=== PATIENT | male | born 1940 | race Caucasian/White ===

== ENCOUNTER → 2017-05-27 16:01 | Outpatient (CLI) | payer MEDICARE, SELFPAY | PROVIDERS: Visit Provider Otolaryngology | DX: J01.90 Acute sinusitis, unspecified (principal) | CPT/HCPCS: 87070; 87205 ==

== ENCOUNTER 2017-05-30 18:58 | Inpatient (IN) | payer MEDICARE, OTHER, SELFPAY ==
[2017-05-30] VITALS (7 sets, daily range): BP systolic 134–157; BP diastolic 68–83; PULSE 67–96; RESP 16–24; TEMP 36.7–36.8; O2SAT 95–100; BMI 22.7
--- NOTE | 2017-05-30 19:25 | EKG12_ITS ---
Test Reason : NEURO Blood Pressure : / mmHG Vent. Rate : 070 BPM Atrial Rate : 070 BPM P-R Int : 120 ms QRS Dur : 090 ms QT Int : 394 ms P-R-T Axes : 021 017 056 degrees QTc Int : 425 ms Normal sinus rhythm Normal ECG Confirmed by SHERICE ARCOS, JOSE JUAN ([id number]), non linear editor JAMSHID IQBAL ([id number]) on 06/01/2017 3:58:50 PM Referred By: Francisco Townsend Confirmed By:JOSE JUAN SMILEY MD
--- NOTE | 2017-05-30 19:25 | CT_ITS ---
STUDY: CT BRAIN WITHOUT CONTRAST REASON FOR EXAM: Male, 77 years old. Headache, numbness left hand RADIATION DOSAGE (If Supplied By Facility): CTDIvol = ( 44.99 ) mGy, DLP = ( 863.60 ) mGycm TECHNIQUE: Transaxial CT imaging of the brain was performed without administration of intravenous contrast material. Sagittal and coronal images reformatted. Individualized dose optimization techniques were used for this CT. COMPARISON: None. FINDINGS: Normal soft tissue structures. Normal calvarium. There is mild cerebral atrophy with widening of the extra-axial spaces and ventricular dilatation. There are areas of decreased attenuation within the white matter tracts of the supratentorial brain, consistent with microvascular disease changes. Normal basal ganglia and thalami. Normal brainstem. Normal cerebellum. There is no intracranial hemorrhage. There are no findings of an acute ischemic infarction. There is mucoperiosteal inflammatory disease of the paranasal sinuses consistent with mild chronic sinusitis. CT/Brain/Head without Contrast IMPRESSION: Chronic involutional changes of the brain. No acute intracranial process. Mild sinusitis. Electronically Signed: Lambert Franco DO at 20:22 EDT , Service support ,
--- NOTE | 2017-05-30 19:45 | RAD_ITS ---
STUDY: X-RAY CHEST REASON FOR EXAM: Male, 77 years old. Headache TECHNIQUE: Single AP portable view of the chest. COMPARISON: None. FINDINGS: The lungs are clear and hyper expanded. There is no demonstrated pleural abnormality. Normal size heart. Normal mediastinum and santos. Normal visualized pulmonary arteries. Normal visualized aortic arch and descending thoracic aorta. Normal visualized thoracic spine. Normal visualized ribs, clavicles, and shoulders. There is no demonstrated abnormality of the visualized soft tissue structures of the upper abdomen. RAD/Chest 1 View IMPRESSION: Hyperinflation. No infiltrate. Electronically Signed: Lambert Franco DO at 20:12 EDT , Service support ,
[2017-05-30 19:59] LABS: Absolute Lymphocyte Count 2.09 X10^3/ul (0.83-4.51); Absolute Neutrophil Count 4.6 X10^3/uL (2.0-7.7); Basophil# 0.02 X10^3/uL; Basophil% 0.3 % (0-1); Eosinophil# 0.43 X10^3/uL; Eosinophils% 5.7 % (0-5); Hematocrit 41.7 % (40-54); Hemoglobin 13.9 g/dl (13.0-16.5); Lymphocyte # 2.09 X10^3/ul (4.0); Lymphocyte % 27.7 % (19-41); Mean Corp Hgb Conc 33.3 g/gl (32-36); Mean Corpuscular Hgb 31.2 pg (27.0-32.0); Mean Corpuscular Volume 93.5 fL (80-94); Mean Platelet Vol. 10.8 fl (6.2-12.0); Monocyte# 0.38 X10^3/uL; Neutrophil # 4.62 X10^3/uL (2.7-7.7); Neutrophil % 61.3 % (47-70); Platelet Count 192 K/mm3 (150-450); RBC Distribution Width CV 12.5 % (11.6-14.6); RBC Distribution Width SD 42.4 fl (35.1-43.9); Red Blood Count 4.46 M/mm3 (4.6-6.2); White Blood Count 7.5 K/mm3 (4.4-11.0)
[2017-05-30 20:02] LABS: International Normalized Ratio 1.1; Prothrombin Time (Protime)PT. 13.7 SECONDS (11.7-14.9)
[2017-05-30 20:03] LABS: Partial Thromboplast Time 30.9 Seconds (24.1-36.2)
[2017-05-30 20:10] LABS: Anion Gap 8 (5-15); BUN 19 mg/dL (7-18); BUN/Creat Ratio 13.8 RATIO (10-20); Calcium,Total 9.3 mg/dL (8.5-10.1); Chloride 105 mmol/L (98-107); Creatinine, Serum 1.38 mg/dL (0.70-1.30); EST Glomerular Filtration Rate 53 mL/min (>60); Est Glom Filt Rate - Afr Amer 64 mL/min (>60); Estimated Creatinine Clearance 49.52 ml/min; Glucose 99 mg/dL (74-106); Potassium 4.1 mmol/L (3.5-5.1); Sodium Level 137 mmol/L (136-145)
[2017-05-30 20:20] LABS: POSITIVE COUNT NO; POSITIVE DIFFERENTIAL NO; POSITIVE MORPHOLOGY NO
--- NOTE | 2017-05-30 20:45 | ED.DCSUM_ITS ---
- ER Visit Summary Date of Service: 05/30/17 Chief Complaint: Headache History of Present Illness: The patient is a 77 M who presents with a headache. He does have a history of migraines. His headache began yesterday evening and gradually worsened over several hours. He can planes of right frontal and parietal aching pain similar to prior headaches. He complains of photophobia which she is also had with previous migraines. He reports visual disturbance with what he describes as scintillations which he is also had with previous migraines. However today he had some left hand numbness which lasted about 5 minutes. He has not usually had this with his migraines. He also notes that he has been having the visual disturbances without the presence of a headache which concerned him. Although many of his symptoms sound similar to previous migraines the notes that he also has a history of ischemic stroke and has had some similar symptoms with a prior stroke as well. Physical Examination: Afebrile vitals are stable Moist mucous membranes Heart regular rate and rhythm Lungs are clear Abdomen soft NIH stroke scale is 0 next line no focal or lateralizing neurological deficits Test Results: CT of head shows chronic changes. Chest x-ray shows no infiltrate. EKG shows sinus rhythm at a rate of 70. Laboratory studies notable for creatinine 1.38 otherwise normal. Emergency Department Course and Treatment: Workup is unremarkable. However the family and patient do reports prior similar symptoms with a stroke as well. Although my clinical suspicion is that this is related to complex migraine I did feel he should have stroke ruled out with an MRI. Toradol and Reglan have been ordered for his headache and he was discussed with the hospitalist will be admitted. Treatment Plan: [] Disposition: Admit Impression: Migraine Left hand paresthesias This note was generated with [employer] dictation software. It may contain incorrect words, spelling, and punctuation that were not noted in review of the chart prior to signing ED Disposition - Plan for ED Patient: Chief Complaint: Neuro S/Sx Referrals: Jeremi Monk MD [Primary Care Provider] -
[2017-05-30] MEDS: 0.9% Normal Saline 1,000 ML 999 ML IV (20:52)
[2017-05-30] MEDS: Ketorolac 30 MG/ML Syringe 15 MG IV (20:52)
--- NOTE | 2017-05-30 21:18 | PCM.HP.STD ---
Problem List (1) Migraine Status: Acute Qualifiers: Migraine type: unspecified Status migrainosus presence: with status migrainosus Intractability: intractable Qualified Code(s): G43.911 - Migraine, unspecified, intractable, with status migrainosus (2) History of stroke Status: Chronic History of Present Illness Date of Admission: 05/30/17 Chief Complaint: headache The patient is a 77 year old male patient with a significant past medical history of migraine disorder presents to the ER with the second day of an intractable headache. Since his migraine activity has increased significantly having 10-15 migraines per month. This one is worse and he had a loss of feeling in his left hand first three digits when he arrived that has subsequently subsided. CT head is normal. When the light was turned back on his aura returned and headache resumed after receiving Toradol and Phenergan in the ER. He will be admitted for further headache management and an MRI in the AM Past Medical History Past Medical History (Chronic Problems): Chronic Problems History of stroke (Chronic) Allergies No Known Allergies Allergy (Verified 05/30/17 19:01) Home Medications: Ambulatory Orders Medication Instructions Recorded Albuterol Aerosols [Ventolin 2.5 mg INHALATION Q2H PRN PRN 07/24/13 Aerosols] Clopidogrel Bisulfate [Plavix] 75 mg PO DAILY 07/24/13 Ergocalciferol [Vitamin D] 50,000 unit PO Q7D 07/24/13 Fluticasone 0.05% [Flonase Nasal 1 spray NASAL DAILY 07/24/13 [place]] Guar Gum [Benefiber] 1 each PO DAILY 07/24/13 Lansoprazole [Prevacid] 30 mg PO DAILY 07/24/13 Lisinopril [Zestril] 10 mg PO DAILY 07/24/13 Loratadine [Claritin] 10 mg PO DAILY 07/24/13 Simvastatin [Zocor] 20 mg PO QHS 07/24/13 Topiramate [Topamax] 25 mg PO BID 07/24/13 Smoking Status: Never smoker - *Family History Maternal History Items: No pertinent history Review of Systems Constitutional: Denies: Chills, Fever, Weight Change HEENT: Denies: Head Aches, Sinus Congestion, Sinus Drainage Cardiovascular: Denies: Chest Pain, Palpitations Respiratory: Denies: Cough, Shortness of breath at rest, Sputum production Gastrointestinal: Denies: Abdominal Pain, Nausea, Vomiting Genitourinary: Denies: Dysuria Musculoskeletal: Denies: Joint Pain, Joint Tenderness Skin: Denies: Rash, Wounds Neurological: Reports: Blurred vision, Headaches, Numbness, Tingling. Denies: Focal weakness Psychiatric: Denies: Anxiety, Depression, Homicidal Ideations, Suicidal Ideations Hematologic/ Lymphatic: Denies: Easy Bruising, Easy Bleeding VTE Information - Inpt Only VTE Present on Admission: No VTE Mechan Device Prophylaxis: None VTE Pharm Prophylaxis ordered?: Yes Patient Problems: Active and Suspected Problems Migraine (Acute) - Physical Exam General: Alert, Oriented x3, Cooperative HEENT: Atraumatic, PERRLA, EOMI, Normocephalic Neck: Supple Lungs: Clear to auscultation, Normal air movement Cardiovascular: Regular rate, No murmurs Abdomen: Bowel Sounds Present, Soft, Non Tender Extremities: No edema, Capillary Refill Less than 3 Seconds Skin: No rashes, No breakdown Musculoskeletal: No Tenderness to Palpation of Joints or Extremities, - - neg phalen and neg tinel on left upper extremity Neurological: Cranial nerves II-XII grossly intact Psych/Mental Status: Normal Affect, Appropriate Vital Signs Temp Pulse Resp BP Pulse Ox 98.2 F 68 24 H 149/78 H 96 05/30/17 18:59 05/30/17 20:53 05/30/17 20:53 05/30/17 20:53 05/30/17 20:53 Oxygen Delivery Method Room Air Weight: 172 lb 2.896 oz Body Mass Index (BMI) 22.7 Finger Stick Blood Glucose 104 Laboratory Tests Past 24 Hrs 05/30/17 05/30/17 05/30/17 19:10 19:10 19:10 WBC 7.5 RBC 4.46 L Hgb 13.9 Hct 41.7 MCV 93.5 MCH 31.2 MCHC 33.3 RDW 12.5 RDW Differential 42.4 Plt Count 192 MPV 10.8 Immature Gran % (Auto) 0.000 Neut % (Auto) 61.3 Lymph % (Auto) 27.7 Bertie % (Auto) 5.0 Eos % (Auto) 5.7 H Baso % (Auto) 0.3 Absolute Neuts (auto) 4.6 Absolute Lymphs (auto) 2.09 Total Counted Not Reportable PT 13.7 INR 1.1 APTT 30.9 Sodium 137 Potassium 4.1 Chloride 105 Carbon Dioxide 24.0 Anion Gap 8 BUN 19 H Creatinine 1.38 H Estim Creat Clear Calc 49.52 Est GFR (MDRD) Af Amer 64 Est GFR (MDRD) Non-Af 53 L BUN/Creatinine Ratio 13.8 Glucose 99 Calcium 9.3 Troponin I < 0.02 Assessment/Plan Active and Suspected Problems Migraine (Acute) Chronic condition - history of stroke - GERD - Hypertension - Hyperlipidemia Plan - admit to PCU for observation - neurochecks per routine - MRI in the am - torodol IV and phenergan prn - diet as tolerated - LMWH for DVT prophylaxis - if headache persists in am consider neurology consult Code Visit OBSV E&M: 55891 Initial observation care L2
--- NOTE | 2017-05-30 23:16 | NURSING ---
has discs from scans patient has had previously.
[2017-05-30] MEDS: Topiramate 25 MG Tablet PO (23:52)
[2017-05-30] MEDS: Ketorolac 30 MG/ML Syringe IV (23:52)
[2017-05-30] MEDS: Atorvastatin Calcium 10 MG Tablet PO (23:52)
[2017-05-30] MEDS: 0.9% NaCl Peripheral Flush Adult/Peds IV (23:56)
[2017-05-31] VITALS (13 sets, daily range): BP systolic 108–136; BP diastolic 48–61; PULSE 55–76; RESP 14–20; TEMP 36.1–37; O2SAT 95–99; BMI 22.7
--- NOTE | 2017-05-31 06:41 | MRI_ITS ---
STUDY: MRI BRAIN WITHOUT CONTRAST REASON FOR EXAM: Male, 77 years old. Headache, left hand numbness, visual disturbances, photophobia TECHNIQUE: Standardized multiplanar fat and water weighted pulse sequences were obtained. COMPARISON: MRI 07/24/2013, CT 05/30/2017 FINDINGS: Normal size of the ventricles and extra-axial spaces for the patient's age. A punctate 2 to 3 mm focus of restricted diffusion is suspected in the midportion of the right thalamus as seen on diffusion and ADC map images #18. This corresponds to a tiny focal area of T2 hyperintensity. This finding was not present on previous MRI. Overall, a small acute or subacute infarct is suggested. There has been interval progression of right occipital encephalomalacia when compared to prior MRI. Minimal microangiopathic white matter disease. Normal bilateral basal ganglia. There is There is no extra-axial fluid accumulation. Normal flow voids within the major intracranial circulation suggesting patency by spin echo criteria. Normal sella turcica, pituitary gland, infundibular stalk, optic chiasm and hypothalamus. Normal tectal plate and pineal gland. Normal midbrain, shala and medulla. Normal cerebellum. Normal basal cisterns. Normal bilateral temporal bones. Normal bilateral internal auditory canals. No demonstrated orbital abnormality, within the constraints of a routine brain study. Bilateral ethmoid and maxillary sinus disease. Normal calvarium and skull base. Normal visualized soft tissue structures. Normal visualized upper cervical spine. MRI/Brain without Contrast IMPRESSION: A small punctate acute or subacute infarct is suspected in the midportion of the right thalamus. Interval progression of right occipital encephalomalacia. Minimal white matter disease. Electronically Signed: Louie Morley MD at 8:34 EDT Tel , Service support ,
[2017-05-31 06:57] LABS: Anion Gap 7 (5-15); BUN 19 mg/dL (7-18); Calcium,Total 8.6 mg/dL (8.5-10.1); Chloride 107 mmol/L (98-107); Cholesterol 108 mg/dL (200); Creatinine, Serum 1.46 mg/dL (0.70-1.30); EST Glomerular Filtration Rate 50 mL/min (>60); Est Glom Filt Rate - Afr Amer 60 mL/min (>60); Estimated Creatinine Clearance 46.81 ml/min; Glucose 78 mg/dL (74-106); High Density Lipoprotein 43 mg/dL; Potassium 4.1 mmol/L (3.5-5.1); Sodium Level 138 mmol/L (136-145); Triglycerides 85 mg/dL; Very Low Density Lipoprotein 17 mg/dL (5-40)
[2017-05-31] MEDS: Pantoprazole Sodium 40 MG Tablet PO (08:26)
[2017-05-31] MEDS: Enoxaparin 40 MG/0.4 ML Syringe SC (10:18)
[2017-05-31] MEDS: Psyllium 1 PACKET PO (10:18)
[2017-05-31] MEDS: Clopidogrel Bisulfate 75 MG Tablet PO (10:18)
[2017-05-31] MEDS: Lisinopril 10 MG Tablet PO (10:19)
[2017-05-31] MEDS: Topiramate 25 MG Tablet PO ×2 (10:19→21:49)
[2017-05-31] MEDS: Fluticasone 0.05% 1 SPRAY NASAL.SRY NASAL (10:20)
[2017-05-31] MEDS: Ketorolac 30 MG/ML Syringe IV (12:33)
--- NOTE | 2017-05-31 16:01 | CON.PCM_ITS ---
Problem List (1) Stroke Status: Acute Qualifiers: Precerebral and cerebral artery: posterior cerebral artery Laterality of affected vessel: unspecified (2) Migraine Status: Acute Qualifiers: Migraine type: unspecified Status migrainosus presence: without status migrainosus Intractability: not intractable Qualified Code(s): G43.909 - Migraine, unspecified, not intractable, without status migrainosus Reason for Consult Date of Consultation: 05/31/17 Reason for Consultation: stroke History of Present Illness: The patient is a 77 year old CM with PMH Stroke and migraine was admitted with severe LAMB, found to have new small right thalamic stroke. Per patient he had migraine LAMB for which he was on Topamax in the past but did not have HAs for the past few years, was off of Topamax, but then in 2016 had about 3 migraine HAs, started on Topamax 25 mg PO BID on 2016, since then did not have major migraine HAs but had about 20 auras in form of visual floaters and bright light in front of eyes, but then on Tuesday05/29/17 had severe LAMB, frontal, right sided, with visual floaters, photophobia, phonophobia, and also had left hand numbness, per patient and his , he would not get any numbness with his LAMB, per patient the left hand numbness lasted only few minutes, then again when he came to ED had another episode of left hand numbness which lasted only 5 minutes. At present he denies any LAMB, visual disturbances, speech disturbances, focal motor weakness or sensory loss. He denies any vision loss, temporal tenderness or jaw claudication. [] Past Medical History Past Medical History (Chronic Problems): Chronic Problems History of stroke (Chronic) Allergies seasonal Allergy (Mild, Uncoded 05/30/17 22:56) Other Pt gets runny nose, sneezing, headache. Home Medications: Ambulatory Orders Medication Instructions Recorded Albuterol Aerosols [Ventolin 2.5 mg INHALATION Q2H PRN PRN 07/24/13 Aerosols] Clopidogrel Bisulfate [Plavix] 75 mg PO DAILY 07/24/13 Guar Gum [Benefiber] 1 each PO DAILY 07/24/13 Lansoprazole [Prevacid] 30 mg PO DAILY 07/24/13 Lisinopril [Zestril] 10 mg PO DAILY 07/24/13 Simvastatin [Zocor] 20 mg PO QHS 07/24/13 Topiramate [Topamax] 25 mg PO BID 07/24/13 Calcium Carbonate [Tums] 750 mg PO QHS 05/30/17 Cefdinir 300 mg PO BID 05/30/17 Cyanocobalamin (Vitamin B-12) 1,000 mcg PO DAILY 05/30/17 [Vitamin B-12] Ergocalciferol [Vitamin D] 2,000 unit PO DAILY 05/30/17 Mometasone Furoate [Nasonex] 2 spray NASAL DAILY 05/30/17 Lives: Spouse/ Significant Other Smoking Status: Never smoker Alcohol: None Drugs: None - *Family History Maternal History Items: No pertinent history Review of Systems Constitutional: Reports: - - complete ROS negative except as documented in HPI Patient Problems: Active and Suspected Problems Migraine (Acute) Stroke (Acute) - Physical Exam General: Alert, Oriented x3, Cooperative HEENT: Atraumatic, PERRLA, EOMI, Normocephalic Neck: Supple, No JVD, Negative Carotid Bruits Lungs: Clear to auscultation, Normal air movement Cardiovascular: Regular rate, No murmurs Abdomen: Bowel Sounds Present, Soft, Non Tender Extremities: No edema, Capillary Refill Less than 3 Seconds Skin: No rashes, No breakdown Musculoskeletal: No Tenderness to Palpation of Joints or Extremities Neurological: - - consious, alert, AoA x3, CN 2-12 grossly intact, power 5/5 all 4 extremities, no sensory loss, no cerebellar signs, Reflexes + B/L B/S/T/K/ A, gait deferred, NIHSS 0 at present. Psych/Mental Status: Normal Affect, Appropriate Vital Signs Temp Pulse Resp BP Pulse Ox 97.9 F 66 16 108/57 L 98 05/31/17 13:44 05/31/17 14:54 05/31/17 13:44 05/31/17 13:44 05/31/17 13:44 Assessment/Plan Active and Suspected Problems Migraine (Acute) Stroke (Acute) The patient is a 77 year old CM with PMH Stroke and migraine was admitted with severe LAMB, found to have new small right thalamic stroke. Per patient he had migraine LAMB for which he was on Topamax in the past but did not have HAs for the past few years, was off of Topamax, but then in 2017 had about 3 migraine HAs, started on Topamax 25 mg PO BID on 2016, since then did not have major migraine HAs but had about 20 auras in form of visual floaters and bright light in front of eyes, but then on Tuesday05/29/17 had severe LAMB, frontal, right sided, with visual floaters, photophobia, phonophobia, and also had left hand numbness, per patient and his , he would not get any numbness with his LAMB, per patient the left hand numbness lasted only few minutes, then again when he came to ED had another episode of left hand numbness which lasted only 5 minutes. At present he denies any LAMB, visual disturbances, speech disturbances, focal motor weakness or sensory loss. He denies any vision loss, temporal tenderness or jaw claudication. On Plavix at home. Impression Acute/subacute small right thalamic stroke Migraine with aura, not intractable, not in status Plan -Recommend starting ASA 81 mg PO once daily. ON Plavix 75 mg PO once daily. Recommend dual AP for 3 weeks, then switch to single AP. -Recommend Lipitor 40 mg PO q hs -MRI brain images reviewed -Recommend MRA head/neck -Recommend TTE/Hba1c -Recommend ESR -LDL-48 -PT/OT -GI/DVT prophylaxis -On Topamax 25 mg PO BID for migraine LAMB -Follow up with Neurology as outpatient in 2-3 weeks -Please call with questions if any -Thank you for allowing us to participate in patient's care and management I spent 60 minutes taking history, doing physical examination, reviewing medical records, coordinating care and counseling the patient. Code Visit Inpatient E&M: 35918 Init Hosp L3
--- NOTE | 2017-05-31 16:09 | ECHOD_ITS ---
Reason For Study: STROKE Procedure This was a 2D Doppler, Color Flow transthoracic echocardiogram. Technically difficult parasternal windows . Exam performed portable in patient room. Left Ventricle Normal size and thickness. The estimated ejection fraction is 60 %. Stage 1 diastolic dysfunction. No regional wall motion abnormalities noted. Right Ventricle Normal size and thickness. Normal systolic function. Atria Normal left atrium. Normal right atrium. Probable patent foramen ovale. Saline contrast study demonstrates trivial right to left interatrial shunt. Mitral Valve The mitral valve is structurally normal. No prolapse or stenosis seen. Tricuspid Valve Normal tricuspid valve. Trivial tricuspid valve insufficiency. Right ventricular systolic pressure estimated to be 23 mmHg. Aortic Valve Normal aortic valve. Trisinus/trileaflet aortic valve. Pulmonic Valve Normal pulmonic valve. Great Vessels Normal aortic root. Normal arch. Normal inferior vena cava. Inferior vena cava collapse with sniff. Medication Performed a rapid injection of agitated mix of 9 cc saline and 1cc air to assess for atrial septal defect. MMode/2D Measurements & Calculations LVIDd: 4.2 cm IVSd: 0.93 cm Ao root diam: 3.9 cm LVIDs: 2.9 cm LVPWd: 1.1 cm LA dimension: 3.8 cm RVDd: 3.4 cm FS: 31.1 % LAV(MOD-bp): 41.7 ml EDV(MOD-sp4): 103.6 ml EDV(MOD-sp2): 78.8 ml LAV(MOD-bp) Indexed: 20.6 ml/m2 ESV(MOD-sp4): 28.8 ml EF(MOD-sp2): 67.2 % LAV(MOD-sp2): 50.7 ml EF(MOD-sp4): 72.2 % LAV(MOD-sp4): 34.9 ml SV(MOD-sp4): 74.8 ml SV(MOD-sp2): 52.9 ml LA A4 area: 14.8 cm2 RA A4 area: 12.5 cm2 Doppler Measurements & Calculations MV E max cecilio: 83.2 cm/sec Ao V2 max: 123.4 cm/sec LV V1 max: 124.4 cm/sec MV A max cecilio: 100.0 cm/sec Ao max P.1 mmHg LV V1 max P.2 mmHg MV E/A: 0.83 PA V2 max: 101.9 cm/sec TR max cecilio: 212.6 cm/sec TR max P.1 mmHg Interpretation Summary The estimated ejection fraction is 60 %. Stage 1 diastolic dysfunction. Saline contrast study demonstrates trivial right to left interatrial shunt. Right ventricular systolic pressure estimated to be 23 mmHg. The study was technically difficult. There is no comparison study available. Ordering Physician: Gabriel Trimble Referring Physician: Francisco Townsend Performed By: Cynthia Newsome RDCS, RVT
--- NOTE | 2017-05-31 16:10 | MRI_ITS ---
STUDY: MRA OF THE HEAD WITHOUT CONTRAST REASON FOR EXAM: Male, 77 years old. Stroke, headache. TECHNIQUE: 3-D [id number] (TOF) imaging was performed with MIPs. The study was performed unenhanced. COMPARISON: None. FINDINGS: Normal bilateral petrous carotid arteries. Normal right cavernous carotid artery with a normal supraclinoid bifurcation. Normal left cavernous carotid artery with a normal supraclinoid bifurcation. Normal right A1 segments of the anterior cerebral artery. Normal left A1 segments of the anterior cerebral artery. Normal intact anterior communicating artery (ACOM). Normal bilateral A2 segments of the anterior cerebral arteries. Normal right M1 and M2 segments of the middle cerebral arteries, with a normal M1 bifurcation. Normal left M1 and M2 segments of the middle cerebral arteries, with a normal M1 bifurcation. Normal right posterior communicating artery (PCOM). Normal left posterior communicating artery (PCOM). Diminutive visualized left vertebral V4 segment is present. Normal basilar artery with a normal basilar bifurcation. The visualized bilateral superior cerebellar (SCA) arteries are normal. Normal bilateral P1, P2 and visualized P3 segments of the posterior cerebral arteries. There is no demonstrated aneurysm of the [place]. There is no major vessel occlusion or hemodynamically significant stenosis. There is no demonstrated abnormality of the visualized brain. MRI/MRA Head ONLY without Contrast IMPRESSION: 1. No evidence of significant steno-occlusive disease or aneurysm. 2. Diminutive left V4 vertebral artery segment. Electronically Signed: Matias Luevano DO at 22:44 EDT , Service support ,
--- NOTE | 2017-05-31 16:10 | MRI_ITS ---
STUDY: MRA NECK WITH AND WITHOUT CONTRAST REASON FOR EXAM: Male, 77 years old. Stroke. H/A, visual disturbances, Left hand numbness, photophobia. TECHNIQUE: 3-D [id number] (TOF) imaging was performed in an 1.5 T MRI scanner. 8 ml of Gadavist was administered for the contrast enhanced images. COMPARISON: None. FINDINGS: RIGHT CAROTID ARTERIES: Normal right common carotid artery (CCA). Normal right common carotid bulb. There is severe narrowing greater than 70% of the proximal to mid right ICA with noted reconstitution of flow distally. Normal visualized cervical portion of the right internal carotid artery. Normal origin of the right external carotid artery (ECA). LEFT CAROTID ARTERIES: Normal left common carotid artery (CCA). Normal left common carotid bulb. There is focal narrowing of the proximal left ICA with narrowed portion measuring 5 mm and more superior portion measuring 8 mm consistent with approximately 60-70% focal stenosis as seen on series 304 image 7. Normal visualized cervical portion of the left internal carotid artery. Normal origin of the left external carotid artery (ECA). VERTEBRAL ARTERIES: There is antegrade flow within the bilateral vertebral arteries with a small left vertebral artery, and a dominant right vertebral artery. MRI/MRA Neck WITH and W/O Contrast IMPRESSION: 1. Proximal right ICA severe greater than 70% stenosis with reconstitution of flow distally. Recommend further characterization with CTA and interventional consultation as warranted. 2. Focal stenosis of the left proximal ICA proximal 60-70%. Electronically Signed: Matias Luevano DO at 22:29 EDT , Service support ,
[2017-05-31 16:54] LABS: Erythrocyte Sedimentation Rate 7 mm/hr (0-20)
[2017-05-31 17:31] LABS: Hemoglobin A1c 5.6 % (4.2-6.3)
--- NOTE | 2017-05-31 21:15 | PN_ITS ---
Patient Problems: Active and Suspected Problems Migraine (Acute) Stroke (Acute) Subjective: Patient is a 77-year-old man with a history of ischemic CVA, migraines, allergic rhinitis, GERD, HTN and dyslipidemia who presented to the Ed at [facility] on 05/30/17 c/o severe LAMB and numbness in the left hand. CTB showed no acute findings. Remarkable lab included an elevated BUN at 19 with a creatinine of 1.38. Troponin was less than 0.02. He was admitted to a monitored bed on PCU neuro checks were ordered. An MRI was ordered for the a.m. and showed a small punctate acute or subacute infarct in the midportion of the right thalamus. There has been interval progression of the right occipital encephalomalacia from prior CVA. MRA of the head and neck has been done but there is no report yet. And has been seen in consultation by Dr. Trimble for migraines and possible acute/subacute ischemic CVA in the right thalamus. Dr. Trimble recommended starting aspirin 81 mg p.o. daily in addition to Plavix he already takes, Lipitor 40 mg Q HS, ESR, TTE. He also recommended continuing the Topamax 25 mg BID for now. He denies LAMB today and the numbness in the left hand has completely resolved. He has never had a seizure. He was recently started on Cefidinir by Dr. Townsend for a sinus infection. He has had migraines for many many years. The migraines are preceded by an aura. - Physical Exam General: Alert, Oriented x3, Cooperative, No apparent distress, Well developed, Well nourished HEENT: Atraumatic, PERRLA, EOMI, Normocephalic Oral: Dry Mucosa Neck: Supple, No JVD, Negative Carotid Bruits, No Nodes, No Nuchal Rigidity, Trachea Midline Lungs: Clear to auscultation, No rhonchi, No wheeze, No rales Cardiovascular: Regular rate, Regular Rhythm, Normal S1, Normal S2, No murmurs, No rub noted, No Gallop, - - heart sounds are somewhat distant Abdomen: Bowel Sounds Present, Soft, Non Tender, Non-Distended Extremities: No clubbing, No cyanosis, No edema Skin: No rashes, No breakdown Musculoskeletal: No Muscle Wasting, Arthritic Changes Neurological: Cranial nerves II-XII grossly intact, Neuro grossly intact, Motor Exam 5/5 strength throughout, - - negative Romberg, no sensory deficits at present. NIH is 0 Psych/Mental Status: Normal Affect, Appropriate Vital Signs Temp Pulse Resp BP Pulse Ox 98.6 F 76 16 119/57 L 99 05/31/17 17:43 05/31/17 18:49 05/31/17 17:43 05/31/17 17:43 05/31/17 17:43 Oxygen Delivery Method Room Air Weight: 172 lb 2.896 oz Body Mass Index (BMI) 22.7 Intake and Output for Last 24 Hours 05/29/17 05/30/17 05/31/17 23:59 23:59 23:59 Intake Total 75 / 75 710 / 710 Balance 75 / 75 710 / 710 Laboratory Tests Past 24 Hrs 05/31/17 05/31/17 05/31/17 05:55 05:55 05:55 ESR 7 Sodium 138 Potassium 4.1 Chloride 107 Carbon Dioxide 24.0 Anion Gap 7 BUN 19 H Creatinine 1.46 H Estim Creat Clear Calc 46.81 Est GFR (MDRD) Af Amer 60 Est GFR (MDRD) Non-Af 50 L BUN/Creatinine Ratio 13.0 Glucose 78 Hemoglobin A1c 5.6 Calcium 8.6 Triglycerides 85 Cholesterol 108 LDL Cholesterol 48 VLDL Cholesterol 17 HDL Cholesterol 43 Assessment/Plan Active and Suspected Problems Migraine (Acute) Stroke (Acute) Impressions 1. acute/subacute R thalamic CVA 2. 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 Migraine cephalgia 4. sinusitis being treated by Dr. Townsend with Cefdinir 5. GERD 6. Allergic rhinitis 7. Dyslipidemia 8. Hypertension 9. COPD? or asthma? he is on albuterol PRN Continue the Cefdinir Await the report of the MRA of the head and the Neck......no significant arterial stenosis on an MRA of the head and neck at [facility] in 2013 Dual antiplatelet therapy TTE Continue to monitor on telemetry Will follow up with Dr. Trimble after DC. If the ECHO shows any LAE may need a event monitor to exclude PAF as etiology of the CVA Code Visit Inpatient E&M: 66545 Subs Hosp L3
[2017-05-31] MEDS: Atorvastatin Calcium 40 MG Tablet PO (21:48)
[2017-05-31] MEDS: 0.9% NaCl Peripheral Flush Adult/Peds IV (21:56)
--- NOTE | 2017-05-31 23:20 | EKG12_ITS ---
Test Reason : RHYTHM CHANGE Blood Pressure : / mmHG Vent. Rate : 068 BPM Atrial Rate : 068 BPM P-R Int : 176 ms QRS Dur : 092 ms QT Int : 378 ms P-R-T Axes : 061 034 062 degrees QTc Int : 401 ms Normal sinus rhythm Low voltage QRS Borderline ECG When compared with ECG of 24-JUL-2013 13:04, No significant change was found Confirmed by SHERICE ARCOS, JOSE JUAN ([id number]), newspaper or periodical editor JAMSHID IQBAL ([id number]) on 06/03/2017 1:38:43 PM Referred By: Francisco Townsend Confirmed By:JOSE JUAN SMILEY MD
[2017-06-01] VITALS (38 sets, daily range): BP systolic 85–148; BP diastolic 44–74; PULSE 61–114; RESP 14–24; TEMP 36.3–37.1; O2SAT 95–100; BMI 22.7
[2017-06-01 01:13] LABS: Magnesium 2.1 mg/dL (1.6-2.6)
[2017-06-01] MEDS: 0.9% NaCl Peripheral Flush Adult/Peds IV ×2 (07:07→07:32)
[2017-06-01] MEDS: Metoclopramide 10 MG/2 ML Vial 5 MG IV (07:33)
--- NOTE | 2017-06-01 07:56 | NURSING ---
Pt's family very concerned, patient seeing flashing light from left eye, was having some dizziness after BM. At that time, NIH was still a 0; Dr. Akhtar called for orders concerning 10/28 headache/migraine. Dr. Akhtar felt he was having an aura and that this was the start of a migraine. Orders were placed, pain medication given per MAR. Patient and patient's family member were updated. Patient's then came to get primary nurse shortly after RN leaving room, concerned as pain was getting worse and she felt the patient's eyes were deviating to the left as they did when he first had his stroke. Primary RN went to room to see and talk with patient and . Dayshift RN came in, this primary RN explained everything that was going on, an NIH was completed together at that time. Changes noted, talked with nightshift and dayshift charge nurse to bring them up to speed. Patient was positive for a stroke this admission, explained to family and patient that we are monitoring him and that Dr. Akhtar and charge nurse are aware of what is going on. Education provided on waxing and waning with a stroke, and how we will continue care. Gave ordered medications per Dr. Akhtar, Dayshift RN to update Dr. Akhtar and family throughout day.
--- NOTE | 2017-06-01 09:23 | CASEMGMT ---
STACIA CM ASSESSMENT COMPLETE. LACE Strata 1. Adm Dx: Intractable Migraine vs Stroke Transition Planning/Care Coordination: Per EMR and interview with patient and patient's spouse, Fallon, patient has a history of migraines and stroke. Patient has followed with neurology and cardiovascular surgery at [facility] ([facility]). The patient has been seen by neurology here at [facility] during this hospitalization with recommendations to follow-up in 2-3 weeks, and for medication adjustments. MRA revealed >70% stenosis in the right ICA, with recommendation for further characterization with CTA and interventional consultation as warranted. The patient may need assistance with scheduling follow-up. The patient is normally independent, drives, and lives with spouse. Final transition and care coordination needs to be determined by hospital clinical course. RN CM will continue to follow for transition and care coordination needs. Disposition Plan: Home with support of spouse and with follow-up plans in place. ADINA Logan, RN-BC, CCM
[2017-06-01] MEDS: Aspirin 81 MG TAB.CHEW PO (09:33)
[2017-06-01] MEDS: Enoxaparin 40 MG/0.4 ML Syringe SC (09:37)
[2017-06-01] MEDS: Pantoprazole Sodium 40 MG Tablet PO (09:41)
[2017-06-01] MEDS: Clopidogrel Bisulfate 75 MG Tablet PO (09:41)
[2017-06-01] MEDS: Lisinopril 10 MG Tablet PO (09:41)
[2017-06-01] MEDS: Topiramate 25 MG Tablet PO ×2 (09:41→10:54)
[2017-06-01] MEDS: Cefdinir 300 MG Capsule PO (10:54)
--- NOTE | 2017-06-01 12:05 | EKG12_ITS ---
Test Reason : CP Blood Pressure : / mmHG Vent. Rate : 073 BPM Atrial Rate : 073 BPM P-R Int : 166 ms QRS Dur : 088 ms QT Int : 378 ms P-R-T Axes : 041 001 048 degrees QTc Int : 416 ms Normal sinus rhythm Normal ECG When compared with ECG of 31-MAY-2017 23:26, MANUAL COMPARISON REQUIRED, DATA IS UNCONFIRMED Confirmed by EFFIE YORK ([id number]), book editor JAMSHID IQBAL ([id number]) on 06/06/2017 2:44:26 PM Referred By: Francisco Townsend Confirmed By:EFFIE YORK
--- NOTE | 2017-06-01 12:17 | CT_ITS ---
STUDY: CT BRAIN WITHOUT CONTRAST REASON FOR EXAM: Male, 77 years old. Follow-up for right thalamic CVA. RADIATION DOSAGE (If Supplied By Facility): CTDIvol = ( 44.99 ) mGy, DLP = ( 846.73 ) mGycm TECHNIQUE: Transaxial CT imaging of the brain was performed without administration of intravenous contrast material. Individualized dose optimization techniques were used for this CT. COMPARISON: Comparison is made with prior study May 30, 2017. FINDINGS: Normal soft tissue structures. Normal calvarium. There is mild cerebral atrophy with widening of the extra-axial spaces and ventricular dilatation. There are areas of decreased attenuation within the white matter tracts of the supratentorial brain, consistent with microvascular disease changes. Stable focal area of encephalomalacia in the posterior medial aspect of the right occipital lobe. Normal basal ganglia and thalami. Normal brainstem. Normal cerebellum. There is no intracranial hemorrhage. There are no findings of an acute ischemic infarction. Atherosclerotic calcification of the vertebral arteries and the cavernous portions of the internal carotid arteries bilaterally. Partial opacification of the maxillary sinuses and the ethmoid sinuses as well as the right sphenoid sinus. CT/Brain/Head without Contrast IMPRESSION: Chronic involutional changes of the brain. Stable Ancef malacia in the posterior medial aspect of the right occipital lobe. Sinusitis. Electronically Signed: eKanu Mallory MD at 14:33 EDT Tel [phone], Service support ,
--- NOTE | 2017-06-01 12:20 | PCM.PROGNOTE ---
Patient Problems: Active and Suspected Problems Migraine (Acute) Stroke (Acute) Subjective: Patient had recurrence of right cephalgia this a.m. and was treated with Depakote, metoclopramide and Decadron. Topamax was increased to 50 mg twice daily by Dr. Trimble. He has now developed left arm and left with a weakness and uncontrollable shaking of his left arm and left leg. He has had no loss of consciousness. He does complain of photophobia. ESR ordered by Dr. Trimble was 7. Cardiac enzymes have been negative. He is afebrile and his vital signs are currently stable. He is 96% saturated on room air. MRA of the head showed no significant steno-occlusive disease or aneurysm. There is a diminutive left V4 vertebral artery segment. MRA of the neck showed severe narrowing, other than 70% stenosis, of the proximal to mid right internal carotid artery with noted reconstitution of flow distally. There was focal narrowing of the left carotid artery approximated at 60-70%. Echocardiogram showed a 60% left ventricular ejection fraction with stage I diastolic dysfunction. There was a trivial right to left interatrial shunt and no pulmonary hypertension. - Physical Exam General: Lethargic - slow to answer questions but when you ask him to speak up he was more alert and he was oriented X 3 and appropriate HEENT: Atraumatic, PERRLA, Normocephalic Oral: Dry Mucosa Neck: Supple, No JVD, No Nodes, No Nuchal Rigidity, Trachea Midline Lungs: Clear to auscultation, Diminished Cardiovascular: Regular rate, Regular Rhythm, Normal S1, Normal S2, No Gallop, - - Telemetry shows normal sinus rhythm with no ectopy since admission Abdomen: Bowel Sounds Present, Soft, Non Tender Extremities: No clubbing, No cyanosis, No edema Skin: No rashes Neurological: - - He has decreased strength in the LUE and the LLE and has rhythmic shaking of the LUE>LLE. He has Left eye drift to the left. He has left side neglect. He is alert and oriented X 3. No facial droop. Psych/Mental Status: Appropriate Vital Signs Temp Pulse Resp BP Pulse Ox 97.9 F 70 16 146/74 H 96 06/01/17 09:40 06/01/17 09:40 06/01/17 09:40 06/01/17 09:40 06/01/17 09:40 Oxygen Delivery Method Room Air Body Mass Index (BMI) 22.7 Intake and Output for Last 24 Hours 05/30/17 05/31/17 06/01/17 23:59 23:59 23:59 Intake Total 440 / 710 720 / 720 Output Total 200 / 200 Balance 440 / 710 520 / 520 Laboratory Tests Past 24 Hrs 06/01/17 06/01/17 06/01/17 00:35 04:08 08:20 Magnesium 2.1 Troponin I < 0.02 < 0.02 < 0.02 Assessment/Plan Active and Suspected Problems Migraine (Acute) Stroke (Acute) Impressions 1. acute/subacute R thalamic CVA 2. 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 Migraine cephalgia 4. sinusitis being treated by Dr. Townsend with Cefdinir 5. GERD 6. Allergic rhinitis 7. Dyslipidemia 8. Hypertension 9. COPD? or asthma? he is on albuterol PRN 10. new Left side weakness with partial seizures involving the LUE>LLE with left side neglect 11. BL ICA stenosis - the R reconstitutes with Collaterals and the Left is focal (5mm). 12. small interatrial shunt Discussed with Dr. Trimble who has examined the patient now Stat CTB Ativan 1 mg IV and 1,000 mg Keppra followed by 500 mg BID If the CT is negative will need to get another MRI EEG ordered Code Visit Inpatient E&M: 75530 Subs Hosp L3
--- NOTE | 2017-06-01 12:32 | VDLE_ITS ---
Reason For Study: CVA with PFO RIGHT LEFT GSV is normal. GSV is normal. CFV is compressible, spontaneous, phasic, CFV is compressible, spontaneous, phasic, competent and demonstrates normal competent, and demonstrates normal augmentation. augmentation. FV is compressible, spontaneous, phasic, FV is compressible, spontaneous, phasic, competent and demonstrates normal competent and demonstrates normal augmentation. augmentation. POP V is compressible, spontaneous, phasic, POP V is compressible, spontaneous, phasic, competent and demonstrates normal competent and demonstrates normal augmentation. augmentation. T/P Trunk is compressible. T/P Trunk is compressible. PTV is compressible. PTV is compressible. RT PerV is compressible. LT PerV is compressible. Rt SSV is partially compressible with bright Lt SSV and Lt GSV have thickened vein john. intraluminal echoes consistent with chronic SVT Rt GSV has thickened vein john. Procedure Exam performed portable in ICU/CCU. The study was technically difficult. A preliminary report was called and/or faxed to [facility]. Interpretation Summary Deep veins of the lower extremities are bilaterally patent and compressible segmentally. There is no evidence of deep vein thrombosis on either side. Valvular competence appears intact within the proximal deep venous systems bilaterally. The greater saphenous veins appear bilaterally patent and compressible segmentally. Chronic vein wall thickening is noted in the right greater saphenous vein, and the left greater saphenous vein and small saphenous vein. Chronic venous changes are noted in the right small saphenous vein as well. Ordering Physician: Sophie Akhtar Referring Physician: Jeremi Monk Performed By: Beba Mata, MAXIME, RVT
[2017-06-01] MEDS: LORazepam 2 MG/ML Syringe IV (12:45)
[2017-06-01] MEDS: 0.9% Normal Saline 1,000 ML 999 ML IV (12:51)
--- NOTE | 2017-06-01 13:00 | NURSING ---
PT ARRIVES FROM PCU. DR FITCH AT BEDSIDE. PREPARING FOR INTUBATION
[2017-06-01] MEDS: LORazepam 2 MG/ML Syringe 1 MG IV ×2 (13:05→13:11)
[2017-06-01] MEDS: Etomidate 20 MG/10 ML Vial IV (13:10)
[2017-06-01] MEDS: Etomidate 20 MG/10 ML Vial 10 MG IV ×2 (13:14→13:19)
--- NOTE | 2017-06-01 13:20 | NURSING ---
pt intubated per Dr. Hu. 7.5 ETT, 22cm at the lip.
--- NOTE | 2017-06-01 13:37 | PCM.CON.CC ---
Reason for Consult Date of Consultation: 06/01/17 Reason for Consultation: Acute Respiratory Failure History of Present Illness: The patient is a 77-year-old male, with a history as outlined below, who initially presented to the emergency department on May 30 with complaints of a headache in the setting of a history of migraines. The patient does have a history of a previous ischemic stroke. On presentation to the emergency department, the patient was noted to be afebrile, mildly hypertensive and maintaining appropriate oxygen saturations on room air. Laboratory evaluation revealed no evidence of a leukocytosis. INR was within normal limits. Chemistry profile was notable for an elevated creatinine to 1.38. Troponin was negative. Head CT revealed chronic involutional changes without an acute intracranial process. Plain film chest x-ray revealed no acute cardiopulmonary process. The patient was initially admitted to the PCU for ongoing medical management. MRI brain was completed on May 31 and revealed evidence of a small punctate acute infarction in the midportion of the right thalamus. There is also note of interval progression of the right occipital encephalomalacia. The patient was seen in consultation by neurology. Medical management was subsequently initiated. The patient's neurological status began to decline over the course of the day June 01. At some point he developed partial seizures which then became generalized tonic-clonic seizures. The patient was treated with Ativan and subsequently transferred to the medical intensive care unit. The patient was unresponsive upon arrival to the ICU. The patient was noted to have bit his tongue and there was a great deal of blood in the patient's posterior oropharynx. The patient was subsequently intubated by video laryngoscopy without complication. Neurology was notified and the patient was taken emergently for a repeat CT head. Past Medical History Past Medical History (Chronic Problems): Chronic Problems History of stroke (Chronic) Allergies seasonal Allergy (Mild, Uncoded 05/30/17 22:56) Other Pt gets runny nose, sneezing, headache. Home Medications: Ambulatory Orders Medication Instructions Recorded Albuterol Aerosols [Ventolin 2.5 mg INHALATION Q2H PRN PRN 07/24/13 Aerosols] Clopidogrel Bisulfate [Plavix] 75 mg PO DAILY 07/24/13 Guar Gum [Benefiber] 1 each PO DAILY 07/24/13 Lansoprazole [Prevacid] 30 mg PO DAILY 07/24/13 Lisinopril [Zestril] 10 mg PO DAILY 07/24/13 Simvastatin [Zocor] 20 mg PO QHS 07/24/13 Topiramate [Topamax] 25 mg PO BID 07/24/13 Calcium Carbonate [Tums] 750 mg PO QHS 05/30/17 Cefdinir 300 mg PO BID 05/30/17 Cyanocobalamin (Vitamin B-12) 1,000 mcg PO DAILY 05/30/17 [Vitamin B-12] Ergocalciferol [Vitamin D] 2,000 unit PO DAILY 05/30/17 Mometasone Furoate [Nasonex] 2 spray NASAL DAILY 05/30/17 Lives: Spouse/ Significant Other Smoking Status: Never smoker Alcohol: None Drugs: None - *Family History Maternal History Items: No pertinent history Review of Systems Unable to obtain accurate/complete ROS d/t: Due to current intubation and mechanical ventilation status. Patient Problems: Active and Suspected Problems Migraine (Acute) Stroke (Acute) Objective: The patient's most recent lab work, culture data and imaging studies have all been personally reviewed. - Physical Exam General: - - Currently intubated and mechanically ventilated. HEENT: Atraumatic, PERRLA, Normocephalic Oral: No Gingival or Mucosal Lesions/ Ulcerations, - - Endotracheal and OG tube in place Neck: Supple, No Nodes, Trachea Midline Lungs: No rhonchi, No wheeze, No rales, Diminished, - - Bloody posterior oropharynx Cardiovascular: Regular rate, Regular Rhythm, Normal S1, Normal S2, No murmurs, No rub noted, No Gallop Abdomen: Bowel Sounds Present, Soft, Non Tender Extremities: No clubbing, No cyanosis, No edema Skin: No rashes, No breakdown Musculoskeletal: No Muscle Wasting Neurological: - - Currently nonresponsive following sedative administration for intubation. Unable to perform full neurological evaluation Vital Signs Temp Pulse Resp BP Pulse Ox 97.9 F 70 16 146/74 H 96 06/01/17 09:40 06/01/17 11:19 06/01/17 09:40 06/01/17 09:40 06/01/17 09:40 Oxygen Delivery Method Room Air Body Mass Index (BMI) 22.7 Intake and Output for Last 24 Hours 05/30/17 05/31/17 06/01/17 23:59 23:59 23:59 Intake Total 440 / 710 720 / 720 Output Total 200 / 200 Balance 440 / 710 520 / 520 Laboratory Tests Past 24 Hrs 06/01/17 06/01/17 06/01/17 00:35 04:08 08:20 Magnesium 2.1 Troponin I < 0.02 < 0.02 < 0.02 Labs (Last 48 Hours) 05/30/17 05/30/17 05/30/17 19:10 19:10 19:10 WBC 7.5 RBC 4.46 L Hgb 13.9 Hct 41.7 MCV 93.5 MCH 31.2 MCHC 33.3 RDW 12.5 RDW Differential 42.4 Plt Count 192 MPV 10.8 Immature Gran % (Auto) 0.000 Neut % (Auto) 61.3 Lymph % (Auto) 27.7 Collin % (Auto) 5.0 Eos % (Auto) 5.7 H Baso % (Auto) 0.3 Absolute Neuts (auto) 4.6 Absolute Lymphs (auto) 2.09 Total Counted Not Reportable ESR PT 13.7 INR 1.1 APTT 30.9 Sodium 137 Potassium 4.1 Chloride 105 Carbon Dioxide 24.0 Anion Gap 8 BUN 19 H Creatinine 1.38 H Estim Creat Clear Calc 49.52 Est GFR (MDRD) Af Amer 64 Est GFR (MDRD) Non-Af 53 L BUN/Creatinine Ratio 13.8 Glucose 99 Hemoglobin A1c Calcium 9.3 Magnesium Troponin I < 0.02 Triglycerides Cholesterol LDL Cholesterol VLDL Cholesterol HDL Cholesterol 05/31/17 05/31/17 05/31/17 05:55 05:55 05:55 WBC RBC Hgb Hct MCV MCH MCHC RDW RDW Differential Plt Count MPV Immature Gran % (Auto) Neut % (Auto) Lymph % (Auto) Collin % (Auto) Eos % (Auto) Baso % (Auto) Absolute Neuts (auto) Absolute Lymphs (auto) Total Counted ESR 7 PT INR APTT Sodium 138 Potassium 4.1 Chloride 107 Carbon Dioxide 24.0 Anion Gap 7 BUN 19 H Creatinine 1.46 H Estim Creat Clear Calc 46.81 Est GFR (MDRD) Af Amer 60 Est GFR (MDRD) Non-Af 50 L BUN/Creatinine Ratio 13.0 Glucose 78 Hemoglobin A1c 5.6 Calcium 8.6 Magnesium Troponin I Triglycerides 85 Cholesterol 108 LDL Cholesterol 48 VLDL Cholesterol 17 HDL Cholesterol 43 06/01/17 06/01/17 06/01/17 00:35 04:08 08:20 WBC RBC Hgb Hct MCV MCH MCHC RDW RDW Differential Plt Count MPV Immature Gran % (Auto) Neut % (Auto) Lymph % (Auto) Collin % (Auto) Eos % (Auto) Baso % (Auto) Absolute Neuts (auto) Absolute Lymphs (auto) Total Counted ESR PT INR APTT Sodium Potassium Chloride Carbon Dioxide Anion Gap BUN Creatinine Estim Creat Clear Calc Est GFR (MDRD) Af Amer Est GFR (MDRD) Non-Af BUN/Creatinine Ratio Glucose Hemoglobin A1c Calcium Magnesium 2.1 Troponin I < 0.02 < 0.02 < 0.02 Triglycerides Cholesterol LDL Cholesterol VLDL Cholesterol HDL Cholesterol Clinical Impression(s) from Imaging Studies Brain CT 05/30/17 19:25 IMPRESSION: Chronic involutional changes of the brain. No acute intracranial process. Mild sinusitis. Electronically Signed: Lambert Franco DO at 20:22 EDT , Service support , Chest X-Ray 05/30/17 19:45 IMPRESSION: Hyperinflation. No infiltrate. Electronically Signed: Lambert Franco DO at 20:12 EDT , Service support , Brain MRI 05/31/17 06:41 IMPRESSION: A small punctate acute or subacute infarct is suspected in the midportion of the right thalamus. Interval progression of right occipital encephalomalacia. Minimal white matter disease. Electronically Signed: Louie Morley MD at 8:34 EDT Tel , Service support , Head MRA 05/31/17 16:10 IMPRESSION: 1. No evidence of significant steno-occlusive disease or aneurysm. 2. Diminutive left V4 vertebral artery segment. Electronically Signed: Matias Luevano DO at 22:44 EDT , Service support , Neck MRA 05/31/17 16:10 IMPRESSION: 1. Proximal right ICA severe greater than 70% stenosis with reconstitution of flow distally. Recommend further characterization with CTA and interventional consultation as warranted. 2. Focal stenosis of the left proximal ICA proximal 60-70%. Electronically Signed: Matias LuevanoDO at 22:29 EDT , Service support , Assessment/Plan Active and Suspected Problems Migraine (Acute) Stroke (Acute) RECOMMENDATIONS: 1. Repeat head imaging and EEG per neurology recommendations. 2. Continue Keppra and Topamax 3. Initiate propofol for sedation as tolerated by hemodynamics. 4. Continue seizure precautions 5. Obtain arterial blood gas in 1 hour 6. Plan for daily paired spontaneous awakening and breathing trials 7. Obtain repeat plain film chest x-ray 8. Maintain appropriate ICU prophylaxis IMPRESSIONS: 1. Acute respiratory failure secondary to #2 The patient was transferred emergently to the ICU after developing generalized tonic-clonic seizure activity and biting his tongue. The patient's airway became compromised and he was emergently intubated upon arrival to the ICU. Plan to obtain arterial blood gas in 1 hour, with additional vent changes based upon the results of the blood test. Will initiate propofol for sedation as tolerated by hemodynamics. Obtain repeat plain film chest x-ray to confirm endotracheal tube and OG tube placement. Plan for daily paired spontaneous awakening and breathing trials. 2. Encephalopathy Likely multifactorial in etiology with questionable CVA and/or sentinel seizure activity and subsequent postictal state contributing. Neurology is currently following. Additional head imaging will be obtained. The patient will also undergo an EEG to rule out status epilepticus. Continue Keppra and Topamax per neurology recommendations. 3. New onset seizures/thalamic CVA/migraine As above, continue current medical management per neurology recommendations. Plan for repeat MRI likely tomorrow. 4. Subacute sinusitis The patient was recently started on antibiotics by Dr. Townsend of ENT. These will be continued empirically. 5. Advanced age/GERD/allergic rhinitis/hypertension/hyperlipidemia Complicated care, management, recovery and prognosis. Okay to continue home medications as indicated. Nutrition consultation for tube feed recommendations. The patient will eventually require physical therapy evaluation, once medically stabilized. TIME: 40 minutes of critical care time, inclusive of procedures, was spent addressing the patient's acute respiratory failure, encephalopathy, new onset seizure activity, thalamic CVA, migraine with aura, subacute sinusitis, review of all data and collaboration with care team. ([phone]) Code Visit 9xxxx: [id number] Critical care first hour
--- NOTE | 2017-06-01 13:39 | CASEMGMT ---
Pt just came up from ICU, SW spoke w/ in the waiting room to offer support. explains that pt had a stroke in 2013 and fully recovered. She states pt has been here in the hospital for a couple of days, and this morning started having visual disturbances, then had a seizure. SW offered support to as she talked about everything that's happened. states she just does not know what to do, knows there is nothing she can do. SW offered to call family, she states her son is on his way from [facility], they have just one son, two granddaughters. tearful, states they just celebrated their [address] Akhtar then came and spoke w/, w/ADRIAN Robbins as well. She explained medically what is going on w/pt, and the tests he will have going forward. became tearful, support offered by Dr. Akhtar, Itzel, and AUREA. SW will continue to follow for emotional support to , she went back to room to see pt. NEVILLE Mcintyre, RO[employer]TER
--- NOTE | 2017-06-01 13:42 | PCM.PN.NEU ---
Patient Problems: Active and Suspected Problems Migraine (Acute) Stroke (Acute) Subjective: No issues overnight, but since this morning has been having LAMB, in the occipital region, had dizziness per , then later around noon started having left UE seizures, was awake but had left sided weakness with gaze preference to the left side, and left side neglect, then had GTCs with tongue bite, he was given Ativan and loaded with Keppra 1 g IV, was intubated and transferred to ICU. - Physical Exam General: - - intubated HEENT: PERRLA, Normocephalic Neck: Supple Lungs: Clear to auscultation Cardiovascular: Regular rate Abdomen: Bowel Sounds Present Extremities: No clubbing Skin: No rashes Neurological: - - limited Neurology examination, s/p intubation. pupils BERL, prior to intubation was oriented x3, had left sided weakness and left sided neglect with left sided partial seizures. NO facial droop noted prior to GTCs, sensory, cerebellar/gait could not be assessed. Vital Signs Temp Pulse Resp BP Pulse Ox 97.9 F 70 16 146/74 H 96 06/01/17 09:40 06/01/17 11:19 06/01/17 09:40 06/01/17 09:40 06/01/17 09:40 Oxygen Delivery Method Room Air Body Mass Index (BMI) 22.7 Intake and Output for Last 24 Hours 05/30/17 05/31/17 06/01/17 23:59 23:59 23:59 Intake Total 440 / 710 720 / 720 Output Total 200 / 200 Balance 440 / 710 520 / 520 Laboratory Tests Past 24 Hrs 06/01/17 06/01/17 06/01/17 00:35 04:08 08:20 Magnesium 2.1 Troponin I < 0.02 < 0.02 < 0.02 Assessment/Plan Active and Suspected Problems Migraine (Acute) Stroke (Acute) The patient is a 77 year old CM with PMH Stroke and migraine was admitted with severe LAMB, found to have new small right thalamic stroke. Had partial left sided seizures this morning with secondary generalization, patient was intubated following that. Ativan 1 mg was given and loaded with Keppra 1 g. Impression New onset seizure (partial seizure with secondary generalization) Acute/subacute small right thalamic stroke Migraine with aura, not intractable, not in status Plan -Recommend stat CT head and EEG -Recommend CTA head/neck to rule out basilar artery pathology -Recommend repeat CBC, CMP, UA. -Continue Keppra 500 mg IV BID -Prefer Propofol as sedating agent if okay with ICU and primary team but if becomes hypotensive can be changed accordingly. -On ASA 81 mg PO once daily and Plavix 75 mg PO once daily. Recommend dual AP for 3 weeks, then switch to single AP. -Lipitor 40 mg PO q hs -MRI brain done on admission reviewed -Recommend repeat MRI brain following new onset seizure. -MRA head/neck-Left ICA 60-70% stenosis, Right ICA > 70% stenosis -TTE-EF 60%, normal LA size, probable small PFO - LDL-48, Mvg0g-5.6% -ESR-7 -Avoid hypotension. -Seizure precautions -PT/OT -GI/DVT prophylaxis -Increased Topamax 50 mg PO BID for migraine LAMB -will continue to follow. -Please call with questions if any -Thank you for allowing us to participate in patient's care and management I spent 30 minutes of critical care time taking history, doing physical examination, reviewing medical records, coordinating care and counseling the patient.
[2017-06-01] MEDS: Propofol 10MG/Ml 1,000 MG/100 ML Bottle 2.343 MG CONT INF (14:00)
--- NOTE | 2017-06-01 14:00 | RAD_ITS ---
STUDY: X-RAY CHEST REASON FOR EXAM: Male, 77 years old. Endotracheal tube placement. TECHNIQUE: Single AP portable view of the chest. COMPARISON: Comparison is made with prior study dated May 30, 2017. FINDINGS: An endotracheal tube has been placed. The tip is at 4.8 sinus proximal to the lara. EKG electrodes are seen. The lungs are clear and expanded. There is no demonstrated pleural abnormality. Normal size heart. Normal mediastinum and santos. Normal visualized pulmonary arteries. There is atherosclerotic tortuosity of the aortic arch and descending thoracic aorta. There are degenerative changes of the visualized thoracic spine. Normal visualized ribs, clavicles, and shoulders. There is no demonstrated abnormality of the visualized soft tissue structures of the upper abdomen. RAD/Chest 1 View (Portable) IMPRESSION: The tip of the endotracheal tube is at 4.8 cm proximal to the lara. Electronically Signed: Keanu Mallory MD at 14:35 EDT Tel [phone], Service support ,
[2017-06-01] MEDS: 0.9% Normal Saline 1,000 ML 100 ML IV (15:10)
[2017-06-01 15:20] LABS: Base Excess -7 mmol/L (-2 to +2); Bicarbonate 18.5 mmol/L (22-26); Blood Gas Specimen Type ART; FI02 30; Mode A-C; O2 Delivery Device Vent; PEEP 5; PO2 79 mmHG (75-100); RR 14; SITE R Brachial; SO2 95 % (95-99); Time Given 1516; Total Carbon Dioxide 20 mmol/L; Vt 500; pCO2 34.9 mmHg (35-45); pH 7.33 (7.35-7.45)
--- NOTE | 2017-06-01 15:42 | EEG ---
- Electroencephalogram Date of Service: 06/01/17 History EEG is being done in this 77 yr M to rule out seizures EEG Description: This is an 18 channel EEG with 10-20 lead placement system. Bipolar montages, Referential and Circumferential montages were reviewed. Photic stimulation was performed but Hyperventilation was not performed. The posterior dominant background rhythm was not present. Photo stimulation did not elicit normal driving response or any abnormal photoparoxysmal response, Hyperventilation was not performed. Sleep was not identified. There is beta frequency waves noted in the background. T4 artefact noted during the entire record, EKG artefact also noted during the record. There was no epileptiform discharges or electrographic seizures noted during this recording. EEG Interpretation This is an abnormal EEG due to the presence of generalized increase in beta frequency waves. This can be seen in conjunction with benzodiazepine use. Clinical correlation is advised. There is no epileptiform discharges or electrographic seizures noted during the record.
[2017-06-01 16:06] LABS: CPK Total, Creatine Kinase 64 U/L (39-308)
[2017-06-01 16:11] LABS: M R Staph aureus DNA By PCR Negative (Negative)
[2017-06-01 16:12] LABS: Probe Check PASS; Specimen Processing Control PASS
[2017-06-01 16:13] LABS: Triglycerides 68 mg/dL
--- NOTE | 2017-06-01 16:20 | CT_ITS ---
STUDY: CTA OF THE BRAIN REASON FOR EXAM: Male, 77 years old. CVA RADIATION DOSAGE (If Supplied By Facility): CTDIvol = ( 21.76 ) mGy, DLP = ( 712.80 ) mGycm TECHNIQUE: CT angiography was performed with a multi-detector CT scanner. Data acquisition was obtained from the skull base through the vertex following intravenous administration of 100 ml of ISO 370. MIP images were reconstructed from the axial data set. Post-processing of the angiographic images was performed, with multiplanar reformation and 3D reconstruction. Individualized dose optimization techniques were used for this CT. COMPARISON: None. FINDINGS: Normal bilateral petrous carotid arteries. There is calcified plaque formation of the right cavernous carotid artery, without a cross-sectional luminal stenosis. There is calcified plaque formation of the left cavernous carotid artery, without a cross-sectional luminal stenosis. Normal right A1 segments of the anterior cerebral artery. Normal left A1 segments of the anterior cerebral artery. Normal intact anterior communicating artery (ACOM). Normal bilateral A2 segments of the anterior cerebral arteries. Normal right M1 and M2 segments of the middle cerebral arteries, with a normal M1 bifurcation. Normal left M1 and M2 segments of the middle cerebral arteries, with a normal M1 bifurcation. Normal right posterior communicating artery (PCOM). Normal left posterior communicating artery (PCOM). Normal bilateral vertebral arteries. Normal basilar artery with a normal basilar bifurcation. The visualized bilateral superior cerebellar (SCA) arteries are normal. Normal bilateral P1, P2 and visualized P3 segments of the posterior cerebral arteries. There is no demonstrated aneurysm of the [place]. There is no demonstrated abnormality of the visualized brain. IMPRESSION: There is calcified plaque formation of the right cavernous carotid artery, without a cross-sectional luminal stenosis. There is calcified plaque formation of the left cavernous carotid artery, without a cross-sectional luminal stenosis. Electronically Signed: Andres Quinones MD at 18:14 EDT , Service support , STUDY: CTA NECK WITH CONTRAST REASON FOR EXAM: Male, 77 years old. CVA RADIATION DOSAGE (If Supplied By Facility): CTDIvol = ( 21.76 ) mGy, DLP = ( 712.80 ) mGycm TECHNIQUE: CT angiography with multi-detector data acquisition was performed from the aortic arch to the skull base following intravenous administration of 100CC ml of Isovue 370 contrast. MIP images were reconstructed from the axial data set. Post-processing of the angiographic images was performed, with multiplanar reformation and 3D reconstruction. COMPARISON: None. FINDINGS: AORTIC ARCH: There is atherosclerotic calcific plaque formation of the aortic arch and great vessels arising from the aortic arch, without a hemodynamically significant stenosis. There is a normal origin of the brachiocephalic, left common carotid, and left subclavian arteries. Normal origins of the brachiocephalic, left common carotid, and left subclavian arteries. RIGHT CAROTID ARTERIES: Normal right common carotid artery (CCA). Normal right common carotid bulb. There is severe atherosclerotic plaque formation of the origin of the right internal carotid artery with an 80% occlusion. Normal visualized cervical portion of the right internal carotid artery. Normal origin of the right external carotid artery (ECA). LEFT CAROTID ARTERIES: Normal left common carotid artery (CCA). Normal left common carotid bulb. There is mild atherosclerotic plaque formation of the origin of the left internal carotid artery with less than 50% cross sectional diameter stenosis. Normal visualized cervical portion of the left internal carotid artery. Normal origin of the left external carotid artery (ECA). VERTEBRAL ARTERIES: Normal bilateral vertebral arteries. CT/CTA Neck W/WO Contrast IMPRESSION: There is severe atherosclerotic plaque formation of the origin of the right internal carotid artery with an 80% occlusion. There is mild atherosclerotic plaque formation of the origin of the left internal carotid artery with less than 50% cross sectional diameter stenosis. Electronically Signed: Andres Quinones MD at 18:15 EDT , Service support ,
--- NOTE | 2017-06-01 16:20 | CT_ITS ---
STUDY: CTA OF THE BRAIN REASON FOR EXAM: Male, 77 years old. CVA RADIATION DOSAGE (If Supplied By Facility): CTDIvol = ( 21.76 ) mGy, DLP = ( 712.80 ) mGycm TECHNIQUE: CT angiography was performed with a multi-detector CT scanner. Data acquisition was obtained from the skull base through the vertex following intravenous administration of 100 ml of ISO 370. MIP images were reconstructed from the axial data set. Post-processing of the angiographic images was performed, with multiplanar reformation and 3D reconstruction. Individualized dose optimization techniques were used for this CT. COMPARISON: None. FINDINGS: Normal bilateral petrous carotid arteries. There is calcified plaque formation of the right cavernous carotid artery, without a cross-sectional luminal stenosis. There is calcified plaque formation of the left cavernous carotid artery, without a cross-sectional luminal stenosis. Normal right A1 segments of the anterior cerebral artery. Normal left A1 segments of the anterior cerebral artery. Normal intact anterior communicating artery (ACOM). Normal bilateral A2 segments of the anterior cerebral arteries. Normal right M1 and M2 segments of the middle cerebral arteries, with a normal M1 bifurcation. Normal left M1 and M2 segments of the middle cerebral arteries, with a normal M1 bifurcation. Normal right posterior communicating artery (PCOM). Normal left posterior communicating artery (PCOM). Normal bilateral vertebral arteries. Normal basilar artery with a normal basilar bifurcation. The visualized bilateral superior cerebellar (SCA) arteries are normal. Normal bilateral P1, P2 and visualized P3 segments of the posterior cerebral arteries. There is no demonstrated aneurysm of the [place]. There is no demonstrated abnormality of the visualized brain. IMPRESSION: There is calcified plaque formation of the right cavernous carotid artery, without a cross-sectional luminal stenosis. There is calcified plaque formation of the left cavernous carotid artery, without a cross-sectional luminal stenosis. Electronically Signed: Andres Quinones MD at 18:14 EDT , Service support , STUDY: CTA NECK WITH CONTRAST REASON FOR EXAM: Male, 77 years old. CVA RADIATION DOSAGE (If Supplied By Facility): CTDIvol = ( 21.76 ) mGy, DLP = ( 712.80 ) mGycm TECHNIQUE: CT angiography with multi-detector data acquisition was performed from the aortic arch to the skull base following intravenous administration of 100CC ml of Isovue 370 contrast. MIP images were reconstructed from the axial data set. Post-processing of the angiographic images was performed, with multiplanar reformation and 3D reconstruction. COMPARISON: None. FINDINGS: AORTIC ARCH: There is atherosclerotic calcific plaque formation of the aortic arch and great vessels arising from the aortic arch, without a hemodynamically significant stenosis. There is a normal origin of the brachiocephalic, left common carotid, and left subclavian arteries. Normal origins of the brachiocephalic, left common carotid, and left subclavian arteries. RIGHT CAROTID ARTERIES: Normal right common carotid artery (CCA). Normal right common carotid bulb. There is severe atherosclerotic plaque formation of the origin of the right internal carotid artery with an 80% occlusion. Normal visualized cervical portion of the right internal carotid artery. Normal origin of the right external carotid artery (ECA). LEFT CAROTID ARTERIES: Normal left common carotid artery (CCA). Normal left common carotid bulb. There is mild atherosclerotic plaque formation of the origin of the left internal carotid artery with less than 50% cross sectional diameter stenosis. Normal visualized cervical portion of the left internal carotid artery. Normal origin of the left external carotid artery (ECA). VERTEBRAL ARTERIES: Normal bilateral vertebral arteries. CT/CTA Head W/WO Contrast IMPRESSION: There is severe atherosclerotic plaque formation of the origin of the right internal carotid artery with an 80% occlusion. There is mild atherosclerotic plaque formation of the origin of the left internal carotid artery with less than 50% cross sectional diameter stenosis. Electronically Signed: Andres Quinones MD at 18:15 EDT , Service support ,
--- NOTE | 2017-06-01 16:20 | MRI_ITS ---
STUDY: MRI BRAIN WITHOUT CONTRAST REASON FOR EXAM: Male, 77 years old. New onset seizures. TECHNIQUE: Standardized multiplanar fat and water weighted pulse sequences were obtained. COMPARISON: MRI of the brain dated May 31, 2017. FINDINGS: Normal size of the ventricles and extra-axial spaces for the patient's age. There are a limited number of small white matter hyperintensities, distributed throughout the deep white matter tracts of the cerebral hemispheres, consistent with mild chronic white matter ischemic changes. There is a tiny focus of restricted diffusion within the right insular cortex consistent with acute infarct. Normal T2* images of the brain without demonstrated susceptibility artifact. There is no demonstrated hemosiderin stain. There is abnormal signal within the posterior occipital lobe, similar to the previous MRI. This may be the result of previous infarct. Normal bilateral basal ganglia. Normal thalami. There is abnormal subarachnoid fluid within the right frontal lobe, parietal and temporal lobes. This is new since the previous study and suggests the possibility of meningitis. Normal flow voids within the major intracranial circulation suggesting patency by spin echo criteria. Normal sella turcica, pituitary gland, infundibular stalk, optic chiasm and hypothalamus. Normal tectal plate and pineal gland. Normal midbrain, shala and medulla. Normal cerebellum. Normal basal cisterns. Normal bilateral temporal bones. Normal bilateral internal auditory canals. No demonstrated orbital abnormality, within the constraints of a routine brain study. There appears to be right maxillary mucous retention cysts and/or polyps. There is mucoperiosteal thickening within the left maxillary sinus. There may be a mucous retention cyst in the right sphenoid sinus.. Normal calvarium and skull base. Normal visualized soft tissue structures. Normal visualized upper cervical spine. MRI/Brain without Contrast IMPRESSION: 1. Involutional changes of the brain, as described above. 2. 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 3. New right-sided leptomeningeal fluid surrounding the cerebral hemisphere suggesting sequela of meningitis. 4. 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 N.B. : The above information has been verbally conveyed by Carmen Worrell MD to Sophie Akhtar on 06/02/2017 10:09:06 (ET). Electronically Signed: Carmen Worrell MD at 10:12 EDT , Service support , N.B. : The above information has been verbally conveyed by Carmen Worrell MD to Sophie Akhtar on 06/02/2017 10:09:06 (ET).
--- NOTE | 2017-06-01 16:40 | RAD_ITS ---
STUDY: X-RAY - ABDOMEN/PELVIS REASON FOR EXAM: Male, 77 years old. Nasogastric tube placement TECHNIQUE: Single AP view of the abdomen / pelvis. COMPARISON: None. FINDINGS: A nasogastric tube is present with the tip overlying the epigastric region. The lung bases are not in the field of view of the study. There is an unremarkable bowel gas pattern. There is no demonstrated free abdominal air. There is opacification of the pelvic calyceal systems, ureters, and bladder with intravenous contrast. Normal soft tissue structures. There are degenerative changes of the visualized thoracolumbar spine. RAD/Abdomen Single View (Portable) IMPRESSION: Nasogastric tube present with tip overlying the epigastric region. Opacification of the pelvicalyceal systems, ureters, and bladder. Electronically Signed: Ambrocio Sánchez MD at 17:32 EDT , Service support ,
[2017-06-01] MEDS: Atorvastatin Calcium 40 MG Tablet NG (21:42)
[2017-06-01] MEDS: Chlorhexidine 15 ML PO (21:47)
[2017-06-01] MEDS: Famotidine 20 MG Tablet NG (21:56)
[2017-06-02] VITALS (45 sets, daily range): BP systolic 82–145; BP diastolic 37–72; PULSE 48–80; RESP 14–20; TEMP 36.8–37.6; O2SAT 95–100; BMI 22.7
[2017-06-02] MEDS: 0.9% Normal Saline 1,000 ML 100 ML IV (03:34)
[2017-06-02] MEDS: CHLORHEXIDINE GLUC 2% CLOTH 1 EACH TOWELETTE TOPICAL (03:35)
[2017-06-02] MEDS: 0.9% Normal Saline 1,000 ML 500 ML IV (03:55)
[2017-06-02 04:20] LABS: Absolute Lymphocyte Count 1.68 X10^3/ul (0.83-4.51); Absolute Neutrophil Count 5.2 X10^3/uL (2.0-7.7); Basophil# 0.01 X10^3/uL; Basophil% 0.1 % (0-1); Eosinophil# 0.01 X10^3/uL; Eosinophils% 0.1 % (0-5); Hematocrit 32.5 % (40-54); Hemoglobin 11.1 g/dl (13.0-16.5); Lymphocyte # 1.68 X10^3/ul (4.0); Lymphocyte % 22.1 % (19-41); Mean Corp Hgb Conc 34.2 g/gl (32-36); Mean Corpuscular Hgb 32.4 pg (27.0-32.0); Mean Corpuscular Volume 94.8 fL (80-94); Mean Platelet Vol. 10.6 fl (6.2-12.0); Monocyte# 0.75 X10^3/uL; Monocyte% 9.9 % (0-10); Neutrophil # 5.16 X10^3/uL (2.7-7.7); Neutrophil % 67.8 % (47-70); Platelet Count 149 K/mm3 (150-450); RBC Distribution Width CV 12.3 % (11.6-14.6); RBC Distribution Width SD 41.5 fl (35.1-43.9); Red Blood Count 3.43 M/mm3 (4.6-6.2); White Blood Count 7.6 K/mm3 (4.4-11.0)
[2017-06-02 04:21] LABS: POSITIVE COUNT NO; POSITIVE DIFFERENTIAL NO; POSITIVE MORPHOLOGY NO
[2017-06-02 04:51] LABS: ALB/GLOB Ratio 1.1 RATIO (0.9-2.4); AST(SGOT) 10 U/L (15-37); Alanine Aminotransfer ALT/SGPT 13 U/L (16-61); Albumin, Serum 2.8 g/dL (3.2-5.0); Alkaline Phosphatase 73 U/L (45-117); Anion Gap 8 (5-15); BUN 20 mg/dL (7-18); Calcium,Total 7.3 mg/dL (8.5-10.1); Chloride 109 mmol/L (98-107); Creatinine, Serum 1.05 mg/dL (0.70-1.30); EST Glomerular Filtration Rate 73 mL/min (>60); Est Glom Filt Rate - Afr Amer 88 mL/min (>60); Estimated Creatinine Clearance 66.58 ml/min; Globulin 2.6 g/dL (2.2-4.2); Glucose 89 mg/dL (74-106); Phosphorus 2.9 mg/dL (2.5-4.9); Potassium 3.7 mmol/L (3.5-5.1); Protein, Total 5.4 g/dL (6.4-8.2); Sodium Level 140 mmol/L (136-145)
--- NOTE | 2017-06-02 05:55 | RAD_ITS ---
STUDY: X-RAY CHEST REASON FOR EXAM: Male, 77 years old. Respiratory failure TECHNIQUE: A single frontal view of the chest was obtained. COMPARISON: June 01, 2017 FINDINGS: The endotracheal tube terminates about 5 cm above the lara. A gastric tube extends adequately into the upper abdomen. The lungs are adequately aerated. There are no focal airspace opacities. There is no demonstrated pleural abnormality. The cardiac silhouette is normal in size. The mediastinum and hilar regions are unremarkable. Normal visualized pulmonary arteries. Normal visualized aortic arch and descending thoracic aorta. There are diffuse degenerative changes of the visualized spine. There are degenerative changes in both shoulders. There is no demonstrated abnormality of the visualized upper abdomen. RAD/Chest 1 View (Portable) IMPRESSION: No acute cardiopulmonary abnormalities or changes. Electronically Signed: Lisa Massey MD at 7:37 EDT Tel Direct: [phone], Service support ,
--- NOTE | 2017-06-02 06:42 | PCM.PN.INT ---
Subjective: The patient was seen and examined at the bedside this morning. Events from the last 24 hours have been reviewed. The patient does have a low-grade fever to 99.5?F. Blood pressures have been rather labile. Ventilator requirements are minimal. EEG and CTA head/neck were completed last evening. Lower extremity Dopplers were negative for the presence of DVTs. No significant lab abnormalities were identified this morning. The patient is awaiting repeat MRI head. Objective: The patient's most recent lab work, culture data and imaging studies have all been personally reviewed. Initial MRI brain completed on May 31 revealed evidence of a small punctate acute or subacute infarction in the midportion of the right thalamus. Surface echocardiogram revealed evidence of stage I diastolic dysfunction with ejection fraction of 60%. The patient did have evidence of a probable patent foramen ovale with [id number] intra-atrial shunt. Right ventricular systolic pressures were estimated to be 23 mmHg. Head/neck MRA also completed on May 31 revealed no evidence of significant occlusive disease or aneurysm. The proximal right ICA did have severe stenosis with reconstitution of flow distally. There is also focal stenosis of the left proximal ICA. EEG was abnormal due to the presence of generalized increase in beta frequency waves, potentially medication related. Head/neck CTA on June 01 again demonstrated the aforementioned ICA stenosis. General: - - Remains intubated, sedated and mechanically ventilated. HEENT: Atraumatic, PERRLA, Normocephalic Oral: No Gingival or Mucosal Lesions/ Ulcerations, - - Endotracheal and OG tubes in place Neck: Supple, No Nodes, Trachea Midline Lungs: No rhonchi, No wheeze, No rales, Diminished Cardiovascular: Regular rate, Regular Rhythm, Normal S1, Normal S2, No murmurs, No rub noted, No Gallop Abdomen: Bowel Sounds Present, Soft, Non Tender, Non-Distended Extremities: No clubbing, No cyanosis, No edema Skin: No rashes, No breakdown Musculoskeletal: No Tenderness to Palpation of Joints or Extremities Lymphatic: No Cervical, Supraclavicular, or Inguinal Adenopathy Neurological: - - No focal neurological deficits. Moves all extremities spontaneously. Follows simple commands appropriately. Vital Signs Temp Pulse Resp BP Pulse Ox 99.5 F H 64 18 100/45 L 99 06/02/17 04:04 06/02/17 06:24 06/02/17 06:24 06/02/17 06:24 06/02/17 06:24 Oxygen Delivery Method Mechanical Ventilator Weight: 176 lb 14.4 oz Body Mass Index (BMI) 22.7 Intake and Output for Last 24 Hours 05/31/17 06/01/17 06/02/17 23:59 23:59 23:59 Intake Total 440 / 710 1170 / 1170 350 / 350 Output Total 650 / 650 1020 / 1020 Balance 440 / 710 520 / 520 -670 / -670 Labs (Last 48 Hours) 06/01/17 06/01/17 06/01/17 00:35 04:08 08:20 WBC Corrected WBC RBC Hgb Hct MCV MCH MCHC RDW RDW Differential Plt Count MPV Immature Gran % (Auto) Neut % (Auto) Lymph % (Auto) Greer % (Auto) Eos % (Auto) Baso % (Auto) Immature Gran # (Auto) Absolute Neuts (auto) Absolute Lymphs (auto) Absolute Monos (auto) Total Counted Neutrophils % (Manual) Band Neutrophils % Lymphocytes % (Manual) Monocytes % (Manual) Eosinophils % (Manual) Basophils % (Manual) Metamyelocytes % Myelocytes % Promyelocytes % Blast Cells % Plasma Cell % (Manual) Other Cells % Lymphocytes # Nucleated RBCs/100 WBC Differential Comment Diff Path Review Hypersegmented Neuts Atypical Lymphocytes Reactive Lymphocytes Smudge Cells Eosinophilia # Basophilia # Toxic Granulation Dohle Bodies Monisha Rods Platelet Estimate Plt Morphology Comment RBC Morphology Polychromasia Hypochromasia Poikilocytosis Basophilic Stippling Anisocytosis Microcytosis Macrocytosis Spherocytes Sickle Cells Target Cells Tear Drop Cells Ovalocytes Stomatocytes Gagnon-Carmichael Bodies Tamara Cells Bite Cells Acanthocytes (Spur) Rouleaux Schistocytes Specimen Type Sample Site pH Bicarbonate Actual POC Total CO2 Base Excess O2 Saturation O2 % ABG pCO2 ABG pO2 Respiration Rate O2 Delivery Device Minute Volume Vent Mode Tidal Volume POC PEEP Blood Gas Notified Whom Blood Gas Notified Time Sodium Potassium Chloride Carbon Dioxide Anion Gap BUN Creatinine Estim Creat Clear Calc Est GFR (MDRD) Af Amer Est GFR (MDRD) Non-Af BUN/Creatinine Ratio Glucose Calcium Phosphorus Magnesium 2.1 Total Bilirubin AST ALT Alkaline Phosphatase Total Creatine Kinase Troponin I < 0.02 < 0.02 < 0.02 Total Protein Albumin Globulin Albumin/Globulin Ratio Triglycerides MRSA (PCR) 06/01/17 06/01/17 06/01/17 13:30 15:18 15:30 WBC Corrected WBC RBC Hgb Hct MCV MCH MCHC RDW RDW Differential Plt Count MPV Immature Gran % (Auto) Neut % (Auto) Lymph % (Auto) Greer % (Auto) Eos % (Auto) Baso % (Auto) Immature Gran # (Auto) Absolute Neuts (auto) Absolute Lymphs (auto) Absolute Monos (auto) Total Counted Neutrophils % (Manual) Band Neutrophils % Lymphocytes % (Manual) Monocytes % (Manual) Eosinophils % (Manual) Basophils % (Manual) Metamyelocytes % Myelocytes % Promyelocytes % Blast Cells % Plasma Cell % (Manual) Other Cells % Lymphocytes # Nucleated RBCs/100 WBC Differential Comment Diff Path Review Hypersegmented Neuts Atypical Lymphocytes Reactive Lymphocytes Smudge Cells Eosinophilia # Basophilia # Toxic Granulation Dohle Bodies Monisha Rods Platelet Estimate Plt Morphology Comment RBC Morphology Polychromasia Hypochromasia Poikilocytosis Basophilic Stippling Anisocytosis Microcytosis Macrocytosis Spherocytes Sickle Cells Target Cells Tear Drop Cells Ovalocytes Stomatocytes Gagnon-Carmichael Bodies [place] Cells Bite Cells Acanthocytes (Spur) Rouleaux Schistocytes Specimen Type ART Sample Site R Brachial pH 7.33 L Bicarbonate Actual 18.5 L POC Total CO2 20 Base Excess -7 L O2 Saturation 95 O2 % 30 ABG pCO2 34.9 L ABG pO2 79 Respiration Rate 14 O2 Delivery Device Vent Minute Volume 10.00 Vent Mode A-C Tidal Volume 500 POC PEEP 5 Blood Gas Notified Whom ICU MD Blood Gas Notified Time 1516 Sodium Potassium Chloride Carbon Dioxide Anion Gap BUN Creatinine Estim Creat Clear Calc Est GFR (MDRD) Af Amer Est GFR (MDRD) Non-Af BUN/Creatinine Ratio Glucose Calcium Phosphorus Magnesium Total Bilirubin AST ALT Alkaline Phosphatase Total Creatine Kinase Troponin I < 0.02 Total Protein Albumin Globulin Albumin/Globulin Ratio Triglycerides 68 MRSA (PCR) Negative 06/01/17 06/02/17 06/02/17 15:30 03:30 03:30 WBC Cancelled Corrected WBC Cancelled RBC Cancelled Hgb Cancelled Hct Cancelled MCV Cancelled MCH Cancelled MCHC Cancelled RDW Cancelled RDW Differential Cancelled Plt Count Cancelled MPV Cancelled Immature Gran % (Auto) Cancelled Neut % (Auto) Cancelled Lymph % (Auto) Cancelled Greer % (Auto) Cancelled Eos % (Auto) Cancelled Baso % (Auto) Cancelled Immature Gran # (Auto) Cancelled Absolute Neuts (auto) Cancelled Absolute Lymphs (auto) Cancelled Absolute Monos (auto) Cancelled Total Counted Cancelled Neutrophils % (Manual) Cancelled Band Neutrophils % Cancelled Lymphocytes % (Manual) Cancelled Monocytes % (Manual) Cancelled Eosinophils % (Manual) Cancelled Basophils % (Manual) Cancelled Metamyelocytes % Cancelled Myelocytes % Cancelled Promyelocytes % Cancelled Blast Cells % Cancelled Plasma Cell % (Manual) Cancelled Other Cells % Cancelled Lymphocytes # Cancelled Nucleated RBCs/100 WBC Cancelled Differential Comment Cancelled Diff Path Review Cancelled Hypersegmented Neuts Cancelled Atypical Lymphocytes Cancelled Reactive Lymphocytes Cancelled Smudge Cells Cancelled Eosinophilia # Cancelled Basophilia # Cancelled Toxic Granulation Cancelled Dohle Bodies Cancelled Monisha Rods Cancelled Platelet Estimate Cancelled Plt Morphology Comment Cancelled RBC Morphology Cancelled Polychromasia Cancelled Hypochromasia Cancelled Poikilocytosis Cancelled Basophilic Stippling Cancelled Anisocytosis Cancelled Microcytosis Cancelled Macrocytosis Cancelled Spherocytes Cancelled Sickle Cells Cancelled Target Cells Cancelled Tear Drop Cells Cancelled Ovalocytes Cancelled Stomatocytes Cancelled Gagnon-Carmichael Bodies Cancelled Tamara Cells Cancelled Bite Cells Cancelled Acanthocytes (Spur) Cancelled Rouleaux Cancelled Schistocytes Cancelled Specimen Type Sample Site pH Bicarbonate Actual POC Total CO2 Base Excess O2 Saturation O2 % ABG pCO2 ABG pO2 Respiration Rate O2 Delivery Device Minute Volume Vent Mode Tidal Volume POC PEEP Blood Gas Notified Whom Blood Gas Notified Time Sodium Cancelled Potassium Cancelled Chloride Cancelled Carbon Dioxide Cancelled Anion Gap Cancelled BUN Cancelled Creatinine Cancelled Estim Creat Clear Calc Cancelled Est GFR (MDRD) Af Amer Cancelled Est GFR (MDRD) Non-Af Cancelled BUN/Creatinine Ratio Cancelled Glucose Cancelled Calcium Cancelled Phosphorus Cancelled Magnesium Cancelled Total Bilirubin Cancelled AST Cancelled ALT Cancelled Alkaline Phosphatase Cancelled Total Creatine Kinase 64 Troponin I Total Protein Cancelled Albumin Cancelled Globulin Cancelled Albumin/Globulin Ratio Cancelled Triglycerides MRSA (PCR) 06/02/17 06/02/17 03:45 03:45 WBC 7.6 Corrected WBC RBC 3.43 L Hgb 11.1 L Hct 32.5 L MCV 94.8 H MCH 32.4 H MCHC 34.2 RDW 12.3 RDW Differential 41.5 Plt Count 149 L MPV 10.6 Immature Gran % (Auto) 0.000 Neut % (Auto) 67.8 Lymph % (Auto) 22.1 Greer % (Auto) 9.9 Eos % (Auto) 0.1 Baso % (Auto) 0.1 Immature Gran # (Auto) Absolute Neuts (auto) 5.2 Absolute Lymphs (auto) 1.68 Absolute Monos (auto) Total Counted Not Reportable Neutrophils % (Manual) Band Neutrophils % Lymphocytes % (Manual) Monocytes % (Manual) Eosinophils % (Manual) Basophils % (Manual) Metamyelocytes % Myelocytes % Promyelocytes % Blast Cells % Plasma Cell % (Manual) Other Cells % Lymphocytes # Nucleated RBCs/100 WBC Differential Comment Diff Path Review Hypersegmented Neuts Atypical Lymphocytes Reactive Lymphocytes Smudge Cells Eosinophilia # Basophilia # Toxic Granulation Dohle Bodies Monisha Rods Platelet Estimate Plt Morphology Comment RBC Morphology Polychromasia Hypochromasia Poikilocytosis Basophilic Stippling Anisocytosis Microcytosis Macrocytosis Spherocytes Sickle Cells Target Cells Tear Drop Cells Ovalocytes Stomatocytes Gagnon-Carmichael Bodies [place] Cells Bite Cells Acanthocytes (Spur) Rouleaux Schistocytes Specimen Type Sample Site pH Bicarbonate Actual POC Total CO2 Base Excess O2 Saturation O2 % ABG pCO2 ABG pO2 Respiration Rate O2 Delivery Device Minute Volume Vent Mode Tidal Volume POC PEEP Blood Gas Notified Whom Blood Gas Notified Time Sodium 140 Potassium 3.7 Chloride 109 H Carbon Dioxide 23.0 Anion Gap 8 BUN 20 H Creatinine 1.05 Estim Creat Clear Calc 66.58 Est GFR (MDRD) Af Amer 88 Est GFR (MDRD) Non-Af 73 BUN/Creatinine Ratio 19.0 Glucose 89 Calcium 7.3 L Phosphorus 2.9 Magnesium 2.0 Total Bilirubin 0.50 AST 10 L ALT 13 L Alkaline Phosphatase 73 Total Creatine Kinase Troponin I Total Protein 5.4 L Albumin 2.8 L Globulin 2.6 Albumin/Globulin Ratio 1.1 Triglycerides MRSA (PCR) Clinical Impression(s) from Imaging Studies Brain CT 05/30/17 19:25 IMPRESSION: Chronic involutional changes of the brain. No acute intracranial process. Mild sinusitis. Electronically Signed: Lambert Franco DO at 20:22 EDT , Service support , Chest X-Ray 05/30/17 19:45 IMPRESSION: Hyperinflation. No infiltrate. Electronically Signed: Lambert Franco DO at 20:12 EDT , Service support , Brain MRI 05/31/17 06:41 IMPRESSION: A small punctate acute or subacute infarct is suspected in the midportion of the right thalamus. Interval progression of right occipital encephalomalacia. Minimal white matter disease. Electronically Signed: Louie Morley MD at 8:34 EDT Tel , Service support , Head MRA 05/31/17 16:10 IMPRESSION: 1. No evidence of significant steno-occlusive disease or aneurysm. 2. Diminutive left V4 vertebral artery segment. Electronically Signed: Matias Luevano DO at 22:44 EDT , Service support , Neck MRA 05/31/17 16:10 IMPRESSION: 1. Proximal right ICA severe greater than 70% stenosis with reconstitution of flow distally. Recommend further characterization with CTA and interventional consultation as warranted. 2. Focal stenosis of the left proximal ICA proximal 60-70%. Electronically Signed: Matias Luevano DO at 22:29 EDT , Service support , Brain CT 06/01/17 12:17 IMPRESSION: Chronic involutional changes of the brain. Stable Ancef malacia in the posterior medial aspect of the right occipital lobe. Sinusitis. Electronically Signed: Keanu Mallory MD at 14:33 EDT Tel [phone], Service support , Chest X-Ray 06/01/17 14:00 IMPRESSION: The tip of the endotracheal tube is at 4.8 cm proximal to the lara. Electronically Signed: Keanu Mallory MD at 14:35 EDT Tel [phone], Service support , Head CTA 06/01/17 16:20 IMPRESSION: There is severe atherosclerotic plaque formation of the origin of the right internal carotid artery with an 80% occlusion. There is mild atherosclerotic plaque formation of the origin of the left internal carotid artery with less than 50% cross sectional diameter stenosis. Electronically Signed: Andres Quinones MD at 18:15 EDT , Service support , Neck CTA 06/01/17 16:20 IMPRESSION: There is severe atherosclerotic plaque formation of the origin of the right internal carotid artery with an 80% occlusion. There is mild atherosclerotic plaque formation of the origin of the left internal carotid artery with less than 50% cross sectional diameter stenosis. Electronically Signed: Andres Quinones MD at 18:15 EDT , Service support , KUB X-Ray 06/01/17 16:40 IMPRESSION: Nasogastric tube present with tip overlying the epigastric region. Opacification of the pelvicalyceal systems, ureters, and bladder. Electronically Signed: Ambrocio Sánchez MD at 17:32 EDT , Service support , Assessment/Plan Active and Suspected Problems Migraine (Acute) Stroke (Acute) RECOMMENDATIONS: 1. Plans for MRI this morning. 2. Continue low-dose Precedex and fentanyl for sedation 3. If MRI is negative, may need to consider LP 4. Infectious workup is underway. 5. Continue Keppra and Topamax 6. Depending on the results of the patient's MRI this morning, he may be a candidate for extubation later today. IMPRESSIONS: 1. Acute respiratory failure secondary to #2 The patient was transferred emergently to the ICU after developing generalized tonic-clonic seizure activity and biting his tongue. The patient's airway became compromised and he was emergently intubated upon arrival to the ICU. The patient's ventilator requirements remain minimal. There are plans to proceed with repeat MRI head this morning. Depending on the results of the patient's head imaging, he may be a candidate for extubation later today. 2. Encephalopathy Likely multifactorial in etiology with questionable CVA and/or sentinel seizure activity and subsequent postictal state contributing. Neurology is currently following. Repeat MRI head is pending. EEG showed no evidence of seizure activity. Continue Keppra and Topamax per neurology recommendations. 3. New onset seizures/thalamic CVA/migraine As above, continue current medical management per neurology recommendations. 4. Subacute sinusitis The patient was recently started on antibiotics by Dr. Townsend of ENT. These will be continued empirically. 5. Advanced age/GERD/allergic rhinitis/hypertension/hyperlipidemia Complicated care, management, recovery and prognosis. Okay to continue home medications as indicated. Nutrition consultation for tube feed recommendations. The patient will eventually require physical therapy evaluation, once medically stabilized. TIME: 40 minutes of critical care time, inclusive of procedures, was spent addressing the patient's acute respiratory failure, encephalopathy, new onset seizure activity, thalamic CVA, migraine with aura, subacute sinusitis, review of all data and collaboration with care team. ([id number]) Code Visit [id number]: [id number] Critical care first hour
--- NOTE | 2017-06-02 06:49 | PN_ITS ---
Subjective: The patient was seen and examined at the bedside this morning. Events from the last 24 hours have been reviewed. The patient does have a low-grade fever to 99.5?F. Blood pressures have been rather labile. Ventilator requirements are minimal. EEG and CTA head/neck were completed last evening. Lower extremity Dopplers were negative for the presence of DVTs. No significant lab abnormalities were identified this morning. The patient is awaiting repeat MRI head. Objective: The patient's most recent lab work, culture data and imaging studies have all been personally reviewed. Initial MRI brain completed on May 31 revealed evidence of a small punctate acute or subacute infarction in the midportion of the right thalamus. Surface echocardiogram revealed evidence of stage I diastolic dysfunction with ejection fraction of 60%. The patient did have evidence of a probable patent foramen ovale with [id number] intra-atrial shunt. Right ventricular systolic pressures were estimated to be 23 mmHg. Head /neck MRA also completed on May 31 revealed no evidence of significant occlusive disease or aneurysm. The proximal right ICA did have severe stenosis with reconstitution of flow distally. There is also focal stenosis of the left proximal ICA. EEG was abnormal due to the presence of generalized increase in beta frequency waves, potentially medication related. Head/neck CTA on June 01 again demonstrated the aforementioned ICA stenosis. General: - - Remains intubated, sedated and mechanically ventilated. HEENT: Atraumatic, PERRLA, Normocephalic Oral: No Gingival or Mucosal Lesions/ Ulcerations, - - Endotracheal and OG tubes in place Neck: Supple, No Nodes, Trachea Midline Lungs: No rhonchi, No wheeze, No rales, Diminished Cardiovascular: Regular rate, Regular Rhythm, Normal S1, Normal S2, No murmurs, No rub noted, No Gallop Abdomen: Bowel Sounds Present, Soft, Non Tender, Non-Distended Extremities: No clubbing, No cyanosis, No edema Skin: No rashes, No breakdown Musculoskeletal: No Tenderness to Palpation of Joints or Extremities Lymphatic: No Cervical, Supraclavicular, or Inguinal Adenopathy Neurological: - - No focal neurological deficits. Moves all extremities spontaneously. Follows simple commands appropriately. Vital Signs Temp Pulse Resp BP Pulse Ox 99.5 F H 64 18 100/45 L 99 06/02/17 04:04 06/02/17 06:24 06/02/17 06:24 06/02/17 06:24 06/02/17 06:24 Oxygen Delivery Method Mechanical Ventilator Weight: 176 lb 14.4 oz Body Mass Index (BMI) 22.7 Intake and Output for Last 24 Hours 05/31/17 06/01/17 06/02/17 23:59 23:59 23:59 Intake Total 440 / 710 1170 / 1170 350 / 350 Output Total 650 / 650 1020 / 1020 Balance 440 / 710 520 / 520 -670 / -670 Labs (Last 48 Hours) 06/01/17 06/01/17 06/01/17 00:35 04:08 08:20 WBC Corrected WBC RBC Hgb Hct MCV MCH MCHC RDW RDW Differential Plt Count MPV Immature Gran % (Auto) Neut % (Auto) Lymph % (Auto) [place] % (Auto) Eos % (Auto) Baso % (Auto) Immature Gran # (Auto) Absolute Neuts (auto) Absolute Lymphs (auto) Absolute Monos (auto) Total Counted Neutrophils % (Manual) Band Neutrophils % Lymphocytes % (Manual) Monocytes % (Manual) Eosinophils % (Manual) Basophils % (Manual) Metamyelocytes % Myelocytes % Promyelocytes % Blast Cells % Plasma Cell % (Manual) Other Cells % Lymphocytes # Nucleated RBCs/100 WBC Differential Comment Diff Path Review Hypersegmented Neuts Atypical Lymphocytes Reactive Lymphocytes Smudge Cells Eosinophilia # Basophilia # Toxic Granulation Dohle Bodies Monisha Rods Platelet Estimate Plt Morphology Comment RBC Morphology Polychromasia Hypochromasia Poikilocytosis Basophilic Stippling Anisocytosis Microcytosis Macrocytosis Spherocytes Sickle Cells Target Cells Tear Drop Cells Ovalocytes Stomatocytes Gagnon-Velma Bodies [place] Cells Bite Cells Acanthocytes (Spur) Rouleaux Schistocytes Specimen Type Sample Site pH Bicarbonate Actual POC Total CO2 Base Excess O2 Saturation O2 % ABG pCO2 ABG pO2 Respiration Rate O2 Delivery Device Minute Volume Vent Mode Tidal Volume POC PEEP Blood Gas Notified Whom Blood Gas Notified Time Sodium Potassium Chloride Carbon Dioxide Anion Gap BUN Creatinine Estim Creat Clear Calc Est GFR (MDRD) Af Amer Est GFR (MDRD) Non-Af BUN/Creatinine Ratio Glucose Calcium Phosphorus Magnesium 2.1 Total Bilirubin AST ALT Alkaline Phosphatase Total Creatine Kinase Troponin I < 0.02 < 0.02 < 0.02 Total Protein Albumin Globulin Albumin/Globulin Ratio Triglycerides MRSA (PCR) 06/01/17 06/01/17 06/01/17 13:30 15:18 15:30 WBC Corrected WBC RBC Hgb Hct MCV MCH MCHC RDW RDW Differential Plt Count MPV Immature Gran % (Auto) Neut % (Auto) Lymph % (Auto) [place] % (Auto) Eos % (Auto) Baso % (Auto) Immature Gran # (Auto) Absolute Neuts (auto) Absolute Lymphs (auto) Absolute Monos (auto) Total Counted Neutrophils % (Manual) Band Neutrophils % Lymphocytes % (Manual) Monocytes % (Manual) Eosinophils % (Manual) Basophils % (Manual) Metamyelocytes % Myelocytes % Promyelocytes % Blast Cells % Plasma Cell % (Manual) Other Cells % Lymphocytes # Nucleated RBCs/100 WBC Differential Comment Diff Path Review Hypersegmented Neuts Atypical Lymphocytes Reactive Lymphocytes Smudge Cells Eosinophilia # Basophilia # Toxic Granulation Dohle Bodies Monisha Rods Platelet Estimate Plt Morphology Comment RBC Morphology Polychromasia Hypochromasia Poikilocytosis Basophilic Stippling Anisocytosis Microcytosis Macrocytosis Spherocytes Sickle Cells Target Cells Tear Drop Cells Ovalocytes Stomatocytes Gagnon-Velma Bodies [place] Cells Bite Cells Acanthocytes (Spur) Rouleaux Schistocytes Specimen Type ART Sample Site R Brachial pH 7.33 L Bicarbonate Actual 18.5 L POC Total CO2 20 Base Excess -7 L O2 Saturation 95 O2 % 30 ABG pCO2 34.9 L ABG pO2 79 Respiration Rate 14 O2 Delivery Device Vent Minute Volume 10.00 Vent Mode A-C Tidal Volume 500 POC PEEP 5 Blood Gas Notified Whom ICU MD Blood Gas Notified Time 1516 Sodium Potassium Chloride Carbon Dioxide Anion Gap BUN Creatinine Estim Creat Clear Calc Est GFR (MDRD) Af Amer Est GFR (MDRD) Non-Af BUN/Creatinine Ratio Glucose Calcium Phosphorus Magnesium Total Bilirubin AST ALT Alkaline Phosphatase Total Creatine Kinase Troponin I < 0.02 Total Protein Albumin Globulin Albumin/Globulin Ratio Triglycerides 68 MRSA (PCR) Negative 06/01/17 06/02/17 06/02/17 15:30 03:30 03:30 WBC Cancelled Corrected WBC Cancelled RBC Cancelled Hgb Cancelled Hct Cancelled MCV Cancelled MCH Cancelled MCHC Cancelled RDW Cancelled RDW Differential Cancelled Plt Count Cancelled MPV Cancelled Immature Gran % (Auto) Cancelled Neut % (Auto) Cancelled Lymph % (Auto) Cancelled [place] % (Auto) Cancelled Eos % (Auto) Cancelled Baso % (Auto) Cancelled Immature Gran # (Auto) Cancelled Absolute Neuts (auto) Cancelled Absolute Lymphs (auto) Cancelled Absolute Monos (auto) Cancelled Total Counted Cancelled Neutrophils % (Manual) Cancelled Band Neutrophils % Cancelled Lymphocytes % (Manual) Cancelled Monocytes % (Manual) Cancelled Eosinophils % (Manual) Cancelled Basophils % (Manual) Cancelled Metamyelocytes % Cancelled Myelocytes % Cancelled Promyelocytes % Cancelled Blast Cells % Cancelled Plasma Cell % (Manual) Cancelled Other Cells % Cancelled Lymphocytes # Cancelled Nucleated RBCs/100 WBC Cancelled Differential Comment Cancelled Diff Path Review Cancelled Hypersegmented Neuts Cancelled Atypical Lymphocytes Cancelled Reactive Lymphocytes Cancelled Smudge Cells Cancelled Eosinophilia # Cancelled Basophilia # Cancelled Toxic Granulation Cancelled Dohle Bodies Cancelled Monisha Rods Cancelled Platelet Estimate Cancelled Plt Morphology Comment Cancelled RBC Morphology Cancelled Polychromasia Cancelled Hypochromasia Cancelled Poikilocytosis Cancelled Basophilic Stippling Cancelled Anisocytosis Cancelled Microcytosis Cancelled Macrocytosis Cancelled Spherocytes Cancelled Sickle Cells Cancelled Target Cells Cancelled Tear Drop Cells Cancelled Ovalocytes Cancelled Stomatocytes Cancelled Gagnon-Velma Bodies Cancelled [place] Cells Cancelled Bite Cells Cancelled Acanthocytes (Spur) Cancelled Rouleaux Cancelled Schistocytes Cancelled Specimen Type Sample Site pH Bicarbonate Actual POC Total CO2 Base Excess O2 Saturation O2 % ABG pCO2 ABG pO2 Respiration Rate O2 Delivery Device Minute Volume Vent Mode Tidal Volume POC PEEP Blood Gas Notified Whom Blood Gas Notified Time Sodium Cancelled Potassium Cancelled Chloride Cancelled Carbon Dioxide Cancelled Anion Gap Cancelled BUN Cancelled Creatinine Cancelled Estim Creat Clear Calc Cancelled Est GFR (MDRD) Af Amer Cancelled Est GFR (MDRD) Non-Af Cancelled BUN/Creatinine Ratio Cancelled Glucose Cancelled Calcium Cancelled Phosphorus Cancelled Magnesium Cancelled Total Bilirubin Cancelled AST Cancelled ALT Cancelled Alkaline Phosphatase Cancelled Total Creatine Kinase 64 Troponin I Total Protein Cancelled Albumin Cancelled Globulin Cancelled Albumin/Globulin Ratio Cancelled Triglycerides MRSA (PCR) 06/02/17 06/02/17 03:45 03:45 WBC 7.6 Corrected WBC RBC 3.43 L Hgb 11.1 L Hct 32.5 L MCV 94.8 H MCH 32.4 H MCHC 34.2 RDW 12.3 RDW Differential 41.5 Plt Count 149 L MPV 10.6 Immature Gran % (Auto) 0.000 Neut % (Auto) 67.8 Lymph % (Auto) 22.1 [place] % (Auto) 9.9 Eos % (Auto) 0.1 Baso % (Auto) 0.1 Immature Gran # (Auto) Absolute Neuts (auto) 5.2 Absolute Lymphs (auto) 1.68 Absolute Monos (auto) Total Counted Not Reportable Neutrophils % (Manual) Band Neutrophils % Lymphocytes % (Manual) Monocytes % (Manual) Eosinophils % (Manual) Basophils % (Manual) Metamyelocytes % Myelocytes % Promyelocytes % Blast Cells % Plasma Cell % (Manual) Other Cells % Lymphocytes # Nucleated RBCs/100 WBC Differential Comment Diff Path Review Hypersegmented Neuts Atypical Lymphocytes Reactive Lymphocytes Smudge Cells Eosinophilia # Basophilia # Toxic Granulation Dohle Bodies Monisha Rods Platelet Estimate Plt Morphology Comment RBC Morphology Polychromasia Hypochromasia Poikilocytosis Basophilic Stippling Anisocytosis Microcytosis Macrocytosis Spherocytes Sickle Cells Target Cells Tear Drop Cells Ovalocytes Stomatocytes Gagnon-Velma Bodies [place] Cells Bite Cells Acanthocytes (Spur) Rouleaux Schistocytes Specimen Type Sample Site pH Bicarbonate Actual POC Total CO2 Base Excess O2 Saturation O2 % ABG pCO2 ABG pO2 Respiration Rate O2 Delivery Device Minute Volume Vent Mode Tidal Volume POC PEEP Blood Gas Notified Whom Blood Gas Notified Time Sodium 140 Potassium 3.7 Chloride 109 H Carbon Dioxide 23.0 Anion Gap 8 BUN 20 H Creatinine 1.05 Estim Creat Clear Calc 66.58 Est GFR (MDRD) Af Amer 88 Est GFR (MDRD) Non-Af 73 BUN/Creatinine Ratio 19.0 Glucose 89 Calcium 7.3 L Phosphorus 2.9 Magnesium 2.0 Total Bilirubin 0.50 AST 10 L ALT 13 L Alkaline Phosphatase 73 Total Creatine Kinase Troponin I Total Protein 5.4 L Albumin 2.8 L Globulin 2.6 Albumin/Globulin Ratio 1.1 Triglycerides MRSA (PCR) Clinical Impression(s) from Imaging Studies Brain CT 05/30/17 19:25 IMPRESSION: Chronic involutional changes of the brain. No acute intracranial process. Mild sinusitis. Electronically Signed: Lambert Franco DO at 20:22 EDT , Service support , Chest X-Ray 05/30/17 19:45 IMPRESSION: Hyperinflation. No infiltrate. Electronically Signed: Lambert Franco DO at 20:12 EDT , Service support , Brain MRI 05/31/17 06:41 IMPRESSION: A small punctate acute or subacute infarct is suspected in the midportion of the right thalamus. Interval progression of right occipital encephalomalacia. Minimal white matter disease. Electronically Signed: Louie Morley MD at 8:34 EDT Tel , Service support , Head MRA 05/31/17 16:10 IMPRESSION: 1. No evidence of significant steno-occlusive disease or aneurysm. 2. Diminutive left V4 vertebral artery segment. Electronically Signed: Matias Luevano DO at 22:44 EDT , Service support , Neck MRA 05/31/17 16:10 IMPRESSION: 1. Proximal right ICA severe greater than 70% stenosis with reconstitution of flow distally. Recommend further characterization with CTA and interventional consultation as warranted. 2. Focal stenosis of the left proximal ICA proximal 60-70%. Electronically Signed: Matias Luevano DO at 22:29 EDT , Service support , Brain CT 06/01/17 12:17 IMPRESSION: Chronic involutional changes of the brain. Stable Ancef malacia in the posterior medial aspect of the right occipital lobe. Sinusitis. Electronically Signed: Keanu Mallory MD at 14:33 EDT Tel [phone], Service support , Chest X-Ray 06/01/17 14:00 IMPRESSION: The tip of the endotracheal tube is at 4.8 cm proximal to the lara. Electronically Signed: Keanu Mallory MD at 14:35 EDT Tel [phone], Service support , Head CTA 06/01/17 16:20 IMPRESSION: There is severe atherosclerotic plaque formation of the origin of the right internal carotid artery with an 80% occlusion. There is mild atherosclerotic plaque formation of the origin of the left internal carotid artery with less than 50% cross sectional diameter stenosis. Electronically Signed: Andres Quinones MD at 18:15 EDT , Service support , Neck CTA 06/01/17 16:20 IMPRESSION: There is severe atherosclerotic plaque formation of the origin of the right internal carotid artery with an 80% occlusion. There is mild atherosclerotic plaque formation of the origin of the left internal carotid artery with less than 50% cross sectional diameter stenosis. Electronically Signed: Andres Quinones MD at 18:15 EDT , Service support , KUB X-Ray 06/01/17 16:40 IMPRESSION: Nasogastric tube present with tip overlying the epigastric region. Opacification of the pelvicalyceal systems, ureters, and bladder. Electronically Signed: Ambrocio Sánchez MD at 17:32 EDT , Service support , Assessment/Plan Active and Suspected Problems Migraine (Acute) Stroke (Acute) RECOMMENDATIONS: 1. Plans for MRI this morning. 2. Continue low-dose Precedex and fentanyl for sedation 3. If MRI is negative, may need to consider LP 4. Infectious workup is underway. 5. Continue Keppra and Topamax 6. Depending on the results of the patient's MRI this morning, he may be a candidate for extubation later today. IMPRESSIONS: 1. Acute respiratory failure secondary to #2 The patient was transferred emergently to the ICU after developing generalized tonic-clonic seizure activity and biting his tongue. The patient's airway became compromised and he was emergently intubated upon arrival to the ICU. The patient's ventilator requirements remain minimal. There are plans to proceed with repeat MRI head this morning. Depending on the results of the patient's head imaging, he may be a candidate for extubation later today. 2. Encephalopathy Likely multifactorial in etiology with questionable CVA and/or sentinel seizure activity and subsequent postictal state contributing. Neurology is currently following. Repeat MRI head is pending. EEG showed no evidence of seizure activity. Continue Keppra and Topamax per neurology recommendations. 3. New onset seizures/thalamic CVA/migraine As above, continue current medical management per neurology recommendations. 4. Subacute sinusitis The patient was recently started on antibiotics by Dr. Townsend of ENT. These will be continued empirically. 5. Advanced age/GERD/allergic rhinitis/hypertension/hyperlipidemia Complicated care, management, recovery and prognosis. Okay to continue home medications as indicated. Nutrition consultation for tube feed recommendations. The patient will eventually require physical therapy evaluation, once medically stabilized. TIME: 40 minutes of critical care time, inclusive of procedures, was spent addressing the patient's acute respiratory failure, encephalopathy, new onset seizure activity, thalamic CVA, migraine with aura, subacute sinusitis, review of all data and collaboration with care team. ([id number]) Code Visit [id number]: [id number] Critical care first hour
--- NOTE | 2017-06-02 06:55 | PN_ITS ---
Patient Problems: Active and Suspected Problems Migraine (Acute) Stroke (Acute) Subjective: Transferred to the intensive care unit on 06/01/2017 due to partial left side seizures that became generalized. Treated with 2 mg of Ativan and 1 g of Keppra. Never regained consciousness following the seizure. He was intubated and taken for stat CT brain which revealed no acute findings. 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 MRA showed collaterals on the right 1318. There was a 50% cross-sectional diameter stenosis of the left internal carotid artery. CTA of the head showed calcified plaque of the right cavernous carotid artery and left cavernous carotid artery without cross-sectional luminal stenosis. EEG showed no epileptiform activity. Bilateral lower extremity venous ultrasounds were done because of a trivial PFO and these were negative for DVT. MRI was ordered yesterday afternoon and not completed due to down time for the MRI machine. He was maintained on the vent overnight. BP dropped and he received a few fluid boluses with good response. MRI still not done at this time. Ventilator Day #2 TMAX: 99.5 core Vital signs: Blood pressure has ranged from 86/37 to 115/72. Current blood pressure is 100/45. Heart rate has been stable and within normal limits. He is 98-100% saturated on 30% FiO2 currently. Fluid balance: +635 since admission Urine output: Output on 06/01/2017 was +650 and overnight he has had +1020. Weight: 176 pounds and 14 ounces, up from 172 pounds and 3 ounces on 05/31/2017 All radiologic testing was reviewed: Chest x-ray today shows no infiltrates, pulmonary vascular congestion or pleural effusions. The ET tube is in good position. All labs were personally reviewed: White blood cell count today is 7.6 with an unremarkable differential. Hemoglobin is 11.1 after fluid boluses. Platelet count is 149,000. Electrolytes are within normal limits. Creatinine today is 1.05, down from 1.46 on 05/31/2017. Telemetry: Objective: he denies LAMB and also denies any pain today. He wants the ETT out. - Physical Exam General: Alert, - - able to follow commands and answer yes and no questions appropriately HEENT: Atraumatic, PERRLA, EOMI Neck: Supple Lungs: Clear to auscultation Cardiovascular: Regular rate, Regular Rhythm, Normal S1, Normal S2, No murmurs, No Gallop Abdomen: Bowel Sounds Present, Soft, Non Tender, Non-Distended Extremities: No clubbing, No cyanosis, No edema Skin: No rashes, No breakdown Lymphatic: No Cervical, Supraclavicular, or Inguinal Adenopathy Neurological: Cranial nerves II-XII grossly intact, Neuro grossly intact Psych/Mental Status: Agitated Vital Signs Temp Pulse Resp BP Pulse Ox 99.5 F H 64 18 100/45 L 99 06/02/17 04:04 06/02/17 06:24 06/02/17 06:24 06/02/17 06:24 06/02/17 06:24 Oxygen Delivery Method Mechanical Ventilator Weight: 176 lb 14.4 oz Body Mass Index (BMI) 22.7 Intake and Output for Last 24 Hours 05/31/17 06/01/17 06/02/17 23:59 23:59 23:59 Intake Total 440 / 710 1170 / 1170 350 / 350 Output Total 650 / 650 1020 / 1020 Balance 440 / 710 520 / 520 -670 / -670 Laboratory Tests Past 24 Hrs 06/01/17 06/01/17 06/01/17 08:20 13:30 15:18 WBC Corrected WBC RBC Hgb Hct MCV MCH MCHC RDW RDW Differential Plt Count MPV Immature Gran % (Auto) Neut % (Auto) Lymph % (Auto) Tyrrell % (Auto) Eos % (Auto) Baso % (Auto) Immature Gran # (Auto) Absolute Neuts (auto) Absolute Lymphs (auto) Absolute Monos (auto) Total Counted Neutrophils % (Manual) Band Neutrophils % Lymphocytes % (Manual) Monocytes % (Manual) Eosinophils % (Manual) Basophils % (Manual) Metamyelocytes % Myelocytes % Promyelocytes % Blast Cells % Plasma Cell % (Manual) Other Cells % Lymphocytes # Nucleated RBCs/100 WBC Differential Comment Diff Path Review Hypersegmented Neuts Atypical Lymphocytes Reactive Lymphocytes Smudge Cells Eosinophilia # Basophilia # Toxic Granulation Dohle Bodies Monisha Rods Platelet Estimate Plt Morphology Comment RBC Morphology Polychromasia Hypochromasia Poikilocytosis Basophilic Stippling Anisocytosis Microcytosis Macrocytosis Spherocytes Sickle Cells Target Cells Tear Drop Cells Ovalocytes Stomatocytes [place] Bodies Gila Cells Bite Cells Acanthocytes (Spur) Rouleaux Schistocytes Specimen Type ART Sample Site R Brachial pH 7.33 L Bicarbonate Actual 18.5 L POC Total CO2 20 Base Excess -7 L O2 Saturation 95 O2 % 30 ABG pCO2 34.9 L ABG pO2 79 Respiration Rate 14 O2 Delivery Device Vent Minute Volume 10.00 Vent Mode A-C Tidal Volume 500 POC PEEP 5 Blood Gas Notified Whom ICU Blood Gas Notified Time 1516 Sodium Potassium Chloride Carbon Dioxide Anion Gap BUN Creatinine Estim Creat Clear Calc Est GFR (MDRD) Af Amer Est GFR (MDRD) Non-Af BUN/Creatinine Ratio Glucose Calcium Phosphorus Magnesium Total Bilirubin AST ALT Alkaline Phosphatase Total Creatine Kinase Troponin I < 0.02 Total Protein Albumin Globulin Albumin/Globulin Ratio Triglycerides MRSA (PCR) Negative 06/01/17 06/01/17 06/02/17 15:30 15:30 03:30 WBC Cancelled Corrected WBC Cancelled RBC Cancelled Hgb Cancelled Hct Cancelled MCV Cancelled MCH Cancelled MCHC Cancelled RDW Cancelled RDW Differential Cancelled Plt Count Cancelled MPV Cancelled Immature Gran % (Auto) Cancelled Neut % (Auto) Cancelled Lymph % (Auto) Cancelled Tyrrell % (Auto) Cancelled Eos % (Auto) Cancelled Baso % (Auto) Cancelled Immature Gran # (Auto) Cancelled Absolute Neuts (auto) Cancelled Absolute Lymphs (auto) Cancelled Absolute Monos (auto) Cancelled Total Counted Cancelled Neutrophils % (Manual) Cancelled Band Neutrophils % Cancelled Lymphocytes % (Manual) Cancelled Monocytes % (Manual) Cancelled Eosinophils % (Manual) Cancelled Basophils % (Manual) Cancelled Metamyelocytes % Cancelled Myelocytes % Cancelled Promyelocytes % Cancelled Blast Cells % Cancelled Plasma Cell % (Manual) Cancelled Other Cells % Cancelled Lymphocytes # Cancelled Nucleated RBCs/100 WBC Cancelled Differential Comment Cancelled Diff Path Review Cancelled Hypersegmented Neuts Cancelled Atypical Lymphocytes Cancelled Reactive Lymphocytes Cancelled Smudge Cells Cancelled Eosinophilia # Cancelled Basophilia # Cancelled Toxic Granulation Cancelled Dohle Bodies Cancelled Monisha Rods Cancelled Platelet Estimate Cancelled Plt Morphology Comment Cancelled RBC Morphology Cancelled Polychromasia Cancelled Hypochromasia Cancelled Poikilocytosis Cancelled Basophilic Stippling Cancelled Anisocytosis Cancelled Microcytosis Cancelled Macrocytosis Cancelled Spherocytes Cancelled Sickle Cells Cancelled Target Cells Cancelled Tear Drop Cells Cancelled Ovalocytes Cancelled Stomatocytes Cancelled [place] Bodies Cancelled [place]ara Cells Cancelled Bite Cells Cancelled Acanthocytes (Spur) Cancelled Rouleaux Cancelled Schistocytes Cancelled Specimen Type Sample Site pH Bicarbonate Actual POC Total CO2 Base Excess O2 Saturation O2 % ABG pCO2 ABG pO2 Respiration Rate O2 Delivery Device Minute Volume Vent Mode Tidal Volume POC PEEP Blood Gas Notified Whom Blood Gas Notified Time Sodium Potassium Chloride Carbon Dioxide Anion Gap BUN Creatinine Estim Creat Clear Calc Est GFR (MDRD) Af Amer Est GFR (MDRD) Non-Af BUN/Creatinine Ratio Glucose Calcium Phosphorus Magnesium Total Bilirubin AST ALT Alkaline Phosphatase Total Creatine Kinase 64 Troponin I < 0.02 Total Protein Albumin Globulin Albumin/Globulin Ratio Triglycerides 68 MRSA (PCR) 06/02/17 06/02/17 06/02/17 03:30 03:45 03:45 WBC 7.6 Corrected WBC RBC 3.43 L Hgb 11.1 L Hct 32.5 L MCV 94.8 H MCH 32.4 H MCHC 34.2 RDW 12.3 RDW Differential 41.5 Plt Count 149 L MPV 10.6 Immature Gran % (Auto) 0.000 Neut % (Auto) 67.8 Lymph % (Auto) 22.1 Tyrrell % (Auto) 9.9 Eos % (Auto) 0.1 Baso % (Auto) 0.1 Immature Gran # (Auto) Absolute Neuts (auto) 5.2 Absolute Lymphs (auto) 1.68 Absolute Monos (auto) Total Counted Not Reportable Neutrophils % (Manual) Band Neutrophils % Lymphocytes % (Manual) Monocytes % (Manual) Eosinophils % (Manual) Basophils % (Manual) Metamyelocytes % Myelocytes % Promyelocytes % Blast Cells % Plasma Cell % (Manual) Other Cells % Lymphocytes # Nucleated RBCs/100 WBC Differential Comment Diff Path Review Hypersegmented Neuts Atypical Lymphocytes Reactive Lymphocytes Smudge Cells Eosinophilia # Basophilia # Toxic Granulation Dohle Bodies Monisha Rods Platelet Estimate Plt Morphology Comment RBC Morphology Polychromasia Hypochromasia Poikilocytosis Basophilic Stippling Anisocytosis Microcytosis Macrocytosis Spherocytes Sickle Cells Target Cells Tear Drop Cells Ovalocytes Stomatocytes [place] Bodies Gila Cells Bite Cells Acanthocytes (Spur) Rouleaux Schistocytes Specimen Type Sample Site pH Bicarbonate Actual POC Total CO2 Base Excess O2 Saturation O2 % ABG pCO2 ABG pO2 Respiration Rate O2 Delivery Device Minute Volume Vent Mode Tidal Volume POC PEEP Blood Gas Notified Whom Blood Gas Notified Time Sodium Cancelled 140 Potassium Cancelled 3.7 Chloride Cancelled 109 H Carbon Dioxide Cancelled 23.0 Anion Gap Cancelled 8 BUN Cancelled 20 H Creatinine Cancelled 1.05 Estim Creat Clear Calc Cancelled 66.58 Est GFR (MDRD) Af Amer Cancelled 88 Est GFR (MDRD) Non-Af Cancelled 73 BUN/Creatinine Ratio Cancelled 19.0 Glucose Cancelled 89 Calcium Cancelled 7.3 L Phosphorus Cancelled 2.9 Magnesium Cancelled 2.0 Total Bilirubin Cancelled 0.50 AST Cancelled 10 L ALT Cancelled 13 L Alkaline Phosphatase Cancelled 73 Total Creatine Kinase Troponin I Total Protein Cancelled 5.4 L Albumin Cancelled 2.8 L Globulin Cancelled 2.6 Albumin/Globulin Ratio Cancelled 1.1 Triglycerides MRSA (PCR) Assessment/Plan Active and Suspected Problems Migraine (Acute) Stroke (Acute) Impressions 1. acute/subacute R thalamic CVA 2. 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 Migraine cephalgia 4. sinusitis being treated by Dr. Townsend with Cefdinir 5. GERD 6. Allergic rhinitis 7. Dyslipidemia 8. Hypertension 9. COPD? or asthma? he is on albuterol PRN 10. new Left side weakness with partial seizures involving the LUE>LLE with left side neglect 11. BL ICA stenosis - the R reconstitutes with Collaterals and the Left is focal (5mm). 12. small interatrial shunt 13. partial motor seizures on the left 06/01 which became generalized. Etiology ? MRI this AM Met with family and discussed plan for the day. Will discuss with Dr. Trimble after the MRI is completed Will keep him sedated and intubated while having the MRI. discussed with Dr. Hu Blood and urine cultures sent today but, he has been afebrile since admission and with a Nl WBC - Diff is normal today stress and decadron yesterday Code Visit Inpatient E&M: 06120 Subs Hosp L3
--- NOTE | 2017-06-02 08:15 | NURSING ---
Pt taken to MRI w/this Robinson PALOMO, RN & SONYA ByersN. Pt on monitor, being bagged by PSN. IV meds continue.
[2017-06-02] MEDS: fentaNYL 100 MCG/2 ML Ampul IV (08:44)
--- NOTE | 2017-06-02 08:44 | NURSING ---
Fentanyl 100mcg IV given while in MRI for pt's severe agitation. Verified w/STACIA Bowers prior to administering.
--- NOTE | 2017-06-02 09:45 | NURSING ---
Pt returned from MRI w/this Eleazar PALOMO RN & Joya PSN. Complete bed bath & linen change provided.
[2017-06-02 11:26] LABS: CRP 6.06 mg/L (0.0-3.0)
[2017-06-02 11:48] LABS: Mucous, Urine 0 SEEN /hpf (<or=2+)
[2017-06-02 11:54] LABS: Color, Urine Yellow (Yellow); Glucose, Dipstick Normal (Normal); Ketone-Dipstick 15 mg/dl (Negative); Leukocyte Esterase-Dipstick 100 /ul (Negative); Nitrite-Dipstick Negative (Negative); Occult Blood-Urine 250 /ul (Negative); Protein-Dipstick 30 mg/dl (Negative); Urine Bilirubin Dipstick Negative (Negative); Urine Clarity Clear (Clear); Urine Urobilinogen Normal (Normal)
--- NOTE | 2017-06-02 11:54 | NURSING ---
Called pharmacy RE: Amber not on unit to give. Will send up a dose. Also asked for Topamax to be made GT instead of PO as it is being given down his OG tube.
[2017-06-02] MEDS: Famotidine 20 MG Tablet NG ×2 (11:56→21:50)
[2017-06-02] MEDS: Aspirin 81 MG TAB.CHEW NG (11:56)
[2017-06-02] MEDS: Enoxaparin 40 MG/0.4 ML Syringe SC (11:56)
[2017-06-02] MEDS: Clopidogrel Bisulfate 75 MG Tablet GT (11:56)
[2017-06-02 12:01] LABS: Bacteria RARE /hpf (None Seen); Red Blood Cells-Urine 0-5 SEEN /hpf (0-5); Squamous Epithelial Cells - UA 0-5 SEEN /hpf (0-5); White Blood Cells 5-10 SEEN /hpf (0-5)
[2017-06-02] MEDS: Chlorhexidine 15 ML PO ×2 (12:17→21:39)
[2017-06-02] MEDS: 0.9% NaCl Peripheral Flush Adult/Peds IV (12:20)
[2017-06-02] MEDS: 0.9% NaCl IVPB Med Flush (250 mL) 15 ML IV (12:22)
[2017-06-02] MEDS: Topiramate 50 MG Tablet GT ×2 (12:25→21:50)
--- NOTE | 2017-06-02 14:31 | PN.NEURO_ITS ---
Patient Problems: Active and Suspected Problems Migraine (Acute) Stroke (Acute) Subjective: No Issues overnight. No further seizures per nurse taking care of the patient. CTA head/neck shows 80% stenosis of the right ICA and <50% stenosis of the left ICA. Repeat MRI brain done on 06/01/[address] Carmen Worrell as showing right sided leptomeningeal fluid surrounding the cerebral hemisphere suggesting sequela of meningitis, and tiny acute infarct in the right insular cortex but on my review it more likely is suggestive of post ictal changes in the right cerebral hemisphere. But patient did not have any fever and WBC is 7.6, had no NR. But he had sinusitis for which has been on Cefdinir. Patient continues to be intubated. He is on Precedex for agitation. Per nurse taking care of the patient, he was following commands this morning but got very agitated during the MRI brain and hence was started on Precedex. Per ICU team plan is to try extubation today. - Physical Exam General: - - intubated HEENT: PERRLA, Normocephalic Neck: Supple Lungs: Clear to auscultation Cardiovascular: Regular rate Abdomen: Bowel Sounds Present Extremities: No clubbing Skin: No rashes Musculoskeletal: No Tenderness to Palpation of Joints or Extremities Neurological: - - limited Neurology examination, s/p intubation. pupils BERL, moves all 4 extremities to DPS, does not follow any VC, plantars B/L flexor, sensory, cerebellar, gait could not be assessed, Reflexes + B/L B/S/T/K/A Vital Signs Temp Pulse Resp BP Pulse Ox 99.5 F H 57 L 14 120/47 L 99 06/02/17 04:04 06/02/17 13:15 06/02/17 13:15 06/02/17 07:01 06/02/17 13:15 Oxygen Delivery Method Mechanical Ventilator Weight: 80.24 kg Body Mass Index (BMI) 22.7 Intake and Output for Last 24 Hours 05/31/17 06/01/17 06/02/17 23:59 23:59 23:59 Intake Total 440 / 710 1170 / 1170 193 / 193 Output Total 650 / 650 1345 / 1345 Balance 440 / 710 520 / 520 594 / 594 Laboratory Tests Past 24 Hrs 06/01/17 06/01/17 06/01/17 13:30 15:18 15:30 WBC Corrected WBC RBC Hgb Hct MCV MCH MCHC RDW RDW Differential Plt Count MPV Immature Gran % (Auto) Neut % (Auto) Lymph % (Auto) Divide % (Auto) Eos % (Auto) Baso % (Auto) Immature Gran # (Auto) Absolute Neuts (auto) Absolute Lymphs (auto) Absolute Monos (auto) Total Counted Neutrophils % (Manual) Band Neutrophils % Lymphocytes % (Manual) Monocytes % (Manual) Eosinophils % (Manual) Basophils % (Manual) Metamyelocytes % Myelocytes % Promyelocytes % Blast Cells % Plasma Cell % (Manual) Other Cells % Lymphocytes # Nucleated RBCs/100 WBC Differential Comment Diff Path Review Hypersegmented Neuts Atypical Lymphocytes Reactive Lymphocytes Smudge Cells Eosinophilia # Basophilia # Toxic Granulation Dohle Bodies Monisha Rods Platelet Estimate Plt Morphology Comment RBC Morphology Polychromasia Hypochromasia Poikilocytosis Basophilic Stippling Anisocytosis Microcytosis Macrocytosis Spherocytes Sickle Cells Target Cells Tear Drop Cells Ovalocytes Stomatocytes [place] Bodies Tamara Cells Bite Cells Acanthocytes (Spur) Rouleaux Schistocytes Specimen Type ART Sample Site R Brachial pH 7.33 L Bicarbonate Actual 18.5 L POC Total CO2 20 Base Excess -7 L O2 Saturation 95 O2 % 30 ABG pCO2 34.9 L ABG pO2 79 Respiration Rate 14 O2 Delivery Device Vent Minute Volume 10.00 Vent Mode A-C Tidal Volume 500 POC PEEP 5 Blood Gas Notified Whom ICU MD Blood Gas Notified Time 1516 Sodium Potassium Chloride Carbon Dioxide Anion Gap BUN Creatinine Estim Creat Clear Calc Est GFR (MDRD) Af Amer Est GFR (MDRD) Non-Af BUN/Creatinine Ratio Glucose Calcium Phosphorus Magnesium Total Bilirubin AST ALT Alkaline Phosphatase Total Creatine Kinase Troponin I < 0.02 C-React Prot Ext Range Total Protein Albumin Globulin Albumin/Globulin Ratio Triglycerides 68 Urine Color Urine Clarity Urine pH Ur Specific [place] Urine Protein Urine Glucose (UA) Urine Ketones Urine Occult Blood Urine Nitrite Urine Bilirubin Urine Urobilinogen Ur Leukocyte Esterase Urine RBC Urine WBC Ur Squamous Epith Cells Urine Bacteria Urine Mucus MRSA (PCR) Negative 06/01/17 06/02/17 06/02/17 15:30 03:30 03:30 WBC Cancelled Corrected WBC Cancelled RBC Cancelled Hgb Cancelled Hct Cancelled MCV Cancelled MCH Cancelled MCHC Cancelled RDW Cancelled RDW Differential Cancelled Plt Count Cancelled MPV Cancelled Immature Gran % (Auto) Cancelled Neut % (Auto) Cancelled Lymph % (Auto) Cancelled Divide % (Auto) Cancelled Eos % (Auto) Cancelled Baso % (Auto) Cancelled Immature Gran # (Auto) Cancelled Absolute Neuts (auto) Cancelled Absolute Lymphs (auto) Cancelled Absolute Monos (auto) Cancelled Total Counted Cancelled Neutrophils % (Manual) Cancelled Band Neutrophils % Cancelled Lymphocytes % (Manual) Cancelled Monocytes % (Manual) Cancelled Eosinophils % (Manual) Cancelled Basophils % (Manual) Cancelled Metamyelocytes % Cancelled Myelocytes % Cancelled Promyelocytes % Cancelled Blast Cells % Cancelled Plasma Cell % (Manual) Cancelled Other Cells % Cancelled Lymphocytes # Cancelled Nucleated RBCs/100 WBC Cancelled Differential Comment Cancelled Diff Path Review Cancelled Hypersegmented Neuts Cancelled Atypical Lymphocytes Cancelled Reactive Lymphocytes Cancelled Smudge Cells Cancelled Eosinophilia # Cancelled Basophilia # Cancelled Toxic Granulation Cancelled Dohle Bodies Cancelled Monisha Rods Cancelled Platelet Estimate Cancelled Plt Morphology Comment Cancelled RBC Morphology Cancelled Polychromasia Cancelled Hypochromasia Cancelled Poikilocytosis Cancelled Basophilic Stippling Cancelled Anisocytosis Cancelled Microcytosis Cancelled Macrocytosis Cancelled Spherocytes Cancelled Sickle Cells Cancelled Target Cells Cancelled Tear Drop Cells Cancelled Ovalocytes Cancelled Stomatocytes Cancelled [place] Bodies Cancelled [place] Cells Cancelled Bite Cells Cancelled Acanthocytes (Spur) Cancelled Rouleaux Cancelled Schistocytes Cancelled Specimen Type Sample Site pH Bicarbonate Actual POC Total CO2 Base Excess O2 Saturation O2 % ABG pCO2 ABG pO2 Respiration Rate O2 Delivery Device Minute Volume Vent Mode Tidal Volume POC PEEP Blood Gas Notified Whom Blood Gas Notified Time Sodium Cancelled Potassium Cancelled Chloride Cancelled Carbon Dioxide Cancelled Anion Gap Cancelled BUN Cancelled Creatinine Cancelled Estim Creat Clear Calc Cancelled Est GFR (MDRD) Af Amer Cancelled Est GFR (MDRD) Non-Af Cancelled BUN/Creatinine Ratio Cancelled Glucose Cancelled Calcium Cancelled Phosphorus Cancelled Magnesium Cancelled Total Bilirubin Cancelled AST Cancelled ALT Cancelled Alkaline Phosphatase Cancelled Total Creatine Kinase 64 Troponin I C-React Prot Ext Range Total Protein Cancelled Albumin Cancelled Globulin Cancelled Albumin/Globulin Ratio Cancelled Triglycerides Urine Color Urine Clarity Urine pH Ur Specific [place] Urine Protein Urine Glucose (UA) Urine Ketones Urine Occult Blood Urine Nitrite Urine Bilirubin Urine Urobilinogen Ur Leukocyte Esterase Urine RBC Urine WBC Ur Squamous Epith Cells Urine Bacteria Urine Mucus MRSA (PCR) 06/02/17 06/02/17 06/02/17 03:45 03:45 03:45 WBC 7.6 Corrected WBC RBC 3.43 L Hgb 11.1 L Hct 32.5 L MCV 94.8 H MCH 32.4 H MCHC 34.2 RDW 12.3 RDW Differential 41.5 Plt Count 149 L MPV 10.6 Immature Gran % (Auto) 0.000 Neut % (Auto) 67.8 Lymph % (Auto) 22.1 Divide % (Auto) 9.9 Eos % (Auto) 0.1 Baso % (Auto) 0.1 Immature Gran # (Auto) Absolute Neuts (auto) 5.2 Absolute Lymphs (auto) 1.68 Absolute Monos (auto) Total Counted Not Reportable Neutrophils % (Manual) Band Neutrophils % Lymphocytes % (Manual) Monocytes % (Manual) Eosinophils % (Manual) Basophils % (Manual) Metamyelocytes % Myelocytes % Promyelocytes % Blast Cells % Plasma Cell % (Manual) Other Cells % Lymphocytes # Nucleated RBCs/100 WBC Differential Comment Diff Path Review Hypersegmented Neuts Atypical Lymphocytes Reactive Lymphocytes Smudge Cells Eosinophilia # Basophilia # Toxic Granulation Dohle Bodies Monisha Rods Platelet Estimate Plt Morphology Comment RBC Morphology Polychromasia Hypochromasia Poikilocytosis Basophilic Stippling Anisocytosis Microcytosis Macrocytosis Spherocytes Sickle Cells Target Cells Tear Drop Cells Ovalocytes Stomatocytes [place] Bodies Tamara Cells Bite Cells Acanthocytes (Spur) Rouleaux Schistocytes Specimen Type Sample Site pH Bicarbonate Actual POC Total CO2 Base Excess O2 Saturation O2 % ABG pCO2 ABG pO2 Respiration Rate O2 Delivery Device Minute Volume Vent Mode Tidal Volume POC PEEP Blood Gas Notified Whom Blood Gas Notified Time Sodium 140 Potassium 3.7 Chloride 109 H Carbon Dioxide 23.0 Anion Gap 8 BUN 20 H Creatinine 1.05 Estim Creat Clear Calc 66.58 Est GFR (MDRD) Af Amer 88 Est GFR (MDRD) Non-Af 73 BUN/Creatinine Ratio 19.0 Glucose 89 Calcium 7.3 L Phosphorus 2.9 Magnesium 2.0 Total Bilirubin 0.50 AST 10 L ALT 13 L Alkaline Phosphatase 73 Total Creatine Kinase Troponin I C-React Prot Ext Range 6.06 H Total Protein 5.4 L Albumin 2.8 L Globulin 2.6 Albumin/Globulin Ratio 1.1 Triglycerides Urine Color Urine Clarity Urine pH Ur Specific [place] Urine Protein Urine Glucose (UA) Urine Ketones Urine Occult Blood Urine Nitrite Urine Bilirubin Urine Urobilinogen Ur Leukocyte Esterase Urine RBC Urine WBC Ur Squamous Epith Cells Urine Bacteria Urine Mucus MRSA (PCR) 06/02/17 07:10 WBC Corrected WBC RBC Hgb Hct MCV MCH MCHC RDW RDW Differential Plt Count MPV Immature Gran % (Auto) Neut % (Auto) Lymph % (Auto) Divide % (Auto) Eos % (Auto) Baso % (Auto) Immature Gran # (Auto) Absolute Neuts (auto) Absolute Lymphs (auto) Absolute Monos (auto) Total Counted Neutrophils % (Manual) Band Neutrophils % Lymphocytes % (Manual) Monocytes % (Manual) Eosinophils % (Manual) Basophils % (Manual) Metamyelocytes % Myelocytes % Promyelocytes % Blast Cells % Plasma Cell % (Manual) Other Cells % Lymphocytes # Nucleated RBCs/100 WBC Differential Comment Diff Path Review Hypersegmented Neuts Atypical Lymphocytes Reactive Lymphocytes Smudge Cells Eosinophilia # Basophilia # Toxic Granulation Dohle Bodies Monisha Rods Platelet Estimate Plt Morphology Comment RBC Morphology Polychromasia Hypochromasia Poikilocytosis Basophilic Stippling Anisocytosis Microcytosis Macrocytosis Spherocytes Sickle Cells Target Cells Tear Drop Cells Ovalocytes Stomatocytes [place] Bodies Tamara Cells Bite Cells Acanthocytes (Spur) Rouleaux Schistocytes Specimen Type Sample Site pH Bicarbonate Actual POC Total CO2 Base Excess O2 Saturation O2 % ABG pCO2 ABG pO2 Respiration Rate O2 Delivery Device Minute Volume Vent Mode Tidal Volume POC PEEP Blood Gas Notified Whom Blood Gas Notified Time Sodium Potassium Chloride Carbon Dioxide Anion Gap BUN Creatinine Estim Creat Clear Calc Est GFR (MDRD) Af Amer Est GFR (MDRD) Non-Af BUN/Creatinine Ratio Glucose Calcium Phosphorus Magnesium Total Bilirubin AST ALT Alkaline Phosphatase Total Creatine Kinase Troponin I C-React Prot Ext Range Total Protein Albumin Globulin Albumin/Globulin Ratio Triglycerides Urine Color Yellow Urine Clarity Clear Urine pH 5.0 Ur Specific [place] 1.020 Urine Protein 30 H Urine Glucose (UA) Normal Urine Ketones 15 H Urine Occult Blood 250 H Urine Nitrite Negative Urine Bilirubin Negative Urine Urobilinogen Normal Ur Leukocyte Esterase 100 H Urine RBC 0-5 SEEN Urine WBC 5-10 SEEN Ur Squamous Epith Cells 0-5 SEEN Urine Bacteria RARE Urine Mucus 0 SEEN MRSA (PCR) Assessment/Plan Active and Suspected Problems Migraine (Acute) Stroke (Acute) The patient is a 77 year old CM with PMH Stroke and migraine was admitted with severe LAMB, found to have new small right thalamic stroke. Had partial left sided seizures yesterday morning (06/01/17) with secondary generalization, patient was intubated following that. Ativan 1 mg was given and loaded with Keppra 1 g. Impression New onset seizure (partial seizure with secondary generalization) Acute/subacute small right thalamic stroke and new acute small right IC stroke on repeat MRI brain done on 06/01/17 Right ICA 80% severe stenosis Migraine with aura, not intractable, not in status Plan -Repeat MRI brain done on 06/01/[address] Carmen Worrell as showing right sided leptomeningeal fluid surrounding the cerebral hemisphere suggesting sequela of meningitis, and tiny acute infarct in the right insular cortex but on my review it more likely is suggestive of post ictal changes in the right cerebral hemisphere. -CTA head/neck- Right ICA 80% stenosis, and Left ICA < 50% stenosis. High stroke risk discussed in detail with the patient's and son due to presence of severe right ICA stenosis. He needs to be evaluated by vascular surgeon for Right CEA at the earliest. -Recommend Vascular surgery consult for CEA -Continue Keppra 500 mg IV BID -Topamax 50 mg PO BID for migraine LAMB -EEG did not show any epileptiform discharges or electrographic seizures -Recommend LP- CSF cell count, protein, glucose. -On ASA 81 mg PO once daily and Plavix 75 mg PO once daily. Recommend dual AP for 3 weeks, then switch to single AP. -Lipitor 40 mg PO q hs -MRI brain done on admission reviewed-reported as showing small acute right thalamus stroke -MRA head/neck-Left ICA 60-70% stenosis, Right ICA > 70% stenosis -TTE-EF 60%, normal LA size, probable small PFO - LDL-48, [id number]-3.6% -ESR-7 -Avoid Cefdinir -Avoid hypotension. -Seizure precautions -PT/OT -GI/DVT prophylaxis -will continue to follow. -Please call with questions if any -Thank you for allowing us to participate in patient's care and management I spent 45 minutes of critical care time taking history, doing physical examination, reviewing medical records, coordinating care and counseling the patient's family.
--- NOTE | 2017-06-02 15:28 | CASEMGMT ---
SW spoke w/pt's and son about plan from hospital. is concerned about taking pt home, she explains pt is to see Dr. Sauceda next week, and does not want pt to go home in between. She is concerned pt will have another seizure at home and pt will not get to the hospital in enough time. As per , pt did have two strokes. SW spoke w/pt's and son about both rehab and TCU, explained TCU may not have availability but rehab may. SW explained that pt can be assessed to see if he would be appropriate for rehab. agreeable to this, states pt was in inpt rehab in [place]. SW explained if pt is not appropriate for rehab, we can also look into a half-way in the community. states as per the neurologist, pt will not be ready for discharge until early next week. SW explained we will need to see how pt does with PT/OT once extubated, to see what is the most appropriate level of care. also asked about getting medical records for appt w/Dr. Sauceda. signed release, it was faxed to medical records and SW gave number to follow up. also given list of SNF's in the area. SW left message for [facility] w/referral for rehab vs. TCU, SW will continue to follow. NEVILLE Mcintyre, [employer]
[2017-06-02] MEDS: Atorvastatin Calcium 40 MG Tablet NG (21:50)
[2017-06-03] VITALS (31 sets, daily range): BP systolic 108–165; BP diastolic 41–88; PULSE 55–99; RESP 10–30; TEMP 36.9–37.6; O2SAT 95–100; BMI 22.7
[2017-06-03 05:18] LABS: Absolute Lymphocyte Count 1.69 X10^3/ul (0.83-4.51); Absolute Neutrophil Count 4.4 X10^3/uL (2.0-7.7); Basophil# 0.02 X10^3/uL; Basophil% 0.3 % (0-1); Eosinophil# 0.22 X10^3/uL; Eosinophils% 3.2 % (0-5); Hematocrit 34.1 % (40-54); Hemoglobin 11.3 g/dl (13.0-16.5); Lymphocyte # 1.69 X10^3/ul (4.0); Lymphocyte % 24.3 % (19-41); Mean Corp Hgb Conc 33.1 g/gl (32-36); Mean Corpuscular Hgb 31.6 pg (27.0-32.0); Mean Corpuscular Volume 95.3 fL (80-94); Mean Platelet Vol. 10.3 fl (6.2-12.0); Monocyte# 0.62 X10^3/uL; Monocyte% 8.9 % (0-10); Neutrophil % 63.2 % (47-70); Platelet Count 133 K/mm3 (150-450); RBC Distribution Width CV 12.3 % (11.6-14.6); RBC Distribution Width SD 41.7 fl (35.1-43.9); Red Blood Count 3.58 M/mm3 (4.6-6.2)
[2017-06-03 05:19] LABS: POSITIVE COUNT NO; POSITIVE DIFFERENTIAL NO; POSITIVE MORPHOLOGY NO
[2017-06-03 05:30] LABS: International Normalized Ratio 1.1; Prothrombin Time (Protime)PT. 14.4 SECONDS (11.7-14.9)
[2017-06-03 05:44] LABS: Anion Gap 9 (5-15); BUN 19 mg/dL (7-18); BUN/Creat Ratio 17.1 RATIO (10-20); Chloride 108 mmol/L (98-107); Creatinine, Serum 1.11 mg/dL (0.70-1.30); EST Glomerular Filtration Rate 68 mL/min (>60); Est Glom Filt Rate - Afr Amer 83 mL/min (>60); Estimated Creatinine Clearance 62.98 ml/min; Glucose 68 mg/dL (74-106); Potassium 3.8 mmol/L (3.5-5.1); Sodium Level 139 mmol/L (136-145)
--- NOTE | 2017-06-03 06:31 | PCM.PN.INT ---
Subjective: The patient was seen and examined at the bedside this morning. Events from the last 24 hours have been reviewed. The patient is currently afebrile, hemodynamically stable and maintaining appropriate oxygen saturations on a CPAP trial. The patient has had decreased urine output overnight. Remains on a low-dose of Precedex. The patient is currently doing well on his CPAP trial. No significant endotracheal tube secretions were noted by respiratory therapy. Tentative plans for LP yesterday were placed on hold, as the patient is currently receiving aspirin, Plavix and Lovenox. Objective: The patient's most recent lab work, culture data and imaging studies have all been personally reviewed. Initial MRI brain completed on May 31 revealed evidence of a small punctate acute or subacute infarction in the midportion of the right thalamus. Surface echocardiogram revealed evidence of stage I diastolic dysfunction with ejection fraction of 60%. The patient did have evidence of a probable patent foramen ovale with [id number] intra-atrial shunt. Right ventricular systolic pressures were estimated to be 23 mmHg. Head/neck MRA also completed on May 31 revealed no evidence of significant occlusive disease or aneurysm. The proximal right ICA did have severe stenosis with reconstitution of flow distally. There is also focal stenosis of the left proximal ICA. EEG was abnormal due to the presence of generalized increase in beta frequency waves, potentially medication related. Head/neck CTA on June 01 again demonstrated the aforementioned ICA stenosis. General: Alert, Cooperative, No apparent distress, - - Remains intubated and mechanically ventilated, on CPAP trial currently. HEENT: Atraumatic, PERRLA, Normocephalic Oral: No Gingival or Mucosal Lesions/ Ulcerations, - - Endotracheal and OG tubes remain in place Neck: Supple, No Nodes, Trachea Midline Lungs: - - Mechanical breath sounds. Grossly clear across anterior lung mariano without appreciable wheezes, rales or rhonchi. Cardiovascular: Regular rate, Regular Rhythm, Normal S1, Normal S2, No murmurs Abdomen: Bowel Sounds Present, Soft, Non Tender Extremities: No clubbing, No cyanosis, No edema Skin: No rashes, No breakdown Musculoskeletal: No Tenderness to Palpation of Joints or Extremities Lymphatic: No Cervical, Supraclavicular, or Inguinal Adenopathy Neurological: - - No focal neurological deficits. Moves all extremities spontaneously. Alert and following commands appropriately. Vital Signs Temp Pulse Resp BP Pulse Ox 99.0 F 66 20 H 126/55 H 96 03/16/18 06:06 06/03/17 06:06 06/03/17 06:06 06/03/17 06:06 06/03/17 06:06 Oxygen Delivery Method CPAP Weight: 177 lb 7.554 oz Body Mass Index (BMI) 22.7 Intake and Output for Last 24 Hours 06/01/17 06/02/17 06/03/17 23:59 23:59 23:59 Intake Total 1170 / 1170 1998 507 / 507 Output Total 650 / 650 2545 / 2545 475 / 475 Balance 520 / 520 -546 / -546 32 / 32 Labs (Last 48 Hours) 06/01/17 06/01/17 06/01/17 08:20 13:30 15:18 WBC Corrected WBC RBC Hgb Hct MCV MCH MCHC RDW RDW Differential Plt Count MPV Immature Gran % (Auto) Neut % (Auto) Lymph % (Auto) [place] % (Auto) Eos % (Auto) Baso % (Auto) Immature Gran # (Auto) Absolute Neuts (auto) Absolute Lymphs (auto) Absolute Monos (auto) Total Counted Neutrophils % (Manual) Band Neutrophils % Lymphocytes % (Manual) Monocytes % (Manual) Eosinophils % (Manual) Basophils % (Manual) Metamyelocytes % Myelocytes % Promyelocytes % Blast Cells % Plasma Cell % (Manual) Other Cells % Lymphocytes # Nucleated RBCs/100 WBC Differential Comment Diff Path Review Hypersegmented Neuts Atypical Lymphocytes Reactive Lymphocytes Smudge Cells Eosinophilia # Basophilia # Toxic Granulation Dohle Bodies Monisha Rods Platelet Estimate Plt Morphology Comment RBC Morphology Polychromasia Hypochromasia Poikilocytosis Basophilic Stippling Anisocytosis Microcytosis Macrocytosis Spherocytes Sickle Cells Target Cells Tear Drop Cells Ovalocytes Stomatocytes [place] Bodies [place] Cells Bite Cells Acanthocytes (Spur) Rouleaux Schistocytes PT INR Specimen Type ART Sample Site R Brachial pH 7.33 L Bicarbonate Actual 18.5 L POC Total CO2 20 Base Excess -7 L O2 Saturation 95 O2 % 30 ABG pCO2 34.9 L ABG pO2 79 Respiration Rate 14 O2 Delivery Device Vent Minute Volume 10.00 Vent Mode A-C Tidal Volume 500 POC PEEP 5 Blood Gas Notified Whom ICU Blood Gas Notified Time 1516 Sodium Potassium Chloride Carbon Dioxide Anion Gap BUN Creatinine Estim Creat Clear Calc Est GFR (MDRD) Af Amer Est GFR (MDRD) Non-Af BUN/Creatinine Ratio Glucose Calcium Phosphorus Magnesium Total Bilirubin AST ALT Alkaline Phosphatase Total Creatine Kinase Troponin I < 0.02 C-React Prot Ext Range Total Protein Albumin Globulin Albumin/Globulin Ratio Triglycerides Urine Color Urine Clarity Urine pH Ur Specific [place] Urine Protein Urine Glucose (UA) Urine Ketones Urine Occult Blood Urine Nitrite Urine Bilirubin Urine Urobilinogen Ur Leukocyte Esterase Urine RBC Urine WBC Ur Squamous Epith Cells Urine Bacteria Urine Mucus MRSA (PCR) Negative 06/01/17 06/01/17 06/02/17 15:30 15:30 03:30 WBC Cancelled Corrected WBC Cancelled RBC Cancelled Hgb Cancelled Hct Cancelled MCV Cancelled MCH Cancelled MCHC Cancelled RDW Cancelled RDW Differential Cancelled Plt Count Cancelled MPV Cancelled Immature Gran % (Auto) Cancelled Neut % (Auto) Cancelled Lymph % (Auto) Cancelled [place] % (Auto) Cancelled Eos % (Auto) Cancelled Baso % (Auto) Cancelled Immature Gran # (Auto) Cancelled Absolute Neuts (auto) Cancelled Absolute Lymphs (auto) Cancelled Absolute Monos (auto) Cancelled Total Counted Cancelled Neutrophils % (Manual) Cancelled Band Neutrophils % Cancelled Lymphocytes % (Manual) Cancelled Monocytes % (Manual) Cancelled Eosinophils % (Manual) Cancelled Basophils % (Manual) Cancelled Metamyelocytes % Cancelled Myelocytes % Cancelled Promyelocytes % Cancelled Blast Cells % Cancelled Plasma Cell % (Manual) Cancelled Other Cells % Cancelled Lymphocytes # Cancelled Nucleated RBCs/100 WBC Cancelled Differential Comment Cancelled Diff Path Review Cancelled Hypersegmented Neuts Cancelled Atypical Lymphocytes Cancelled Reactive Lymphocytes Cancelled Smudge Cells Cancelled Eosinophilia # Cancelled Basophilia # Cancelled Toxic Granulation Cancelled Dohle Bodies Cancelled Monisha Rods Cancelled Platelet Estimate Cancelled Plt Morphology Comment Cancelled RBC Morphology Cancelled Polychromasia Cancelled Hypochromasia Cancelled Poikilocytosis Cancelled Basophilic Stippling Cancelled Anisocytosis Cancelled Microcytosis Cancelled Macrocytosis Cancelled Spherocytes Cancelled Sickle Cells Cancelled Target Cells Cancelled Tear Drop Cells Cancelled Ovalocytes Cancelled Stomatocytes Cancelled [place] Bodies Cancelled [place] Cells Cancelled Bite Cells Cancelled Acanthocytes (Spur) Cancelled Rouleaux Cancelled Schistocytes Cancelled PT INR Specimen Type Sample Site pH Bicarbonate Actual POC Total CO2 Base Excess O2 Saturation O2 % ABG pCO2 ABG pO2 Respiration Rate O2 Delivery Device Minute Volume Vent Mode Tidal Volume POC PEEP Blood Gas Notified Whom Blood Gas Notified Time Sodium Potassium Chloride Carbon Dioxide Anion Gap BUN Creatinine Estim Creat Clear Calc Est GFR (MDRD) Af Amer Est GFR (MDRD) Non-Af BUN/Creatinine Ratio Glucose Calcium Phosphorus Magnesium Total Bilirubin AST ALT Alkaline Phosphatase Total Creatine Kinase 64 Troponin I < 0.02 C-React Prot Ext Range Total Protein Albumin Globulin Albumin/Globulin Ratio Triglycerides 68 Urine Color Urine Clarity Urine pH Ur Specific [place] Urine Protein Urine Glucose (UA) Urine Ketones Urine Occult Blood Urine Nitrite Urine Bilirubin Urine Urobilinogen Ur Leukocyte Esterase Urine RBC Urine WBC Ur Squamous Epith Cells Urine Bacteria Urine Mucus MRSA (PCR) 06/02/17 06/02/17 06/02/17 03:30 03:45 03:45 WBC 7.6 Corrected WBC RBC 3.43 L Hgb 11.1 L Hct 32.5 L MCV 94.8 H MCH 32.4 H MCHC 34.2 RDW 12.3 RDW Differential 41.5 Plt Count 149 L MPV 10.6 Immature Gran % (Auto) 0.000 Neut % (Auto) 67.8 Lymph % (Auto) 22.1 [place] % (Auto) 9.9 Eos % (Auto) 0.1 Baso % (Auto) 0.1 Immature Gran # (Auto) Absolute Neuts (auto) 5.2 Absolute Lymphs (auto) 1.68 Absolute Monos (auto) Total Counted Not Reportable Neutrophils % (Manual) Band Neutrophils % Lymphocytes % (Manual) Monocytes % (Manual) Eosinophils % (Manual) Basophils % (Manual) Metamyelocytes % Myelocytes % Promyelocytes % Blast Cells % Plasma Cell % (Manual) Other Cells % Lymphocytes # Nucleated RBCs/100 WBC Differential Comment Diff Path Review Hypersegmented Neuts Atypical Lymphocytes Reactive Lymphocytes Smudge Cells Eosinophilia # Basophilia # Toxic Granulation Dohle Bodies Monisha Rods Platelet Estimate Plt Morphology Comment RBC Morphology Polychromasia Hypochromasia Poikilocytosis Basophilic Stippling Anisocytosis Microcytosis Macrocytosis Spherocytes Sickle Cells Target Cells Tear Drop Cells Ovalocytes Stomatocytes [place] Bodies [place] Cells Bite Cells Acanthocytes (Spur) Rouleaux Schistocytes PT INR Specimen Type Sample Site pH Bicarbonate Actual POC Total CO2 Base Excess O2 Saturation O2 % ABG pCO2 ABG pO2 Respiration Rate O2 Delivery Device Minute Volume Vent Mode Tidal Volume POC PEEP Blood Gas Notified Whom Blood Gas Notified Time Sodium Cancelled 140 Potassium Cancelled 3.7 Chloride Cancelled 109 H Carbon Dioxide Cancelled 23.0 Anion Gap Cancelled 8 BUN Cancelled 20 H Creatinine Cancelled 1.05 Estim Creat Clear Calc Cancelled 66.58 Est GFR (MDRD) Af Amer Cancelled 88 Est GFR (MDRD) Non-Af Cancelled 73 BUN/Creatinine Ratio Cancelled 19.0 Glucose Cancelled 89 Calcium Cancelled 7.3 L Phosphorus Cancelled 2.9 Magnesium Cancelled 2.0 Total Bilirubin Cancelled 0.50 AST Cancelled 10 L ALT Cancelled 13 L Alkaline Phosphatase Cancelled 73 Total Creatine Kinase Troponin I C-React Prot Ext Range Total Protein Cancelled 5.4 L Albumin Cancelled 2.8 L Globulin Cancelled 2.6 Albumin/Globulin Ratio Cancelled 1.1 Triglycerides Urine Color Urine Clarity Urine pH Ur Specific [place] Urine Protein Urine Glucose (UA) Urine Ketones Urine Occult Blood Urine Nitrite Urine Bilirubin Urine Urobilinogen Ur Leukocyte Esterase Urine RBC Urine WBC Ur Squamous Epith Cells Urine Bacteria Urine Mucus MRSA (PCR) 06/02/17 06/02/17 06/03/17 03:45 07:10 05:00 WBC Corrected WBC RBC Hgb Hct MCV MCH MCHC RDW RDW Differential Plt Count MPV Immature Gran % (Auto) Neut % (Auto) Lymph % (Auto) [place] % (Auto) Eos % (Auto) Baso % (Auto) Immature Gran # (Auto) Absolute Neuts (auto) Absolute Lymphs (auto) Absolute Monos (auto) Total Counted Neutrophils % (Manual) Band Neutrophils % Lymphocytes % (Manual) Monocytes % (Manual) Eosinophils % (Manual) Basophils % (Manual) Metamyelocytes % Myelocytes % Promyelocytes % Blast Cells % Plasma Cell % (Manual) Other Cells % Lymphocytes # Nucleated RBCs/100 WBC Differential Comment Diff Path Review Hypersegmented Neuts Atypical Lymphocytes Reactive Lymphocytes Smudge Cells Eosinophilia # Basophilia # Toxic Granulation Dohle Bodies Monisha Rods Platelet Estimate Plt Morphology Comment RBC Morphology Polychromasia Hypochromasia Poikilocytosis Basophilic Stippling Anisocytosis Microcytosis Macrocytosis Spherocytes Sickle Cells Target Cells Tear Drop Cells Ovalocytes Stomatocytes [place] Bodies [place] Cells Bite Cells Acanthocytes (Spur) Rouleaux Schistocytes PT INR Specimen Type Sample Site pH Bicarbonate Actual POC Total CO2 Base Excess O2 Saturation O2 % ABG pCO2 ABG pO2 Respiration Rate O2 Delivery Device Minute Volume Vent Mode Tidal Volume POC PEEP Blood Gas Notified Whom Blood Gas Notified Time Sodium 139 Potassium 3.8 Chloride 108 H Carbon Dioxide 22.0 Anion Gap 9 BUN 19 H Creatinine 1.11 Estim Creat Clear Calc 62.98 Est GFR (MDRD) Af Amer 83 Est GFR (MDRD) Non-Af 68 BUN/Creatinine Ratio 17.1 Glucose 68 L Calcium 8.0 L Phosphorus Magnesium Total Bilirubin AST ALT Alkaline Phosphatase Total Creatine Kinase Troponin I C-React Prot Ext Range 6.06 H Total Protein Albumin Globulin Albumin/Globulin Ratio Triglycerides Urine Color Yellow Urine Clarity Clear Urine pH 5.0 Ur Specific [place] 1.020 Urine Protein 30 H Urine Glucose (UA) Normal Urine Ketones 15 H Urine Occult Blood 250 H Urine Nitrite Negative Urine Bilirubin Negative Urine Urobilinogen Normal Ur Leukocyte Esterase 100 H Urine RBC 0-5 SEEN Urine WBC 5-10 SEEN Ur Squamous Epith Cells 0-5 SEEN Urine Bacteria RARE Urine Mucus 0 SEEN MRSA (PCR) 06/03/17 06/03/17 05:00 05:00 WBC 7.0 Corrected WBC RBC 3.58 L Hgb 11.3 L Hct 34.1 L MCV 95.3 H MCH 31.6 MCHC 33.1 RDW 12.3 RDW Differential 41.7 Plt Count 133 L MPV 10.3 Immature Gran % (Auto) 0.100 Neut % (Auto) 63.2 Lymph % (Auto) 24.3 [place] % (Auto) 8.9 Eos % (Auto) 3.2 Baso % (Auto) 0.3 Immature Gran # (Auto) Absolute Neuts (auto) 4.4 Absolute Lymphs (auto) 1.69 Absolute Monos (auto) Total Counted Not Reportable Neutrophils % (Manual) Band Neutrophils % Lymphocytes % (Manual) Monocytes % (Manual) Eosinophils % (Manual) Basophils % (Manual) Metamyelocytes % Myelocytes % Promyelocytes % Blast Cells % Plasma Cell % (Manual) Other Cells % Lymphocytes # Nucleated RBCs/100 WBC Differential Comment Diff Path Review Hypersegmented Neuts Atypical Lymphocytes Reactive Lymphocytes Smudge Cells Eosinophilia # Basophilia # Toxic Granulation Dohle Bodies Monisha Rods Platelet Estimate Plt Morphology Comment RBC Morphology Polychromasia Hypochromasia Poikilocytosis Basophilic Stippling Anisocytosis Microcytosis Macrocytosis Spherocytes Sickle Cells Target Cells Tear Drop Cells Ovalocytes Stomatocytes [place] Bodies [place] Cells Bite Cells Acanthocytes (Spur) Rouleaux Schistocytes PT 14.4 INR 1.1 Specimen Type Sample Site pH Bicarbonate Actual POC Total CO2 Base Excess O2 Saturation O2 % ABG pCO2 ABG pO2 Respiration Rate O2 Delivery Device Minute Volume Vent Mode Tidal Volume POC PEEP Blood Gas Notified Whom Blood Gas Notified Time Sodium Potassium Chloride Carbon Dioxide Anion Gap BUN Creatinine Estim Creat Clear Calc Est GFR (MDRD) Af Amer Est GFR (MDRD) Non-Af BUN/Creatinine Ratio Glucose Calcium Phosphorus Magnesium Total Bilirubin AST ALT Alkaline Phosphatase Total Creatine Kinase Troponin I C-React Prot Ext Range Total Protein Albumin Globulin Albumin/Globulin Ratio Triglycerides Urine Color Urine Clarity Urine pH Ur Specific [place] Urine Protein Urine Glucose (UA) Urine Ketones Urine Occult Blood Urine Nitrite Urine Bilirubin Urine Urobilinogen Ur Leukocyte Esterase Urine RBC Urine WBC Ur Squamous Epith Cells Urine Bacteria Urine Mucus MRSA (PCR) Clinical Impression(s) from Imaging Studies Brain CT 05/30/17 19:25 IMPRESSION: Chronic involutional changes of the brain. No acute intracranial process. Mild sinusitis. Electronically Signed: Lambert Franco DO at 20:22 EDT , Service support , Chest X-Ray 05/30/17 19:45 IMPRESSION: Hyperinflation. No infiltrate. Electronically Signed: Lambert Franco DO at 20:12 EDT , Service support , Brain MRI 05/31/17 06:41 IMPRESSION: A small punctate acute or subacute infarct is suspected in the midportion of the right thalamus. Interval progression of right occipital encephalomalacia. Minimal white matter disease. Electronically Signed: Louie Morley MD at 8:34 EDT Tel , Service support , Head MRA 05/31/17 16:10 IMPRESSION: 1. No evidence of significant steno-occlusive disease or aneurysm. 2. Diminutive left V4 vertebral artery segment. Electronically Signed: Matias Luevano at 22:44 EDT , Service support , Neck MRA 05/31/17 16:10 IMPRESSION: 1. Proximal right ICA severe greater than 70% stenosis with reconstitution of flow distally. Recommend further characterization with CTA and interventional consultation as warranted. 2. Focal stenosis of the left proximal ICA proximal 60-70%. Electronically Signed: Matias LuevanoDO at 22:29 EDT , Service support , Brain CT 06/01/17 12:17 IMPRESSION: Chronic involutional changes of the brain. Stable Ancef malacia in the posterior medial aspect of the right occipital lobe. Sinusitis. Electronically Signed: Keanu Mallory MD at 14:33 EDT Tel [phone], Service support , Chest X-Ray 06/01/17 14:00 IMPRESSION: The tip of the endotracheal tube is at 4.8 cm proximal to the lara. Electronically Signed: Keanu Mallory MD at 14:35 EDT Tel [phone], Service support , Brain MRI 06/01/17 16:20 IMPRESSION: 1. Involutional changes of the brain, as described above. 2. 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 3. New right-sided leptomeningeal fluid surrounding the cerebral hemisphere suggesting sequela of meningitis. 4. 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 N.B. : The above information has been verbally conveyed by Carmen Worrell MD to Sophie Akhtar on 06/02/2017 10:09:06 (ET). Electronically Signed: Carmen Worrell MD at 10:12 EDT , Service support , N.B. : The above information has been verbally conveyed by Carmen Worrell MD to Sophie Akhtar on 06/02/2017 10:09:06 (ET). Head CTA 06/01/17 16:20 IMPRESSION: There is severe atherosclerotic plaque formation of the origin of the right internal carotid artery with an 80% occlusion. There is mild atherosclerotic plaque formation of the origin of the left internal carotid artery with less than 50% cross sectional diameter stenosis. Electronically Signed: Andres Quinones MD at 18:15 EDT , Service support , Neck CTA 06/01/17 16:20 IMPRESSION: There is severe atherosclerotic plaque formation of the origin of the right internal carotid artery with an 80% occlusion. There is mild atherosclerotic plaque formation of the origin of the left internal carotid artery with less than 50% cross sectional diameter stenosis. Electronically Signed: Andres Quinones MD at 18:15 EDT , Service support , KUB X-Ray 06/01/17 16:40 IMPRESSION: Nasogastric tube present with tip overlying the epigastric region. Opacification of the pelvicalyceal systems, ureters, and bladder. Electronically Signed: Ambrocio Sánchez MD at 17:32 EDT , Service support , Chest X-Ray 06/02/17 05:55 IMPRESSION: No acute cardiopulmonary abnormalities or changes. Electronically Signed: Lisa Massey MD at 7:37 EDT Tel Direct: [phone], Service support , Assessment/Plan Active and Suspected Problems Migraine (Acute) Stroke (Acute) RECOMMENDATIONS: 1. Plan to proceed with a trial of extubation this morning. Discontinue Precedex at this time. 2. Given the patient's low urine output, will start on maintenance IV fluids until p.o. intake increases. 3. Continue Keppra and Topamax 4. Continue Plavix, aspirin and Lovenox, unless neurology plans to attempt LP in the near future 5. Perform bedside swallow evaluation once extubated 6. Wean supplemental oxygen to maintain saturations at or above 90% 7. Encourage incentive spirometer use and mobilize patient as tolerated. Recommend physical therapy evaluation today. 8. Remove Mccoy catheter IMPRESSIONS: 1. Acute respiratory failure secondary to #2 The patient was transferred emergently to the ICU after developing generalized tonic-clonic seizure activity and biting his tongue. The patient's airway became compromised and he was emergently intubated upon arrival to the ICU. The patient responded well to invasive mechanical ventilation and was able to be liberated from the vent this morning. Once extubated, bedside swallow evaluation can be completed. Wean supplemental oxygen to maintain saturations at or above 90%. Encourage incentive spirometer use and mobilize patient as tolerated. 2. Encephalopathy Improved. Likely multifactorial in etiology with questionable CVA and/or sentinel seizure activity and subsequent postictal state contributing. Neurology is currently following. Extensive neurological workup has been completed to date. Continue Keppra and Topamax per neurology recommendations. We will plan to continue the patient's aspirin, Plavix and Lovenox, unless neurology is planning to perform an LP in the near future. 3. New onset seizures/thalamic CVA/migraine/critical carotid stenosis As above, continue current medical management per neurology recommendations. Continue seizure precautions. Plan for outpatient follow-up with vascular surgery for definitive surgical intervention of the patient's carotid stenosis. 4. Subacute sinusitis The patient was recently started on antibiotics by Dr. Townsend of ENT. These will be continued empirically. 5. Advanced age/GERD/allergic rhinitis/hypertension/hyperlipidemia Complicated care, management, recovery and prognosis. Okay to continue home medications as indicated. Perform bedside swallow evaluation and advance diet accordingly. Physical therapy to get patient up and out of bed today. TIME: 38 minutes of critical care time, inclusive of procedures, was spent addressing the patient's acute respiratory failure, encephalopathy, new onset seizure activity, thalamic CVA, migraine with aura, subacute sinusitis, review of all data and collaboration with care team. ([id number]) Code Visit [id number]: [id number] Critical care first hour
--- NOTE | 2017-06-03 06:34 | PN_ITS ---
Subjective: The patient was seen and examined at the bedside this morning. Events from the last 24 hours have been reviewed. The patient is currently afebrile, hemodynamically stable and maintaining appropriate oxygen saturations on a CPAP trial. The patient has had decreased urine output overnight. Remains on a low- dose of Precedex. The patient is currently doing well on his CPAP trial. No significant endotracheal tube secretions were noted by respiratory therapy. Tentative plans for LP yesterday were placed on hold, as the patient is currently receiving aspirin, Plavix and Lovenox. Objective: The patient's most recent lab work, culture data and imaging studies have all been personally reviewed. Initial MRI brain completed on May 31 revealed evidence of a small punctate acute or subacute infarction in the midportion of the right thalamus. Surface echocardiogram revealed evidence of stage I diastolic dysfunction with ejection fraction of 60%. The patient did have evidence of a probable patent foramen ovale with [id number] intra-atrial shunt. Right ventricular systolic pressures were estimated to be 23 mmHg. Head /neck MRA also completed on May 31 revealed no evidence of significant occlusive disease or aneurysm. The proximal right ICA did have severe stenosis with reconstitution of flow distally. There is also focal stenosis of the left proximal ICA. EEG was abnormal due to the presence of generalized increase in beta frequency waves, potentially medication related. Head/neck CTA on June 01 again demonstrated the aforementioned ICA stenosis. General: Alert, Cooperative, No apparent distress, - - Remains intubated and mechanically ventilated, on CPAP trial currently. HEENT: Atraumatic, PERRLA, Normocephalic Oral: No Gingival or Mucosal Lesions/ Ulcerations, - - Endotracheal and OG tubes remain in place Neck: Supple, No Nodes, Trachea Midline Lungs: - - Mechanical breath sounds. Grossly clear across anterior lung mariano without appreciable wheezes, rales or rhonchi. Cardiovascular: Regular rate, Regular Rhythm, Normal S1, Normal S2, No murmurs Abdomen: Bowel Sounds Present, Soft, Non Tender Extremities: No clubbing, No cyanosis, No edema Skin: No rashes, No breakdown Musculoskeletal: No Tenderness to Palpation of Joints or Extremities Lymphatic: No Cervical, Supraclavicular, or Inguinal Adenopathy Neurological: - - No focal neurological deficits. Moves all extremities spontaneously. Alert and following commands appropriately. Vital Signs Temp Pulse Resp BP Pulse Ox 99.0 F 66 20 H 126/55 H 96 03/16/18 06:06 06/03/17 06:06 06/03/17 06:06 06/03/17 06:06 06/03/17 06:06 Oxygen Delivery Method CPAP Weight: 177 lb 7.554 oz Body Mass Index (BMI) 22.7 Intake and Output for Last 24 Hours 06/01/17 06/02/17 06/03/17 23:59 23:59 23:59 Intake Total 1170 / 1170 1998 507 / 507 Output Total 650 / 650 2545 / 2545 475 / 475 Balance 520 / 520 -546 / -546 32 / 32 Labs (Last 48 Hours) 06/01/17 06/01/17 06/01/17 08:20 13:30 15:18 WBC Corrected WBC RBC Hgb Hct MCV MCH MCHC RDW RDW Differential Plt Count MPV Immature Gran % (Auto) Neut % (Auto) Lymph % (Auto) [place] % (Auto) Eos % (Auto) Baso % (Auto) Immature Gran # (Auto) Absolute Neuts (auto) Absolute Lymphs (auto) Absolute Monos (auto) Total Counted Neutrophils % (Manual) Band Neutrophils % Lymphocytes % (Manual) Monocytes % (Manual) Eosinophils % (Manual) Basophils % (Manual) Metamyelocytes % Myelocytes % Promyelocytes % Blast Cells % Plasma Cell % (Manual) Other Cells % Lymphocytes # Nucleated RBCs/100 WBC Differential Comment Diff Path Review Hypersegmented Neuts Atypical Lymphocytes Reactive Lymphocytes Smudge Cells Eosinophilia # Basophilia # Toxic Granulation Dohle Bodies Monisha Rods Platelet Estimate Plt Morphology Comment RBC Morphology Polychromasia Hypochromasia Poikilocytosis Basophilic Stippling Anisocytosis Microcytosis Macrocytosis Spherocytes Sickle Cells Target Cells Tear Drop Cells Ovalocytes Stomatocytes [place] Bodies Tamara Cells Bite Cells Acanthocytes (Spur) Rouleaux Schistocytes PT INR Specimen Type ART Sample Site R Brachial pH 7.33 L Bicarbonate Actual 18.5 L POC Total CO2 20 Base Excess -7 L O2 Saturation 95 O2 % 30 ABG pCO2 34.9 L ABG pO2 79 Respiration Rate 14 O2 Delivery Device Vent Minute Volume 10.00 Vent Mode A-C Tidal Volume 500 POC PEEP 5 Blood Gas Notified Whom ICU Blood Gas Notified Time 1516 Sodium Potassium Chloride Carbon Dioxide Anion Gap BUN Creatinine Estim Creat Clear Calc Est GFR (MDRD) Af Amer Est GFR (MDRD) Non-Af BUN/Creatinine Ratio Glucose Calcium Phosphorus Magnesium Total Bilirubin AST ALT Alkaline Phosphatase Total Creatine Kinase Troponin I < 0.02 C-React Prot Ext Range Total Protein Albumin Globulin Albumin/Globulin Ratio Triglycerides Urine Color Urine Clarity Urine pH Ur Specific [place] Urine Protein Urine Glucose (UA) Urine Ketones Urine Occult Blood Urine Nitrite Urine Bilirubin Urine Urobilinogen Ur Leukocyte Esterase Urine RBC Urine WBC Ur Squamous Epith Cells Urine Bacteria Urine Mucus MRSA (PCR) Negative 06/01/17 06/01/17 06/02/17 15:30 15:30 03:30 WBC Cancelled Corrected WBC Cancelled RBC Cancelled Hgb Cancelled Hct Cancelled MCV Cancelled MCH Cancelled MCHC Cancelled RDW Cancelled RDW Differential Cancelled Plt Count Cancelled MPV Cancelled Immature Gran % (Auto) Cancelled Neut % (Auto) Cancelled Lymph % (Auto) Cancelled [place] % (Auto) Cancelled Eos % (Auto) Cancelled Baso % (Auto) Cancelled Immature Gran # (Auto) Cancelled Absolute Neuts (auto) Cancelled Absolute Lymphs (auto) Cancelled Absolute Monos (auto) Cancelled Total Counted Cancelled Neutrophils % (Manual) Cancelled Band Neutrophils % Cancelled Lymphocytes % (Manual) Cancelled Monocytes % (Manual) Cancelled Eosinophils % (Manual) Cancelled Basophils % (Manual) Cancelled Metamyelocytes % Cancelled Myelocytes % Cancelled Promyelocytes % Cancelled Blast Cells % Cancelled Plasma Cell % (Manual) Cancelled Other Cells % Cancelled Lymphocytes # Cancelled Nucleated RBCs/100 WBC Cancelled Differential Comment Cancelled Diff Path Review Cancelled Hypersegmented Neuts Cancelled Atypical Lymphocytes Cancelled Reactive Lymphocytes Cancelled Smudge Cells Cancelled Eosinophilia # Cancelled Basophilia # Cancelled Toxic Granulation Cancelled Dohle Bodies Cancelled Monisha Rods Cancelled Platelet Estimate Cancelled Plt Morphology Comment Cancelled RBC Morphology Cancelled Polychromasia Cancelled Hypochromasia Cancelled Poikilocytosis Cancelled Basophilic Stippling Cancelled Anisocytosis Cancelled Microcytosis Cancelled Macrocytosis Cancelled Spherocytes Cancelled Sickle Cells Cancelled Target Cells Cancelled Tear Drop Cells Cancelled Ovalocytes Cancelled Stomatocytes Cancelled [place] Bodies Cancelled [place] Cells Cancelled Bite Cells Cancelled Acanthocytes (Spur) Cancelled Rouleaux Cancelled Schistocytes Cancelled PT INR Specimen Type Sample Site pH Bicarbonate Actual POC Total CO2 Base Excess O2 Saturation O2 % ABG pCO2 ABG pO2 Respiration Rate O2 Delivery Device Minute Volume Vent Mode Tidal Volume POC PEEP Blood Gas Notified Whom Blood Gas Notified Time Sodium Potassium Chloride Carbon Dioxide Anion Gap BUN Creatinine Estim Creat Clear Calc Est GFR (MDRD) Af Amer Est GFR (MDRD) Non-Af BUN/Creatinine Ratio Glucose Calcium Phosphorus Magnesium Total Bilirubin AST ALT Alkaline Phosphatase Total Creatine Kinase 64 Troponin I < 0.02 C-React Prot Ext Range Total Protein Albumin Globulin Albumin/Globulin Ratio Triglycerides 68 Urine Color Urine Clarity Urine pH Ur Specific [place] Urine Protein Urine Glucose (UA) Urine Ketones Urine Occult Blood Urine Nitrite Urine Bilirubin Urine Urobilinogen Ur Leukocyte Esterase Urine RBC Urine WBC Ur Squamous Epith Cells Urine Bacteria Urine Mucus MRSA (PCR) 06/02/17 06/02/17 06/02/17 03:30 03:45 03:45 WBC 7.6 Corrected WBC RBC 3.43 L Hgb 11.1 L Hct 32.5 L MCV 94.8 H MCH 32.4 H MCHC 34.2 RDW 12.3 RDW Differential 41.5 Plt Count 149 L MPV 10.6 Immature Gran % (Auto) 0.000 Neut % (Auto) 67.8 Lymph % (Auto) 22.1 [place] % (Auto) 9.9 Eos % (Auto) 0.1 Baso % (Auto) 0.1 Immature Gran # (Auto) Absolute Neuts (auto) 5.2 Absolute Lymphs (auto) 1.68 Absolute Monos (auto) Total Counted Not Reportable Neutrophils % (Manual) Band Neutrophils % Lymphocytes % (Manual) Monocytes % (Manual) Eosinophils % (Manual) Basophils % (Manual) Metamyelocytes % Myelocytes % Promyelocytes % Blast Cells % Plasma Cell % (Manual) Other Cells % Lymphocytes # Nucleated RBCs/100 WBC Differential Comment Diff Path Review Hypersegmented Neuts Atypical Lymphocytes Reactive Lymphocytes Smudge Cells Eosinophilia # Basophilia # Toxic Granulation Dohle Bodies Monisha Rods Platelet Estimate Plt Morphology Comment RBC Morphology Polychromasia Hypochromasia Poikilocytosis Basophilic Stippling Anisocytosis Microcytosis Macrocytosis Spherocytes Sickle Cells Target Cells Tear Drop Cells Ovalocytes Stomatocytes [place] Bodies [place] Cells Bite Cells Acanthocytes (Spur) Rouleaux Schistocytes PT INR Specimen Type Sample Site pH Bicarbonate Actual POC Total CO2 Base Excess O2 Saturation O2 % ABG pCO2 ABG pO2 Respiration Rate O2 Delivery Device Minute Volume Vent Mode Tidal Volume POC PEEP Blood Gas Notified Whom Blood Gas Notified Time Sodium Cancelled 140 Potassium Cancelled 3.7 Chloride Cancelled 109 H Carbon Dioxide Cancelled 23.0 Anion Gap Cancelled 8 BUN Cancelled 20 H Creatinine Cancelled 1.05 Estim Creat Clear Calc Cancelled 66.58 Est GFR (MDRD) Af Amer Cancelled 88 Est GFR (MDRD) Non-Af Cancelled 73 BUN/Creatinine Ratio Cancelled 19.0 Glucose Cancelled 89 Calcium Cancelled 7.3 L Phosphorus Cancelled 2.9 Magnesium Cancelled 2.0 Total Bilirubin Cancelled 0.50 AST Cancelled 10 L ALT Cancelled 13 L Alkaline Phosphatase Cancelled 73 Total Creatine Kinase Troponin I C-React Prot Ext Range Total Protein Cancelled 5.4 L Albumin Cancelled 2.8 L Globulin Cancelled 2.6 Albumin/Globulin Ratio Cancelled 1.1 Triglycerides Urine Color Urine Clarity Urine pH Ur Specific [place] Urine Protein Urine Glucose (UA) Urine Ketones Urine Occult Blood Urine Nitrite Urine Bilirubin Urine Urobilinogen Ur Leukocyte Esterase Urine RBC Urine WBC Ur Squamous Epith Cells Urine Bacteria Urine Mucus MRSA (PCR) 06/02/17 06/02/17 06/03/17 03:45 07:10 05:00 WBC Corrected WBC RBC Hgb Hct MCV MCH MCHC RDW RDW Differential Plt Count MPV Immature Gran % (Auto) Neut % (Auto) Lymph % (Auto) [place] % (Auto) Eos % (Auto) Baso % (Auto) Immature Gran # (Auto) Absolute Neuts (auto) Absolute Lymphs (auto) Absolute Monos (auto) Total Counted Neutrophils % (Manual) Band Neutrophils % Lymphocytes % (Manual) Monocytes % (Manual) Eosinophils % (Manual) Basophils % (Manual) Metamyelocytes % Myelocytes % Promyelocytes % Blast Cells % Plasma Cell % (Manual) Other Cells % Lymphocytes # Nucleated RBCs/100 WBC Differential Comment Diff Path Review Hypersegmented Neuts Atypical Lymphocytes Reactive Lymphocytes Smudge Cells Eosinophilia # Basophilia # Toxic Granulation Dohle Bodies Monisha Rods Platelet Estimate Plt Morphology Comment RBC Morphology Polychromasia Hypochromasia Poikilocytosis Basophilic Stippling Anisocytosis Microcytosis Macrocytosis Spherocytes Sickle Cells Target Cells Tear Drop Cells Ovalocytes Stomatocytes [place] Bodies [place] Cells Bite Cells Acanthocytes (Spur) Rouleaux Schistocytes PT INR Specimen Type Sample Site pH Bicarbonate Actual POC Total CO2 Base Excess O2 Saturation O2 % ABG pCO2 ABG pO2 Respiration Rate O2 Delivery Device Minute Volume Vent Mode Tidal Volume POC PEEP Blood Gas Notified Whom Blood Gas Notified Time Sodium 139 Potassium 3.8 Chloride 108 H Carbon Dioxide 22.0 Anion Gap 9 BUN 19 H Creatinine 1.11 Estim Creat Clear Calc 62.98 Est GFR (MDRD) Af Amer 83 Est GFR (MDRD) Non-Af 68 BUN/Creatinine Ratio 17.1 Glucose 68 L Calcium 8.0 L Phosphorus Magnesium Total Bilirubin AST ALT Alkaline Phosphatase Total Creatine Kinase Troponin I C-React Prot Ext Range 6.06 H Total Protein Albumin Globulin Albumin/Globulin Ratio Triglycerides Urine Color Yellow Urine Clarity Clear Urine pH 5.0 Ur Specific [place] 1.020 Urine Protein 30 H Urine Glucose (UA) Normal Urine Ketones 15 H Urine Occult Blood 250 H Urine Nitrite Negative Urine Bilirubin Negative Urine Urobilinogen Normal Ur Leukocyte Esterase 100 H Urine RBC 0-5 SEEN Urine WBC 5-10 SEEN Ur Squamous Epith Cells 0-5 SEEN Urine Bacteria RARE Urine Mucus 0 SEEN MRSA (PCR) 06/03/17 06/03/17 05:00 05:00 WBC 7.0 Corrected WBC RBC 3.58 L Hgb 11.3 L Hct 34.1 L MCV 95.3 H MCH 31.6 MCHC 33.1 RDW 12.3 RDW Differential 41.7 Plt Count 133 L MPV 10.3 Immature Gran % (Auto) 0.100 Neut % (Auto) 63.2 Lymph % (Auto) 24.3 [place] % (Auto) 8.9 Eos % (Auto) 3.2 Baso % (Auto) 0.3 Immature Gran # (Auto) Absolute Neuts (auto) 4.4 Absolute Lymphs (auto) 1.69 Absolute Monos (auto) Total Counted Not Reportable Neutrophils % (Manual) Band Neutrophils % Lymphocytes % (Manual) Monocytes % (Manual) Eosinophils % (Manual) Basophils % (Manual) Metamyelocytes % Myelocytes % Promyelocytes % Blast Cells % Plasma Cell % (Manual) Other Cells % Lymphocytes # Nucleated RBCs/100 WBC Differential Comment Diff Path Review Hypersegmented Neuts Atypical Lymphocytes Reactive Lymphocytes Smudge Cells Eosinophilia # Basophilia # Toxic Granulation Dohle Bodies Monisha Rods Platelet Estimate Plt Morphology Comment RBC Morphology Polychromasia Hypochromasia Poikilocytosis Basophilic Stippling Anisocytosis Microcytosis Macrocytosis Spherocytes Sickle Cells Target Cells Tear Drop Cells Ovalocytes Stomatocytes [place] Bodies [place] Cells Bite Cells Acanthocytes (Spur) Rouleaux Schistocytes PT 14.4 INR 1.1 Specimen Type Sample Site pH Bicarbonate Actual POC Total CO2 Base Excess O2 Saturation O2 % ABG pCO2 ABG pO2 Respiration Rate O2 Delivery Device Minute Volume Vent Mode Tidal Volume POC PEEP Blood Gas Notified Whom Blood Gas Notified Time Sodium Potassium Chloride Carbon Dioxide Anion Gap BUN Creatinine Estim Creat Clear Calc Est GFR (MDRD) Af Amer Est GFR (MDRD) Non-Af BUN/Creatinine Ratio Glucose Calcium Phosphorus Magnesium Total Bilirubin AST ALT Alkaline Phosphatase Total Creatine Kinase Troponin I C-React Prot Ext Range Total Protein Albumin Globulin Albumin/Globulin Ratio Triglycerides Urine Color Urine Clarity Urine pH Ur Specific [place] Urine Protein Urine Glucose (UA) Urine Ketones Urine Occult Blood Urine Nitrite Urine Bilirubin Urine Urobilinogen Ur Leukocyte Esterase Urine RBC Urine WBC Ur Squamous Epith Cells Urine Bacteria Urine Mucus MRSA (PCR) Clinical Impression(s) from Imaging Studies Brain CT 05/30/17 19:25 IMPRESSION: Chronic involutional changes of the brain. No acute intracranial process. Mild sinusitis. Electronically Signed: Lambert Franco DO at 20:22 EDT , Service support , Chest X-Ray 05/30/17 19:45 IMPRESSION: Hyperinflation. No infiltrate. Electronically Signed: Lambert Franco DO at 20:12 EDT , Service support , Brain MRI 05/31/17 06:41 IMPRESSION: A small punctate acute or subacute infarct is suspected in the midportion of the right thalamus. Interval progression of right occipital encephalomalacia. Minimal white matter disease. Electronically Signed: Louie Morley MD at 8:34 EDT Tel , Service support , Head MRA 05/31/17 16:10 IMPRESSION: 1. No evidence of significant steno-occlusive disease or aneurysm. 2. Diminutive left V4 vertebral artery segment. Electronically Signed: Matias Luevano at 22:44 EDT , Service support , Neck MRA 05/31/17 16:10 IMPRESSION: 1. Proximal right ICA severe greater than 70% stenosis with reconstitution of flow distally. Recommend further characterization with CTA and interventional consultation as warranted. 2. Focal stenosis of the left proximal ICA proximal 60-70%. Electronically Signed: Matias LuevanoDO at 22:29 EDT , Service support , Brain CT 06/01/17 12:17 IMPRESSION: Chronic involutional changes of the brain. Stable Ancef malacia in the posterior medial aspect of the right occipital lobe. Sinusitis. Electronically Signed: Keanu Mallory MD at 14:33 EDT Tel [phone], Service support , Chest X-Ray 06/01/17 14:00 IMPRESSION: The tip of the endotracheal tube is at 4.8 cm proximal to the lara. Electronically Signed: Keanu Mallory MD at 14:35 EDT Tel [phone], Service support , Brain MRI 06/01/17 16:20 IMPRESSION: 1. Involutional changes of the brain, as described above. 2. 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 3. New right-sided leptomeningeal fluid surrounding the cerebral hemisphere suggesting sequela of meningitis. 4. 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 N.B. : The above information has been verbally conveyed by Carmen Worrell MD to Sophie Akhtar on 06/02/2017 10:09:06 (ET). Electronically Signed: Carmen Worrell MD at 10:12 EDT , Service support , N.B. : The above information has been verbally conveyed by Carmen Worrell MD to Sophie Akhtar on 06/02/2017 10:09:06 (ET). Head CTA 06/01/17 16:20 IMPRESSION: There is severe atherosclerotic plaque formation of the origin of the right internal carotid artery with an 80% occlusion. There is mild atherosclerotic plaque formation of the origin of the left internal carotid artery with less than 50% cross sectional diameter stenosis. Electronically Signed: Andres Quinones MD at 18:15 EDT , Service support , Neck CTA 06/01/17 16:20 IMPRESSION: There is severe atherosclerotic plaque formation of the origin of the right internal carotid artery with an 80% occlusion. There is mild atherosclerotic plaque formation of the origin of the left internal carotid artery with less than 50% cross sectional diameter stenosis. Electronically Signed: Andres Quinones MD at 18:15 EDT , Service support , KUB X-Ray 06/01/17 16:40 IMPRESSION: Nasogastric tube present with tip overlying the epigastric region. Opacification of the pelvicalyceal systems, ureters, and bladder. Electronically Signed: Ambrocio Sánchez MD at 17:32 EDT , Service support , Chest X-Ray 06/02/17 05:55 IMPRESSION: No acute cardiopulmonary abnormalities or changes. Electronically Signed: Lisa Massey MD at 7:37 EDT Tel Direct: [phone], Service support , Assessment/Plan Active and Suspected Problems Migraine (Acute) Stroke (Acute) RECOMMENDATIONS: 1. Plan to proceed with a trial of extubation this morning. Discontinue Precedex at this time. 2. Given the patient's low urine output, will start on maintenance IV fluids until p.o. intake increases. 3. Continue Keppra and Topamax 4. Continue Plavix, aspirin and Lovenox, unless neurology plans to attempt LP in the near future 5. Perform bedside swallow evaluation once extubated 6. Wean supplemental oxygen to maintain saturations at or above 90% 7. Encourage incentive spirometer use and mobilize patient as tolerated. Recommend physical therapy evaluation today. 8. Remove Mccoy catheter IMPRESSIONS: 1. Acute respiratory failure secondary to #2 The patient was transferred emergently to the ICU after developing generalized tonic-clonic seizure activity and biting his tongue. The patient's airway became compromised and he was emergently intubated upon arrival to the ICU. The patient responded well to invasive mechanical ventilation and was able to be liberated from the vent this morning. Once extubated, bedside swallow evaluation can be completed. Wean supplemental oxygen to maintain saturations at or above 90%. Encourage incentive spirometer use and mobilize patient as tolerated. 2. Encephalopathy Improved. Likely multifactorial in etiology with questionable CVA and/or sentinel seizure activity and subsequent postictal state contributing. Neurology is currently following. Extensive neurological workup has been completed to date. Continue Keppra and Topamax per neurology recommendations. We will plan to continue the patient's aspirin, Plavix and Lovenox, unless neurology is planning to perform an LP in the near future. 3. New onset seizures/thalamic CVA/migraine/critical carotid stenosis As above, continue current medical management per neurology recommendations. Continue seizure precautions. Plan for outpatient follow-up with vascular surgery for definitive surgical intervention of the patient's carotid stenosis. 4. Subacute sinusitis The patient was recently started on antibiotics by Dr. Townsend of ENT. These will be continued empirically. 5. Advanced age/GERD/allergic rhinitis/hypertension/hyperlipidemia Complicated care, management, recovery and prognosis. Okay to continue home medications as indicated. Perform bedside swallow evaluation and advance diet accordingly. Physical therapy to get patient up and out of bed today. TIME: 38 minutes of critical care time, inclusive of procedures, was spent addressing the patient's acute respiratory failure, encephalopathy, new onset seizure activity, thalamic CVA, migraine with aura, subacute sinusitis, review of all data and collaboration with care team. ([id number]) Code Visit [id number]: [id number] Critical care first hour
--- NOTE | 2017-06-03 06:36 | NURSING ---
pt successfully extubated at 0630 to room air; able to speak and cough
--- NOTE | 2017-06-03 06:53 | PCM.PROGNOTE ---
Patient Problems: Active and Suspected Problems Migraine (Acute) Stroke (Acute) Subjective: Ventilator Day #3.... Extubated this a.m. TMAX: 99.6 core Vital signs: Vital signs are stable and he is 96-99% saturated on CPAP Fluid balance: Fluid balance is +791 since admission. Urine output: 2545 on 06/02/2017....he had only 175 cc last night Weight: Weight is up approximately 5 pounds since admission. All radiologic testing was reviewed: MRI of the brain on 06/02/2017 showed involutional changes, tiny acute infarct in the right insular cortex and new leptomeningeal fluid surrounding the right cerebral hemisphere which per Dr. Trimble is secondary to seizure. All labs were personally reviewed: White blood cell count and differential remained normal. Hemoglobin is stable at 11.3 and the platelets are 133,000. BUN is 19 with a creatinine of 1.11 today. Blood sugar is mildly decreased at 68. C-reactive protein was 6 and his ESR was 7. Argues against infection. UA had 5-10 WBCs per high-power field with rare bacteria. There were urine ketones present. Microbiology: Blood and urine cultures are pending. Telemetry: NSR/SB with rare PVC Objective: He has a sore throat. He denies LAMB and has no unilateral weakness or numbness. No CP, COB, palpitations Discussed the CTA neck findings with Dr. Sauceda. Mr. Fox has seen him in the past for carotid Artery stenosis. He will see him in the office in the next 1-2 weeks and get him scheduled for a R carotid endarterectomy. - Physical Exam General: Alert, Cooperative, No apparent distress, - - Still a little sleepy HEENT: Atraumatic, PERRLA, EOMI Oral: No Gingival or Mucosal Lesions/ Ulcerations, Dry Mucosa Neck: Supple, No JVD, No Nodes, Trachea Midline Lungs: Clear to auscultation, No rhonchi, No wheeze, No rales Cardiovascular: Regular rate, Regular Rhythm, Normal S1, Normal S2, No rub noted, No Gallop Abdomen: Bowel Sounds Present, Soft, Non Tender, Non-Distended Extremities: No clubbing, No cyanosis, No edema, No Calf Tenderness Skin: No rashes Neurological: Cranial nerves II-XII grossly intact, Neuro grossly intact Psych/Mental Status: Appropriate Vital Signs Temp Pulse Resp BP Pulse Ox 99.0 F 66 20 H 126/55 H 96 06/03/17 06:06 06/03/17 06:06 06/03/17 06:06 06/03/17 06:06 06/03/17 06:06 Oxygen Delivery Method CPAP Weight: 177 lb 7.554 oz Body Mass Index (BMI) 22.7 Intake and Output for Last 24 Hours 06/01/17 06/02/17 06/03/17 23:59 23:59 23:59 Intake Total 1170 / 1170 1998 507 / 507 Output Total 650 / 650 2545 / 2545 475 / 475 Balance 520 / 520 -546 / -546 Laboratory Tests Past 24 Hrs 06/02/17 06/02/17 06/03/17 03:45 07:10 05:00 WBC RBC Hgb Hct MCV MCH MCHC RDW RDW Differential Plt Count MPV Immature Gran % (Auto) Neut % (Auto) Lymph % (Auto) [place] % (Auto) Eos % (Auto) Baso % (Auto) Absolute Neuts (auto) Absolute Lymphs (auto) Total Counted PT INR Sodium 139 Potassium 3.8 Chloride 108 H Carbon Dioxide 22.0 Anion Gap 9 BUN 19 H Creatinine 1.11 Estim Creat Clear Calc 62.98 Est GFR (MDRD) Af Amer 83 Est GFR (MDRD) Non-Af 68 BUN/Creatinine Ratio 17.1 Glucose 68 L Calcium 8.0 L C-React Prot Ext Range 6.06 H Urine Color Yellow Urine Clarity Clear Urine pH 5.0 Ur Specific [place] 1.020 Urine Protein 30 H Urine Glucose (UA) Normal Urine Ketones 15 H Urine Occult Blood 250 H Urine Nitrite Negative Urine Bilirubin Negative Urine Urobilinogen Normal Ur Leukocyte Esterase 100 H Urine RBC 0-5 SEEN Urine WBC 5-10 SEEN Ur Squamous Epith Cells 0-5 SEEN Urine Bacteria RARE Urine Mucus 0 SEEN 06/03/17 06/03/17 05:00 05:00 WBC 7.0 RBC 3.58 L Hgb 11.3 L Hct 34.1 L MCV 95.3 H MCH 31.6 MCHC 33.1 RDW 12.3 RDW Differential 41.7 Plt Count 133 L MPV 10.3 Immature Gran % (Auto) 0.100 Neut % (Auto) 63.2 Lymph % (Auto) 24.3 Scott % (Auto) 8.9 Eos % (Auto) 3.2 Baso % (Auto) 0.3 Absolute Neuts (auto) 4.4 Absolute Lymphs (auto) 1.69 Total Counted Not Reportable PT 14.4 INR 1.1 Sodium Potassium Chloride Carbon Dioxide Anion Gap BUN Creatinine Estim Creat Clear Calc Est GFR (MDRD) Af Amer Est GFR (MDRD) Non-Af BUN/Creatinine Ratio Glucose Calcium C-React Prot Ext Range Urine Color Urine Clarity Urine pH Ur Specific [place] Urine Protein Urine Glucose (UA) Urine Ketones Urine Occult Blood Urine Nitrite Urine Bilirubin Urine Urobilinogen Ur Leukocyte Esterase Urine RBC Urine WBC Ur Squamous Epith Cells Urine Bacteria Urine Mucus Assessment/Plan Active and Suspected Problems Migraine (Acute) Stroke (Acute) Impressions 1. acute/subacute R thalamic CVA and small R insular cortex ischemic CVA 2. 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 Migraine cephalgia 4. sinusitis being treated by Dr. Townsend with Cefdinir - no findings of acute sinusitis on the brain images and he is AF with a normal WBC and diff and a normal esr and crp, 5. GERD 6. Allergic rhinitis 7. Dyslipidemia 8. Hypertension 9. COPD? or asthma? he is on albuterol PRN 10. new Left side weakness with partial seizures involving the LUE>LLE with left side neglect 11. BL ICA stenosis - the R reconstitutes with Collaterals but has > 80% stenosis on the CTA of the neck and 50% on the left 12. small interatrial shunt 13. partial motor seizures on the left 06/01 which became generalized. Etiology? Restart PO medications....including Topamax start on a diet if he passes his Bedside swallow Continue the ASA and the Plavix. I do not feel these medications should be stopped for an LP since he is afebrile with a normal white blood cell count, normal differential, normal ESR and unremarkable CRP. If he should develop a fever this may change. Continue Keppra PT/OT Activity as tolerated Continue Lovenox for DVT prophylaxis Hydrate....he seems to put out as much as we are putting in. The urine is very pale today......not what I would suspect with dehydration but he is able to concentrate the urine....SP GR is 1.02 today Code Visit Inpatient E&M: 59109 Subs Hosp L3
[2017-06-03] MEDS: 0.9% Normal Saline 1,000 ML 999 ML IV (08:12)
[2017-06-03] MEDS: 0.45% Normal Saline 1,000 ML 125 ML IV ×2 (09:27→17:48)
--- NOTE | 2017-06-03 13:41 | PN.NEURO_ITS ---
Patient Problems: Active and Suspected Problems Migraine (Acute) Stroke (Acute) Subjective: No issues overnight, extubated this morning, no further seizures documented. discussed with patient's nurse - Physical Exam General: Alert HEENT: Normocephalic Neck: Supple Lungs: Clear to auscultation Cardiovascular: Regular rate Abdomen: Bowel Sounds Present Extremities: No clubbing Skin: No rashes Musculoskeletal: No Tenderness to Palpation of Joints or Extremities Neurological: - - consious, alert, CN 2-12 grossly intact, power 5/5 all 4 extremities, no sensory loss, no cerebellar signs, no dysarthria, Reflexes + B/ L B/S/T/K/A, gait deferred, NIHSS 0 at present. Vital Signs Temp Pulse Resp BP Pulse Ox 99.1 F 75 25 H 121/54 H 97 06/03/17 08:00 06/03/17 09:00 06/03/17 09:00 06/03/17 09:00 06/03/17 09:00 Oxygen Delivery Method Room Air Weight: 80.5 kg Body Mass Index (BMI) 22.7 Intake and Output for Last 24 Hours 06/01/17 06/02/17 06/03/17 23:59 23:59 23:59 Intake Total 1170 / 1170 1998 / 1998 2005 / 2005 Output Total 650 / 650 2545 / 2545 775 / 775 Balance 520 / 520 -546 / -546 1231 / 1231 Laboratory Tests Past 24 Hrs 06/03/17 06/03/17 06/03/17 05:00 05:00 05:00 WBC 7.0 RBC 3.58 L Hgb 11.3 L Hct 34.1 L MCV 95.3 H MCH 31.6 MCHC 33.1 RDW 12.3 RDW Differential 41.7 Plt Count 133 L MPV 10.3 Immature Gran % (Auto) 0.100 Neut % (Auto) 63.2 Lymph % (Auto) 24.3 [place] % (Auto) 8.9 Eos % (Auto) 3.2 Baso % (Auto) 0.3 Absolute Neuts (auto) 4.4 Absolute Lymphs (auto) 1.69 Total Counted Not Reportable PT 14.4 INR 1.1 Sodium 139 Potassium 3.8 Chloride 108 H Carbon Dioxide 22.0 Anion Gap 9 BUN 19 H Creatinine 1.11 Estim Creat Clear Calc 62.98 Est GFR (MDRD) Af Amer 83 Est GFR (MDRD) Non-Af 68 BUN/Creatinine Ratio 17.1 Glucose 68 L Calcium 8.0 L Assessment/Plan Active and Suspected Problems Migraine (Acute) Stroke (Acute) The patient is a 77 year old CM with PMH Stroke and migraine was admitted with severe LAMB, found to have new small right thalamic stroke. Had partial left sided seizures yesterday morning (06/01/17) with secondary generalization, patient was intubated following that. Ativan 1 mg was given and loaded with Keppra 1 g. Extubated this morning (06/03/17), no further documented seizures. denies any LAMB at present. Impression New onset seizure (partial seizure with secondary generalization) Acute/subacute small right thalamic stroke and new acute small right IC stroke on repeat MRI brain done on 06/01/17 Right ICA 80% severe stenosis Migraine with aura, not intractable, not in status Plan -Repeat MRI brain done on 06/01/[address] Carmen Worrell as showing right sided leptomeningeal fluid surrounding the cerebral hemisphere suggesting sequela of meningitis, and tiny acute infarct in the right insular cortex but on my review it more likely is suggestive of post ictal changes in the right cerebral hemisphere. -CTA head/neck- Right ICA 80% stenosis, and Left ICA < 50% stenosis. High stroke risk discussed in detail with the patient's and son due to presence of severe right ICA stenosis. He needs to be evaluated by vascular surgeon for Right CEA at the earliest. -Recommend repeat MRI brain FLAIR sequence to see if the post ictal changes noted in the right cerebral region has resolved -Recommend Vascular surgery consult for CEA -Continue Keppra 500 mg IV BID -Topamax 50 mg PO BID for migraine LAMB -EEG did not show any epileptiform discharges or electrographic seizures -LP- canceled by ICU team, since patient is afebrile, does not have any signs of meningitis, has no NR/Kernick's or Brudzincki's sign or focal neurological signs, has normal WBCs, is on dual AP and Lovenox for DVT prophylaxis. Denies any LAMB at present. -On ASA 81 mg PO once daily and Plavix 75 mg PO once daily. Recommend dual AP for 3 weeks, then switch to single AP. -Lipitor 40 mg PO q hs -MRI brain done on admission reviewed-reported as showing small acute right thalamus stroke -MRA head/neck-Left ICA 60-70% stenosis, Right ICA > 70% stenosis -TTE-EF 60%, normal LA size, probable small PFO - LDL-48, Wjv5i-5.6% -ESR-7 -Avoid Cefdinir -Avoid hypotension. -Seizure precautions -PT/OT -GI/DVT prophylaxis -will continue to follow. -Please call with questions if any -Thank you for allowing us to participate in patient's care and management I spent 35 minutes of critical care time taking history, doing physical examination, reviewing medical records, coordinating care and counseling the patient's family.
--- NOTE | 2017-06-03 13:50 | CASEMGMT ---
Addendum entered by Marnie Andre 06/03/17 14:25: SW spoke w/Dr. Akhtar, pt will be here through the . SW let Katie in rehab know, SW will follow up w/rehab on Tuesday. SW spoke w/pt, and son in room. SW let them know the referral was made to inpt rehab, and SW will follow up Tuesday to see if they can take him. states understanding. SW will continue to follow for discharge plan, will follow up on Tuesday. NEVILLE Mcintyre, AVELINA Original Note: SW participated in ICU rounds this morning, and referral has been made to inpt rehab. Katie is to let this SW know if they can take pt. SW will continue to follow. NEVILLE Mcintyre, PLANT OPERATOR CONTROL ROOM OPERATOR
[2017-06-03] MEDS: Topiramate 50 MG Tablet PO ×2 (15:28→21:44)
[2017-06-03] MEDS: Famotidine 20 MG Tablet PO ×2 (15:29→21:44)
[2017-06-03] MEDS: Aspirin 81 MG TAB.CHEW NG (15:30)
[2017-06-03] MEDS: Clopidogrel Bisulfate 75 MG Tablet PO (15:30)
[2017-06-03] MEDS: CHLORHEXIDINE GLUC 2% CLOTH 1 EACH TOWELETTE TOPICAL (16:47)
[2017-06-03] MEDS: Atorvastatin Calcium 40 MG Tablet NG (21:44)
[2017-06-04] VITALS (21 sets, daily range): BP systolic 111–155; BP diastolic 56–94; PULSE 71–99; RESP 14–23; TEMP 36.7–37.4; O2SAT 94–96; BMI 22.7
[2017-06-04] MEDS: 0.45% Normal Saline 1,000 ML 125 ML IV (02:04)
[2017-06-04 05:24] LABS: Anion Gap 8 (5-15); BUN 15 mg/dL (7-18); BUN/Creat Ratio 14.2 RATIO (10-20); Calcium,Total 7.9 mg/dL (8.5-10.1); Chloride 109 mmol/L (98-107); Creatinine, Serum 1.06 mg/dL (0.70-1.30); EST Glomerular Filtration Rate 72 mL/min (>60); Est Glom Filt Rate - Afr Amer 87 mL/min (>60); Estimated Creatinine Clearance 65.96 ml/min; Glucose 88 mg/dL (74-106); Magnesium 1.9 mg/dL (1.6-2.6); Phosphorus 1.8 mg/dL (2.5-4.9); Potassium 3.4 mmol/L (3.5-5.1); Sodium Level 140 mmol/L (136-145)
--- NOTE | 2017-06-04 06:35 | PN_ITS ---
Subjective: The patient was seen and examined at the bedside this morning. Events from the last 24 hours have been reviewed. The patient is currently afebrile, hemodynamically stable and maintaining appropriate oxygen saturations on room air. No overnight events were noted by the nursing staff. The patient is resting comfortably in bed and denies shortness of breath, chest pain or cough. Objective: The patient's most recent lab work, culture data and imaging studies have all been personally reviewed. Initial MRI brain completed on May 31 revealed evidence of a small punctate acute or subacute infarction in the midportion of the right thalamus. Surface echocardiogram revealed evidence of stage I diastolic dysfunction with ejection fraction of 60%. The patient did have evidence of a probable patent foramen ovale with [id number] intra-atrial shunt. Right ventricular systolic pressures were estimated to be 23 mmHg. Head /neck MRA also completed on May 31 revealed no evidence of significant occlusive disease or aneurysm. The proximal right ICA did have severe stenosis with reconstitution of flow distally. There is also focal stenosis of the left proximal ICA. EEG was abnormal due to the presence of generalized increase in beta frequency waves, potentially medication related. Head/neck CTA on June 01 again demonstrated the aforementioned ICA stenosis. General: Alert, Cooperative, No apparent distress HEENT: Atraumatic, Normocephalic Oral: Moist Mucosa Neck: Supple, No Nodes, Trachea Midline Lungs: No rhonchi, No wheeze, No rales, Diminished Cardiovascular: Regular rate, Regular Rhythm, Normal S1, Normal S2, No murmurs Abdomen: Bowel Sounds Present, Soft, Non Tender Extremities: No clubbing, No cyanosis, No edema Skin: No rashes, No breakdown Musculoskeletal: No Tenderness to Palpation of Joints or Extremities Lymphatic: No Cervical, Supraclavicular, or Inguinal Adenopathy Neurological: Neuro grossly intact Psych/Mental Status: Normal Affect, Appropriate Vital Signs Temp Pulse Resp BP Pulse Ox 98.8 F 77 23 H 138/94 H 94 06/04/17 06:00 06/04/17 06:00 06/04/17 06:00 06/04/17 06:06/04/17 06:00 Oxygen Delivery Method Room Air Weight: 177 lb 4.026 oz Body Mass Index (BMI) 22.7 Intake and Output for Last 24 Hours 06/02/17 06/03/17 06/04/17 23:59 23:59 23:59 Intake Total 1998 3414 / 3414 1246 / 1246 Output Total 2545 / 2545 2475 / 2475 800 / 800 Balance -546 / -546 939 / 939 446 / 446 Labs (Last 48 Hours) 06/02/17 06/02/17 06/03/17 03:45 07:10 05:00 WBC RBC Hgb Hct MCV MCH MCHC RDW RDW Differential Plt Count MPV Immature Gran % (Auto) Neut % (Auto) Lymph % (Auto) [place] % (Auto) Eos % (Auto) Baso % (Auto) Absolute Neuts (auto) Absolute Lymphs (auto) Total Counted PT INR Sodium 139 Potassium 3.8 Chloride 108 H Carbon Dioxide 22.0 Anion Gap 9 BUN 19 H Creatinine 1.11 Estim Creat Clear Calc 62.98 Est GFR (MDRD) Af Amer 83 Est GFR (MDRD) Non-Af 68 BUN/Creatinine Ratio 17.1 Glucose 68 L Calcium 8.0 L Phosphorus Magnesium C-React Prot Ext Range 6.06 H Urine Color Yellow Urine Clarity Clear Urine pH 5.0 Ur Specific [place] 1.020 Urine Protein 30 H Urine Glucose (UA) Normal Urine Ketones 15 H Urine Occult Blood 250 H Urine Nitrite Negative Urine Bilirubin Negative Urine Urobilinogen Normal Ur Leukocyte Esterase 100 H Urine RBC 0-5 SEEN Urine WBC 5-10 SEEN Ur Squamous Epith Cells 0-5 SEEN Urine Bacteria RARE Urine Mucus 0 SEEN 06/03/17 06/03/17 06/04/17 05:00 05:00 05:00 WBC 7.0 RBC 3.58 L Hgb 11.3 L Hct 34.1 L MCV 95.3 H MCH 31.6 MCHC 33.1 RDW 12.3 RDW Differential 41.7 Plt Count 133 L MPV 10.3 Immature Gran % (Auto) 0.100 Neut % (Auto) 63.2 Lymph % (Auto) 24.3 [place] % (Auto) 8.9 Eos % (Auto) 3.2 Baso % (Auto) 0.3 Absolute Neuts (auto) 4.4 Absolute Lymphs (auto) 1.69 Total Counted Not Reportable PT 14.4 INR 1.1 Sodium 140 Potassium 3.4 L Chloride 109 H Carbon Dioxide 23.0 Anion Gap 8 BUN 15 Creatinine 1.06 Estim Creat Clear Calc 65.96 Est GFR (MDRD) Af Amer 87 Est GFR (MDRD) Non-Af 72 BUN/Creatinine Ratio 14.2 Glucose 88 Calcium 7.9 L Phosphorus 1.8 L Magnesium 1.9 C-React Prot Ext Range Urine Color Urine Clarity Urine pH Ur Specific [place] Urine Protein Urine Glucose (UA) Urine Ketones Urine Occult Blood Urine Nitrite Urine Bilirubin Urine Urobilinogen Ur Leukocyte Esterase Urine RBC Urine WBC Ur Squamous Epith Cells Urine Bacteria Urine Mucus Microbiology 06/03/17 09:35 Sputum, Expectorated/Coughed Gram Stain - Final Clinical Impression(s) from Imaging Studies Brain CT 05/30/17 19:25 IMPRESSION: Chronic involutional changes of the brain. No acute intracranial process. Mild sinusitis. Electronically Signed: Lambert Franco DO at 20:22 EDT , Service support , Chest X-Ray 05/30/17 19:45 IMPRESSION: Hyperinflation. No infiltrate. Electronically Signed: Lambert Franco DO at 20:12 EDT , Service support , Brain MRI 05/31/17 06:41 IMPRESSION: A small punctate acute or subacute infarct is suspected in the midportion of the right thalamus. Interval progression of right occipital encephalomalacia. Minimal white matter disease. Electronically Signed: Louie Morley MD at 8:34 EDT Tel , Service support , Head MRA 05/31/17 16:10 IMPRESSION: 1. No evidence of significant steno-occlusive disease or aneurysm. 2. Diminutive left V4 vertebral artery segment. Electronically Signed: Matias Luevano DO at 22:44 EDT , Service support , Neck MRA 05/31/17 16:10 IMPRESSION: 1. Proximal right ICA severe greater than 70% stenosis with reconstitution of flow distally. Recommend further characterization with CTA and interventional consultation as warranted. 2. Focal stenosis of the left proximal ICA proximal 60-70%. Electronically Signed: Matias Luevano at 22:29 EDT , Service support , Brain CT 06/01/17 12:17 IMPRESSION: Chronic involutional changes of the brain. Stable Ancef malacia in the posterior medial aspect of the right occipital lobe. Sinusitis. Electronically Signed: Keanu Mallory MD at 14:33 EDT Tel [phone], Service support , Chest X-Ray 06/01/17 14:00 IMPRESSION: The tip of the endotracheal tube is at 4.8 cm proximal to the lara. Electronically Signed: Keanu Mallory MD at 14:35 EDT Tel [phone], Service support , Brain MRI 06/01/17 16:20 IMPRESSION: 1. Involutional changes of the brain, as described above. 2. 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 3. New right-sided leptomeningeal fluid surrounding the cerebral hemisphere suggesting sequela of meningitis. 4. 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 N.B. : The above information has been verbally conveyed by Carmen Worrell MD to Sophie Akhtar on 06/02/2017 10:09:06 (ET). Electronically Signed: Carmen Worrell MD at 10:12 EDT , Service support , N.B. : The above information has been verbally conveyed by Carmen Worrell MD to Sophie Akhtar on 06/02/2017 10:09:06 (ET). Head CTA 06/01/17 16:20 IMPRESSION: There is severe atherosclerotic plaque formation of the origin of the right internal carotid artery with an 80% occlusion. There is mild atherosclerotic plaque formation of the origin of the left internal carotid artery with less than 50% cross sectional diameter stenosis. Electronically Signed: Andres Quinones MD at 18:15 EDT , Service support , Neck CTA 06/01/17 16:20 IMPRESSION: There is severe atherosclerotic plaque formation of the origin of the right internal carotid artery with an 80% occlusion. There is mild atherosclerotic plaque formation of the origin of the left internal carotid artery with less than 50% cross sectional diameter stenosis. Electronically Signed: Andres Quinones MD at 18:15 EDT , Service support , KUB X-Ray 06/01/17 16:40 IMPRESSION: Nasogastric tube present with tip overlying the epigastric region. Opacification of the pelvicalyceal systems, ureters, and bladder. Electronically Signed: Ambrocio Sánchez MD at 17:32 EDT , Service support , Chest X-Ray 06/02/17 05:55 IMPRESSION: No acute cardiopulmonary abnormalities or changes. Electronically Signed: Lisa Massey MD at 7:37 EDT Tel Direct: [phone], Service support , Medical Necessity - Tobacco Use Smoking Status: Never smoker Assessment/Plan Active and Suspected Problems Migraine (Acute) Stroke (Acute) RECOMMENDATIONS: 1. Stop supplemental IV fluids and encourage p.o. intake 2. Remove Mccoy catheter 3. Continue Keppra and Topamax 4. Continue Plavix, aspirin and Lovenox 5. Encourage incentive spirometer use and mobilize patient as tolerated. 6. Outpatient follow-up with vascular surgery IMPRESSIONS: 1. Acute respiratory failure secondary to #2 The patient was transferred emergently to the ICU after developing generalized tonic-clonic seizure activity and biting his tongue. The patient's airway became compromised and he was emergently intubated upon arrival to the ICU. The patient responded well to invasive mechanical ventilation and was able to be liberated from the vent without issue. He is currently maintaining appropriate oxygen saturations on room air. Encourage incentive spirometer use and mobilize patient as tolerated. 2. Encephalopathy Improved. Likely multifactorial in etiology with questionable CVA and/or sentinel seizure activity and subsequent postictal state contributing. Neurology is currently following. Extensive neurological workup has been completed to date. Continue Keppra and Topamax per neurology recommendations. We will plan to continue the patient's aspirin, Plavix and Lovenox. Outpatient follow-up with vascular surgery is planned for severe carotid stenosis. 3. New onset seizures/thalamic CVA/migraine/critical carotid stenosis As above, continue current medical management per neurology recommendations. Continue seizure precautions. Plan for outpatient follow-up with vascular surgery for definitive surgical intervention of the patient's carotid stenosis. 4. Subacute sinusitis The patient was recently started on antibiotics by Dr. Townsend of ENT. These will be continued empirically. 5. Advanced age/GERD/allergic rhinitis/hypertension/hyperlipidemia Complicated care, management, recovery and prognosis. Okay to continue home medications as indicated. This note was generated with [employer] dictation software. It may contain incorrect words, spelling, and punctuation that were not noted in checking the note before signing. DISPOSITION: Patient is medically stable for transfer out of the intensive care unit. Given the lack of ongoing ICU needs, will sign off. Please call with any additional questions. Code Visit Inpatient E&M: [id number] [facility] Hosp L3
[2017-06-04] MEDS: Aspirin 81 MG TAB.CHEW NG (08:33)
[2017-06-04] MEDS: Famotidine 20 MG Tablet PO ×2 (08:35→21:08)
--- NOTE | 2017-06-04 09:04 | NURSING ---
report called to andria in pcu
[2017-06-04] MEDS: Topiramate 50 MG Tablet PO ×2 (11:18→21:08)
[2017-06-04] MEDS: Clopidogrel Bisulfate 75 MG Tablet PO (11:18)
[2017-06-04] MEDS: 0.9% NaCl Peripheral Flush Adult/Peds IV (21:07)
[2017-06-04] MEDS: Atorvastatin Calcium 40 MG Tablet NG (21:08)
[2017-06-05] VITALS (11 sets, daily range): BP systolic 116–146; BP diastolic 52–64; PULSE 64–85; RESP 16–18; TEMP 36.4–36.9; O2SAT 94–99; BMI 22.7
[2017-06-05 08:26] LABS: Absolute Lymphocyte Count 1.81 X10^3/ul (0.83-4.51); Absolute Neutrophil Count 3.2 X10^3/uL (2.0-7.7); Basophil# 0.01 X10^3/uL; Basophil% 0.2 % (0-1); Eosinophil# 0.95 X10^3/uL; Eosinophils% 14.8 % (0-5); Hematocrit 35.1 % (40-54); Hemoglobin 11.7 g/dl (13.0-16.5); Lymphocyte # 1.81 X10^3/ul (4.0); Lymphocyte % 28.1 % (19-41); Mean Corp Hgb Conc 33.3 g/gl (32-36); Mean Corpuscular Volume 92.9 fL (80-94); Mean Platelet Vol. 10.3 fl (6.2-12.0); Monocyte# 0.43 X10^3/uL; Monocyte% 6.7 % (0-10); Neutrophil # 3.22 X10^3/uL (2.7-7.7); Platelet Count 157 K/mm3 (150-450); RBC Distribution Width CV 12.4 % (11.6-14.6); RBC Distribution Width SD 42.2 fl (35.1-43.9); Red Blood Count 3.78 M/mm3 (4.6-6.2); White Blood Count 6.4 K/mm3 (4.4-11.0)
[2017-06-05 08:27] LABS: POSITIVE COUNT NO; POSITIVE DIFFERENTIAL NO; POSITIVE MORPHOLOGY NO
[2017-06-05] MEDS: Aspirin 81 MG TAB.CHEW NG (08:52)
[2017-06-05] MEDS: Clopidogrel Bisulfate 75 MG Tablet PO (08:53)
[2017-06-05] MEDS: Topiramate 50 MG Tablet PO ×2 (08:53→21:46)
[2017-06-05] MEDS: Famotidine 20 MG Tablet PO ×2 (08:53→21:46)
[2017-06-05] MEDS: 0.9% NaCl Peripheral Flush Adult/Peds IV ×2 (09:02→21:45)
--- NOTE | 2017-06-05 20:59 | PN_ITS ---
Patient Problems: Active and Suspected Problems Migraine (Acute) Stroke (Acute) Subjective: Patient is a 77-year-old man with a history of ischemic CVA, migraines, allergic rhinitis, GERD, HTN and dyslipidemia who presented to the Ed at [facility] on 05/30/17 c/o severe LAMB and numbness in the left hand. CTB showed no acute findings. The sx resolved and the next AM he had no cephalgia and no neurologic deficits. He was seen by dr. Trimble and the MRI of the brain showed a very small ischemic infarct in the R thalamus. The following day the LAMB recurred and he developed partial seizures in the LUE and the LLE and this became generalized. He was given Ativan and transferred to the ICU. He was intubated when he did not regain consciousness after the seizure. He was taken to CT scan and once again there were not acute changes. He was started on Keppra and an EEG was obtained. The EEG showed no epileptiform activity. MRI of the brain was repeated and had a small ischemic infarct in the right insular cortex. There was leptomeningeal fluid around the right brain and Dr. Trimble said this is normal post-ictal finding. CTA of the neck showed a >80 % stenosis of the R ICA and a < 50% stenosis of the left ICA. He was exubated and kept on Keppra and an increased dose of Topamax for tx of migraines which he has had most of his life. The sputum obtained when intubated has grown pseudomonas aeruginosa. He was started on Zosyn on 06/05. He is somewhat weak form the events since admission and may need to go to rehab prior to DC home. I spoke to and the patient has an appt for this coming Tuesday to be seen in the office and get scheduled for R CEA. Remains afebrile. Vital signs are stable. He is 96% saturated on room air. He denies any CP, cephalgia, N/V, SOB, cough. He states he feels well and is ready to go home. He declined PT twice on 06/05. I explained to him why this is necessary. His family thinks he is at baseline but, he still seems somewhat confused and inappropriate to me. - Physical Exam General: Alert, Cooperative - sometimes, No apparent distress, Confused HEENT: Atraumatic, PERRLA Oral: Moist Mucosa, - - The tongue s bruised fromwhere he bit it during the generalized tonic clonic seizure Neck: Supple, No JVD, Trachea Midline Lungs: Clear to auscultation, Normal air movement Cardiovascular: Regular rate, Regular Rhythm, Normal S1, Normal S2, No Gallop Abdomen: Bowel Sounds Present, Soft, Non Tender, Non-Distended Extremities: No clubbing, No cyanosis, No edema, No Calf Tenderness Skin: No rashes, No breakdown Neurological: Cranial nerves II-XII grossly intact Psych/Mental Status: Appropriate Vital Signs Temp Pulse Resp BP Pulse Ox 97.5 F L 78 16 146/64 H 99 06/05/17 14:55 06/05/17 18:59 06/05/17 14:55 06/05/17 14:55 06/05/17 14:55 Oxygen Delivery Method Room Air Weight: 176 lb 9.444 oz Body Mass Index (BMI) 22.7 Intake and Output for Last 24 Hours 06/03/17 06/04/17 06/05/17 23:59 23:59 23:59 Intake Total 3414 / 3414 2476 / 2476 1350 / 1350 Output Total 2475 / 2475 1800 / 1800 Balance 939 / 939 676 / 676 1350 / 1350 Microbiology Past 72 Hours 06/03/17 09:35 Gram Stain - Final Sputum, Expectorated/Coughed Respiratory Culture - Final Pseudomonas aeroginosa 06/02/17 06:45 Blood Culture - Preliminary Blood Culture (Wb) - Right Forearm No growth in 48 hours. 06/02/17 06:45 Blood Culture - Preliminary Blood Culture (Wb) - Anticubital Left No growth in 48 hours. 06/02/17 07:10 Urine Culture - Final Urine Catheter - Mccoy Culture exhibits no growth. Laboratory Tests Past 24 Hrs 06/05/17 08:15 WBC 6.4 RBC 3.78 L Hgb 11.7 L Hct 35.1 L MCV 92.9 MCH 31.0 MCHC 33.3 RDW 12.4 RDW Differential 42.2 Plt Count 157 MPV 10.3 Immature Gran % (Auto) 0.200 Neut % (Auto) 50.0 Lymph % (Auto) 28.1 Granite % (Auto) 6.7 Eos % (Auto) 14.8 H Baso % (Auto) 0.2 Absolute Neuts (auto) 3.2 Absolute Lymphs (auto) 1.81 Total Counted Not Reportable Medical Necessity - Tobacco Use Smoking Status: Never smoker Assessment/Plan Active and Suspected Problems Migraine (Acute) Stroke (Acute) Impressions 1. acute/subacute R thalamic CVA and small R insular cortex ischemic CVA 2. 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 Migraine cephalgia - lifelong 4. sinusitis being treated by Dr. Townsend with Cefdinir - no findings of acute sinusitis on the brain images and he is AF with a normal WBC and diff and a normal esr and crp, but, he is growing Pseudomonas in the sputum obtained from the ETT 5. GERD 6. Allergic rhinitis 7. Dyslipidemia 8. Hypertension 9. COPD? or asthma? he is on albuterol PRN 10. new Left side weakness with partial seizures involving the LUE>LLE with left side neglect ....mostly resolved. Not cooperating with PT 11. BL ICA stenosis - the R has > 80% stenosis on the CTA of the neck and there is <50% on the left. he has an appt with dr. Sauceda on this coming and will be schedule for a R CEA 12. small interatrial shunt - US's of the legs were negative 13. partial motor seizures on the left 06/01 which became generalized. Etiology ? Started on Zosyn - but, no fever and normal WBC and diff......this did however grow from the ETT specimen and he has been diagnosed by dr. Townsend with sinusitis. avoid Cefdinir since it is known to be associated with seizures and also avoid FQ's for the same reason. I encouraged him to cooperate with PT. I also told him that he may need to go to rehab or SNF to receive antibiotics and he is not happy with this. Code Visit Inpatient E&M: 36357 Subs Hosp L2
[2017-06-05] MEDS: Atorvastatin Calcium 40 MG Tablet NG (21:46)
[2017-06-06] VITALS (7 sets, daily range): BP systolic 113–118; BP diastolic 49–63; PULSE 61–95; RESP 16; TEMP 36.5–37.2; O2SAT 93–98; BMI 22.7
[2017-06-06] MEDS: Piperacil/Tazobactam 3.375 GM/50 ML ML IV ×2 (00:02→06:08)
[2017-06-06] MEDS: Albuterol 2.5 MG/3 ML VIAL.NEB. INHALATION (00:35)
[2017-06-06] MEDS: 0.9% NaCl Peripheral Flush Adult/Peds IV (06:08)
--- NOTE | 2017-06-06 08:00 | MRI_ITS ---
STUDY: MRI BRAIN WITHOUT CONTRAST-LIMITED EXAMINATION REASON FOR EXAM: Male, 77 years old. Follow-up to prior MRI examination of June 02, 2017, which demonstrated abnormal signal on the FLAIR pulse sequence within the cortical fissures of the right cerebral hemisphere suggesting a sequela of meningitis. TECHNIQUE: As per the request of the referring physician, a limited examination was performed which included sagittal T1, axial T2 FLAIR and axial diffusion weighted images. COMPARISON: MRI BRAIN-June 02, 2017; CT BRAIN-June 01, 2017 FINDINGS: There is been complete resolution of the previously demonstrated increased signal within the sulci of the right frontal, parietal, temporal and occipital lobes on the FLAIR pulse sequence performed on June 02, 2017. There is re-demonstration of encephalomalacia of the right occipital lobe with surrounding white matter gliosis from a remote infarction. There remains an area of punctate hyperintense signal within the posterior putamen of the right basal nuclei (axial DWI series 5, image 17), reported on the prior examination as within the insular cortex. On the ADC map this punctate area of hyperintense signal is also hyperintense on the ADC map and also tibia identified on the axial FLAIR suggesting shine through rather than acute infarction. MRI/Brain without Contrast IMPRESSION: 1. Limited examination, as detailed above, demonstrating resolution of the previously demonstrated increased signal within the sulci of the right cerebral hemisphere on the FLAIR pulse sequence of June 02, 2017. 2. Redemonstration of encephalomalacia and surrounding white matter gliosis of the right occipital lobe. 3. Punctate area of hyperintense signal on the DWI series within the posterior aspect of the putamen of the right basal nuclei most likely represents shine through rather than acute infarction. Electronically Signed: Jovani Nunez DO at 14:49 EDT Tel , Service support ,
--- NOTE | 2017-06-06 10:08 | CASEMGMT ---
Addendum entered by Mary Barroso 06/06/17 12:25: SW spoke with patient's and let her know patient can go to the rehab unit at [facility]. AUREA told her the physician was thinking he may send him today. She thanked AUREA for the information. Plan: [facility] 4th floor rehab unit. Mary QUAN Original Note: AUREA spoke with Katie in the rehab unit and they can take patient today. AUREA spoke with patient and he was in agreement with the 4th floor rehab unit. AUREA will also check with patient's . Plan: [facility] 4th floor rehab unit Mary QUAN
[2017-06-06] MEDS: Clopidogrel Bisulfate 75 MG Tablet PO (10:13)
[2017-06-06] MEDS: Topiramate 50 MG Tablet PO (10:13)
[2017-06-06] MEDS: Famotidine 20 MG Tablet PO (10:13)
[2017-06-06] MEDS: Aspirin 81 MG TAB.CHEW NG (10:15)
--- NOTE | 2017-06-06 12:33 | PCM.DC ---
- Discharge Diagnoses Current Active Problems: Current Active and Chronic Problems Migraine (Acute) History of stroke (Chronic) Stroke (Acute) You will use the following diet at home:: Cardiac Your food should be the consistency of: Regular Discharge Activity: Return to Normal Activity Weight Bearing Status: Weight bearing as tolerated Call your doctor if you observe: Fever of 101 or Higher, Shortness of breath, Dizziness, Fainting spells, Chest pain, Increased palpitations (irregular heartbeat), Uncontrolled pain Allergies/Adverse Reactions: Allergies seasonal Allergy (Mild, Uncoded 05/30/17 22:56) Other Pt gets runny nose, sneezing, headache. Medications to take at Discharge Albuterol Aerosols [Ventolin Aerosols] 2.5 mg INHALATION Q2H PRN PRN 07/24/13 Clopidogrel Bisulfate [Plavix] 75 mg PO DAILY 07/24/13 Guar Gum [Benefiber] 1 each PO DAILY 07/24/13 Lansoprazole [Prevacid] 30 mg PO DAILY 07/24/13 Lisinopril [Zestril] 10 mg PO DAILY 07/24/13 Calcium Carbonate [Tums] 750 mg PO QHS 05/30/17 Cefdinir 300 mg PO BID 05/30/17 Cyanocobalamin (Vitamin B-12) [Vitamin B-12] 1,000 mcg PO DAILY 05/30/17 Ergocalciferol [Vitamin D] 2,000 unit PO DAILY 05/30/17 Mometasone Furoate [Nasonex] 2 spray NASAL DAILY 05/30/17 Aspirin [Aspirin, Baby] 81 mg NG DAILY@0800 #90 tab.chew 06/06/17 Atorvastatin Calcium [Lipitor] 40 mg NG QHS #90 tab 06/06/17 Ciprofloxacin [Cipro] 500 mg PO BID #14 tab 06/06/17 Levetiracetam [Keppra] 500 mg PO BID #30 tab 06/06/17 Topiramate [Topamax] 50 mg PO BID #30 tab 06/06/17 The following prescriptions were given: Aspirin [Aspirin, Baby] 81 mg NG DAILY@0800 #90 tab.chew Atorvastatin Calcium [Lipitor] 40 mg NG QHS #90 tab Ciprofloxacin [Cipro] 500 mg PO BID #14 tab Levetiracetam [Keppra] 500 mg PO BID #30 tab Topiramate [Topamax] 50 mg PO BID #30 tab Primary Care Physician: Jeremi Monk MD [Primary Care Provider] - Please follow up with your Primary Care Physician in: 2 weeks. Please Follow Up With: Maribeth Trimble MD
--- NOTE | 2017-06-06 13:37 | NURSING ---
Report called to Isa in rehab.
--- NOTE | 2017-06-06 14:33 | PCM.DC.SUM ---
Discharge Date and Diagnosis - Problem List Patient Problems: Active and Suspected Problems Migraine (Acute) Stroke (Acute) Date of Admission: 05/30/17 Date of Discharge: 06/06/17 - Primary Discharge Diagnosis Active and Suspected Problems #1 acute/subacute small right thalamic stroke. #2 migraine with aura. #3 new onset partial seizure. #4 bilateral internal carotid artery stenosis, severe on the right side with 80% occlusion and 50% occlusion on the left side. #5 acute respiratory failure secondary to seizure and encephalopathy. - Secondary Discharge Diagnosis Chronic Problems History of stroke (Chronic) Hospital Course and Treatment Imaging Results: 06/06/17 08:00 Brain without Contrast [MRI] Routine Clinical Impression(s) from Imaging Studies Brain CT 05/30/17 19:25 IMPRESSION: Chronic involutional changes of the brain. No acute intracranial process. Mild sinusitis. Electronically Signed: Lambert Franco DO at 20:22 EDT , Service support , Chest X-Ray 05/30/17 19:45 IMPRESSION: Hyperinflation. No infiltrate. Electronically Signed: Lambert Franco DO at 20:12 EDT , Service support , Brain MRI 05/31/17 06:41 IMPRESSION: A small punctate acute or subacute infarct is suspected in the midportion of the right thalamus. Interval progression of right occipital encephalomalacia. Minimal white matter disease. Electronically Signed: Louie Morley MD at 8:34 EDT Tel , Service support , Head MRA 05/31/17 16:10 IMPRESSION: 1. No evidence of significant steno-occlusive disease or aneurysm. 2. Diminutive left V4 vertebral artery segment. Electronically Signed: Matias Luevano DO at 22:44 EDT , Service support , Neck MRA 05/31/17 16:10 IMPRESSION: 1. Proximal right ICA severe greater than 70% stenosis with reconstitution of flow distally. Recommend further characterization with CTA and interventional consultation as warranted. 2. Focal stenosis of the left proximal ICA proximal 60-70%. Electronically Signed: Matias Luevano DO at 22:29 EDT , Service support , Brain CT 06/01/17 12:17 IMPRESSION: Chronic involutional changes of the brain. Stable Ancef malacia in the posterior medial aspect of the right occipital lobe. Sinusitis. Electronically Signed: Keanu Mallory MD at 14:33 EDT Tel [phone], Service support , Chest X-Ray 06/01/17 14:00 IMPRESSION: The tip of the endotracheal tube is at 4.8 cm proximal to the lara. Electronically Signed: Keanu Mallory MD at 14:35 EDT Tel [phone], Service support , Brain MRI 06/01/17 16:20 IMPRESSION: 1. Involutional changes of the brain, as described above. 2. 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 3. New right-sided leptomeningeal fluid surrounding the cerebral hemisphere suggesting sequela of meningitis. 4. 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 N.B. : The above information has been verbally conveyed by Carmen Worrell MD to Sophie Akhtar on 06/02/2017 10:09:06 (ET). Electronically Signed: Carmen Worrell MD at 10:12 EDT , Service support , N.B. : The above information has been verbally conveyed by Carmen Worrell MD to Sophie Akhtar on 06/02/2017 10:09:06 (ET). Head CTA 06/01/17 16:20 IMPRESSION: There is severe atherosclerotic plaque formation of the origin of the right internal carotid artery with an 80% occlusion. There is mild atherosclerotic plaque formation of the origin of the left internal carotid artery with less than 50% cross sectional diameter stenosis. Electronically Signed: Andres Quinones MD at 18:15 EDT , Service support , Neck CTA 06/01/17 16:20 IMPRESSION: There is severe atherosclerotic plaque formation of the origin of the right internal carotid artery with an 80% occlusion. There is mild atherosclerotic plaque formation of the origin of the left internal carotid artery with less than 50% cross sectional diameter stenosis. Electronically Signed: Andres Quinones MD at 18:15 EDT , Service support , KUB X-Ray 06/01/17 16:40 IMPRESSION: Nasogastric tube present with tip overlying the epigastric region. Opacification of the pelvicalyceal systems, ureters, and bladder. Electronically Signed: Ambrocio Sánchez MD at 17:32 EDT , Service support , Chest X-Ray 06/02/17 05:55 IMPRESSION: No acute cardiopulmonary abnormalities or changes. Electronically Signed: Lisa Massey MD at 7:37 EDT Tel Direct: [phone], Service support , Dr. Trimble, neurology. Dr. Hu, critical care. Operations: None Procedures: 2-D Echocardiogram, Electroencephalogram, EKG Summary of Care Provided: Patient seen and examined on the day of discharge and appeared to be stable to be discharged to rehabilitation unit. He has no significant complaints. He has no more headache. Denies focal arm or leg weakness. He has no more seizures. Vital signs are stable. - Physical Exam General: Alert, Oriented x3, Cooperative, No apparent distress. HEENT: Atraumatic, PERRLA, EOMI. Neck: Supple, No JVD, Negative Carotid Bruits, Trachea Midline, Thyroid Normal. Lungs: Clear to auscultation, Normal air movement, No rhonchi, No wheeze, No rales. Cardiovascular: Regular rate, Regular Rhythm, Normal S1, Normal S2, PMI Normal. Abdomen: Bowel Sounds Present, Soft, Non Tender, Non-Distended, No Hepato-splenomegaly. Extremities: No clubbing, No cyanosis, No edema Skin: No rashes, No breakdown Neurological: Cranial nerves are intact, no focal deficits, neuro grossly intact Vital Signs are stable. Hospital course: The patient is a 77 year old M presented to the emergency room because of severe headache and numbness in the left hand. CT scan brain without contrast done on admission revealed no evidence of acute infarction or hemorrhage. MRI brain done and revealed small acute/subacute infarct in the right thalamus and patient remained without significant focal deficit. Second day post admission, patient again developed severe headache and he had partial seizure in the left upper and lower extremities that became generalized and he was given Ativan at that time and was transferred to the intensive care unit, was intubated and started on mechanical ventilation. He was started on Keppra infusion twice daily. EEG performed that was abnormal due to presence of generalized increase in beta frequency waves but there was no evidence of epileptiform discharge. CTA of the neck revealed severe stenosis of the right internal carotid artery with 80% occlusion and also revealed less than 50% occlusion of the left internal carotid artery. CTA of the head revealed calcified plaques in the right cavernous carotid artery without significant luminal stenosis. His EKG revealed normal sinus rhythm without evidence of cardiac arrhythmias. 2D echocardiogram showed ejection fraction of 60% and revealed [id number] intra-atrial shunt. Patient was treated with aspirin, statins and Plavix for the acute small stroke. He was continued on Keppra twice daily as well as Topamax that he has been on for migraine. He was treated with IV Zosyn empirically for sputum culture that was positive for pseudomonas aeruginosa. Chest x-ray showed no acute infiltrate. His blood and urine culture were negative. MRI brain without contrast FLAIR sequence only done on the day of discharge according to neurology recommendation and result is pending at this time. Patient symptoms improved, has no more headache and no more seizure. His vital signs remained stable. Patient discharged to inpatient rehabilitation unit in a stable medical condition, discharged on aspirin, Plavix and statins for small acute stroke, discharged on ciprofloxacin for sputum that was positive for pseudomonas aeruginosa without evidence of pneumonia, discharged on Keppra 500 mg p.o. twice daily for possible seizure and continued on Topamax for migraine, plan for vascular surgery follow-up as outpatient for severe right internal carotid stenosis, follow-up with PCP in 2 weeks and follow-up with neurology according to Dr. Trimble recommendation. Discharge Activity: Return to Normal Activity Weight Bearing Status: Weight bearing as tolerated Call your doctor if you observe: Fever of 101 or Higher, Shortness of breath, Dizziness, Fainting spells, Chest pain, Increased palpitations (irregular heartbeat), Uncontrolled pain Home Medications: Medications to take at Discharge Albuterol Aerosols [Ventolin Aerosols] 2.5 mg INHALATION Q2H PRN PRN 07/24/13 Clopidogrel Bisulfate [Plavix] 75 mg PO DAILY 07/24/13 Guar Gum [Benefiber] 1 each PO DAILY 07/24/13 Lansoprazole [Prevacid] 30 mg PO DAILY 07/24/13 Lisinopril [Zestril] 10 mg PO DAILY 07/24/13 Calcium Carbonate [Tums] 750 mg PO QHS 05/30/17 Cefdinir 300 mg PO BID 05/30/17 Cyanocobalamin (Vitamin B-12) [Vitamin B-12] 1,000 mcg PO DAILY 05/30/17 Ergocalciferol [Vitamin D] 2,000 unit PO DAILY 05/30/17 Mometasone Furoate [Nasonex] 2 spray NASAL DAILY 05/30/17 Aspirin [Aspirin, Baby] 81 mg NG DAILY@0800 #90 tab.chew 06/06/17 Atorvastatin Calcium [Lipitor] 40 mg NG QHS #90 tab 06/06/17 Ciprofloxacin [Cipro] 500 mg PO BID #14 tab 06/06/17 Levetiracetam [Keppra] 500 mg PO BID #30 tab 06/06/17 Topiramate [Topamax] 50 mg PO BID #30 tab 06/06/17 Following Prescrptions Were Given to Patient: Aspirin [Aspirin, Baby] 81 mg NG DAILY@0800 #90 tab.chew Atorvastatin Calcium [Lipitor] 40 mg NG QHS #90 tab Ciprofloxacin [Cipro] 500 mg PO BID #14 tab Levetiracetam [Keppra] 500 mg PO BID #30 tab Topiramate [Topamax] 50 mg PO BID #30 tab Primary Care Physician: Jeremi Monk MD [Primary Care Provider] - Please follow up with your Primary Care Physician in: 2 weeks. Please Follow Up With: Maribeth Trimble MD Disposition: Inpt Rehab Unit/Facility Minutes spent on discharge:: 38 Patient Condition:: Stable Medical Necessity - Tobacco Use Smoking Status: Never smoker Meaningful Use Info Meaningful Use Diagnoses (Choose all that apply): Ischemic CVA - CVA Therapy Assessed for PT,OT and/or ST?: Yes - Ischemic Stroke Antithrombotic order at d/c?: Yes Dx of Atrial fib/flutter?: No Anticoagulant at discharge?: No Reason anticoagulant not ordered: Treatment not Indicated Statins at discharge?: Yes Primary Dx Acute Ischemic CVA?: Yes IV tPA ordered during stay?: No Reason IV t-PA not ordered: Treatment not Indicated Code Visit Inpatient E&M: 08330 Disch Hosp
--- NOTE | 2017-06-06 14:40 | DS.PCM_ITS ---
Discharge Date and Diagnosis - Problem List Patient Problems: Active and Suspected Problems Migraine (Acute) Stroke (Acute) Date of Admission: 05/30/17 Date of Discharge: 06/06/17 - Primary Discharge Diagnosis Active and Suspected Problems #1 acute/subacute small right thalamic stroke. #2 migraine with aura. #3 new onset partial seizure. #4 bilateral internal carotid artery stenosis, severe on the right side with 80 % occlusion and 50% occlusion on the left side. #5 acute respiratory failure secondary to seizure and encephalopathy. - Secondary Discharge Diagnosis Chronic Problems History of stroke (Chronic) Hospital Course and Treatment Imaging Results: 06/06/17 08:00 Brain without Contrast [MRI] Routine Clinical Impression(s) from Imaging Studies Brain CT 05/30/17 19:25 IMPRESSION: Chronic involutional changes of the brain. No acute intracranial process. Mild sinusitis. Electronically Signed: Lambert Franco DO at 20:22 EDT , Service support , Chest X-Ray 05/30/17 19:45 IMPRESSION: Hyperinflation. No infiltrate. Electronically Signed: Lambert Franco DO at 20:12 EDT , Service support , Brain MRI 05/31/17 06:41 IMPRESSION: A small punctate acute or subacute infarct is suspected in the midportion of the right thalamus. Interval progression of right occipital encephalomalacia. Minimal white matter disease. Electronically Signed: Louie Morley MD at 8:34 EDT Tel , Service support , Head MRA 05/31/17 16:10 IMPRESSION: 1. No evidence of significant steno-occlusive disease or aneurysm. 2. Diminutive left V4 vertebral artery segment. Electronically Signed: Matias Luevano DO at 22:44 EDT , Service support , Neck MRA 05/31/17 16:10 IMPRESSION: 1. Proximal right ICA severe greater than 70% stenosis with reconstitution of flow distally. Recommend further characterization with CTA and interventional consultation as warranted. 2. Focal stenosis of the left proximal ICA proximal 60-70%. Electronically Signed: Matias Luevano DO at 22:29 EDT , Service support , Brain CT 06/01/17 12:17 IMPRESSION: Chronic involutional changes of the brain. Stable Ancef malacia in the posterior medial aspect of the right occipital lobe. Sinusitis. Electronically Signed: Keanu Mallory MD at 14:33 EDT Tel [phone], Service support , Chest X-Ray 06/01/17 14:00 IMPRESSION: The tip of the endotracheal tube is at 4.8 cm proximal to the lara. Electronically Signed: Keanu Mallory MD at 14:35 EDT Tel [phone], Service support , Brain MRI 06/01/17 16:20 IMPRESSION: 1. Involutional changes of the brain, as described above. 2. 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 3. New right-sided leptomeningeal fluid surrounding the cerebral hemisphere suggesting sequela of meningitis. 4. 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 N.B. : The above information has been verbally conveyed by Carmen Worrell MD to Sophie Akhtar on 06/02/2017 10:09:06 (ET). Electronically Signed: Carmen Worrell MD at 10:12 EDT , Service support , N.B. : The above information has been verbally conveyed by Carmen Worrell MD to Sophie Akhtar on 06/02/2017 10:09:06 (ET). Head CTA 06/01/17 16:20 IMPRESSION: There is severe atherosclerotic plaque formation of the origin of the right internal carotid artery with an 80% occlusion. There is mild atherosclerotic plaque formation of the origin of the left internal carotid artery with less than 50% cross sectional diameter stenosis. Electronically Signed: Andres Quinones MD at 18:15 EDT , Service support , Neck CTA 06/01/17 16:20 IMPRESSION: There is severe atherosclerotic plaque formation of the origin of the right internal carotid artery with an 80% occlusion. There is mild atherosclerotic plaque formation of the origin of the left internal carotid artery with less than 50% cross sectional diameter stenosis. Electronically Signed: Andres Quinones MD at 18:15 EDT , Service support , KUB X-Ray 06/01/17 16:40 IMPRESSION: Nasogastric tube present with tip overlying the epigastric region. Opacification of the pelvicalyceal systems, ureters, and bladder. Electronically Signed: Ambrocio Sánchez MD at 17:32 EDT , Service support , Chest X-Ray 06/02/17 05:55 IMPRESSION: No acute cardiopulmonary abnormalities or changes. Electronically Signed: Lisa Massey MD at 7:37 EDT Tel Direct: [phone], Service support , Dr. Trimble, neurology. Dr. Hu, critical care. Operations: None Procedures: 2-D Echocardiogram, Electroencephalogram, EKG Summary of Care Provided: Patient seen and examined on the day of discharge and appeared to be stable to be discharged to rehabilitation unit. He has no significant complaints. He has no more headache. Denies focal arm or leg weakness. He has no more seizures. Vital signs are stable. - Physical Exam General: Alert, Oriented x3, Cooperative, No apparent distress. HEENT: Atraumatic, PERRLA, EOMI. Neck: Supple, No JVD, Negative Carotid Bruits, Trachea Midline, Thyroid Normal. Lungs: Clear to auscultation, Normal air movement, No rhonchi, No wheeze, No rales. Cardiovascular: Regular rate, Regular Rhythm, Normal S1, Normal S2, PMI Normal. Abdomen: Bowel Sounds Present, Soft, Non Tender, Non-Distended, No Hepato- splenomegaly. Extremities: No clubbing, No cyanosis, No edema Skin: No rashes, No breakdown Neurological: Cranial nerves are intact, no focal deficits, neuro grossly intact Vital Signs are stable. Hospital course: The patient is a 77 year old M presented to the emergency room because of severe headache and numbness in the left hand. CT scan brain without contrast done on admission revealed no evidence of acute infarction or hemorrhage. MRI brain done and revealed small acute/subacute infarct in the right thalamus and patient remained without significant focal deficit. Second day post admission, patient again developed severe headache and he had partial seizure in the left upper and lower extremities that became generalized and he was given Ativan at that time and was transferred to the intensive care unit, was intubated and started on mechanical ventilation. He was started on Keppra infusion twice daily. EEG performed that was abnormal due to presence of generalized increase in beta frequency waves but there was no evidence of epileptiform discharge. CTA of the neck revealed severe stenosis of the right internal carotid artery with 80% occlusion and also revealed less than 50% occlusion of the left internal carotid artery. CTA of the head revealed calcified plaques in the right cavernous carotid artery without significant luminal stenosis. His EKG revealed normal sinus rhythm without evidence of cardiac arrhythmias. 2D echocardiogram showed ejection fraction of 60% and revealed [id number] intra- atrial shunt. Patient was treated with aspirin, statins and Plavix for the acute small stroke. He was continued on Keppra twice daily as well as Topamax that he has been on for migraine. He was treated with IV Zosyn empirically for sputum culture that was positive for pseudomonas aeruginosa. Chest x-ray showed no acute infiltrate. His blood and urine culture were negative. MRI brain without contrast FLAIR sequence only done on the day of discharge according to neurology recommendation and result is pending at this time. Patient symptoms improved, has no more headache and no more seizure. His vital signs remained stable. Patient discharged to inpatient rehabilitation unit in a stable medical condition, discharged on aspirin, Plavix and statins for small acute stroke, discharged on ciprofloxacin for sputum that was positive for pseudomonas aeruginosa without evidence of pneumonia, discharged on Keppra 500 mg p.o. twice daily for possible seizure and continued on Topamax for migraine, plan for vascular surgery follow-up as outpatient for severe right internal carotid stenosis, follow-up with PCP in 2 weeks and follow-up with neurology according to Dr. Trimble recommendation. Discharge Activity: Return to Normal Activity Weight Bearing Status: Weight bearing as tolerated Call your doctor if you observe: Fever of 101 or Higher, Shortness of breath, Dizziness, Fainting spells, Chest pain, Increased palpitations (irregular heartbeat), Uncontrolled pain Home Medications: Medications to take at Discharge Albuterol Aerosols [Ventolin Aerosols] 2.5 mg INHALATION Q2H PRN PRN 07/24/13 Clopidogrel Bisulfate [Plavix] 75 mg PO DAILY 07/24/13 Guar Gum [Benefiber] 1 each PO DAILY 07/24/13 Lansoprazole [Prevacid] 30 mg PO DAILY 07/24/13 Lisinopril [Zestril] 10 mg PO DAILY 07/24/13 Calcium Carbonate [Tums] 750 mg PO QHS 05/30/17 Cefdinir 300 mg PO BID 05/30/17 Cyanocobalamin (Vitamin B-12) [Vitamin B-12] 1,000 mcg PO DAILY 05/30/17 Ergocalciferol [Vitamin D] 2,000 unit PO DAILY 05/30/17 Mometasone Furoate [Nasonex] 2 spray NASAL DAILY 05/30/17 Aspirin [Aspirin, Baby] 81 mg NG DAILY@0800 #90 tab.chew 06/06/17 Atorvastatin Calcium [Lipitor] 40 mg NG QHS #90 tab 06/06/17 Ciprofloxacin [Cipro] 500 mg PO BID #14 tab 06/06/17 Levetiracetam [Keppra] 500 mg PO BID #30 tab 06/06/17 Topiramate [Topamax] 50 mg PO BID #30 tab 06/06/17 Following Prescrptions Were Given to Patient: Aspirin [Aspirin, Baby] 81 mg NG DAILY@0800 #90 tab.chew Atorvastatin Calcium [Lipitor] 40 mg NG QHS #90 tab Ciprofloxacin [Cipro] 500 mg PO BID #14 tab Levetiracetam [Keppra] 500 mg PO BID #30 tab Topiramate [Topamax] 50 mg PO BID #30 tab Primary Care Physician: Jeremi Monk MD [Primary Care Provider] - Please follow up with your Primary Care Physician in: 2 weeks. Please Follow Up With: Maribeth Trimble MD Disposition: Inpt Rehab Unit/Facility Minutes spent on discharge:: 38 Patient Condition:: Stable Medical Necessity - Tobacco Use Smoking Status: Never smoker Meaningful Use Info Meaningful Use Diagnoses (Choose all that apply): Ischemic CVA - CVA Therapy Assessed for PT,OT and/or ST?: Yes - Ischemic Stroke Antithrombotic order at d/c?: Yes Dx of Atrial fib/flutter?: No Anticoagulant at discharge?: No Reason anticoagulant not ordered: Treatment not Indicated Statins at discharge?: Yes Primary Dx Acute Ischemic CVA?: Yes IV tPA ordered during stay?: No Reason IV t-PA not ordered: Treatment not Indicated Code Visit Inpatient E&M: 42270 Disch Hosp
== END 2017-06-06 14:51 | DRG 64 ==
LOC: ED 20:48 → PCU 21:44 → ICU 06-01 14:12 → PCU 06-02 07:16 → ICU 06-04 08:10 → PCU 06-04 09:10
PROVIDERS: Family Medicine; Internal Medicine; Internal Medicine Critical Care Medicine; Psychiatry & Neurology Neurology; Admitting Provider Family Medicine; Emergency Provider Emergency Medicine; Family Provider Family Medicine; PCP Family Medicine; Visit Provider Hospitalist
DX: I63.9 Cerebral infarction, unspecified (principal); J96.00 Acute respiratory failure, unspecified whether with hypoxia or hypercapnia; G93.40 Encephalopathy, unspecified; G40.89 Other seizures; Z86.73 Personal history of transient ischemic attack (TIA), and cerebral infarction without residual deficits; E78.5 Hyperlipidemia, unspecified; I10 Essential (primary) hypertension; K21.9 Gastro-esophageal reflux disease without esophagitis; G43.109 Migraine with aura, not intractable, without status migrainosus; I65.23 Occlusion and stenosis of bilateral carotid arteries
CPT/HCPCS: 31500; 31720; 36415; 36600; 70450; 70496; 70498; 70544; 70549; 70551; 71045; 74018; 80048; 80053; 80061; 81001; 82550; 82803; 83036; 83735; 84100; 84478; 84484; 85025; 85610; 85652; 85730; 86140; 87040; 87070; 87077; 87086; 87186; 87205; 87641; 92507; 92526; 93005; 93306; 93970; 94002; 94003; 94660; 95819; 95831; 97110; 97116; 97161; 97162; 97166; 97530; 97802; 99251; 99283; A9585; J7030; J7040; J7050; Q9967; A4216; G0463

== ENCOUNTER 2017-06-06 15:00 | Inpatient (IN) | payer MEDICARE, OTHER, SELFPAY ==
[2017-06-06 15:08] VITALS: BP 137/65; PULSE 77; RESP 18; TEMP 36.6; O2SAT 98; BMI 22.4; BMI 22.5
--- NOTE | 2017-06-06 16:44 | PCM.HP.COS ---
<Lilia Bueno - Last Filed: 06/07/17 08:50> History of Present Illness Date of Admission: 06/06/17 Chief Complaint: CVA The patient is a 77 year old right handed male who was admitted to the rehab unit for rehabilitation after suffering a small right thalamic stroke, he has a PMH of a Stroke in 2007, and 2013, HTN, HPL, and migraines. He was admitted to the hospital with severe LAMB, and found to have new small right thalamic stroke on MRI. On day two of this admission he had partial seizure in the left upper and lower extremities that became generalized and he was given Ativan at that time and was transferred to the intensive care unit, where he was intubated and started on mechanical ventilation. He was started on Keppra infusion twice daily. An EEG was performed that was abnormal due to presence of generalized increase in beta frequency waves but there was no evidence of epileptiform discharge. A CTA of the neck revealed severe stenosis of the right internal carotid artery with 80% occlusion and also revealed less than 50% occlusion of the left internal carotid artery. CTA of the head revealed calcified plaques in the right cavernous carotid artery without significant luminal stenosis. His EKG revealed normal sinus rhythm without evidence of cardiac arrhythmias. A 2D echocardiogram showed an ejection fraction of 60% and revealed [id number] intra-atrial shunt. The Patient was started on aspirin, Plavix and statins for the small acute stroke, and ciprofloxacin for sputum that was positive for pseudomonas aeruginosa without evidence of pneumonia, he was also started on Keppra 500 mg p.o. twice daily for possible seizure and continued on Topamax for migraines. He lives with his in a mobile home with three steps to get into the home, he was previously completely functionally independent and is admitted to the rehab unit in order to restore his previous level of functional independence. Past Medical History Past Medical History (Chronic Problems): Chronic Problems History of stroke (Chronic) Allergies cefdinir Adverse Reaction (Verified 06/06/17 15:19) Other lowers seizure threshold seasonal Allergy (Mild, Uncoded 05/30/17 22:56) Other Pt gets runny nose, sneezing, headache. Home Medications: Ambulatory Orders Medication Instructions Recorded Albuterol Aerosols [Ventolin 2.5 mg INHALATION Q2H PRN PRN 07/24/13 Aerosols] Clopidogrel Bisulfate [Plavix] 75 mg PO DAILY 07/24/13 Guar Gum [Benefiber] 1 each PO DAILY 07/24/13 Lansoprazole [Prevacid] 30 mg PO DAILY@0600 07/24/13 Lisinopril [Zestril] 10 mg PO DAILY 07/24/13 Calcium Carbonate [Tums] 750 mg PO QHS 05/30/17 Cyanocobalamin (Vitamin B-12) 1,000 mcg PO DAILY 05/30/17 [Vitamin B-12] Ergocalciferol [Vitamin D] 2,000 unit PO DAILY 05/30/17 Mometasone Furoate [Nasonex] 2 spray NASAL DAILY 05/30/17 Aspirin [Aspirin, Baby] 81 mg NG DAILY@0800 06/06/17 Atorvastatin Calcium [Lipitor] 40 mg NG QHS 06/06/17 Ciprofloxacin [Cipro] 500 mg PO BID 06/06/17 Levetiracetam [Keppra] 500 mg PO BID 06/06/17 Topiramate [Topamax] 50 mg PO BID 06/06/17 Lives: Spouse/ Significant Other Smoking Status: Never smoker Alcohol: Occasional Drugs: None - *Family History Maternal History Items: No pertinent history Review of Systems Constitutional: Denies: Chills, Fever, Weight Change HEENT: Denies: Head Aches, Sinus Congestion, Sinus Drainage Cardiovascular: Denies: Chest Pain, Palpitations Respiratory: Denies: Cough, Shortness of breath at rest, Sputum production Gastrointestinal: Denies: Abdominal Pain, Nausea, Vomiting Genitourinary: Denies: Dysuria Musculoskeletal: Denies: Joint Pain, Joint Tenderness Skin: Denies: Rash, Wounds Neurological: Denies: Numbness, Tingling, Focal weakness Psychiatric: Denies: Anxiety, Depression, Homicidal Ideations, Suicidal Ideations Hematologic/ Lymphatic: Denies: Easy Bruising, Easy Bleeding VTE Information - Inpt Only VTE Present on Admission: No VTE Mechan Device Prophylaxis: SCD's, Knee High MASOOD Hose VTE Pharm Prophylaxis ordered?: Yes - Physical Exam General: Alert, Oriented x3, Cooperative HEENT: Atraumatic, PERRLA, EOMI, Normocephalic Neck: Supple, No JVD, Negative Carotid Bruits Lungs: Clear to auscultation, Normal air movement Cardiovascular: Regular rate, No murmurs Abdomen: Bowel Sounds Present, Soft, Non Tender Extremities: No edema, Capillary Refill Less than 3 Seconds Skin: No rashes, No breakdown Musculoskeletal: No Tenderness to Palpation of Joints or Extremities Neurological: Cranial nerves II-XII grossly intact Psych/Mental Status: Normal Affect, Appropriate Vital Signs Temp Pulse Resp BP Pulse Ox 97.8 F 77 18 137/65 H 98 06/06/17 15:08 06/06/17 15:08 06/06/17 15:08 06/06/17 15:08 06/06/17 15:08 Oxygen Delivery Method Room Air Weight: 77.3 kg Body Mass Index (BMI) 22.4 Finger Stick Blood Glucose 104 Active Medications Acetaminophen (Tylenol) 650 mg PO Q6H PRN PRN PRN Reason: Mild Pain (0-3/10)/Headache Albuterol Sulfate (Ventolin Aerosols) 2.5 mg INHALATION Q2H PRN PRN PRN Reason: WHEEZING Aspirin (Aspirin, Baby) 81 mg NG DAILY@0800 [facility] Atorvastatin Calcium (Lipitor) 40 mg NG QHS [facility] Bisacodyl (Dulcolax) 10 mg RECTAL .PRN X 1 PRN PRN Reason: Constipation Calcium Carbonate (Os-Jarod 500) 500 mg PO QHS [facility] Calcium Polycarbophil (Fibercon) 625 mg PO DAILY [facility] Cholecalciferol (Vitamin D) 2,000 unit PO DAILY [facility] Ciprofloxacin HCl (Cipro) 500 mg PO BID [facility] Stop: 06/13/17 10:01 Clopidogrel Bisulfate (Plavix) 75 mg PO DAILY [facility] Cyanocobalamin (Vitamin B12) 1,000 mcg PO DAILY [facility] Fluticasone Propionate (Flonase Nasal Tamiment) 0 spray NASAL DAILY [facility] Lansoprazole (Prevacid) 30 mg PO DAILY [facility] Levetiracetam (Keppra) 500 mg PO BID [facility] Lisinopril (Zestril) 10 mg PO DAILY [facility] Magnesium Hydroxide (Milk Of Magnesia) 30 ml PO .PRN X 1 PRN PRN Reason: Constipation Topiramate (Topamax) 50 mg PO BID [facility] Assessment/Plan Debility s/p small right thalamic stroke, Complicated by 2 prior strokes, a seizure, Carotid stenosis > 80% on of the right internal carotid artery, and a [id number] intra-atrial shunt. . Goal of rehab is religious of functional independence. Plan: - Physical therapy for gait and balance - Occupational Therapy for ADLs - Speech therapy - As needed analgesics - Bowel protocol - Stroke prevention on ASA, Statin and Plavix - DVT prophylaxis: SCDs, ASA, Lovenox - Hypertension: Stable with good control, continue home dose of medications, Keep BP < 130/80 mmHg - Echo cardiogram => showed an ejection fraction of 60% and revealed [id number] intra-atrial shunt. - Goal Hba1c <7% - GERD => continue home dose of Prevacid - Hyperlipidemia => continue home dose of statin - Seizures => EEG showed abnormal presence of generalized increase in beta frequency waves but there was no evidence of epileptiform discharge. Started on Keppra 500mg BID - Carotid Stenosis => CTA of the neck revealed severe stenosis of the right internal carotid artery with 80% occlusion and also revealed less than 50% occlusion of the left internal carotid artery. - Sputum culture positive for Pseudomonas aeruginosa => started on ciprofloxacin 500 mg BID - Hx of Migraines => started on Topamax 50 mg BID <Bebeto Yarbrough - Last Filed: 06/07/17 13:00> History of Present Illness The patient is a 77 year old M [] Past Medical History Allergies cefdinir Adverse Reaction (Verified 06/06/17 15:19) Other lowers seizure threshold seasonal Allergy (Mild, Uncoded 05/30/17 22:56) Other Pt gets runny nose, sneezing, headache. - Physical Exam Vital Signs Temp Pulse Resp BP Pulse Ox 36.3 C L 84 17 107/65 98 06/07/17 09:47 06/07/17 09:47 06/07/17 09:47 06/07/17 09:47 06/07/17 09:47 Oxygen Delivery Method Room Air Weight: 77.3 kg Body Mass Index (BMI) 22.4 Finger Stick Blood Glucose 104 Intake and Output for Last 24 Hours 06/05/17 06/06/17 06/07/17 23:59 23:59 23:59 Intake Total 120 / 120 Output Total 300 / 300 Balance -180 / -180 Laboratory Tests Past 24 Hrs 06/07/17 06/07/17 06/07/17 05:20 05:20 05:20 WBC 8.6 RBC 4.15 L Hgb 12.9 L Hct 39.3 L MCV 94.7 H MCH 31.1 MCHC 32.8 RDW 12.7 RDW Differential 43.4 Plt Count 222 MPV 10.6 Sodium 140 Potassium 4.3 Chloride 107 Carbon Dioxide 25.0 Anion Gap 8 BUN 11 Creatinine 1.20 Estim Creat Clear Calc 56.36 Est GFR (MDRD) Af Amer 76 Est GFR (MDRD) Non-Af 62 BUN/Creatinine Ratio 9.2 L Glucose 86 Calcium 9.3 Phosphorus 2.9 Magnesium 2.2
--- NOTE | 2017-06-06 16:47 | HP.PCM.COS_ITS ---
<Lilia Bueno - Last Filed: 06/07/17 08:50> History of Present Illness Date of Admission: 06/06/17 Chief Complaint: CVA The patient is a 77 year old right handed male who was admitted to the rehab unit for rehabilitation after suffering a small right thalamic stroke, he has a PMH of a Stroke in 2007, and 2013, HTN, HPL, and migraines. He was admitted to the hospital with severe LAMB, and found to have new small right thalamic stroke on MRI. On day two of this admission he had partial seizure in the left upper and lower extremities that became generalized and he was given Ativan at that time and was transferred to the intensive care unit, where he was intubated and started on mechanical ventilation. He was started on Keppra infusion twice daily. An EEG was performed that was abnormal due to presence of generalized increase in beta frequency waves but there was no evidence of epileptiform discharge. A CTA of the neck revealed severe stenosis of the right internal carotid artery with 80% occlusion and also revealed less than 50% occlusion of the left internal carotid artery. CTA of the head revealed calcified plaques in the right cavernous carotid artery without significant luminal stenosis. His EKG revealed normal sinus rhythm without evidence of cardiac arrhythmias. A 2D echocardiogram showed an ejection fraction of 60% and revealed right-to- left intra-atrial shunt. The Patient was started on aspirin, Plavix and statins for the small acute stroke, and ciprofloxacin for sputum that was positive for pseudomonas aeruginosa without evidence of pneumonia, he was also started on Keppra 500 mg p.o. twice daily for possible seizure and continued on Topamax for migraines. He lives with his in a mobile home with three steps to get into the home, he was previously completely functionally independent and is admitted to the rehab unit in order to restore his previous level of functional independence. Past Medical History Past Medical History (Chronic Problems): Chronic Problems History of stroke (Chronic) Allergies cefdinir Adverse Reaction (Verified 06/06/17 15:19) Other lowers seizure threshold seasonal Allergy (Mild, Uncoded 05/30/17 22:56) Other Pt gets runny nose, sneezing, headache. Home Medications: Ambulatory Orders Medication Instructions Recorded Albuterol Aerosols [Ventolin 2.5 mg INHALATION Q2H PRN PRN 07/24/13 Aerosols] Clopidogrel Bisulfate [Plavix] 75 mg PO DAILY 07/24/13 Guar Gum [Benefiber] 1 each PO DAILY 07/24/13 Lansoprazole [Prevacid] 30 mg PO DAILY@0600 07/24/13 Lisinopril [Zestril] 10 mg PO DAILY 07/24/13 Calcium Carbonate [Tums] 750 mg PO QHS 05/30/17 Cyanocobalamin (Vitamin B-12) 1,000 mcg PO DAILY 05/30/17 [Vitamin B-12] Ergocalciferol [Vitamin D] 2,000 unit PO DAILY 05/30/17 Mometasone Furoate [Nasonex] 2 spray NASAL DAILY 05/30/17 Aspirin [Aspirin, Baby] 81 mg NG DAILY@0800 06/06/17 Atorvastatin Calcium [Lipitor] 40 mg NG QHS 06/06/17 Ciprofloxacin [Cipro] 500 mg PO BID 06/06/17 Levetiracetam [Keppra] 500 mg PO BID 06/06/17 Topiramate [Topamax] 50 mg PO BID 06/06/17 Lives: Spouse/ Significant Other Smoking Status: Never smoker Alcohol: Occasional Drugs: None - *Family History Maternal History Items: No pertinent history Review of Systems Constitutional: Denies: Chills, Fever, Weight Change HEENT: Denies: Head Aches, Sinus Congestion, Sinus Drainage Cardiovascular: Denies: Chest Pain, Palpitations Respiratory: Denies: Cough, Shortness of breath at rest, Sputum production Gastrointestinal: Denies: Abdominal Pain, Nausea, Vomiting Genitourinary: Denies: Dysuria Musculoskeletal: Denies: Joint Pain, Joint Tenderness Skin: Denies: Rash, Wounds Neurological: Denies: Numbness, Tingling, Focal weakness Psychiatric: Denies: Anxiety, Depression, Homicidal Ideations, Suicidal Ideations Hematologic/ Lymphatic: Denies: Easy Bruising, Easy Bleeding VTE Information - Inpt Only VTE Present on Admission: No VTE Mechan Device Prophylaxis: SCD's, Knee High MASOOD Hose VTE Pharm Prophylaxis ordered?: Yes - Physical Exam General: Alert, Oriented x3, Cooperative HEENT: Atraumatic, PERRLA, EOMI, Normocephalic Neck: Supple, No JVD, Negative Carotid Bruits Lungs: Clear to auscultation, Normal air movement Cardiovascular: Regular rate, No murmurs Abdomen: Bowel Sounds Present, Soft, Non Tender Extremities: No edema, Capillary Refill Less than 3 Seconds Skin: No rashes, No breakdown Musculoskeletal: No Tenderness to Palpation of Joints or Extremities Neurological: Cranial nerves II-XII grossly intact Psych/Mental Status: Normal Affect, Appropriate Vital Signs Temp Pulse Resp BP Pulse Ox 97.8 F 77 18 137/65 H 98 06/06/17 15:08 06/06/17 15:08 06/06/17 15:08 06/06/17 15:08 06/06/17 15:08 Oxygen Delivery Method Room Air Weight: 77.3 kg Body Mass Index (BMI) 22.4 Finger Stick Blood Glucose 104 Active Medications Acetaminophen (Tylenol) 650 mg PO Q6H PRN PRN PRN Reason: Mild Pain (0-3/10)/Headache Albuterol Sulfate (Ventolin Aerosols) 2.5 mg INHALATION Q2H PRN PRN PRN Reason: WHEEZING Aspirin (Aspirin, Baby) 81 mg NG DAILY@0800 COUNT INCLUDES THE [facility] Atorvastatin Calcium (Lipitor) 40 mg NG QHS COUNT INCLUDES THE [facility] Bisacodyl (Dulcolax) 10 mg RECTAL .PRN X 1 PRN PRN Reason: Constipation Calcium Carbonate (Os-Jarod 500) 500 mg PO QHS COUNT INCLUDES THE [facility] Calcium Polycarbophil (Fibercon) 625 mg PO DAILY COUNT INCLUDES THE [facility] Cholecalciferol (Vitamin D) 2,000 unit PO DAILY COUNT INCLUDES THE [facility] Ciprofloxacin HCl (Cipro) 500 mg PO BID COUNT INCLUDES THE [facility] Stop: 06/13/17 10:01 Clopidogrel Bisulfate (Plavix) 75 mg PO DAILY COUNT INCLUDES THE [facility] Cyanocobalamin (Vitamin B12) 1,000 mcg PO DAILY COUNT INCLUDES THE [facility] Fluticasone Propionate (Flonase Nasal Rhodes) 0 spray NASAL DAILY COUNT INCLUDES THE [facility] Lansoprazole (Prevacid) 30 mg PO DAILY COUNT INCLUDES THE [facility] Levetiracetam (Keppra) 500 mg PO BID COUNT INCLUDES THE [facility] Lisinopril (Zestril) 10 mg PO DAILY COUNT INCLUDES THE [facility] Magnesium Hydroxide (Milk Of Magnesia) 30 ml PO .PRN X 1 PRN PRN Reason: Constipation Topiramate (Topamax) 50 mg PO BID COUNT INCLUDES THE [facility] Assessment/Plan Debility s/p small right thalamic stroke, Complicated by 2 prior strokes, a seizure, Carotid stenosis > 80% on of the right internal carotid artery, and a [id number] intra-atrial shunt. . Goal of rehab is jehovah's witness of functional independence. Plan: - Physical therapy for gait and balance - Occupational Therapy for ADLs - Speech therapy - As needed analgesics - Bowel protocol - Stroke prevention on ASA, Statin and Plavix - DVT prophylaxis: SCDs, ASA, Lovenox - Hypertension: Stable with good control, continue home dose of medications, Keep BP < 130/80 mmHg - Echo cardiogram => showed an ejection fraction of 60% and revealed right-to- left intra-atrial shunt. - Goal Hba1c <7% - GERD => continue home dose of Prevacid - Hyperlipidemia => continue home dose of statin - Seizures => EEG showed abnormal presence of generalized increase in beta frequency waves but there was no evidence of epileptiform discharge. Started on Keppra 500mg BID - Carotid Stenosis => CTA of the neck revealed severe stenosis of the right internal carotid artery with 80% occlusion and also revealed less than 50% occlusion of the left internal carotid artery. - Sputum culture positive for Pseudomonas aeruginosa => started on ciprofloxacin 500 mg BID - Hx of Migraines => started on Topamax 50 mg BID <Bebeto Yarbrough - Last Filed: 06/07/17 13:00> History of Present Illness The patient is a 77 year old M [] Past Medical History Allergies cefdinir Adverse Reaction (Verified 06/06/17 15:19) Other lowers seizure threshold seasonal Allergy (Mild, Uncoded 05/30/17 22:56) Other Pt gets runny nose, sneezing, headache. - Physical Exam Vital Signs Temp Pulse Resp BP Pulse Ox 36.3 C L 84 17 107/65 98 06/07/17 09:47 06/07/17 09:47 06/07/17 09:47 06/07/17 09:47 06/07/17 09:47 Oxygen Delivery Method Room Air Weight: 77.3 kg Body Mass Index (BMI) 22.4 Finger Stick Blood Glucose 104 Intake and Output for Last 24 Hours 06/05/17 06/06/17 06/07/17 23:59 23:59 23:59 Intake Total 120 / 120 Output Total 300 / 300 Balance -180 / -180 Laboratory Tests Past 24 Hrs 06/07/17 06/07/17 06/07/17 05:20 05:20 05:20 WBC 8.6 RBC 4.15 L Hgb 12.9 L Hct 39.3 L MCV 94.7 H MCH 31.1 MCHC 32.8 RDW 12.7 RDW Differential 43.4 Plt Count 222 MPV 10.6 Sodium 140 Potassium 4.3 Chloride 107 Carbon Dioxide 25.0 Anion Gap 8 BUN 11 Creatinine 1.20 Estim Creat Clear Calc 56.36 Est GFR (MDRD) Af Amer 76 Est GFR (MDRD) Non-Af 62 BUN/Creatinine Ratio 9.2 L Glucose 86 Calcium 9.3 Phosphorus 2.9 Magnesium 2.2
--- NOTE | 2017-06-06 20:02 | NURSING ---
spouse concerned about cipro possible chance of causing seizure. cipro dose held for tonight, will discuss with doctor in am.
[2017-06-06 21:04] VITALS: BP 155/78; PULSE 82; RESP 12; TEMP 36.4; O2SAT 95
[2017-06-06 21:12] VITALS: BP 145/79; PULSE 74
[2017-06-06] MEDS: Topiramate 50 MG Tablet PO (21:19)
[2017-06-06] MEDS: MELATONIN 3 MG TABLET PO (21:20)
[2017-06-06] MEDS: levETIRAcetam 500 MG Tablet PO (21:20)
[2017-06-06] MEDS: Calcium (Elemental) 500 MG Tablet PO (21:20)
[2017-06-06] MEDS: Atorvastatin Calcium 40 MG Tablet NG (21:20)
--- NOTE | 2017-06-07 01:33 | NURSING ---
PT INCONTINENT FOR LG AMT URINE. ATTENDS CHANGED AND PT TURNED ONTO L SIDE. PT SLEEPING AND RESP ARE EVEN AND EASY AND SKIN IS PINK, WARM AND DRY.
[2017-06-07 05:00] VITALS: BMI 22.4
[2017-06-07] MEDS: Enoxaparin 30 MG/0.3 ML Syringe SC (05:24)
[2017-06-07 06:01] LABS: Hematocrit 39.3 % (40-54); Hemoglobin 12.9 g/dl (13.0-16.5); Mean Corp Hgb Conc 32.8 g/gl (32-36); Mean Corpuscular Hgb 31.1 pg (27.0-32.0); Mean Corpuscular Volume 94.7 fL (80-94); Mean Platelet Vol. 10.6 fl (6.2-12.0); Platelet Count 222 K/mm3 (150-450); RBC Distribution Width CV 12.7 % (11.6-14.6); RBC Distribution Width SD 43.4 fl (35.1-43.9); Red Blood Count 4.15 M/mm3 (4.6-6.2); White Blood Count 8.6 K/mm3 (4.4-11.0)
[2017-06-07 06:06] LABS: Scan Indicated on CBC? Y/N NO
[2017-06-07 06:12] LABS: Anion Gap 8 (5-15); BUN 11 mg/dL (7-18); BUN/Creat Ratio 9.2 RATIO (10-20); Calcium,Total 9.3 mg/dL (8.5-10.1); Chloride 107 mmol/L (98-107); EST Glomerular Filtration Rate 62 mL/min (>60); Est Glom Filt Rate - Afr Amer 76 mL/min (>60); Estimated Creatinine Clearance 56.36 ml/min; Glucose 86 mg/dL (74-106); Magnesium 2.2 mg/dL (1.6-2.6); Potassium 4.3 mmol/L (3.5-5.1); Sodium Level 140 mmol/L (136-145)
[2017-06-07 07:59] LABS: Phosphorus 2.9 mg/dL (2.5-4.9)
[2017-06-07 09:47] VITALS: BP 107/65; PULSE 84; RESP 17; TEMP 36.3; O2SAT 98
[2017-06-07] MEDS: Lisinopril 10 MG Tablet PO (10:13)
[2017-06-07] MEDS: Aspirin 81 MG TAB.CHEW NG (10:13)
[2017-06-07] MEDS: levETIRAcetam 500 MG Tablet PO ×2 (10:14→21:28)
[2017-06-07] MEDS: Cyanocobalamin 500 MCG Tablet 1000 MCG PO (10:14)
[2017-06-07] MEDS: Clopidogrel Bisulfate 75 MG Tablet PO (10:14)
[2017-06-07] MEDS: Fluticasone 0.05% 1 SPRAY NASAL.SRY NASAL (10:15)
[2017-06-07] MEDS: Topiramate 50 MG Tablet PO ×2 (10:15→21:28)
--- NOTE | 2017-06-07 11:52 | CASEMGMT ---
Social Work Spoke with patient in room. Introduced self as well as social work role. Patient requesting for discharge date to be set for 06/08/17. Spoke with staff/therapy, 06/08/17 is an agreeable date at this time. Patient plans to discharge home with spouse, no further therapy recommendations at this time. Patient using no durable medical equipment. Patient spouse to provide transportation home for patient at time of discharge. Patient agreeable to this healthcare social worker contacting patient spouse, Fallon. Telephone call to Fallon. Fallon agreeable to discharge and discharge plan. Support given. Proposed discharge date: 06/08/17 PLAN: Discharge home with spouse. Melany GREENWOOD, TENTER FRAME OPERATOR
--- NOTE | 2017-06-07 11:59 | REHABEVAL_ITS ---
Admission Information Status Changes from Prescreening?: No changes Identified Actual Problem List:: Mobility Impaired, Self Care Deficit, Diabetes, Hyperglycemia, BP, Hypertension, Ineffect.D/C Plan r/t Psy Potential Problem List:: DVT, Bleeding, Infection, UTI, Aspiration, Falls, Skin Integrity, Depression Risk of Complications DVT: LMWH, MASOOD Hose, Sequential Compression Device Bleeding: Monitor Lab Values, Nursing to Teach Precautions for anti-coagulation therapy., Wound, if applicable, to be assessed every shift., Stroke patients assessed for lethargy or change in status. Infection: Clinical Staff to Monitor for S/S of infection:, S/S of infection include fever, redness, warmth, etc. Urinary Tract Infection: Monitor for frequency, burning, discomfort, or incontinence., Nursing will obtain urine sample for urinalysis and C&S when ordered. Aspiration: Clinical staff will monitor for coughing, drooling, congestion., Speech will evaluate swallowing and dsyphasia., Nursing will monitor patient swallowing during meals. Falls: Patient will be evaluated for Fall Precautions, Patient will be placed on Fall Precautions as indicated per protocol. Skin Breakdown: Nursing will assess skin daily using assessment tool., Nursing will place on Skin Breakdown Precautions as indicated. Pain: Clinical staff will assess patient's pain level per protocol., Medications will be given, if needed, and the pain level reassessed., Other methods: Massage, distraction, decrease stimulus, etc. used PRN. Plan of Care Patient requires physician specializing in physical medicine and rehab oversight to provide close medical supervision of rehab issues including: Pain Management, Sleep Problems, Bowel and Bladder, Medical and co-morbidity Management, DVT prophylaxis, Rehabilitation Leadership, Coordination of treatment team Patient needs Physical Therapy: For a minimum of 1 hour, At least 5 out of 7 days Patient needs Physical Therapy to improve:: Mobility, Mobility, Mobility, Strengthening, Transfers, Stretching, ROM, Endurance, Stairs, Gait, Balance Patient needs Occupational Therapy: For a minimum of 1 hour, At least 5 out of 7 days Patient needs Occupational Therapy to improve ADL's incl.: Eating, Grooming, Bathing, Dressing, Toileting, Toilet transfers, Community Reintegration, Higher functioning activities, Household tasks, Adaptive Equipment, Splinting, Other activities as determined Patient requires speech therapy: For a minimum of 1 hour, At least 5 out of 7 days Patient requires speech therapy for: Swallowing, Cognition, Language Skills, Compensatory Strategies Patient requires 24/ Rehabilitation Nursing for: Pain Issues, Identifying and preventing risk factors, Monitoring and reporting current medical conditions, Assisting with ambulation, transfer, and all ADL's, Teaching patients about disease process and medications, Family teaching, Providing safe environment, Bowel and Bladder Issues, Skin integrity, Medication Management Patient needs Mercerizing Range Feeder/ Case Management for: Discharge Planning, Arranging Home Equipment or Services, Family Interventions Patient needs Dietary and Nutrition Services for: Adequate Nutrition, Nutritional Supplements, Nutritional Education Goals Patient will remain: free from falls, or injury at time of discharge. Patient will perform bed mobility at: MOD I level of assist. Patient will complete transfers from bed to chair at: MOD I level of assist. Patient will ambulate: 100 feet, with MOD I assist, with LRD Patient will complete upper body dressing at: MOD I level of assist. Patient will complete lower body dressing at: MOD I level of assist. Patient will complete toileting at: MOD I level of assist. Patient will perform bathing at: MOD I level of assist. Patient will complete grooming at: MOD I level of assist. Patient will complete home management skills at: MOD I level of assist. Patient will achieve: 12 stairs, at MOD I assist Patient will have pain level of: of 3 or less Patient's skin will: remain intact, free from infection. Patient will receive: adequate nutrition. Discharge Planning Pt Prognosis for Sig. Practical Improv. w/in Reasonable Time: Good Anticipated D/C Destination: Home with Outpt Therapy Was Preadmission Assessment Accurate?: Yes
[2017-06-07 15:17] VITALS: BMI 22.4
--- NOTE | 2017-06-07 16:12 | PN_ITS ---
Subjective: Chief complaint: Follow-up after consultation after admission to rehabilitation unit for acute/subacute small right thalamic infarct, migraine and new onset seizure. Patient seen and examined. No acute events overnight. He denies any significant complaints. According to nursing staff, he did very well and he is being discharged home tomorrow. His vital signs are stable. - Physical Exam General: Alert, Oriented x3, Cooperative, No apparent distress HEENT: Atraumatic, PERRLA, EOMI Oral: Moist Mucosa, No Gingival or Mucosal Lesions/ Ulcerations Neck: Supple, No JVD, Negative Carotid Bruits, Trachea Midline, Thyroid Normal Size and Texture Lungs: Clear to auscultation, Normal air movement, No rhonchi, No wheeze, No rales Cardiovascular: Regular rate, Regular Rhythm, Normal S1, Normal S2, No murmurs Abdomen: Bowel Sounds Present, Soft, Non Tender, Non-Distended, No Hepato- splenomegaly Extremities: No clubbing, No cyanosis, No edema Skin: No rashes, No breakdown Lymphatic: No Cervical, Supraclavicular, or Inguinal Adenopathy Neurological: Cranial nerves II-XII grossly intact, Motor Exam 5/5 strength throughout Psych/Mental Status: Normal Affect, Appropriate, Alert and oriented to time, place, person, mood and affect Vital Signs Temp Pulse Resp BP Pulse Ox 97.4 F L 84 17 107/65 98 06/07/17 09:47 06/07/17 09:47 06/07/17 09:47 06/07/17 09:47 06/07/17 09:47 Oxygen Delivery Method Room Air Weight: 170 lb 6.677 oz Body Mass Index (BMI) 22.4 Finger Stick Blood Glucose 104 Intake and Output for Last 24 Hours 06/05/17 06/06/17 06/07/17 23:59 23:59 23:59 Intake Total 360 / 360 Output Total 450 / 450 Balance -90 / -90 Laboratory Tests Past 24 Hrs 06/07/17 06/07/17 06/07/17 05:20 05:20 05:20 WBC 8.6 RBC 4.15 L Hgb 12.9 L Hct 39.3 L MCV 94.7 H MCH 31.1 MCHC 32.8 RDW 12.7 RDW Differential 43.4 Plt Count 222 MPV 10.6 Sodium 140 Potassium 4.3 Chloride 107 Carbon Dioxide 25.0 Anion Gap 8 BUN 11 Creatinine 1.20 Estim Creat Clear Calc 56.36 Est GFR (MDRD) Af Amer 76 Est GFR (MDRD) Non-Af 62 BUN/Creatinine Ratio 9.2 L Glucose 86 Calcium 9.3 Phosphorus 2.9 Magnesium 2.2 Medical Necessity - Tobacco Use Smoking Status: Never smoker Assessment/Plan This is a 77 years old male patient admitted to rehabilitation unit after he suffered acute/subacute small right thalamic stroke with new onset partial seizure and I am seeing this patient for follow-up after consultation for medical management. #1 acute/subacute small right thalamic stroke: Without significant focal deficit. he is on aspirin, statins, Plavix. Vital signs are stable, blood pressure under control. Patient is doing well with physical therapy. Plan to continue PT OT according to rehab team. #2 new onset partial seizure: Which was complicated by acute hypoxic respiratory failure that required endotracheal intubation and mechanical ventilation. Patient has been on Keppra and he has been stable, no more seizure. #3 migraine with aura: Denies any headache. He is on Topamax. #4 bilateral internal carotid artery stenosis, severe on the right with 80% occlusion and 50% on the left: He is on aspirin, Plavix and statin as above. Plan to follow-up with vascular surgery this week. #5 hypertension: Blood pressure stable, continue current medications. #6 hyperlipidemia: Continue statins. #7 DVT prophylaxis: Subcu Lovenox. This note was generated with [employer] dictation software. It may contain incorrect words, spelling, and punctuation that were not noted in checking the note before signing. Please see Code Visit Inpatient E&M: 59196 Subs Hosp L2
[2017-06-07 19:18] VITALS: BP 103/56; PULSE 73; RESP 20; TEMP 36.8; O2SAT 95
[2017-06-07] MEDS: Calcium (Elemental) 500 MG Tablet PO (21:28)
[2017-06-07] MEDS: MELATONIN 3 MG TABLET PO (21:28)
[2017-06-07] MEDS: Atorvastatin Calcium 40 MG Tablet NG (21:28)
[2017-06-08 05:00] VITALS: BMI 22.4
[2017-06-08] MEDS: Enoxaparin 30 MG/0.3 ML Syringe SC (05:56)
[2017-06-08 07:13] VITALS: BP 141/62; PULSE 84; RESP 18; TEMP 36.3; O2SAT 97
[2017-06-08] MEDS: Aspirin 81 MG TAB.CHEW NG (08:08)
[2017-06-08] MEDS: Fluticasone 0.05% 1 SPRAY NASAL.SRY NASAL (08:09)
[2017-06-08] MEDS: Cyanocobalamin 500 MCG Tablet 1000 MCG PO (08:10)
[2017-06-08] MEDS: Lisinopril 10 MG Tablet PO (09:05)
[2017-06-08] MEDS: Clopidogrel Bisulfate 75 MG Tablet PO (09:05)
[2017-06-08] MEDS: Topiramate 50 MG Tablet PO (09:05)
[2017-06-08] MEDS: levETIRAcetam 500 MG Tablet PO (09:05)
--- NOTE | 2017-06-08 09:22 | PCM.DC ---
- Discharge Diagnoses Reason(s) for Visit for Discharge Instructions: CVA You will use the following diet at home:: Regular Your food should be the consistency of: Regular Your liquids should be the consistency of: Regular/Thin Discharge Activity: May Not Drive - till cleared by Neurology, May Shower, May Take a Tub Bath Weight Bearing Status: Full weight bearing Call your doctor if you observe: Fever of 101 or Higher, Coldness, Increased Pain, Numbness or Tingling, Change in Color, Inability to urinate, Inability to have a bowel movement, Using more than one pad per hour, Shortness of breath, Dizziness, Fainting spells, Swelling in the ankles, Chest pain, Prolonged hiccoughing, Increased palpitations (irregular heartbeat), Calf discomfort, Uncontrolled pain Allergies/Adverse Reactions: Allergies cefdinir Adverse Reaction (Verified 06/06/17 15:19) Other lowers seizure threshold seasonal Allergy (Mild, Uncoded 05/30/17 22:56) Other Pt gets runny nose, sneezing, headache. Medications to take at Discharge Albuterol Aerosols [Ventolin Aerosols] 2.5 mg INHALATION Q2H PRN PRN 07/24/13 Clopidogrel Bisulfate [Plavix] 75 mg PO DAILY 07/24/13 Guar Gum [Benefiber] 1 each PO DAILY 07/24/13 Lansoprazole [Prevacid] 30 mg PO DAILY@0600 07/24/13 Lisinopril [Zestril] 10 mg PO DAILY 07/24/13 Calcium Carbonate [Tums] 750 mg PO QHS 05/30/17 Cyanocobalamin (Vitamin B-12) [Vitamin B-12] 1,000 mcg PO DAILY 05/30/17 Ergocalciferol [Vitamin D] 2,000 unit PO DAILY 05/30/17 Mometasone Furoate [Nasonex] 2 spray NASAL DAILY 05/30/17 Aspirin [Aspirin, Baby] 81 mg NG DAILY@0800 06/06/17 Atorvastatin Calcium [Lipitor] 40 mg NG QHS 06/06/17 Acetaminophen [Tylenol Tablet] 650 mg PO Q6H PRN PRN tablet 06/08/17 Ciprofloxacin [Cipro] 500 mg PO BID #13 tab 06/08/17 Melatonin 3 mg PO QHS tablet 06/08/17 Topiramate [Topamax] 50 mg PO BID #60 tab 06/08/17 levETIRAcetam tablet [Keppra tablet] 500 mg PO BID #60 tab 06/08/17 The following prescriptions were given: Ciprofloxacin [Cipro] 500 mg PO BID #13 tab levETIRAcetam tablet [Keppra tablet] 500 mg PO BID #60 tab Topiramate [Topamax] 50 mg PO BID #60 tab Primary Care Physician: Jeremi Monk MD [Primary Care Provider] - Please Follow Up With: Dr Monk Please Follow Up With: Lilia Bueno NP-C When: 06/06/17 Proposed Discharge Date: 06/08/17
--- NOTE | 2017-06-08 09:30 | DS.PCM_ITS ---
Rehab Discharge Summary DATE OF ADMISSION: 06/06/17 DATE OF DISCHARGE: 06/08/17 - Rehab Diagnosis CVA Discharge Diet: No Restrictions Discharge Activity: May Not Drive - till cleared by Neurology, May Shower, May Take a Tub Bath Weight Bearing Status: Full weight bearing Call your doctor if you observe: Fever of 101 or Higher, Coldness, Increased Pain, Numbness or Tingling, Change in Color, Inability to urinate, Inability to have a bowel movement, Using more than one pad per hour, Shortness of breath, Dizziness, Fainting spells, Swelling in the ankles, Chest pain, Prolonged hiccoughing, Increased palpitations (irregular heartbeat), Calf discomfort, Uncontrolled pain Home Medications: Medications to take at Discharge Albuterol Aerosols [Ventolin Aerosols] 2.5 mg INHALATION Q2H PRN PRN 07/24/13 Clopidogrel Bisulfate [Plavix] 75 mg PO DAILY 07/24/13 Guar Gum [Benefiber] 1 each PO DAILY 07/24/13 Lansoprazole [Prevacid] 30 mg PO DAILY@0600 07/24/13 Lisinopril [Zestril] 10 mg PO DAILY 07/24/13 Calcium Carbonate [Tums] 750 mg PO QHS 05/30/17 Cyanocobalamin (Vitamin B-12) [Vitamin B-12] 1,000 mcg PO DAILY 05/30/17 Ergocalciferol [Vitamin D] 2,000 unit PO DAILY 05/30/17 Mometasone Furoate [Nasonex] 2 spray NASAL DAILY 05/30/17 Aspirin [Aspirin, Baby] 81 mg NG DAILY@0800 06/06/17 Atorvastatin Calcium [Lipitor] 40 mg NG QHS 06/06/17 Acetaminophen [Tylenol Tablet] 650 mg PO Q6H PRN PRN tablet 06/08/17 Ciprofloxacin [Cipro] 500 mg PO BID #13 tab 06/08/17 Melatonin 3 mg PO QHS tablet 06/08/17 Topiramate [Topamax] 50 mg PO BID #60 tab 06/08/17 levETIRAcetam tablet [Keppra tablet] 500 mg PO BID #60 tab 06/08/17 Following Prescrptions Were Given to Patient: Ciprofloxacin [Cipro] 500 mg PO BID #13 tab levETIRAcetam tablet [Keppra tablet] 500 mg PO BID #60 tab Topiramate [Topamax] 50 mg PO BID #60 tab Primary Care Physician: Jeremi Monk MD [Primary Care Provider] - Please Follow Up With: Dr Monk Disposition: Home - with outpatient speech therapy Minutes spent on discharge:: 40 Patient Condition:: Good Rehab Course The patient is a 77 year old right handed male who was admitted to the rehab unit for rehabilitation after suffering a small right thalamic stroke, he has a PMH of a Stroke in 2007, and 2012, HTN, HPL, and migraines. He was admitted to the hospital with severe LAMB, and found to have new small right thalamic stroke on MRI. On day two of this admission he had partial seizure in the left upper and lower extremities that became generalized and he was given Ativan at that time and was transferred to the intensive care unit, where he was intubated and started on mechanical ventilation. He was started on Keppra infusion twice daily. An EEG was performed that was abnormal due to presence of generalized increase in beta frequency waves but there was no evidence of epileptiform discharge. A CTA of the neck revealed severe stenosis of the right internal carotid artery with 80% occlusion and also revealed less than 50% occlusion of the left internal carotid artery. CTA of the head revealed calcified plaques in the right cavernous carotid artery without significant luminal stenosis. His EKG revealed normal sinus rhythm without evidence of cardiac arrhythmias. A 2D echocardiogram showed an ejection fraction of 60% and revealed right-to- left intra-atrial shunt. The Patient was started on aspirin, Plavix and statins for the small acute stroke, and ciprofloxacin for sputum that was positive for pseudomonas aeruginosa without evidence of pneumonia, he was also started on Keppra 500 mg p.o. twice daily for possible seizure and continued on Topamax for migraines. He lives with his in a mobile home with three steps to get into the home, he was previously completely functionally independent and is admitted to the rehab unit in order to restore his previous level of functional independence. With Physical therapy he is able to walk greater than 600 feet. He is able to do the sit to stand test eleven times in a thirty sec timed event. With Occupational therapy, he is able to do all his own personal care at the setup at a distance supervision level. With Speech therapy, he does have some vision neglect on the Left side and some issues with memory. Will set up Speech therapy at discharge. The team feels he is doing very well and will do well at home, will set up his follow up appointments with the Neurologist and the Vascular surgeon. Meaningful Use Info Meaningful Use Diagnoses (Choose all that apply): Ischemic CVA - CVA Therapy Assessed for PT,OT and/or ST?: Yes - Ischemic Stroke Antithrombotic order at d/c?: Yes Dx of Atrial fib/flutter?: No Anticoagulant at discharge?: No Reason anticoagulant not ordered: Treatment not Indicated Statins at discharge?: Yes Primary Dx Acute Ischemic CVA?: Yes IV tPA ordered during stay?: No Reason IV t-PA not ordered: Medical Contraindication
--- NOTE | 2017-06-08 09:59 | CASEMGMT ---
Social Work Speech therapy now recommending for patient to have outpatient speech therapy services at time of discharge. Spoke with patient and patient spouse in room. This social human services assistants communicating speech therapy recommendations. Patient is agreeable to recommendation and requesting for outpatient speech therapy to be set up through [facility]. This social human services assistants explaining that an order for speech therapy will be faxed to [facility] and then [facility] will contact patient to set up appointment. Support given. Proposed discharge date: 06/08/17 PLAN: Discharge home with spouse and outpatient speech therapy. Melany GREENWOOD, WAREHOUSE CHECKER
[2017-06-08 11:00] VITALS: BP 141/62; PULSE 84; RESP 18; TEMP 36.3; O2SAT 97; BMI 22.4
--- NOTE | 2017-06-08 11:00 | NURSING ---
and patient aware of dc instruct and verbalized understanding. Patient and stated they wanted to refuse the Cipro for this mornings dose but that they will have his prescription filled this afternoon and then patient will start to take atb. Lilia ANTONY spoke with and patient about the atb.
[2017-06-08 13:02] VITALS: O2SAT 97
== END 2017-06-08 11:00 | disposition home or self-care (01) | DRG 57 ==
PROVIDERS: Nurse Practitioner Acute Care; Admitting Provider Psychiatry & Neurology Neurology; Family Provider Family Medicine; PCP Family Medicine; Visit Provider Psychiatry & Neurology Neurology
DX: I69.311 Memory deficit following cerebral infarction (principal); I69.398 Other sequelae of cerebral infarction; G40.89 Other seizures; E78.5 Hyperlipidemia, unspecified; H53.8 Other visual disturbances; K21.9 Gastro-esophageal reflux disease without esophagitis; I10 Essential (primary) hypertension; G43.109 Migraine with aura, not intractable, without status migrainosus; Z79.899 Other long term (current) drug therapy; Z79.02 Long term (current) use of antithrombotics/antiplatelets; Z79.82 Long term (current) use of aspirin
CPT/HCPCS: 36415; 80048; 83735; 84100; 85027; 92507; 92606; 97161; 97166; 97802

== ENCOUNTER → 2017-07-07 06:12 | Outpatient (CLI) | payer MEDICARE, OTHER, SELFPAY ==
--- NOTE | 2017-07-07 09:58 | STRESSREP_ITS ---
Stress Test Report Date: 07/07/2017 Procedure: Pharmacologic stress nuclear imaging study Indications: Chest pain Consent: Per the patient Procedure: The patient underwent pharmacologic (Regadenoson) evaluation with a peak heart rate of 100 beats per minute (69 predicted maximal heart rate) and a peak blood pressure of 122/66 mmHg. The baseline ECG demonstrated normal sinus rhythm. The peak pharmacologic ECG demonstrated no obvious ECG changes. There were no cardiac dysrhythmias pretest, during pharmacologic infusion, or recovery. There was no complaint of chest discomfort during pharmacologic infusion or recovery. The examination was discontinued secondary to completion of protocol. Impression: 1. Pharmacologic (Regadenoson) evaluation 2. Peak pharmacologic ECG with no obvious ECG changes. 3. There were no cardiac dysrhythmias pretest, during pharmacologic infusion, or recovery 4. Nuclear images pending Myocardial perfusion imaging study: Technique: The patient was injected with 11.3 millicuries of technetium 99m Cardiolite and subsequently rest SPECT Cardiolite nuclear imaging was obtained in the horizontal long, vertical long, and short axis views. The patient underwent pharmacologic (Regadenoson) evaluation with a peak heart rate of 100 beats per minute (69 % percent predicted maximal heart rate) and a peak blood pressure of 122/66 mmHg. The patient was injected with 32.8 millicuries of technetium 99m Cardiolite and subsequently stress SPECT Cardiolite nuclear imaging was obtained in the horizontal long, vertical long, and short axis views. A gated Cardiolite study at peak stress was obtained. Interpretation: Rest and stress SPECT Cardiolite nuclear imaging status post realignment, normalization, and attenuation correction demonstrate relative uniform tracer uptake and myocardial perfusion appearing within normal limits. There is end systolic thickening and brightening. The gated Cardiolite study demonstrates myocardial thickening and inward wall motion. The reported LVEF is 79 %. Impression: 1. Rest and stress SPECT Cardiolite nuclear imaging demonstrate relative uniform tracer uptake and myocardial perfusion appearing within normal limits. 2. The gated Cardiolite study reports an LVEF of 79 %. This note was generated with [employer] software. It may contain incorrect words, spelling, and punctuation that were not noted in checking the note before signing.
== END ==
PROVIDERS: Family Provider Family Medicine; PCP Family Medicine; Visit Provider Internal Medicine Cardiovascular Disease
DX: Z01.810 Encounter for preprocedural cardiovascular examination (principal); R07.9 Chest pain, unspecified
CPT/HCPCS: 78452; 93017; A9500; A4216; J2785

== ENCOUNTER 2017-10-15 10:53 | Inpatient (IN) | payer MEDICARE, OTHER, SELFPAY ==
[2017-10-15] VITALS (7 sets, daily range): BP systolic 134–159; BP diastolic 65–82; PULSE 70–90; RESP 17–22; TEMP 36–36.3; O2SAT 95–100; BMI 21.4; BMI 73.9
--- NOTE | 2017-10-15 11:14 | MRI_ITS ---
STUDY: MRI BRAIN WITHOUT CONTRAST REASON FOR EXAM: Male, 77 years old. Headache with vision changes. Patient has had previous CVAs. TECHNIQUE: Standardized multiplanar fat and water weighted pulse sequences were obtained. COMPARISON: MRI the brain dated June 06, 2017. FINDINGS: There is mild cerebral atrophy with widening of the extra-axial spaces and ventricular dilatation. There is encephalomalacia involving the posterior right occipital lobe. There is abnormal signal in this area as well that is probably related to gliosis. This is unchanged since the previous study. There is no evidence for recent intracranial ischemia or other cause of cytotoxic edema on diffusion weighted imaging (DWI). Normal T2* images of the brain without demonstrated susceptibility artifact. There is no demonstrated hemosiderin stain. Normal bilateral basal ganglia. Normal thalami. There is no extra-axial fluid accumulation. Normal flow voids within the major intracranial circulation suggesting patency by spin echo criteria. Normal sella turcica, pituitary gland, infundibular stalk, optic chiasm and hypothalamus. Normal tectal plate and pineal gland. Normal midbrain, shala and medulla. Normal cerebellum. Normal basal cisterns. Normal bilateral temporal bones. Normal bilateral internal auditory canals. No demonstrated orbital abnormality, within the constraints of a routine brain study. There are bilateral mucous retention cysts and/or polyps. There is also small right-sided sphenoid mucous retention cyst. Normal calvarium and skull base. Normal visualized soft tissue structures. Normal visualized upper cervical spine. MRI/Brain without Contrast IMPRESSION: 1. Involutional changes of the brain, as described above. 2. No MR evidence for acute infarct. Electronically Signed: Carmen Worrell MD at 18:39 EDT , Service support ,
--- NOTE | 2017-10-15 11:14 | MRI_ITS ---
STUDY: MRA NECK WITH AND WITHOUT CONTRAST REASON FOR EXAM: Male, 77 years old. Headache with vision changes. Patient has had previous CVAs. TECHNIQUE: 3-D ahsp-qt-afjtzr (TOF) imaging was performed in an 1.5 T MRI scanner. 8 ml of Gadavist was administered for the contrast enhanced images. COMPARISON: CTA of the neck dated June 01, 2017. FINDINGS: RIGHT CAROTID ARTERIES: There is atherosclerotic plaque formation, but without a hemodynamically significant stenosis. There is a curvilinear area of absence of flow void near the right carotid bulb. It is possible this is artifactual but a hemodynamically significant stenosis cannot be excluded. There is mild atherosclerotic plaque formation with minimal narrowing of the right carotid bulb. There is mild atherosclerotic plaque formation of the origin of the right internal carotid artery with less than 50% cross sectional diameter stenosis. Normal visualized cervical portion of the right internal carotid artery. Normal origin of the right external carotid artery (ECA). LEFT CAROTID ARTERIES: Normal left common carotid artery (CCA). There is moderate atherosclerotic plaque formation with moderate narrowing of the carotid bulb. There is mild atherosclerotic plaque formation of the origin of the left internal carotid artery with less than 50% cross sectional diameter stenosis. Normal visualized cervical portion of the left internal carotid artery. Normal origin of the left external carotid artery (ECA). VERTEBRAL ARTERIES: Normal antegrade flow within the bilateral vertebral arteries without a hemodynamically significant stenosis within the cervical portions. There appears to be tapered stenosis of the LEFT V4 segment. MRI/MRA Neck WITH and W/O Contrast IMPRESSION: 1. Apparent hemodynamically significant stenosis of the distal right common carotid artery. This may be artifactual but is identified on both the unenhanced and enhanced images and a short segment high-grade stenosis of the distal right common carotid artery cannot be excluded. 2. 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 On the unenhanced MRA of the head this mimics occlusion. Electronically Signed: Carmen Worrell MD at 18:47 EDT , Service support ,
--- NOTE | 2017-10-15 11:20 | MRI_ITS ---
STUDY: MRA OF THE HEAD WITHOUT CONTRAST REASON FOR EXAM: Male, 77 years old. Headache with vision change. Patient has history of previous infarcts. Patient has had right-sided carotid stent placement. TECHNIQUE: 3-D ekmc-ak-bgvgar (TOF) imaging was performed with MIPs. The study was performed unenhanced. COMPARISON: CTA of the head dated June 01, 2017. FINDINGS: Normal bilateral petrous carotid arteries. There is ectatic elongation and tortuosity of the right cavernous carotid artery, without a demonstrated hemodynamically significant stenosis. There is ectatic elongation and tortuosity of the left cavernous carotid artery, without a demonstrated hemodynamically significant stenosis. There is hypoplastic development of the right A1 segment of the anterior cerebral arteries with an atretic but intact artery. Normal left A1 segments of the anterior cerebral artery. Normal intact anterior communicating artery (ACOM). Normal bilateral A2 segments of the anterior cerebral arteries. There is irregularity of the right M1 and M2 branches with minimal luminal narrowing, suggesting atherosclerotic plaque formation, without an occlusion. Normal left M1 and M2 segments of the middle cerebral arteries, with a normal M1 bifurcation. There is a persistent origin of the right posterior cerebral artery with absence of the P1 segment of the right posterior cerebral artery. There is a persistent origin of the left posterior cerebral artery with absence of the P1 segment of the left posterior cerebral artery. The right vertebral artery is dominant. The left vertebral artery does not have a normal flow void suggesting possible thrombosis since the previous CT. Normal basilar artery with a normal basilar bifurcation. The visualized bilateral superior cerebellar (SCA) arteries are normal. Normal bilateral P1, P2 and visualized P3 segments of the posterior cerebral arteries. There is no demonstrated aneurysm of the hughes of [place]. There are mild involutional changes of the brain. There is no demonstrated abnormality of the visualized brain. 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 Electronically Signed: Carmen Worrell MD at 18:26 EDT , Service support ,
--- NOTE | 2017-10-15 11:35 | HP.PCM_ITS ---
Problem List (1) Seizure Status: Acute (2) Bilateral carotid artery stenosis Status: Chronic (3) GERD (gastroesophageal reflux disease) Status: Chronic Qualifiers: Esophagitis presence: esophagitis presence not specified Qualified Code(s) : K21.9 - Gastro-esophageal reflux disease without esophagitis (4) Hyperlipidemia Status: Chronic Qualifiers: Hyperlipidemia type: unspecified (5) Hypertension Status: Chronic Qualifiers: Hypertension type: essential hypertension (6) Stroke Status: Acute Qualifiers: CVA mechanism: unspecified Qualified Code(s): I63.9 - Cerebral infarction, unspecified History of Present Illness Date of Admission: 10/15/17 Chief Complaint: Right sided weakness - 1 day The patient is a 77 year old M with recent past medical history of right thalamic stroke, history of previous stroke in 2007 and 2012, hypertension, hyperlipidemia, history of migraines who was [place] [facility] [place] with complaints of headache associated with flashes of light that felt like his migraine with aura. There was an attempt at carotid surgery on the left that failed. Patient had a few hours of headaches that seems to be in the frontal region initially and later settled in the right posterior aspect of the head. Headache and dizziness seemed to have gone away in the ED but he was noted to have some jerking movements in the left upper extremities as well as deviation of the eyes that looked like seizures, according to the . This seems to have gone away with Ativan IV given in the ED. Patient had a initial CT scan of the brain done in the [facility] ED that was negative for any acute hemorrhage. Admitting blood work was unremarkable. He follows up with neurology here in [place] and requested transferred to [facility]. Vitals on admission show temperature of 90 6.8F, heart rate of 83, blood pressure 149/76, respiratory rate of 18, SPO2 95% on room air. Past Medical History Past Medical History (Chronic Problems): Chronic Problems (Last Reviewed 06/30/17 @ 14:05 by Rayna Mera) Bilateral carotid artery stenosis (Chronic) GERD (gastroesophageal reflux disease) (Chronic) Hyperlipidemia (Chronic) Hypertension (Chronic) Medical History: Medical History (Last Reviewed 06/30/17 @ 14:05 by Rayna Mera) Seizure (Acute) R56.9 Bilateral carotid artery stenosis (Chronic) I65.23 GERD (gastroesophageal reflux disease) (Chronic) K21.9 Hyperlipidemia (Chronic) E78.5 Hypertension (Chronic) I10 Stroke (Acute) I63.9 Migraine G43.909 Hiatal hernia K44.9 History of stroke Z86.73 2007,2012 Allergies cefdinir Adverse Reaction (Verified 06/30/17 13:56) Other lowers seizure threshold seasonal Allergy (Mild, Uncoded 06/30/17 13:56) Other Pt gets runny nose, sneezing, headache. Home Medications: Ambulatory Orders Medication Instructions Recorded Clopidogrel Bisulfate [Plavix] 75 mg PO DAILY 07/24/13 Guar Gum [Benefiber] 1 ea PO DAILY 07/24/13 Lansoprazole [Prevacid] 30 mg PO DAILY@0600 07/24/13 Calcium Carbonate [Tums] 750 mg PO QHS PRN 05/30/17 Cyanocobalamin (Vitamin B-12) 1,000 mcg PO DAILY 05/30/17 [Vitamin B-12] Mometasone Furoate [Nasonex] 2 spray NASAL DAILY 05/30/17 Atorvastatin Calcium [Lipitor] 40 mg PO QHS 06/06/17 Topiramate [Topamax] 50 mg PO BID #60 tab 06/08/17 albuterol sulfate HFA 90 2 puff INHALATION Q6H PRN 06/30/17 mcg/actuation aerosol inhaler cholecalciferol (vitamin D3) 2,000 2,000 unit PO QDAY 06/30/17 unit capsule hydrocortisone acetate 25 mg 25 mg RC PRN PRN 06/30/17 rectal suppository Acetaminophen [Tylenol Tablet] 500 - 1,000 mg PO Q6H PRN PRN 10/15/17 Aspirin E.C. 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 Surgical History: - - s/p local excisio of skin lesion Psychiatric History: No pertinent psych hx Lives: Spouse/ Significant Other Smoking Status: Never smoker Tobacco Use: Non-smoker Alcohol: None Drugs: None - *Family History Maternal Family History: Family History (Last Reviewed 06/30/17 @ 14:05 by Rayna Mera) Mother Heart disease Hypertension Uncle CAD (coronary artery disease) Myocardial infarction History Items: Heart Disease, Hypertension Paternal Family History: Family History (Last Reviewed 06/30/17 @ 14:05 by Rayna Mera) Mother Heart disease Hypertension Uncle CAD (coronary artery disease) Myocardial infarction History Items: Unknown Review of Systems Constitutional: Reports: Weakness. Denies: Anorexia, Chills, Fever, Malaise, Weight Change Eyes: Denies: Blurred vision, Cataracts, Conjunctivae Inflammation, Pain, Redness, Vision Change HEENT: Denies: Difficulty Hearing, Difficulty Swallowing, Head Aches, Hearing Changes, Nasal bleeding, Sinus Congestion, Sinus Drainage, Sore Throat Cardiovascular: Denies: Chest Pain, Claudication, Chest Pressure, Chest Tightness, Edema, Orthopnea, Palpitations, Paroxysmal Noc. Dyspnea Respiratory: Denies: Cough, Hemoptysis, Pleuritic Pain, Shortness of breath at rest, Shortness of breath upon exertion, Sputum production Gastrointestinal: Denies: Abdominal Pain, Constipation, Hematemesis, Hematochezia, Nausea, Vomiting Genitourinary: Denies: Dysuria, Frequency, Incontinence Musculoskeletal: Denies: Joint Pain, Joint stiffness, Joint swelling, Joint Tenderness Skin: Denies: Pruritis, Rash, Wounds Neurological: Reports: Numbness - left face that is chronic, Tingling. Denies: Difficulty swallowing, Focal weakness Psychiatric: Denies: Anxiety, Depression, Homicidal Ideations, Suicidal Ideations Hematologic/ Lymphatic: Denies: Easy Bruising, Easy Bleeding VTE Information - Inpt Only VTE Present on Admission: No VTE Pharm Prophylaxis ordered?: Yes - Physical Exam General: Alert, Oriented x3, Cooperative, No apparent distress HEENT: Atraumatic, PERRLA, EOMI, Normocephalic Oral: Moist Mucosa Neck: Supple, No JVD, Negative Carotid Bruits Lungs: Clear to auscultation, Normal air movement Cardiovascular: Regular rate, Regular Rhythm, Normal S1, Normal S2, No murmurs Abdomen: Bowel Sounds Present, Soft, Non Tender, Non-Distended, No Hepato- splenomegaly Extremities: No edema Skin: No rashes, No breakdown Musculoskeletal: No Tenderness to Palpation of Joints or Extremities Lymphatic: No Cervical, Supraclavicular, or Inguinal Adenopathy Neurological: Cranial nerves II-XII grossly intact, Neuro grossly intact Psych/Mental Status: Normal Affect, Appropriate Vital Signs Temp Pulse Resp BP Pulse Ox 96.8 F L 90 17 159/82 H 95 10/15/17 10:55 10/15/17 10:55 10/15/17 10:55 10/15/17 10:55 10/15/17 10:55 Oxygen Delivery Method Room Air Finger Stick Blood Glucose 104 Assessment/Plan All Active Problems (Last Reviewed 06/30/17 @ 14:05 by Rayna Mera) Seizure (Acute) Stroke (Acute) 77 year old M with recent past medical history of right thalamic stroke, history of previous stroke in 2007 and 2012, hypertension, hyperlipidemia, history of migraines who was [place] [facility] [place] with complaints of headache associated with flashes of light that felt like his migraine with aura.\ 1. Right-sided weakness, ocular less than 24 hours, resolved at admission, history of recurrent strokes, right thalamic stroke, on aspirin and Plavix Plan: Admit to PCU, monitor on telemetry, stroke workup, neurology consult, Plavix, statin, lipid profile in a.m., 2. Possible seizure-like activity in a patient with known post-CVA seizures, on Keppra, given extra Keppra 500 mg IV in the ED, will get an EEG, check Keppra levels, neurology consulted. 3. Severe stenosis of the right carotid artery with 80% stenosis, status post attempted surgery, unsuccessful, on aspirin, Plavix, statin\ 4. Migraine With aura, on Topamax for prophylaxis 5. Hypertension, controlled, continue home medications 6. Hyperlipidemia, on statins 7. DVT PPx- Lovenox SC Code Visit Inpatient E&M: 12716 Init Hosp L3
[2017-10-15] MEDS: Topiramate 50 MG Tablet PO ×2 (16:01→21:23)
[2017-10-15] MEDS: Clopidogrel Bisulfate 75 MG Tablet PO (16:01)
[2017-10-15] MEDS: Pantoprazole Sodium 40 MG Tablet PO (16:01)
[2017-10-15] MEDS: Atorvastatin Calcium 40 MG Tablet PO (21:22)
[2017-10-15] MEDS: MELATONIN 3 MG TABLET PO (21:22)
[2017-10-15] MEDS: levETIRAcetam 500 MG Tablet PO (21:22)
[2017-10-15] MEDS: Gabapentin 100 MG Capsule PO (21:23)
[2017-10-15] MEDS: Acetaminophen 325 MG Tablet 650 MG PO (21:34)
--- NOTE | 2017-10-15 23:12 | NURSING ---
Per nursing discretion, this RN completed an NIHSS around 21:00. The pt's NIHSS score was 6. It has previously been 3. Dayshift hospitalist had D/C'd NIHSSs. Will notify nightshift hospitalist of NIHSS score change.
[2017-10-16] VITALS (10 sets, daily range): BP systolic 121–139; BP diastolic 57–67; PULSE 62–96; RESP 16–23; TEMP 35.7–36.7; O2SAT 95–98; BMI 21.4
--- NOTE | 2017-10-16 01:41 | CT_ITS ---
STUDY: CTA NECK WITH CONTRAST REASON FOR EXAM: Male, 77 years old. RT SIDED WEAKNESS, POSSIBLE SEIZURE RADIATION DOSAGE (If Supplied By Facility): CTDIvol = ( 22.83 ) mGy, DLP = ( 431.69 ) mGycm TECHNIQUE: CT angiography with multi-detector data acquisition was performed from the aortic arch to the skull base following intravenous administration of 100 ml of Isovue 370 contrast. MIP images were reconstructed from the axial data set. Post-processing of the angiographic images was performed, with multiplanar reformation and 3D reconstruction. Individualized dose optimization techniques were used for this CT. COMPARISON: MRA 10/15/2017, CTA 06/01/2017 FINDINGS: AORTIC ARCH: Normal visualized aortic arch. Normal origins of the brachiocephalic, left common carotid, and left subclavian arteries. RIGHT CAROTID ARTERIES: Normal right common carotid artery (CCA). Moderate concentric calcified bulb plaque. A patent stent is present in the carotid bulb and proximal ICA. Normal visualized cervical portion of the right internal carotid artery. Normal origin of the right external carotid artery (ECA). LEFT CAROTID ARTERIES: Normal left common carotid artery (CCA). Mild eccentric mixed soft and calcified plaque in the left carotid bulb. Normal origin of the left internal carotid (ICA) artery without a hemodynamically significant stenosis. Normal visualized cervical portion of the left internal carotid artery. Normal origin of the left external carotid artery (ECA). VERTEBRAL ARTERIES: Normal bilateral vertebral arteries. CT/CTA Neck W/WO Contrast IMPRESSION: A patent stent is present in the carotid bulb and proximal ICA. No flow-limiting ICA stenoses are seen at this time. Electronically Signed: Louie Morley MD at 3:22 EDT Tel , Service support ,
--- NOTE | 2017-10-16 02:59 | NURSING ---
Addendum entered by Whit Gaitan 10/16/17 06:42: Pt also started stating which side of his chest the RN as listening to when RN auscultating lung sounds. Original Note: Another NIHSS was completed around this time. The pt was scored a 3 for facial palsy, sensory, and dysarthria. Pt did have a brief period where he stared ahead and did not follow commands. His stated this happened the day prior. states that this isn't good. Pt came out of the state of not responding. Will notify MD and continue to monitor.
[2017-10-16] MEDS: Pantoprazole Sodium 40 MG Tablet PO (05:43)
[2017-10-16 06:58] LABS: Anion Gap 8 (5-15); BUN 16 mg/dL (7-18); Calcium,Total 9.2 mg/dL (8.5-10.1); Chloride 106 mmol/L (98-107); Cholesterol 98 mg/dL (200); Creatinine, Serum 1.14 mg/dL (0.70-1.30); EST Glomerular Filtration Rate 66 mL/min (>60); Est Glom Filt Rate - Afr Amer 80 mL/min (>60); Estimated Creatinine Clearance 56.72 ml/min; Glucose 85 mg/dL (74-106); High Density Lipoprotein 48 mg/dL; Potassium 4.3 mmol/L (3.5-5.1); Sodium Level 141 mmol/L (136-145); Triglycerides 77 mg/dL; Very Low Density Lipoprotein 15 mg/dL (5-40)
--- NOTE | 2017-10-16 07:01 | NURSING ---
Original Note: Another NIHSS was completed around this time. The pt was scored a 3 for facial palsy, sensory, and dysarthria. Pt did have a brief period where he stared ahead and did not follow commands. His stated this happened the day prior. states that this isn't good. Pt came out of the state of not following commands. Pt also started stating which side of his chest the RN as listening to when RN auscultating lung sounds. Nightshift hospitalist notified. He said to write a note so the dayshift physician could see.
[2017-10-16] MEDS: Acetaminophen 500 MG Tablet 1000 MG PO ×3 (08:52→21:00)
[2017-10-16] MEDS: Cyanocobalamin 500 MCG Tablet 1000 MCG PO (08:52)
[2017-10-16] MEDS: Aspirin E.C. 325 MG Tablet PO (08:53)
[2017-10-16] MEDS: Clopidogrel Bisulfate 75 MG Tablet PO (08:53)
[2017-10-16] MEDS: Fluticasone 0.05% 1 SPRAY NASAL.SRY 2 SPRAY NASAL (08:53)
[2017-10-16] MEDS: Topiramate 50 MG Tablet PO ×2 (08:53→21:00)
[2017-10-16] MEDS: Enoxaparin 40 MG/0.4 ML Syringe SC (08:54)
[2017-10-16] MEDS: oxyCODONE 5 MG Tablet PO (10:53)
[2017-10-16] MEDS: Lidocaine 4% 50 ML Bottle TOPICAL (12:40)
--- NOTE | 2017-10-16 12:53 | PCM.PN.HOSP ---
Subjective: Patient was seen and examined. Complains of severe pain in the left side of chest from recent shingles. Per his , he slept very well. His mentions that he feels he is in a slow motion. This has occured more than 2x this morning, denies any weakness in any extremities No acute events overnight. No seizures seen overnight. Vitals/I&O's: Vital Signs Temp Pulse Resp BP Pulse Ox 96.4 F L 73 17 121/57 H 98 10/16/17 08:39 10/16/17 08:39 10/16/17 08:39 10/16/17 08:39 10/16/17 08:39 Oxygen Delivery Method Room Air Weight: 73.9 kg Body Mass Index (BMI) 21.4 Finger Stick Blood Glucose 104 Intake and Output for Last 24 Hours 10/14/17 10/15/17 10/16/17 23:59 23:59 23:59 Intake Total 650 / 650 1130 / 1130 Balance 650 / 650 1130 / 1130 General: Alert, Oriented x3, Cooperative, No apparent distress HEENT: Atraumatic, PERRLA, EOMI, Normocephalic Oral: Moist Mucosa Neck: Supple Lungs: Clear to auscultation, Normal air movement Cardiovascular: Regular rate, Regular Rhythm, Normal S1, Normal S2, No murmurs Abdomen: Bowel Sounds Present, Soft, Non Tender, Non-Distended, No Hepato-splenomegaly Extremities: No edema Skin: - - Erythematous, tender, papular macular rash in the T4 dermatome Musculoskeletal: No Tenderness to Palpation of Joints or Extremities Lymphatic: No Cervical, Supraclavicular, or Inguinal Adenopathy Neurological: Cranial nerves II-XII grossly intact, Motor Exam 5/5 strength throughout Psych/Mental Status: Appropriate, Flat Affect Laboratory Results 10/15/17 13:20: Troponin I < 0.015 10/15/17 17:35: Troponin I < 0.015 10/15/17 20:55: Troponin I < 0.015 10/16/17 05:42: Sodium 141, Potassium 4.3, Chloride 106, Carbon Dioxide 27.0, Anion Gap 8, BUN 16, Creatinine 1.14, Estim Creat Clear Calc 56.72, Est GFR (MDRD) Af Amer 80, Est GFR (MDRD) Non-Af 66, BUN/Creatinine Ratio 14.0, Glucose 85, Calcium 9.2, Triglycerides 77, Cholesterol 98, LDL Cholesterol 35, VLDL Cholesterol 15, HDL Cholesterol 48 Current Medications Acetaminophen (Tylenol) 1,000 mg PO Q8 [facility] Last Admin: 10/16/17 08:52 Dose: 1,000 mg Aspirin (Ecotrin) 325 mg PO DAILY@0800 [facility] Last Admin: 10/16/17 08:53 Dose: 325 mg Atorvastatin Calcium (Lipitor) 40 mg PO QHS [facility] Last Admin: 10/15/17 21:22 Dose: 40 mg Calcium Carbonate (Tums) 750 mg PO QHS PRN PRN Reason: acid reflux Cholecalciferol (Vitamin D) 2,000 unit PO DAILY [facility] Last Admin: 10/16/17 08:53 Dose: 2,000 unit Clopidogrel Bisulfate (Plavix) 75 mg PO DAILY [facility] Last Admin: 10/16/17 08:53 Dose: 75 mg Cyanocobalamin (Vitamin B12) 1,000 mcg PO DAILY [facility] Last Admin: 10/16/17 08:52 Dose: 1,000 mcg Enoxaparin Sodium (Lovenox) 40 mg SC DAILY@1000 [facility] Last Admin: 10/16/17 08:54 Dose: 40 mg Fluticasone Propionate (Flonase Nasal [place]) 2 spray NASAL DAILY [facility] Last Admin: 10/16/17 08:53 Dose: 2 sprays Gabapentin (Neurontin) 200 mg PO QHS [facility] Hydrocortisone Acetate (Anusol Hc) 25 mg RECTAL PRN PRN PRN Reason: anal fissures Levetiracetam (Keppra Tablet) 500 mg PO QHS [facility] Last Admin: 10/15/17 21:22 Dose: 500 mg Lidocaine HCl (Xylocaine Topical) 1 ml TOPICAL TID PRN PRN; Protocol PRN Reason: PAIN Last Admin: 10/16/17 12:40 Dose: 1 ml Lorazepam (Ativan) 1 mg IV Q2H PRN PRN PRN Reason: SEIZURES Magnesium Hydroxide (Milk Of Magnesia) 30 ml PO DAILY PRN PRN Reason: Constipation Melatonin (Melatonin) 3 mg PO QHS [facility] Last Admin: 10/15/17 21:22 Dose: 3 mg Nutritional Formula (Lactose Free) (Ensure Enlive) 120 ml PO 4X/DAY [facility] Last Admin: 10/16/17 08:54 Dose: 120 ml Ondansetron HCl (Zofran) 4 mg IV Q8H PRN PRN PRN Reason: NAUSEA Pantoprazole Sodium (Protonix) 40 mg PO DAILY@0600 [facility] Last Admin: 10/16/17 05:43 Dose: 40 mg Sodium Chloride () 5 - 30 ml IV UD PRN PRN Reason: SALINE FLUSH Topiramate (Topamax) 50 mg PO BID [facility] Last Admin: 10/16/17 08:53 Dose: 50 mg Medical Necessity - Tobacco Use Smoking Status: Never smoker Tobacco Use: Non-smoker Assessment/Plan All Active Problems (Last Reviewed 06/30/17 @ 14:05 by Rayna Mera) Seizure (Acute) Stroke (Acute) 77 year old M with recent past medical history of right thalamic stroke, history of previous stroke in 2007 and 2012, hypertension, hyperlipidemia, history of migraines who was admitted to the [facility] pulmonary and ED with complaints of headache associated with flashes of light that felt like his migraine with aura.\ 1. Right-sided weakness, resolved at admission, history of recurrent strokes, right thalamic stroke, on aspirin and Plavix MRI in this admission showed no new stroke. MRA of the head showed no acute change. MRA neck was concerning for possible thrombosis but CTA of neck showed patent stents, no thrombus. Lipid profile shows triglycerides of 77, total cholesterol 98, LDL 35, HDL 48 will continue on aspirin, Plavix, statin 2. Possible seizure-like activity in a patient with known post-CVA seizures, on Keppra, given extra Keppra 500 mg IV in the [facility] ED, had an EEG yesterday, no seizures, neurology consulted. 3. Severe stenosis of the right carotid artery with 80% stenosis, status post attempted CEA in July 2017, s/p right carotid stent on aspirin, Plavix, statin\ 4. Left-sided T4 post-neuropathic pain from shingles, status post recent treatment with acyclovir, present on admission, will give oxycodone, lidocaine topical gel - 1 dose as patient does not seem enthusiastic about that. Increased gabapentin to 200mg QHS. 5. Migraine With aura, on Topamax for prophylaxis 6. Hypertension, controlled, continue home medications 7. Hyperlipidemia, on statins 8. DVT PPx- Lovenox SC Code Visit Inpatient E&M: 97759 Subs Hosp L2
--- NOTE | 2017-10-16 13:06 | PN_ITS ---
Subjective: Patient was seen and examined. Complains of severe pain in the left side of chest from recent shingles. Per his , he slept very well. His mentions that he feels he is in a slow motion. This has occured more than 2x this morning, denies any weakness in any extremities No acute events overnight. No seizures seen overnight. Vitals/I&O's: Vital Signs Temp Pulse Resp BP Pulse Ox 96.4 F L 73 17 121/57 H 98 10/16/17 08:39 10/16/17 08:39 10/16/17 08:39 10/16/17 08:39 10/16/17 08:39 Oxygen Delivery Method Room Air Weight: 73.9 kg Body Mass Index (BMI) 21.4 Finger Stick Blood Glucose 104 Intake and Output for Last 24 Hours 10/14/17 10/15/17 10/16/17 23:59 23:59 23:59 Intake Total 650 / 650 1130 / 1130 Balance 650 / 650 1130 / 1130 General: Alert, Oriented x3, Cooperative, No apparent distress HEENT: Atraumatic, PERRLA, EOMI, Normocephalic Oral: Moist Mucosa Neck: Supple Lungs: Clear to auscultation, Normal air movement Cardiovascular: Regular rate, Regular Rhythm, Normal S1, Normal S2, No murmurs Abdomen: Bowel Sounds Present, Soft, Non Tender, Non-Distended, No Hepato- splenomegaly Extremities: No edema Skin: - - Erythematous, tender, papular macular rash in the T4 dermatome Musculoskeletal: No Tenderness to Palpation of Joints or Extremities Lymphatic: No Cervical, Supraclavicular, or Inguinal Adenopathy Neurological: Cranial nerves II-XII grossly intact, Motor Exam 5/5 strength throughout Psych/Mental Status: Appropriate, Flat Affect Laboratory Results 10/15/17 13:20: Troponin I < 0.015 10/15/17 17:35: Troponin I < 0.015 10/15/17 20:55: Troponin I < 0.015 10/16/17 05:42: Sodium 141, Potassium 4.3, Chloride 106, Carbon Dioxide 27.0, Anion Gap 8, BUN 16, Creatinine 1.14, Estim Creat Clear Calc 56.72, Est GFR ( MDRD) Af Amer 80, Est GFR (MDRD) Non-Af 66, BUN/Creatinine Ratio 14.0, Glucose 85, Calcium 9.2, Triglycerides 77, Cholesterol 98, LDL Cholesterol 35, VLDL Cholesterol 15, HDL Cholesterol 48 Current Medications Acetaminophen (Tylenol) 1,000 mg PO Q8 [facility] Last Admin: 10/16/17 08:52 Dose: 1,000 mg Aspirin (Ecotrin) 325 mg PO DAILY@0800 [facility] Last Admin: 10/16/17 08:53 Dose: 325 mg Atorvastatin Calcium (Lipitor) 40 mg PO QHS [facility] Last Admin: 10/15/17 21:22 Dose: 40 mg Calcium Carbonate (Tums) 750 mg PO QHS PRN PRN Reason: acid reflux Cholecalciferol (Vitamin D) 2,000 unit PO DAILY [facility] Last Admin: 10/16/17 08:53 Dose: 2,000 unit Clopidogrel Bisulfate (Plavix) 75 mg PO DAILY [facility] Last Admin: 10/16/17 08:53 Dose: 75 mg Cyanocobalamin (Vitamin B12) 1,000 mcg PO DAILY [facility] Last Admin: 10/16/17 08:52 Dose: 1,000 mcg Enoxaparin Sodium (Lovenox) 40 mg SC DAILY@1000 [facility] Last Admin: 10/16/17 08:54 Dose: 40 mg Fluticasone Propionate (Flonase Nasal [place]) 2 spray NASAL DAILY [facility] Last Admin: 10/16/17 08:53 Dose: 2 sprays Gabapentin (Neurontin) 200 mg PO QHS [facility] Hydrocortisone Acetate (Anusol Hc) 25 mg RECTAL PRN PRN PRN Reason: anal fissures Levetiracetam (Keppra Tablet) 500 mg PO QHS [facility] Last Admin: 10/15/17 21:22 Dose: 500 mg Lidocaine HCl (Xylocaine Topical) 1 ml TOPICAL TID PRN PRN; Protocol PRN Reason: PAIN Last Admin: 10/16/17 12:40 Dose: 1 ml Lorazepam (Ativan) 1 mg IV Q2H PRN PRN PRN Reason: SEIZURES Magnesium Hydroxide (Milk Of Magnesia) 30 ml PO DAILY PRN PRN Reason: Constipation Melatonin (Melatonin) 3 mg PO QHS [facility] Last Admin: 10/15/17 21:22 Dose: 3 mg Nutritional Formula (Lactose Free) (Ensure Enlive) 120 ml PO 4X/DAY [facility] Last Admin: 10/16/17 08:54 Dose: 120 ml Ondansetron HCl (Zofran) 4 mg IV Q8H PRN PRN PRN Reason: NAUSEA Pantoprazole Sodium (Protonix) 40 mg PO DAILY@0600 [facility] Last Admin: 10/16/17 05:43 Dose: 40 mg Sodium Chloride () 5 - 30 ml IV UD PRN PRN Reason: SALINE FLUSH Topiramate (Topamax) 50 mg PO BID [facility] Last Admin: 10/16/17 08:53 Dose: 50 mg Medical Necessity - Tobacco Use Smoking Status: Never smoker Tobacco Use: Non-smoker Assessment/Plan All Active Problems (Last Reviewed 06/30/17 @ 14:05 by Rayna Mera) Seizure (Acute) Stroke (Acute) 77 year old M with recent past medical history of right thalamic stroke, history of previous stroke in 2007 and 2012, hypertension, hyperlipidemia, history of migraines who was admitted to the [facility] pulmonary and ED with complaints of headache associated with flashes of light that felt like his migraine with aura.\ 1. Right-sided weakness, resolved at admission, history of recurrent strokes, right thalamic stroke, on aspirin and Plavix MRI in this admission showed no new stroke. MRA of the head showed no acute change. MRA neck was concerning for possible thrombosis but CTA of neck showed patent stents, no thrombus. Lipid profile shows triglycerides of 77, total cholesterol 98, LDL 35, HDL 48 will continue on aspirin, Plavix, statin 2. Possible seizure-like activity in a patient with known post-CVA seizures, on Keppra, given extra Keppra 500 mg IV in the [facility] ED, had an EEG yesterday, no seizures, neurology consulted. 3. Severe stenosis of the right carotid artery with 80% stenosis, status post attempted CEA in July 2017, s/p right carotid stent on aspirin, Plavix, statin\ 4. Left-sided T4 post-neuropathic pain from shingles, status post recent treatment with acyclovir, present on admission, will give oxycodone, lidocaine topical gel - 1 dose as patient does not seem enthusiastic about that. Increased gabapentin to 200mg QHS. 5. Migraine With aura, on Topamax for prophylaxis 6. Hypertension, controlled, continue home medications 7. Hyperlipidemia, on statins 8. DVT PPx- Lovenox SC Code Visit Inpatient E&M: 10940 Subs Hosp L2
[2017-10-16] MEDS: levETIRAcetam 500 MG Tablet PO (21:00)
[2017-10-16] MEDS: Atorvastatin Calcium 40 MG Tablet PO (21:00)
[2017-10-16] MEDS: MELATONIN 3 MG TABLET PO (21:00)
[2017-10-17] VITALS (9 sets, daily range): BP systolic 126–136; BP diastolic 61–70; PULSE 68–89; RESP 14–18; TEMP 36.4–36.9; O2SAT 95–97; BMI 21.4
--- NOTE | 2017-10-17 03:14 | PCM.PN.BLA ---
Progress Note Notified by the nurse that outside hospital that patient was recently called stating that blood cultures has grown gram-positive rods. This may be a contaminant however reportedly patient has a confusion. We will start patient on ampicillin and repeat blood cultures ?2 here.
[2017-10-17] MEDS: 0.9% NaCl Peripheral Flush Adult/Peds IV (04:06)
[2017-10-17] MEDS: Acetaminophen 500 MG Tablet 1000 MG PO ×3 (06:09→20:57)
[2017-10-17] MEDS: Pantoprazole Sodium 40 MG Tablet PO (06:09)
--- NOTE | 2017-10-17 06:31 | NURSING ---
Pt still having neurological symptoms this shift. Pt having visual hallucinations. Pt states he sees bugs on the wall, indicates that his 's size looks distorted. Pt having spells where he becomes anxious that there is something wrong with his . Pt states she feels the hallucinations are getting worse.
--- NOTE | 2017-10-17 08:35 | NURSING ---
SPOKE WITH [facility] AND PATIENT DOES NOT REQUIRE ISOLATION FOR HIS CASE OF SHINGLES. PATIENT REMOVED FROM CONTACT ISOLATION AT THIS TIME.
[2017-10-17] MEDS: Clopidogrel Bisulfate 75 MG Tablet PO (09:43)
[2017-10-17] MEDS: Cyanocobalamin 500 MCG Tablet 1000 MCG PO (09:43)
[2017-10-17] MEDS: Topiramate 50 MG Tablet PO (09:43)
[2017-10-17] MEDS: Enoxaparin 40 MG/0.4 ML Syringe SC (09:44)
[2017-10-17] MEDS: Aspirin E.C. 325 MG Tablet PO (09:44)
[2017-10-17] MEDS: Fluticasone 0.05% 1 SPRAY NASAL.SRY 2 SPRAY NASAL (09:44)
--- NOTE | 2017-10-17 11:51 | PCM.CONS.GEN ---
Problem List (1) Migraine Status: Acute Qualifiers: Migraine type: with aura Status migrainosus presence: without status migrainosus Intractability: intractable Qualified Code(s): G43.119 - Migraine with aura, intractable, without status migrainosus (2) Seizure Status: Acute Reason for Consult Date of Consultation: 10/17/17 Reason for Consultation: Seizures and LAMB History of Present Illness: The patient is a 77 year old CM with PMH Stroke-H/O right thalamic/IC stroke in May 2017, Right ICA > 80% stenosis, S/P right carotid stenting in August 2017 and left Carotid <50% stenosis (asymptomatic), migraine was admitted with LAMB,seizure like activity. History is obtained from and patient, per , about 2 days ago on Tuesday (10/14/17), he was having some frontal LAMB, with visual auras, then had staring episode and was not behaving his usual self, was taken to [facility], where he had episode of deviation of the eyes to the left with some left UE jerking, was loaded with IV Keppra and Ativan following which he improved. He is on Topamax 50 mg PO BID for Migraine and Keppra 500 mg PO q hs for seizures. Per he had an attempted right CEA by Dr. Sauceda in July 2017, but was not successful and later had right carotid stenting by Dr. Jacob on August 31 2017 at [facility], following which his dual AP was increased to ASA 325 mg PO from 81 mg PO once daily and he was continued on Plavix 75 mg. Per he has about 3-4 migraine auras in a week and has LAMB with atleast one of them, per his Keppra was decreased to 500 mg PO q hs from BID by Dr. Jacob in August 2017 since patient had expressed concern that he waned to wean off some of the medications and per since the Keppra was decreased he may have felt slightly more energetic, did not have any seizures since last visit in May 2017 where he was intubated following seizures following which Keppra was started, till he had possible partial seizures about 2 days ago. Per he also has left flank shingles, per documentation completed acyclovir course, was started on Gabapentin since admission for possible post herpetic neuralgia, has been complaining of visual hallucinations for about a day, per documentation was found to have gram +ve rods in blood culture and started on antibiotics. Per he does not drive, denies any falls, does not use cane or walker to ambulate and does not need any assistance for his ADLs. At present he denies any LAMB, visual disturbances, speech disturbances, focal motor weakness or sensory loss. He denies any vision loss, temporal tenderness or jaw claudication. [] Past Medical History Past Medical History (Chronic Problems): Chronic Problems (Last Reviewed 06/30/17 @ 14:05 by Rayna Mera) Bilateral carotid artery stenosis (Chronic) GERD (gastroesophageal reflux disease) (Chronic) Hyperlipidemia (Chronic) Hypertension (Chronic) Medical History: Medical History (Last Reviewed 06/30/17 @ 14:05 by Rayna Mera) Seizure (Acute) R56.9 Bilateral carotid artery stenosis (Chronic) I65.23 GERD (gastroesophageal reflux disease) (Chronic) K21.9 Hyperlipidemia (Chronic) E78.5 Hypertension (Chronic) I10 Stroke (Acute) I63.9 Migraine G43.909 Hiatal hernia K44.9 History of stroke Z86.73 2007,2012 Allergies cefdinir Adverse Reaction (Verified 06/30/17 13:56) Other lowers seizure threshold seasonal Allergy (Mild, Uncoded 06/30/17 13:56) Other Pt gets runny nose, sneezing, headache. Home Medications: Ambulatory Orders Medication Instructions Recorded Clopidogrel Bisulfate [Plavix] 75 mg PO DAILY 07/24/13 Guar Gum [Benefiber] 1 ea PO DAILY 07/24/13 Lansoprazole [Prevacid] 30 mg PO DAILY@0600 07/24/13 Calcium Carbonate [Tums] 750 mg PO QHS PRN 05/30/17 Cyanocobalamin (Vitamin B-12) 1,000 mcg PO DAILY 05/30/17 [Vitamin B-12] Mometasone Furoate [Nasonex] 2 spray NASAL DAILY 05/30/17 Atorvastatin Calcium [Lipitor] 40 mg PO QHS 06/06/17 Topiramate [Topamax] 50 mg PO BID #60 tab 06/08/17 albuterol sulfate HFA 90 2 puff INHALATION Q6H PRN 06/30/17 mcg/actuation aerosol inhaler cholecalciferol (vitamin D3) 2,000 2,000 unit PO QDAY 06/30/17 unit capsule hydrocortisone acetate 25 mg 25 mg RC PRN PRN 06/30/17 rectal suppository Acetaminophen [Tylenol Tablet] 500 - 1,000 mg PO Q6H PRN PRN 10/15/17 Aspirin E.C. 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 Surgical History: - - s/p local excisio of skin lesion Psychiatric History: No pertinent psych hx Lives: Spouse/ Significant Other Smoking Status: Never smoker Tobacco Use: Non-smoker Alcohol: None Drugs: None - *Family History Maternal Family History: Family History (Last Reviewed 06/30/17 @ 14:05 by Rayna Mera) Mother Heart disease Hypertension Uncle CAD (coronary artery disease) Myocardial infarction History Items: Heart Disease, Hypertension Paternal Family History: Family History (Last Reviewed 06/30/17 @ 14:05 by Rayna Mera) Mother Heart disease Hypertension Uncle CAD (coronary artery disease) Myocardial infarction History Items: Unknown Review of Systems Constitutional: Reports: - - complete ROS negative except as documented in HPI Patient Problems: Active and Suspected Problems (Last Reviewed 06/30/17 @ 14:05 by Rayna Mera) Migraine (Acute) - Physical Exam General: Alert HEENT: Normocephalic Neck: Supple Lungs: Clear to auscultation Cardiovascular: Normal S1, Normal S2 Abdomen: Bowel Sounds Present Extremities: No cyanosis Skin: No rashes Neurological: - - consious, alert, AoAx3, CN 2-12 grossly intact except some mild right V3 numbness (present since the Right CEA attempt in July 2017), power 5/5 all 4 extremities, no sensory loss, no cerebellar signs, Reflexes + B/L B/S/T/K/A, gait deferred, No NR, No Brudzincki's or kernig's sign Psych/Mental Status: Normal Affect Vital Signs Temp Pulse Resp BP Pulse Ox 97.8 F 89 14 136/70 H 95 10/17/17 09:15 10/17/17 11:00 10/17/17 09:15 10/17/17 09:15 10/17/17 09:15 Oxygen Delivery Method Room Air Weight: 73.9 kg Body Mass Index (BMI) 21.4 Finger Stick Blood Glucose 104 Intake and Output for Last 24 Hours 10/15/17 10/16/17 10/17/17 23:59 23:59 23:59 Intake Total 650 / 650 1490 / 1490 1150.3 / 1150.3 Balance 650 / 650 1490 / 1490 1150.3 / 1150.3 Assessment/Plan All Active Problems (Last Reviewed 06/30/17 @ 14:05 by Rayna Mera) Migraine (Acute) Seizure (Acute) Stroke (Acute) The patient is a 77 year old CM with H Stroke-H/O right thalamic/IC stroke in May 2017, Right ICA > 80% stenosis, S/P right carotid stenting in August 2017 and left Carotid <50% stenosis (asymptomatic), migraine was admitted with LAMB,seizure like activity. History is obtained from and patient, per , about 2 days ago on Tuesday (10/14/17), he was having some frontal LAMB, with visual auras, then had staring episode and was not behaving his usual self, was taken to [facility], where he had episode of deviation of the eyes to the left with some left UE jerking, was loaded with IV Keppra and Ativan following which he improved. He is on Topamax 50 mg PO BID for Migraine and Keppra 500 mg PO q hs for seizures. Per he had an attempted right CEA by Dr. Sauceda in July 2017, but was not successful and later had right carotid stenting by Dr. Jacob on August 31 2017 at [facility], following which his dual AP was increased to ASA 325 mg PO from 81 mg PO once daily and he was continued on Plavix 75 mg. Per he has about 3-4 migraine auras in a week and has LAMB with atleast one of them, per his Keppra was decreased to 500 mg PO q hs from BID by Dr. Jacob in August 2017 since patient had expressed concern that he waned to wean off some of the medications and per since the Keppra was decreased he may have felt slightly more energetic, did not have any seizures since last visit in May 2017 where he was intubated following seizures following which Keppra was started, till he had possible partial seizures about 2 days ago. Per he also has left flank shingles, per documentation completed acyclovir course, was started on Gabapentin since admission for possible post herpetic neuralgia, has been complaining of visual hallucinations for about a day, per documentation was found to have gram +ve rods in blood culture and started on antibiotics. Per he does not drive, denies any falls, does not use cane or walker to ambulate and does not need any assistance for his ADLs. At present he denies any LAMB, visual disturbances, speech disturbances, focal motor weakness or sensory loss. He denies any vision loss, temporal tenderness or jaw claudication. Impression Migraine with aura, intractable, not in status Seizures HO Stroke Right ICA Stenosis- S/P right ICA stenting [address] Jacob Left Vert V4 stenosis Post herpetic neuralgia Visual Hallucinations (possible due to infection) Plan -On Dual AP and statins -MRI [facility] no acute stroke, MRA head/neck, CTA neck reviewed- patent right carotid stent. -Is due to follow up with Dr. Jacob this week. Per he wants patient to be on ASA 325 mg and Plavix 75 mg once daily till he sees him in the next appointment. Will defer further management to him. -Increase Keppra to 500 mg PO BID. Patient had partial seizures prior to admission -Increase Topamax to 100 mg PO BID for better LAMB control. Will try and wean off Keppra as outpatient, since patient feels he is on too many medications and decreasing Keppra in the past had made patient feel better per . But at present since patient possibly had partial seizures, also has positive blood culture with underlying infection/shingles which can lower his seizure threshold, will increase Keppra for now with plan to wean it off as outpatient. -Patient counseled not to drive for atleast 6 months, per he does not drive. -Labs reviewed -Seizure precautions -On gabapentin for post herpetic neuralgia, started by primary team. -PT/OT -GI/DVT prophylaxis -Further medical management per primary team -Follow up with Neurology as outpatient in 4-6 weeks -Please call with questions if any -Thank you for allowing us to participate in patient's care and management I spent 60 minutes taking history, doing physical examination, reviewing medical records, coordinating care and counseling the patient. [] Code Visit Inpatient E&M: 19863 Init Hosp L3
--- NOTE | 2017-10-17 11:59 | CON.PCM_ITS ---
Problem List (1) Migraine Status: Acute Qualifiers: Migraine type: with aura Status migrainosus presence: without status migrainosus Intractability: intractable Qualified Code(s): G43.119 - Migraine with aura, intractable, without status migrainosus (2) Seizure Status: Acute Reason for Consult Date of Consultation: 10/17/17 Reason for Consultation: Seizures and LAMB History of Present Illness: The patient is a 77 year old CM with PMH Stroke-H/O right thalamic/IC stroke in May 2017, Right ICA > 80% stenosis, S/P right carotid stenting in August 2017 and left Carotid <50% stenosis (asymptomatic), migraine was admitted with LAMB, seizure like activity. History is obtained from and patient, per , about 2 days ago on Tuesday (10/14/17), he was having some frontal LAMB, with visual auras, then had staring episode and was not behaving his usual self, was taken to [facility], where he had episode of deviation of the eyes to the left with some left UE jerking, was loaded with IV Keppra and Ativan following which he improved. He is on Topamax 50 mg PO BID for Migraine and Keppra 500 mg PO q hs for seizures. Per he had an attempted right CEA by Dr. Sauceda in July 2017, but was not successful and later had right carotid stenting by Dr. Jacob on August 31 2017 at [facility], following which his dual AP was increased to ASA 325 mg PO from 81 mg PO once daily and he was continued on Plavix 75 mg. Per he has about 3-4 migraine auras in a week and has LAMB with atleast one of them, per his Keppra was decreased to 500 mg PO q hs from BID by Dr. Jacob in August 2017 since patient had expressed concern that he waned to wean off some of the medications and per since the Keppra was decreased he may have felt slightly more energetic, did not have any seizures since last visit in May 2017 where he was intubated following seizures following which Keppra was started, till he had possible partial seizures about 2 days ago. Per he also has left flank shingles, per documentation completed acyclovir course, was started on Gabapentin since admission for possible post herpetic neuralgia, has been complaining of visual hallucinations for about a day, per documentation was found to have gram +ve rods in blood culture and started on antibiotics. Per he does not drive, denies any falls , does not use cane or walker to ambulate and does not need any assistance for his ADLs. At present he denies any LAMB, visual disturbances, speech disturbances, focal motor weakness or sensory loss. He denies any vision loss, temporal tenderness or jaw claudication. [] Past Medical History Past Medical History (Chronic Problems): Chronic Problems (Last Reviewed 06/30/17 @ 14:05 by Rayna Mera) Bilateral carotid artery stenosis (Chronic) GERD (gastroesophageal reflux disease) (Chronic) Hyperlipidemia (Chronic) Hypertension (Chronic) Medical History: Medical History (Last Reviewed 06/30/17 @ 14:05 by Rayna Mera) Seizure (Acute) R56.9 Bilateral carotid artery stenosis (Chronic) I65.23 GERD (gastroesophageal reflux disease) (Chronic) K21.9 Hyperlipidemia (Chronic) E78.5 Hypertension (Chronic) I10 Stroke (Acute) I63.9 Migraine G43.909 Hiatal hernia K44.9 History of stroke Z86.73 2007,2012 Allergies cefdinir Adverse Reaction (Verified 06/30/17 13:56) Other lowers seizure threshold seasonal Allergy (Mild, Uncoded 06/30/17 13:56) Other Pt gets runny nose, sneezing, headache. Home Medications: Ambulatory Orders Medication Instructions Recorded Clopidogrel Bisulfate [Plavix] 75 mg PO DAILY 07/24/13 Guar Gum [Benefiber] 1 ea PO DAILY 07/24/13 Lansoprazole [Prevacid] 30 mg PO DAILY@0600 07/24/13 Calcium Carbonate [Tums] 750 mg PO QHS PRN 05/30/17 Cyanocobalamin (Vitamin B-12) 1,000 mcg PO DAILY 05/30/17 [Vitamin B-12] Mometasone Furoate [Nasonex] 2 spray NASAL DAILY 05/30/17 Atorvastatin Calcium [Lipitor] 40 mg PO QHS 06/06/17 Topiramate [Topamax] 50 mg PO BID #60 tab 06/08/17 albuterol sulfate HFA 90 2 puff INHALATION Q6H PRN 06/30/17 mcg/actuation aerosol inhaler cholecalciferol (vitamin D3) 2,000 2,000 unit PO QDAY 06/30/17 unit capsule hydrocortisone acetate 25 mg 25 mg RC PRN PRN 06/30/17 rectal suppository Acetaminophen [Tylenol Tablet] 500 - 1,000 mg PO Q6H PRN PRN 10/15/17 Aspirin E.C. 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 Surgical History: - - s/p local excisio of skin lesion Psychiatric History: No pertinent psych hx Lives: Spouse/ Significant Other Smoking Status: Never smoker Tobacco Use: Non-smoker Alcohol: None Drugs: None - *Family History Maternal Family History: Family History (Last Reviewed 06/30/17 @ 14:05 by Rayna Mera) Mother Heart disease Hypertension Uncle CAD (coronary artery disease) Myocardial infarction History Items: Heart Disease, Hypertension Paternal Family History: Family History (Last Reviewed 06/30/17 @ 14:05 by Rayna Mera) Mother Heart disease Hypertension Uncle CAD (coronary artery disease) Myocardial infarction History Items: Unknown Review of Systems Constitutional: Reports: - - complete ROS negative except as documented in HPI Patient Problems: Active and Suspected Problems (Last Reviewed 06/30/17 @ 14:05 by Rayna Mera) Migraine (Acute) - Physical Exam General: Alert HEENT: Normocephalic Neck: Supple Lungs: Clear to auscultation Cardiovascular: Normal S1, Normal S2 Abdomen: Bowel Sounds Present Extremities: No cyanosis Skin: No rashes Neurological: - - consious, alert, AoAx3, CN 2-12 grossly intact except some mild right V3 numbness (present since the Right CEA attempt in July 2017), power 5/5 all 4 extremities, no sensory loss, no cerebellar signs, Reflexes + B/L B/S/ T/K/A, gait deferred, No NR, No Brudzincki's or kernig's sign Psych/Mental Status: Normal Affect Vital Signs Temp Pulse Resp BP Pulse Ox 97.8 F 89 14 136/70 H 95 10/17/17 09:15 10/17/17 11:00 10/17/17 09:15 10/17/17 09:15 10/17/17 09:15 Oxygen Delivery Method Room Air Weight: 73.9 kg Body Mass Index (BMI) 21.4 Finger Stick Blood Glucose 104 Intake and Output for Last 24 Hours 10/15/17 10/16/17 10/17/17 23:59 23:59 23:59 Intake Total 650 / 650 1490 / 1490 1150.3 / 1150.3 Balance 650 / 650 1490 / 1490 1150.3 / 1150.3 Assessment/Plan All Active Problems (Last Reviewed 06/30/17 @ 14:05 by Rayna Mera) Migraine (Acute) Seizure (Acute) Stroke (Acute) The patient is a 77 year old CM with H Stroke-H/O right thalamic/IC stroke in May 2017, Right ICA > 80% stenosis, S/P right carotid stenting in August 2017 and left Carotid <50% stenosis (asymptomatic), migraine was admitted with LAMB, seizure like activity. History is obtained from and patient, per , about 2 days ago on Tuesday (10/14/17), he was having some frontal LAMB, with visual auras, then had staring episode and was not behaving his usual self, was taken to [facility], where he had episode of deviation of the eyes to the left with some left UE jerking, was loaded with IV Keppra and Ativan following which he improved. He is on Topamax 50 mg PO BID for Migraine and Keppra 500 mg PO q hs for seizures. Per he had an attempted right CEA by Dr. Sauceda in July 2017, but was not successful and later had right carotid stenting by Dr. Jacob on August 31 2017 at [facility], following which his dual AP was increased to ASA 325 mg PO from 81 mg PO once daily and he was continued on Plavix 75 mg. Per he has about 3-4 migraine auras in a week and has LAMB with atleast one of them, per his Keppra was decreased to 500 mg PO q hs from BID by Dr. Jacob in August 2017 since patient had expressed concern that he waned to wean off some of the medications and per since the Keppra was decreased he may have felt slightly more energetic, did not have any seizures since last visit in May 2017 where he was intubated following seizures following which Keppra was started, till he had possible partial seizures about 2 days ago. Per he also has left flank shingles, per documentation completed acyclovir course, was started on Gabapentin since admission for possible post herpetic neuralgia, has been complaining of visual hallucinations for about a day, per documentation was found to have gram +ve rods in blood culture and started on antibiotics. Per he does not drive, denies any falls , does not use cane or walker to ambulate and does not need any assistance for his ADLs. At present he denies any LAMB, visual disturbances, speech disturbances, focal motor weakness or sensory loss. He denies any vision loss, temporal tenderness or jaw claudication. Impression Migraine with aura, intractable, not in status Seizures HO Stroke Right ICA Stenosis- S/P right ICA stenting [address] Jacob Left Vert V4 stenosis Post herpetic neuralgia Visual Hallucinations (possible due to infection) Plan -On Dual AP and statins -MRI [facility] no acute stroke, MRA head/neck, CTA neck reviewed- patent right carotid stent. -Is due to follow up with Dr. Jacob this week. Per he wants patient to be on ASA 325 mg and Plavix 75 mg once daily till he sees him in the next appointment. Will defer further management to him. -Increase Keppra to 500 mg PO BID. Patient had partial seizures prior to admission -Increase Topamax to 100 mg PO BID for better LAMB control. Will try and wean off Keppra as outpatient, since patient feels he is on too many medications and decreasing Keppra in the past had made patient feel better per . But at present since patient possibly had partial seizures, also has positive blood culture with underlying infection/shingles which can lower his seizure threshold , will increase Keppra for now with plan to wean it off as outpatient. -Patient counseled not to drive for atleast 6 months, per he does not drive. -Labs reviewed -Seizure precautions -On gabapentin for post herpetic neuralgia, started by primary team. -PT/OT -GI/DVT prophylaxis -Further medical management per primary team -Follow up with Neurology as outpatient in 4-6 weeks -Please call with questions if any -Thank you for allowing us to participate in patient's care and management I spent 60 minutes taking history, doing physical examination, reviewing medical records, coordinating care and counseling the patient. [] Code Visit Inpatient E&M: 48728 Init Hosp L3
--- NOTE | 2017-10-17 12:34 | PCM.PN.HOSP ---
Patient Problems: Active and Suspected Problems (Last Reviewed 06/30/17 @ 14:05 by Rayna Mera) Migraine (Acute) Subjective: The patient is a 77 year old CM with PMH Stroke-H/O right thalamic/IC stroke in May 2017, B/L Carotid stenosis, migraine was admitted with LAMB,seizure like activity. Symptoms started on 10/15/1819 started having frontal headache with visual auras with assisted staring episodes and was not behaving his usual self. He was taken to hospital in [place] where he was noted to be having episodes of duration with ice the left and some upper extremity tingling and jerking. He was given Ativan and Keppra and transferred to [facility]. He has been managed for seizures and migraines. Neurology on board. Patient seen and examined. is by his bedside. She said patient just had an episode of possible hallucinations where he thought there was some children running around in the room. Minutes and resolved. Patient complains of pain over his left chest due to shingles and says is a really burning pain. At time of review, he denied any focal weakness or any vision loss and was not having any other or headache at time of review. Review of systems otherwise negative Vitals/I&O's: Vital Signs Temp Pulse Resp BP Pulse Ox 97.8 F 89 14 136/70 H 95 10/17/17 09:15 10/17/17 11:00 10/17/17 09:15 10/17/17 09:15 10/17/17 09:15 Oxygen Delivery Method Room Air Weight: 162 lb 14.746 oz Body Mass Index (BMI) 21.4 Finger Stick Blood Glucose 104 Intake and Output for Last 24 Hours 10/15/17 10/16/17 10/17/17 23:59 23:59 23:59 Intake Total 650 / 650 1490 / 1490 1150.3 / 1150.3 Balance 650 / 650 1490 / 1490 1150.3 / 1150.3 General: Alert, Oriented x3, Cooperative, - - mild distress due to pain from shingles HEENT: Atraumatic, PERRLA, EOMI, Normocephalic Oral: Moist Mucosa Neck: Supple, No JVD, Negative Carotid Bruits Lungs: Clear to auscultation, Normal air movement, No rhonchi, No wheeze, No rales Cardiovascular: Regular rate, Regular Rhythm, Normal S1, Normal S2, No murmurs Abdomen: Bowel Sounds Present, Soft, Non Tender, Non-Distended, No Hepato-splenomegaly Extremities: No clubbing, No cyanosis, No edema, Capillary Refill Less than 3 Seconds Skin: No rashes, No breakdown Musculoskeletal: No Tenderness to Palpation of Joints or Extremities Lymphatic: No Cervical, Supraclavicular, or Inguinal Adenopathy Neurological: Cranial nerves II-XII grossly intact, Motor Exam 5/5 strength throughout Psych/Mental Status: Normal Affect, Appropriate, Alert and oriented to time, place, person, mood and affect Laboratory Tests 10/15/17 10/15/17 10/15/17 13:20 17:35 20:55 Sodium Potassium Chloride Carbon Dioxide Anion Gap BUN Creatinine Estim Creat Clear Calc Est GFR (MDRD) Af Amer Est GFR (MDRD) Non-Af BUN/Creatinine Ratio Glucose Calcium Troponin I < 0.015 < 0.015 < 0.015 Triglycerides Cholesterol LDL Cholesterol VLDL Cholesterol HDL Cholesterol 10/16/17 05:42 Sodium 141 Potassium 4.3 Chloride 106 Carbon Dioxide 27.0 Anion Gap 8 BUN 16 Creatinine 1.14 Estim Creat Clear Calc 56.72 Est GFR (MDRD) Af Amer 80 Est GFR (MDRD) Non-Af 66 BUN/Creatinine Ratio 14.0 Glucose 85 Calcium 9.2 Troponin I Triglycerides 77 Cholesterol 98 LDL Cholesterol 35 VLDL Cholesterol 15 HDL Cholesterol 48 Diagnostic Data Brain MRI 10/15/17 11:14 IMPRESSION: 1. Involutional changes of the brain, as described above. 2. No MR evidence for acute infarct. Electronically Signed: Carmen Worrell MD at 18:39 EDT , Service support , Neck MRA 10/15/17 11:14 IMPRESSION: 1. Apparent hemodynamically significant stenosis of the distal right common carotid artery. This may be artifactual but is identified on both the unenhanced and enhanced images and a short segment high-grade stenosis of the distal right common carotid artery cannot be excluded. 2. 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 On the unenhanced MRA of the head this mimics occlusion. 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 Electronically Signed: Carmen Worrell MD at 18:26 EDT , Service support , Neck CTA 10/16/17 01:41 IMPRESSION: A patent stent is present in the carotid bulb and proximal ICA. No flow-limiting ICA stenoses are seen at this time. Electronically Signed: Louie Morley MD at 3:22 EDT Tel , Service support , Current Medications Acetaminophen (Tylenol) 1,000 mg PO Q8 [facility] Last Admin: 10/17/17 06:09 Dose: 1,000 mg Aspirin (Ecotrin) 325 mg PO DAILY@0800 [facility] Last Admin: 10/17/17 09:44 Dose: 325 mg Atorvastatin Calcium (Lipitor) 40 mg PO QHS [facility] Last Admin: 10/16/17 21:00 Dose: 40 mg Calcium Carbonate (Tums) 750 mg PO QHS PRN PRN Reason: acid reflux Cholecalciferol (Vitamin D) 2,000 unit PO DAILY [facility] Last Admin: 10/17/17 09:43 Dose: 2,000 unit Clopidogrel Bisulfate (Plavix) 75 mg PO DAILY [facility] Last Admin: 10/17/17 09:43 Dose: 75 mg Cyanocobalamin (Vitamin B12) 1,000 mcg PO DAILY [facility] Last Admin: 10/17/17 09:43 Dose: 1,000 mcg Enoxaparin Sodium (Lovenox) 40 mg SC DAILY@1000 [facility] Last Admin: 10/17/17 09:44 Dose: 40 mg Fluticasone Propionate (Flonase Nasal [place]) 2 spray NASAL DAILY [facility] Last Admin: 10/17/17 09:44 Dose: 2 sprays Gabapentin (Neurontin) 200 mg PO QHS [facility] Last Admin: 10/16/17 21:02 Dose: Not Given Hydrocortisone Acetate (Anusol Hc) 25 mg RECTAL PRN PRN PRN Reason: anal fissures Ampicillin Sodium 1,000 mg/ (Sodium Chloride) 50 mls @ 150 mls/hr IV Q6 [facility] Last Admin: 10/17/17 11:13 Dose: 150 mls/hr Levetiracetam (Keppra Tablet) 500 mg PO QHS [facility] Last Admin: 10/16/17 21:00 Dose: 500 mg Lidocaine HCl (Xylocaine Topical) 1 ml TOPICAL TID PRN PRN; Protocol PRN Reason: PAIN Last Admin: 10/16/17 12:40 Dose: 1 ml Lorazepam (Ativan) 1 mg IV Q2H PRN PRN PRN Reason: SEIZURES Magnesium Hydroxide (Milk Of Magnesia) 30 ml PO DAILY PRN PRN Reason: Constipation Melatonin (Melatonin) 3 mg PO QHS [facility] Last Admin: 10/16/17 21:00 Dose: 3 mg Nutritional Formula (Lactose Free) (Ensure Enlive) 120 ml PO 4X/DAY [facility] Last Admin: 10/17/17 09:44 Dose: 120 ml Ondansetron HCl (Zofran) 4 mg IV Q8H PRN PRN PRN Reason: NAUSEA Pantoprazole Sodium (Protonix) 40 mg PO DAILY@0600 [facility] Last Admin: 10/17/17 06:09 Dose: 40 mg Sodium Chloride () 5 - 30 ml IV UD PRN PRN Reason: SALINE FLUSH Last Admin: 10/17/17 04:06 Dose: 10 ml Topiramate (Topamax) 50 mg PO BID [facility] Last Admin: 10/17/17 09:43 Dose: 50 mg Medical Necessity - Tobacco Use Smoking Status: Never smoker Tobacco Use: Non-smoker Assessment/Plan All Active Problems (Last Reviewed 06/30/17 @ 14:05 by Rayna Mera) Migraine (Acute) Seizure (Acute) Stroke (Acute) 1. Migraine headaches with aura on topamax for prophylaxis. Had headache with aura prior to going to [facility] had no focal weakness. CT and MRI/MRA head were negative neurology consulted. on topamax 25mg bid for migraine prophylaxis; will continue 2. Right sided weakness: resolved. Will monitor 3. History of recent right thalamic stroke On aspirin and Plavix. Neurology on board. Imaging of the head showed no acute intracranial pathology. 4. Severe carotid stenosis 9R) s/p right carotid stent CEA was attempted in July 2017 was unsuccessful. On aspirin, Plavix and statin. 5. Seizures Had tingling of the left upper extremity with some staring episodes suspected to be seizure. Was loaded with IV Keppra and IV Ativan. Has history of post CVA seizures. on Keppra 500mg qhs, per neurology neurology on board. 6. Left sided T4 shingles with post herpetic neuralgia reently completed treatment with acyclovir. Patient is resolving papular rash over left T4 dermatome. Very tender in that area. Patient also had lidocaine topical gel but does not seem enthusiastic about that. On gabapentin which was increased to 200 mg nightly. 7. Hyperlipidemia: on statin 8. DVT prophylaxis: lovenox This note was generated with [employer] dictation software. It may contain incorrect words, spelling, and punctuation that were not noted in checking the note before signing. Code Visit Inpatient E&M: 70809 Subs Hosp L2
--- NOTE | 2017-10-17 12:51 | PN_ITS ---
Patient Problems: Active and Suspected Problems (Last Reviewed 06/30/17 @ 14:05 by Rayna Mera) Migraine (Acute) Subjective: The patient is a 77 year old CM with PMH Stroke-H/O right thalamic/IC stroke in May 2017, B/L Carotid stenosis, migraine was admitted with LAMB,seizure like activity. Symptoms started on 10/15/1819 started having frontal headache with visual auras with assisted staring episodes and was not behaving his usual self. He was taken to hospital in [place] where he was noted to be having episodes of duration with ice the left and some upper extremity tingling and jerking. He was given Ativan and Keppra and transferred to [facility]. He has been managed for seizures and migraines. Neurology on board. Patient seen and examined. is by his bedside. She said patient just had an episode of possible hallucinations where he thought there was some children running around in the room. Minutes and resolved. Patient complains of pain over his left chest due to shingles and says is a really burning pain. At time of review, he denied any focal weakness or any vision loss and was not having any other or headache at time of review. Review of systems otherwise negative Vitals/I&O's: Vital Signs Temp Pulse Resp BP Pulse Ox 97.8 F 89 14 136/70 H 95 10/17/17 09:15 10/17/17 11:00 10/17/17 09:15 10/17/17 09:15 10/17/17 09:15 Oxygen Delivery Method Room Air Weight: 162 lb 14.746 oz Body Mass Index (BMI) 21.4 Finger Stick Blood Glucose 104 Intake and Output for Last 24 Hours 10/15/17 10/16/17 10/17/17 23:59 23:59 23:59 Intake Total 650 / 650 1490 / 1490 1150.3 / 1150.3 Balance 650 / 650 1490 / 1490 1150.3 / 1150.3 General: Alert, Oriented x3, Cooperative, - - mild distress due to pain from shingles HEENT: Atraumatic, PERRLA, EOMI, Normocephalic Oral: Moist Mucosa Neck: Supple, No JVD, Negative Carotid Bruits Lungs: Clear to auscultation, Normal air movement, No rhonchi, No wheeze, No rales Cardiovascular: Regular rate, Regular Rhythm, Normal S1, Normal S2, No murmurs Abdomen: Bowel Sounds Present, Soft, Non Tender, Non-Distended, No Hepato- splenomegaly Extremities: No clubbing, No cyanosis, No edema, Capillary Refill Less than 3 Seconds Skin: No rashes, No breakdown Musculoskeletal: No Tenderness to Palpation of Joints or Extremities Lymphatic: No Cervical, Supraclavicular, or Inguinal Adenopathy Neurological: Cranial nerves II-XII grossly intact, Motor Exam 5/5 strength throughout Psych/Mental Status: Normal Affect, Appropriate, Alert and oriented to time, place, person, mood and affect Laboratory Tests 10/15/17 10/15/17 10/15/17 13:20 17:35 20:55 Sodium Potassium Chloride Carbon Dioxide Anion Gap BUN Creatinine Estim Creat Clear Calc Est GFR (MDRD) Af Amer Est GFR (MDRD) Non-Af BUN/Creatinine Ratio Glucose Calcium Troponin I < 0.015 < 0.015 < 0.015 Triglycerides Cholesterol LDL Cholesterol VLDL Cholesterol HDL Cholesterol 10/16/17 05:42 Sodium 141 Potassium 4.3 Chloride 106 Carbon Dioxide 27.0 Anion Gap 8 BUN 16 Creatinine 1.14 Estim Creat Clear Calc 56.72 Est GFR (MDRD) Af Amer 80 Est GFR (MDRD) Non-Af 66 BUN/Creatinine Ratio 14.0 Glucose 85 Calcium 9.2 Troponin I Triglycerides 77 Cholesterol 98 LDL Cholesterol 35 VLDL Cholesterol 15 HDL Cholesterol 48 Diagnostic Data Brain MRI 10/15/17 11:14 IMPRESSION: 1. Involutional changes of the brain, as described above. 2. No MR evidence for acute infarct. Electronically Signed: Carmen Worrell MD at 18:39 EDT , Service support , Neck MRA 10/15/17 11:14 IMPRESSION: 1. Apparent hemodynamically significant stenosis of the distal right common carotid artery. This may be artifactual but is identified on both the unenhanced and enhanced images and a short segment high-grade stenosis of the distal right common carotid artery cannot be excluded. 2. 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 On the unenhanced MRA of the head this mimics occlusion. 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 Electronically Signed: Carmen Worrell MD at 18:26 EDT , Service support , Neck CTA 10/16/17 01:41 IMPRESSION: A patent stent is present in the carotid bulb and proximal ICA. No flow-limiting ICA stenoses are seen at this time. Electronically Signed: Louie Morley MD at 3:22 EDT Tel , Service support , Current Medications Acetaminophen (Tylenol) 1,000 mg PO Q8 [facility] Last Admin: 10/17/17 06:09 Dose: 1,000 mg Aspirin (Ecotrin) 325 mg PO DAILY@0800 [facility] Last Admin: 10/17/17 09:44 Dose: 325 mg Atorvastatin Calcium (Lipitor) 40 mg PO QHS [facility] Last Admin: 10/16/17 21:00 Dose: 40 mg Calcium Carbonate (Tums) 750 mg PO QHS PRN PRN Reason: acid reflux Cholecalciferol (Vitamin D) 2,000 unit PO DAILY [facility] Last Admin: 10/17/17 09:43 Dose: 2,000 unit Clopidogrel Bisulfate (Plavix) 75 mg PO DAILY [facility] Last Admin: 10/17/17 09:43 Dose: 75 mg Cyanocobalamin (Vitamin B12) 1,000 mcg PO DAILY [facility] Last Admin: 10/17/17 09:43 Dose: 1,000 mcg Enoxaparin Sodium (Lovenox) 40 mg SC DAILY@1000 [facility] Last Admin: 10/17/17 09:44 Dose: 40 mg Fluticasone Propionate (Flonase Nasal [place]) 2 spray NASAL DAILY [facility] Last Admin: 10/17/17 09:44 Dose: 2 sprays Gabapentin (Neurontin) 200 mg PO QHS [facility] Last Admin: 10/16/17 21:02 Dose: Not Given Hydrocortisone Acetate (Anusol Hc) 25 mg RECTAL PRN PRN PRN Reason: anal fissures Ampicillin Sodium 1,000 mg/ (Sodium Chloride) 50 mls @ 150 mls/hr IV Q6 [facility] Last Admin: 10/17/17 11:13 Dose: 150 mls/hr Levetiracetam (Keppra Tablet) 500 mg PO QHS [facility] Last Admin: 10/16/17 21:00 Dose: 500 mg Lidocaine HCl (Xylocaine Topical) 1 ml TOPICAL TID PRN PRN; Protocol PRN Reason: PAIN Last Admin: 10/16/17 12:40 Dose: 1 ml Lorazepam (Ativan) 1 mg IV Q2H PRN PRN PRN Reason: SEIZURES Magnesium Hydroxide (Milk Of Magnesia) 30 ml PO DAILY PRN PRN Reason: Constipation Melatonin (Melatonin) 3 mg PO QHS [facility] Last Admin: 10/16/17 21:00 Dose: 3 mg Nutritional Formula (Lactose Free) (Ensure Enlive) 120 ml PO 4X/DAY [facility] Last Admin: 10/17/17 09:44 Dose: 120 ml Ondansetron HCl (Zofran) 4 mg IV Q8H PRN PRN PRN Reason: NAUSEA Pantoprazole Sodium (Protonix) 40 mg PO DAILY@0600 [facility] Last Admin: 10/17/17 06:09 Dose: 40 mg Sodium Chloride () 5 - 30 ml IV UD PRN PRN Reason: SALINE FLUSH Last Admin: 10/17/17 04:06 Dose: 10 ml Topiramate (Topamax) 50 mg PO BID [facility] Last Admin: 10/17/17 09:43 Dose: 50 mg Medical Necessity - Tobacco Use Smoking Status: Never smoker Tobacco Use: Non-smoker Assessment/Plan All Active Problems (Last Reviewed 06/30/17 @ 14:05 by Rayna Mera) Migraine (Acute) Seizure (Acute) Stroke (Acute) 1. Migraine headaches with aura * on topamax for prophylaxis. Had headache with aura prior to going to [facility] * had no focal weakness. * CT and MRI/MRA head were negative * neurology consulted. on topamax 25mg bid for migraine prophylaxis; will continue * 2. Right sided weakness: resolved. Will monitor 3. History of recent right thalamic stroke * On aspirin and Plavix. Neurology on board. Imaging of the head showed no acute intracranial pathology. * 4. Severe carotid stenosis 9R) s/p right carotid stent * CEA was attempted in July 2017 was unsuccessful. On aspirin, Plavix and statin. * 5. Seizures * Had tingling of the left upper extremity with some staring episodes suspected to be seizure. Was loaded with IV Keppra and IV Ativan. * Has history of post CVA seizures. on Keppra 500mg qhs, per neurology * neurology on board. 6. Left sided T4 shingles with post herpetic neuralgia * reently completed treatment with acyclovir. * Patient is resolving papular rash over left T4 dermatome. Very tender in that area. Patient also had lidocaine topical gel but does not seem enthusiastic about that. On gabapentin which was increased to 200 mg nightly. * 7. Hyperlipidemia: on statin 8. DVT prophylaxis: lovenox This note was generated with [employer] dictation software. It may contain incorrect words, spelling, and punctuation that were not noted in checking the note before signing. Code Visit Inpatient E&M: 45967 Subs Hosp L2
--- NOTE | 2017-10-17 14:56 | CASEMGMT ---
Face to Face with patient for initial transition planning/care coordination assessment. STACIA CAMPBELL introduced self and role at [facility], pt voices understanding and consents to assessment at this time. Pt is sitting up in chair in no distress at this time. Pt is A/O x4 at this time and answers all questions appropriately at this time. Care providers, pharmacy, and demographics verified. See attached link. Pt voices no further concerns/needs at this time. Advised pt to ask for CM if any further questions/concerns/needs arise, voices understanding. PLAN: [place] STACIA CAMPBELL
[2017-10-17] MEDS: Topiramate 100 MG Tablet PO (20:56)
[2017-10-17] MEDS: Atorvastatin Calcium 40 MG Tablet PO (20:57)
[2017-10-17] MEDS: levETIRAcetam 500 MG Tablet PO (20:57)
[2017-10-17] MEDS: MELATONIN 3 MG TABLET PO (20:57)
[2017-10-17] MEDS: Magnesium Hydroxide 30 ML UDC PO (20:58)
[2017-10-18 02:51] VITALS: BP 139/76; PULSE 72; RESP 16; TEMP 36.6; O2SAT 95
[2017-10-18 03:09] VITALS: PULSE 82
[2017-10-18] MEDS: Pantoprazole Sodium 40 MG Tablet PO (05:16)
[2017-10-18] MEDS: Acetaminophen 500 MG Tablet 1000 MG PO (05:16)
[2017-10-18 05:53] LABS: Basophil# 0.02 X10^3/uL; Basophil% 0.3 % (0-1); Eosinophils% 7.8 % (0-5); Hemoglobin 13.4 g/dl (13.0-16.5); Lymphocyte % 37.3 % (19-41); Mean Corp Hgb Conc 33.5 g/gl (32-36); Mean Corpuscular Hgb 31.3 pg (27.0-32.0); Mean Corpuscular Volume 93.5 fL (80-94); Mean Platelet Vol. 10.5 fl (6.2-12.0); Monocyte# 0.54 X10^3/uL; Monocyte% 8.4 % (0-10); Neutrophil # 2.98 X10^3/uL (2.7-7.7); Neutrophil % 46.2 % (47-70); Platelet Count 203 K/mm3 (150-450); RBC Distribution Width CV 12.5 % (11.6-14.6); RBC Distribution Width SD 41.7 fl (35.1-43.9); Red Blood Count 4.28 M/mm3 (4.6-6.2); White Blood Count 6.4 K/mm3 (4.4-11.0)
[2017-10-18 05:55] LABS: POSITIVE COUNT NO; POSITIVE DIFFERENTIAL NO; POSITIVE MORPHOLOGY NO
[2017-10-18 06:04] LABS: Anion Gap 7 (5-15); BUN 15 mg/dL (7-18); BUN/Creat Ratio 13.2 RATIO (10-20); Calcium,Total 9.2 mg/dL (8.5-10.1); Chloride 107 mmol/L (98-107); Creatinine, Serum 1.14 mg/dL (0.70-1.30); EST Glomerular Filtration Rate 66 mL/min (>60); Est Glom Filt Rate - Afr Amer 80 mL/min (>60); Estimated Creatinine Clearance 56.72 ml/min; Glucose 82 mg/dL (74-106); Sodium Level 142 mmol/L (136-145)
[2017-10-18 07:16] VITALS: PULSE 80
[2017-10-18 07:49] VITALS: BP 133/60; PULSE 85; RESP 17; TEMP 36.8; O2SAT 95
[2017-10-18] MEDS: Aspirin E.C. 325 MG Tablet PO (07:56)
[2017-10-18] MEDS: Enoxaparin 40 MG/0.4 ML Syringe SC (09:24)
[2017-10-18] MEDS: Fluticasone 0.05% 1 SPRAY NASAL.SRY 2 SPRAY NASAL (09:24)
[2017-10-18] MEDS: levETIRAcetam 500 MG Tablet PO (09:24)
[2017-10-18] MEDS: Topiramate 100 MG Tablet PO (09:25)
[2017-10-18] MEDS: Clopidogrel Bisulfate 75 MG Tablet PO (09:25)
[2017-10-18] MEDS: Cyanocobalamin 500 MCG Tablet 1000 MCG PO (09:26)
[2017-10-18 11:07] VITALS: PULSE 75
--- NOTE | 2017-10-18 11:54 | PCM.DC ---
- Discharge Diagnoses Current Active Problems: Current Active and Chronic Problems (Last Reviewed 06/30/17 @ 14:05 by Rayna Mera) Migraine (Acute) You will use the following diet at home:: Cardiac Your food should be the consistency of: Regular Your liquids should be the consistency of: Regular/Thin Discharge Activity: Return to Normal Activity Allergies/Adverse Reactions: Allergies cefdinir Adverse Reaction (Verified 06/30/17 13:56) Other lowers seizure threshold seasonal Allergy (Mild, Uncoded 06/30/17 13:56) Other Pt gets runny nose, sneezing, headache. Medications to take at Discharge Clopidogrel Bisulfate [Plavix] 75 mg PO DAILY 07/24/13 Guar Gum [Benefiber] 1 ea PO DAILY 07/24/13 Lansoprazole [Prevacid] 30 mg PO DAILY@0600 07/24/13 Calcium Carbonate [Tums] 750 mg PO QHS PRN 05/30/17 Cyanocobalamin (Vitamin B-12) [Vitamin B-12] 1,000 mcg PO DAILY 05/30/17 Mometasone Furoate [Nasonex] 2 spray NASAL DAILY 05/30/17 Atorvastatin Calcium [Lipitor] 40 mg PO QHS 06/06/17 albuterol sulfate HFA 90 mcg/actuation aerosol inhaler 2 puff INHALATION Q6H PRN 06/30/17 cholecalciferol (vitamin D3) 2,000 unit capsule 2,000 unit PO QDAY 06/30/17 hydrocortisone acetate 25 mg rectal suppository 25 mg RC PRN PRN 06/30/17 Acetaminophen [Tylenol Tablet] 500 - 1,000 mg PO Q6H PRN PRN 10/15/17 Aspirin E.C. [Ecotrin] 325 mg PO DAILY 10/15/17 Amoxicillin/Potassium Clav [Augmentin 875-125 Tablet] 1 ea PO BID #10 tab 10/18/17 Gabapentin [Neurontin] 200 mg PO QHS #14 cap 10/18/17 Melatonin 3 mg PO QHS tablet 10/18/17 Topiramate [Topamax] 100 mg PO BID #60 tab 10/18/17 levETIRAcetam tablet [Keppra tablet] 500 mg PO BID #60 tab 10/18/17 The following prescriptions were given: Amoxicillin/Potassium Clav [Augmentin 875-125 Tablet] 1 ea PO BID #10 tab Gabapentin [Neurontin] 200 mg PO QHS #14 cap Topiramate [Topamax] 100 mg PO BID #60 tab levETIRAcetam tablet [Keppra tablet] 500 mg PO BID #60 tab Primary Care Physician: Jeremi Monk MD [Primary Care Provider] - Please follow up with your Primary Care Physician in: 1-2 weeks Test Results: Test results from this visit will be discussed in further detail at your follow-up appointment, if applicable. Please Follow Up With: Jese Jacob - Neurosurgeon When: 2 days Please Follow Up With: Maribeth Trimble MD - Neurology When: 4-6 weeks
--- NOTE | 2017-10-18 12:54 | EEG ---
- Electroencephalogram Date of service 10/15/2017 History EEG is being done in this 77 yr M to rule out seizures EEG Description: This is an 18 channel EEG with 10-20 lead placement system. Bipolar montages, Referential and Circumferential montages were reviewed. Photic stimulation and Hyperventilation were performed. The posterior dominant rhythm is 7 HZ synchronous, symmetric, reacting to eye opening and closing. Photo stimulation elicited normal driving response but no abnormal photoparoxysmal response, Hyperventilation did not elicit any abnormal photoparoxysmal response. Sleep was identified. There is generalized background slowing in the theta frequency range. There was no epileptiform discharges or electrographic seizures noted during this recording. EEG Interpretation This is an abnormal EEG due to the presence of mild generalized slowing. This can be seen with generalized cerebral dysfunction like metabolic/toxic encephalopathy. Clinical correlation is advised. There is no epileptiform discharges or electrographic seizures noted during the record.
[2017-10-18 14:00] VITALS: BP 138/62; PULSE 78; RESP 18; TEMP 36.9; O2SAT 96
--- NOTE | 2017-10-18 14:11 | PCM.DC.SUM ---
<Maciel Yang - Last Filed: 10/18/17 14:37> Discharge Date and Diagnosis Date of Admission: 10/15/17 Date of Discharge: 10/18/17 - Primary Discharge Diagnosis Right sided weakness 2/2 migraine Acute Stroke ruled out Seizure Post herpetic neuralgia Hx severe carotid stenosis s/p CEA Hx CVA HLD - Secondary Discharge Diagnosis Chronic Problems (Last Reviewed 06/30/17 @ 14:05 by Rayna Mera) Bilateral carotid artery stenosis (Chronic) GERD (gastroesophageal reflux disease) (Chronic) Hyperlipidemia (Chronic) Hypertension (Chronic) Hospital Course and Treatment Imaging Results: MRI/Brain without Contrast IMPRESSION: 1. Involutional changes of the brain, as described above. 2. No MR evidence for acute infarct. MRI/MRA Neck WITH and W/O Contrast IMPRESSION: 1. Apparent hemodynamically significant stenosis of the distal right common carotid artery. This may be artifactual but is identified on both the unenhanced and enhanced images and a short segment high-grade stenosis of the distal right common carotid artery cannot be excluded. 2. 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 On the unenhanced MRA of the head this mimics occlusion. 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 CT/CTA Neck W/WO Contrast IMPRESSION: A patent stent is present in the carotid bulb and proximal ICA. No flow-limiting ICA stenoses are seen at this time. EEG Interpretation This is an abnormal EEG due to the presence of mild generalized slowing. This can be seen with generalized cerebral dysfunction like metabolic/toxic encephalopathy. Clinical correlation is advised. There is no epileptiform discharges or electrographic seizures noted during the record. Consults: Nai - Neuro Operations: None Procedures: Electroencephalogram Summary of Care Provided: Physical exam on day of discharge: General: Resting comfortably NAD Psych: A/Ox3 normal affect HEENT: PEARRLA AT NC Neck: Supple NT CV: RRR no m/t/r/g/h Resp: CTA Abd: [id number] Soft NT no guarding or rigidity Ext: DP2+= no edema Skin: W/D normal turgor Lymph/Heme: No active bleeding or adenopathy Neuro: CN2-12 intact Hospital course: The patient is a 77 year old M with a hx of CVA, carotid stenosis with prior enderarterectomy, seizures, migraines, postherpetic neuralgia who presented to the ER with right sided weakness . He had been at the [place] ER with headache and flashes of light. He had some jerking movements in the left upper extremities and eye deviations. These resolved with ativan. CT of the brain was done which was negative. Troponins were negative. Reportedly one blood culture showed some bacteria although there was no infectious process suspected, and he was placed on unasyn although we do not have access to those records at this time. He was transferred here to [facility] as his neurologist is here. He was already on asa and plavix. He was started on keppra which he had taken in the past for suspected seizure. He underwent a stroke work up. MRI, MRA, CTA were negative. Neurology felt that he had a seizure and was also experiencing migraine. Daniel continued keppra, and increased his topamax. EEG was negative. He was started on neurontin for post herpetic neuralgia which did provide some relief however he had some hallucinations reported with it. He was felt stable for discahrge. He was given a 5 more day course of augmentin for empiric treatment of his + blood culture, although again we have no evidence of an infectious process. He was diascharged on keppra and increased topamax. He will continue aspirin and plavix, and atorvastatin. A short course of gabapentin was provided for pain relief which he may or may not use. He has a follow up with his neurosurgeon in 2 days. He will follow up with neurology in 4-6 weeks. F/u with your PCP in 2 weeks. This patient was seen by Maciel Yang PA-C under the supervision of Doctor Bhupinder. [] Discharge Diet: Low fat/ Low Cholesterol, 2000 mg Sodium Diet Discharge Activity: Return to Normal Activity Home Medications: Medications to take at Discharge Clopidogrel Bisulfate [Plavix] 75 mg PO DAILY 07/24/13 Guar Gum [Benefiber] 1 ea PO DAILY 07/24/13 Lansoprazole [Prevacid] 30 mg PO DAILY@0600 07/24/13 Calcium Carbonate [Tums] 750 mg PO QHS PRN 05/30/17 Cyanocobalamin (Vitamin B-12) [Vitamin B-12] 1,000 mcg PO DAILY 05/30/17 Mometasone Furoate [Nasonex] 2 spray NASAL DAILY 05/30/17 Atorvastatin Calcium [Lipitor] 40 mg PO QHS 06/06/17 albuterol sulfate HFA 90 mcg/actuation aerosol inhaler 2 puff INHALATION Q6H PRN 06/30/17 cholecalciferol (vitamin D3) 2,000 unit capsule 2,000 unit PO QDAY 06/30/17 hydrocortisone acetate 25 mg rectal suppository 25 mg RC PRN PRN 06/30/17 Acetaminophen [Tylenol Tablet] 500 - 1,000 mg PO Q6H PRN PRN 10/15/17 Aspirin E.C. [Ecotrin] 325 mg PO DAILY 10/15/17 Amoxicillin/Potassium Clav [Augmentin 875-125 Tablet] 1 ea PO BID #10 tab 10/18/17 Gabapentin [Neurontin] 200 mg PO QHS #14 cap 10/18/17 Melatonin 3 mg PO QHS tablet 10/18/17 Topiramate [Topamax] 100 mg PO BID #60 tab 10/18/17 levETIRAcetam tablet [Keppra tablet] 500 mg PO BID #60 tab 10/18/17 Following Prescrptions Were Given to Patient: Amoxicillin/Potassium Clav [Augmentin 875-125 Tablet] 1 ea PO BID #10 tab Gabapentin [Neurontin] 200 mg PO QHS #14 cap Topiramate [Topamax] 100 mg PO BID #60 tab levETIRAcetam tablet [Keppra tablet] 500 mg PO BID #60 tab Primary Care Physician: Jeremi Monk MD [Primary Care Provider] - Please follow up with your Primary Care Physician in: 1-2 weeks Please Follow Up With: Jese Jacob - Neurosurgeon When: 2 days Please Follow Up With: Maribeth Trimble MD - Neurology When: 4-6 weeks Disposition: Home Minutes spent on discharge:: 35 Patient Condition:: Stable Medical Necessity - Tobacco Use Smoking Status: Never smoker Tobacco Use: Non-smoker Meaningful Use Info Meaningful Use Diagnoses (Choose all that apply): None applicable <Sarah Roe - Last Filed: 10/18/17 14:51> Discharge Date and Diagnosis - Secondary Discharge Diagnosis Chronic Problems (Last Reviewed 06/30/17 @ 14:05 by Rayna Mera) Bilateral carotid artery stenosis (Chronic) GERD (gastroesophageal reflux disease) (Chronic) Hyperlipidemia (Chronic) Hypertension (Chronic) Hospital Course and Treatment Summary of Care Provided: Patient seen under my supervision by Maciel Yang PA-C The patient is a 77 year old M [facility] as mentioned above. He was admitted from [facility] after presenting there with a compolaint of headaches and flashes of light, with associated jerking movements of his LUE and staring episodes. He was given loading dose of Keppra and Ativan after which symptoms resolved. CT of the head done was negative. Was started on Unasyn for one blood culture which showed bacteria, exact bacteria is nonspecific. Patient's Keppra had been tapered down in the past and according to his , he had been taking Topamax for migraine prophylaxis. During this admission workup for stroke was negative namely MRI, MRA and CT were negative. EEG showed mild generalized slowing which could be seen with generalized cerebral dysfunction like metabolic/toxic encephalopathy. There were no epileptiform seizures or electrographic seizures noted during the EEG. Patient's dose of Keppra was increased and his Topamax was also increased. He had completed a dose of acyclovir for shingles but complained of persistent pain. He was put on Neurontin for postherpetic neuralgia. Patient remained stable and was discharged on Keppra, Topamax and gabapentin. Patient seen and examined prior to discharge. o/e: [] General: Alert, Oriented x3, Cooperative, - - mild distress due to pain from shingles HEENT: Atraumatic, PERRLA, EOMI, Normocephalic Oral: Moist Mucosa Neck: Supple, No JVD, Negative Carotid Bruits Lungs: Clear to auscultation, Normal air movement, No rhonchi, No wheeze, No rales Cardiovascular: Regular rate, Regular Rhythm, Normal S1, Normal S2, No murmurs Abdomen: Bowel Sounds Present, Soft, Non Tender, Non-Distended, No Hepato-splenomegaly Extremities: No clubbing, No cyanosis, No edema, Capillary Refill Less than 3 Seconds Skin: No rashes, No breakdown Musculoskeletal: No Tenderness to Palpation of Joints or Extremities Lymphatic: No Cervical, Supraclavicular, or Inguinal Adenopathy Neurological: Cranial nerves II-XII grossly intact, Motor Exam 5/5 strength throughout Psych/Mental Status: Normal Affect, Appropriate, Alert and oriented to time, place, person, mood and affect Plan as documented above. To follow up with PCP, neurologist and neurosurgeon. Agree with Maciel Yang PA-C's note and assessment and plan. Code Visit Inpatient E&M: 37516 Disch Hosp
--- NOTE | 2017-10-18 14:17 | DS.PCM_ITS ---
<Maciel Yang - Last Filed: 10/18/17 14:37> Discharge Date and Diagnosis Date of Admission: 10/15/17 Date of Discharge: 10/18/17 - Primary Discharge Diagnosis Right sided weakness 2/2 migraine Acute Stroke ruled out Seizure Post herpetic neuralgia Hx severe carotid stenosis s/p CEA Hx CVA HLD - Secondary Discharge Diagnosis Chronic Problems (Last Reviewed 06/30/17 @ 14:05 by Rayna Mera) Bilateral carotid artery stenosis (Chronic) GERD (gastroesophageal reflux disease) (Chronic) Hyperlipidemia (Chronic) Hypertension (Chronic) Hospital Course and Treatment Imaging Results: MRI/Brain without Contrast IMPRESSION: 1. Involutional changes of the brain, as described above. 2. No MR evidence for acute infarct. MRI/MRA Neck WITH and W/O Contrast IMPRESSION: 1. Apparent hemodynamically significant stenosis of the distal right common carotid artery. This may be artifactual but is identified on both the unenhanced and enhanced images and a short segment high-grade stenosis of the distal right common carotid artery cannot be excluded. 2. 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 On the unenhanced MRA of the head this mimics occlusion. 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 CT/CTA Neck W/WO Contrast IMPRESSION: A patent stent is present in the carotid bulb and proximal ICA. No flow-limiting ICA stenoses are seen at this time. EEG Interpretation This is an abnormal EEG due to the presence of mild generalized slowing. This can be seen with generalized cerebral dysfunction like metabolic/toxic encephalopathy. Clinical correlation is advised. There is no epileptiform discharges or electrographic seizures noted during the record. Consults: Nai - Neuro Operations: None Procedures: Electroencephalogram Summary of Care Provided: Physical exam on day of discharge: General: Resting comfortably NAD Psych: A/Ox3 normal affect HEENT: PEARRLA AT NC Neck: Supple NT CV: RRR no m/t/r/g/h Resp: CTA Abd: [id number] Soft NT no guarding or rigidity Ext: DP2+= no edema Skin: W/D normal turgor Lymph/Heme: No active bleeding or adenopathy Neuro: CN2-12 intact Hospital course: The patient is a 77 year old M with a hx of CVA, carotid stenosis with prior enderarterectomy, seizures, migraines, postherpetic neuralgia who presented to the ER with right sided weakness . He had been at the [place] ER with headache and flashes of light. He had some jerking movements in the left upper extremities and eye deviations. These resolved with ativan. CT of the brain was done which was negative. Troponins were negative. Reportedly one blood culture showed some bacteria although there was no infectious process suspected, and he was placed on unasyn although we do not have access to those records at this time. He was transferred here to [place] as his neurologist is here. He was already on asa and plavix. He was started on keppra which he had taken in the past for suspected seizure. He underwent a stroke work up. MRI, MRA, CTA were negative. Neurology felt that he had a seizure and was also experiencing migraine. Daniel continued keppra, and increased his topamax. EEG was negative. He was started on neurontin for post herpetic neuralgia which did provide some relief however he had some hallucinations reported with it. He was felt stable for discahrge. He was given a 5 more day course of augmentin for empiric treatment of his + blood culture, although again we have no evidence of an infectious process. He was diascharged on keppra and increased topamax. He will continue aspirin and plavix, and atorvastatin. A short course of gabapentin was provided for pain relief which he may or may not use. He has a follow up with his neurosurgeon in 2 days. He will follow up with neurology in 4-6 weeks. F/u with your PCP in 2 weeks. This patient was seen by Maciel Yang PA-C under the supervision of Doctor Bhupinder. [] Discharge Diet: Low fat/ Low Cholesterol, 2000 mg Sodium Diet Discharge Activity: Return to Normal Activity Home Medications: Medications to take at Discharge Clopidogrel Bisulfate [Plavix] 75 mg PO DAILY 07/24/13 Guar Gum [Benefiber] 1 ea PO DAILY 07/24/13 Lansoprazole [Prevacid] 30 mg PO DAILY@0600 07/24/13 Calcium Carbonate [Tums] 750 mg PO QHS PRN 05/30/17 Cyanocobalamin (Vitamin B-12) [Vitamin B-12] 1,000 mcg PO DAILY 05/30/17 Mometasone Furoate [Nasonex] 2 spray NASAL DAILY 05/30/17 Atorvastatin Calcium [Lipitor] 40 mg PO QHS 06/06/17 albuterol sulfate HFA 90 mcg/actuation aerosol inhaler 2 puff INHALATION Q6H PRN 06/30/17 cholecalciferol (vitamin D3) 2,000 unit capsule 2,000 unit PO QDAY 06/30/17 hydrocortisone acetate 25 mg rectal suppository 25 mg RC PRN PRN 06/30/17 Acetaminophen [Tylenol Tablet] 500 - 1,000 mg PO Q6H PRN PRN 10/15/17 Aspirin E.C. [Ecotrin] 325 mg PO DAILY 10/15/17 Amoxicillin/Potassium Clav [Augmentin 875-125 Tablet] 1 ea PO BID #10 tab Gabapentin [Neurontin] 200 mg PO QHS #14 cap 10/18/17 Melatonin 3 mg PO QHS tablet 10/18/17 Topiramate [Topamax] 100 mg PO BID #60 tab 10/18/17 levETIRAcetam tablet [Keppra tablet] 500 mg PO BID #60 tab 10/18/17 Following Prescrptions Were Given to Patient: Amoxicillin/Potassium Clav [Augmentin 875-125 Tablet] 1 ea PO BID #10 tab Gabapentin [Neurontin] 200 mg PO QHS #14 cap Topiramate [Topamax] 100 mg PO BID #60 tab levETIRAcetam tablet [Keppra tablet] 500 mg PO BID #60 tab Primary Care Physician: Jeremi Monk MD [Primary Care Provider] - Please follow up with your Primary Care Physician in: 1-2 weeks Please Follow Up With: Jese Jacob - Neurosurgeon When: 2 days Please Follow Up With: Maribeth Trimble MD - Neurology When: 4-6 weeks Disposition: Home Minutes spent on discharge:: 35 Patient Condition:: Stable Medical Necessity - Tobacco Use Smoking Status: Never smoker Tobacco Use: Non-smoker Meaningful Use Info Meaningful Use Diagnoses (Choose all that apply): None applicable <Sarah Roe - Last Filed: 10/18/17 14:51> Discharge Date and Diagnosis - Secondary Discharge Diagnosis Chronic Problems (Last Reviewed 06/30/17 @ 14:05 by Rayna Mera) Bilateral carotid artery stenosis (Chronic) GERD (gastroesophageal reflux disease) (Chronic) Hyperlipidemia (Chronic) Hypertension (Chronic) Hospital Course and Treatment Summary of Care Provided: Patient seen under my supervision by Maciel Yang PA-C The patient is a 77 year old M [facility] as mentioned above. He was admitted from [facility] after presenting there with a compolaint of headaches and flashes of light, with associated jerking movements of his LUE and staring episodes. He was given loading dose of Keppra and Ativan after which symptoms resolved. CT of the head done was negative. Was started on Unasyn for one blood culture which showed bacteria, exact bacteria is nonspecific. Patient's Keppra had been tapered down in the past and according to his , he had been taking Topamax for migraine prophylaxis. During this admission workup for stroke was negative namely MRI, MRA and CT were negative. EEG showed mild generalized slowing which could be seen with generalized cerebral dysfunction like metabolic/toxic encephalopathy. There were no epileptiform seizures or electrographic seizures noted during the EEG. Patient's dose of Keppra was increased and his Topamax was also increased. He had completed a dose of acyclovir for shingles but complained of persistent pain. He was put on Neurontin for postherpetic neuralgia. Patient remained stable and was discharged on Keppra, Topamax and gabapentin. Patient seen and examined prior to discharge. o/e: [] General: Alert, Oriented x3, Cooperative, - - mild distress due to pain from shingles HEENT: Atraumatic, PERRLA, EOMI, Normocephalic Oral: Moist Mucosa Neck: Supple, No JVD, Negative Carotid Bruits Lungs: Clear to auscultation, Normal air movement, No rhonchi, No wheeze, No rales Cardiovascular: Regular rate, Regular Rhythm, Normal S1, Normal S2, No murmurs Abdomen: Bowel Sounds Present, Soft, Non Tender, Non-Distended, No Hepato- splenomegaly Extremities: No clubbing, No cyanosis, No edema, Capillary Refill Less than 3 Seconds Skin: No rashes, No breakdown Musculoskeletal: No Tenderness to Palpation of Joints or Extremities Lymphatic: No Cervical, Supraclavicular, or Inguinal Adenopathy Neurological: Cranial nerves II-XII grossly intact, Motor Exam 5/5 strength throughout Psych/Mental Status: Normal Affect, Appropriate, Alert and oriented to time, place, person, mood and affect Plan as documented above. To follow up with PCP, neurologist and neurosurgeon. Agree with Maciel Yang PA-C's note and assessment and plan. Code Visit Inpatient E&M: 79691 Disch Hosp
--- NOTE | 2017-10-19 15:39 | CASEMGMT ---
Addendum entered by Mariaa Leonard 10/20/17 09:23: Patient's , Fallon, returned call requesting blood culture results. I updated Fallon with preliminary results. She states that she is with her at [facility], right now, for his follow-up for carotid stent. She states they signed release and [facility] is sending request for medical records now. No further questions/concerns at this time. Original Note: Follow-up Call: Follow-up call placed to the patient with no answer. Voicemail left with return contact information.
== END 2017-10-18 14:10 | disposition home or self-care (01) | DRG 103 ==
PROVIDERS: Admitting Provider Internal Medicine; Family Provider Family Medicine; PCP Family Medicine; Visit Provider Student in an Organized Health Care Education/Training Program
DX: G43.109 Migraine with aura, not intractable, without status migrainosus (principal); B02.29 Other postherpetic nervous system involvement; E78.5 Hyperlipidemia, unspecified; K21.9 Gastro-esophageal reflux disease without esophagitis; I10 Essential (primary) hypertension; Z86.73 Personal history of transient ischemic attack (TIA), and cerebral infarction without residual deficits; G40.909 Epilepsy, unspecified, not intractable, without status epilepticus; I65.23 Occlusion and stenosis of bilateral carotid arteries
CPT/HCPCS: 36415; 70498; 70544; 70549; 70551; 80048; 80061; 84484; 85025; 87040; 95819; 97162; 97166; A9585; J7040; Q9967; A4216; J0290

== ENCOUNTER 2017-12-02 11:21 | Inpatient (IN) | payer MEDICARE, OTHER, SELFPAY ==
[2017-12-02] VITALS (13 sets, daily range): BP systolic 118–170; BP diastolic 65–92; PULSE 61–84; RESP 10–27; TEMP 36.7–36.9; O2SAT 95–98; BMI 21.4; BMI 21.5; BMI 20.9
--- NOTE | 2017-12-02 11:24 | RAD_ITS ---
STUDY: X-RAY CHEST REASON FOR EXAM: Male, 77 years old. Neurological symptoms. TECHNIQUE: Single AP portable view of the chest. COMPARISON: Comparison is made with prior study dated June 02, 2017. FINDINGS: EKG electrodes are seen. Hyperinflation. Decreased bronchovascular markings in both lungs suggestive of emphysematous change. No acute abnormality is seen. There is no demonstrated pleural abnormality. Normal size heart. Normal mediastinum and santos. Normal visualized pulmonary arteries. There is atherosclerotic calcification of the aortic arch with tortuosity. There are diffuse degenerative changes of the visualized thoracic spine. Normal visualized ribs, clavicles, and shoulders. There is no demonstrated abnormality of the visualized soft tissue structures of the upper abdomen. RAD/Chest 1 View IMPRESSION: Hyperinflation. Electronically Signed: Keanu Mallory MD at 14:23 EDT Tel [phone], Service support ,
--- NOTE | 2017-12-02 11:24 | EKG12_ITS ---
Test Reason : NEURO Blood Pressure : / mmHG Vent. Rate : 070 BPM Atrial Rate : 070 BPM P-R Int : 168 ms QRS Dur : 094 ms QT Int : 402 ms P-R-T Axes : 065 028 053 degrees QTc Int : 434 ms Normal sinus rhythm Normal ECG Confirmed by SHERICE ARCOS, JOSE JUAN ([id number]), continuity editor JAMSHID IQBAL ([id number]) on 12/05/2017 3:10:02 PM Referred By: KALE Confirmed By:JOSE JUAN SMILEY MD
--- NOTE | 2017-12-02 11:24 | CT_ITS ---
STUDY: CT BRAIN WITHOUT CONTRAST REASON FOR EXAM: Male, 77 years old. Left-sided weakness. Headaches. History of CVA. RADIATION DOSAGE (If Supplied By Facility): CTDIvol = ( 44.99 ) mGy, DLP = ( 796.63 ) mGycm TECHNIQUE: Transaxial CT imaging of the brain was performed without administration of intravenous contrast material. Individualized dose optimization techniques were used for this CT. COMPARISON: Comparison is made with prior study dated June 01, 2017. FINDINGS: Normal soft tissue structures. Normal calvarium. There is mild cerebral atrophy with widening of the extra-axial spaces and ventricular dilatation. There are areas of decreased attenuation within the white matter tracts of the supratentorial brain, consistent with microvascular disease changes. Stable focal area of encephalomalacia in the posterior medial aspect of the right occipital lobe. Normal basal ganglia and thalami. Normal brainstem. Normal cerebellum. There is no intracranial hemorrhage. There are no findings of an acute ischemic infarction. There is a 1.5 cm mucosal polyp or retention cyst along the anterior aspect of the right maxillary sinus. Minimal mucosal thickening of the left maxillary sinus. 1.1 cm cyst or polyp in the anterior aspect of the right sphenoid sinus. CT/Brain/Head without Contrast IMPRESSION: Chronic involutional changes of the brain. Electronically Signed: Keanu Mallory MD at 15:27 EDT Tel [phone], Service support ,
[2017-12-02] MEDS: LORazepam 2 MG/ML Syringe 1 MG IV (11:32)
--- NOTE | 2017-12-02 11:33 | CT_ITS ---
STUDY: CTA NECK WITH CONTRAST REASON FOR EXAM: Male, 77 years old. CVA. Left-sided weakness and headaches. History of prior right carotid stent. RADIATION DOSAGE (If Supplied By Facility): CTDIvol = ( 21.61 ) mGy, DLP = ( 726.63 ) mGycm TECHNIQUE: CT angiography with multi-detector data acquisition was performed from the aortic arch to the skull base following intravenous administration of 100mL ml of Isovue 370 contrast. MIP images were reconstructed from the axial data set. Post-processing of the angiographic images was performed, with multiplanar reformation and 3D reconstruction. Individualized dose optimization techniques were used for this CT. COMPARISON: Comparison is made with prior study dated October 16, 2017. FINDINGS: AORTIC ARCH: There is atherosclerotic calcific plaque formation of the aortic arch and great vessels arising from the aortic arch, without a hemodynamically significant stenosis. There is a normal origin of the brachiocephalic, left common carotid, and left subclavian arteries. RIGHT CAROTID ARTERIES: Normal right common carotid artery (CCA). Normal right common carotid bulb. A stent is once again seen in the proximal portion of the right internal carotid artery. The stent is patent. Normal visualized cervical portion of the right internal carotid artery. Normal origin of the right external carotid artery (ECA). LEFT CAROTID ARTERIES: Normal left common carotid artery (CCA). Normal left common carotid bulb. There is mild atherosclerotic plaque formation of the origin of the left internal carotid artery with less than 50% cross sectional diameter stenosis. Normal visualized cervical portion of the left internal carotid artery. Normal origin of the left external carotid artery (ECA). VERTEBRAL ARTERIES: There is enhancement within the bilateral vertebral arteries with a small left vertebral artery, and a dominant right vertebral artery. CT/CTA Neck W/WO Contrast IMPRESSION: Stable examination. Patent right internal carotid artery stent. Electronically Signed: Keanu Malloyr MD at 14:59 EDT Tel [phone], Service support ,
--- NOTE | 2017-12-02 11:33 | CT_ITS ---
STUDY: CTA OF THE BRAIN REASON FOR EXAM: Male, 77 years old. Left-sided weakness. Headaches. History of CVA. RADIATION DOSAGE (If Supplied By Facility): CTDIvol = ( 21.61 ) mGy, DLP = ( 726.63 ) mGycm TECHNIQUE: CT angiography was performed with a multi-detector CT scanner. Data acquisition was obtained from the skull base through the vertex following intravenous administration of 100 ml of Isovue-370. MIP images were reconstructed from the axial data set. Post-processing of the angiographic images was performed, with multiplanar reformation and 3D reconstruction. Individualized dose optimization techniques were used for this CT. COMPARISON: None. FINDINGS: Normal bilateral petrous carotid arteries. There is calcified plaque formation of the right cavernous carotid artery, without a cross-sectional luminal stenosis. There is calcified plaque formation of the left cavernous carotid artery, without a cross-sectional luminal stenosis. Normal right A1 segments of the anterior cerebral artery. Normal left A1 segments of the anterior cerebral artery. Normal intact anterior communicating artery (ACOM). Normal bilateral A2 segments of the anterior cerebral arteries. Normal right M1 and M2 segments of the middle cerebral arteries, with a normal M1 bifurcation. Normal left M1 and M2 segments of the middle cerebral arteries, with a normal M1 bifurcation. Normal right posterior communicating artery (PCOM). Normal left posterior communicating artery (PCOM). Normal bilateral vertebral arteries. Normal basilar artery with a normal basilar bifurcation. The visualized bilateral superior cerebellar (SCA) arteries are normal. Normal bilateral P1, P2 and visualized P3 segments of the posterior cerebral arteries. There is no demonstrated aneurysm of the [place]. There is no demonstrated abnormality of the visualized brain. CT/CTA Head W/WO Contrast IMPRESSION: Normal [place] without a demonstrated aneurysm or hemodynamically significant stenosis. Electronically Signed: Keanu Mallory MD at 14:39 EDT Tel [phone], Service support ,
[2017-12-02 11:37] LABS: Absolute Lymphocyte Count 2.33 X10^3/ul (0.83-4.51); Absolute Neutrophil Count 4.3 X10^3/uL (2.0-7.7); Basophil# 0.02 X10^3/uL; Basophil% 0.3 % (0-1); Eosinophil# 0.37 X10^3/uL; Eosinophils% 4.9 % (0-5); Hematocrit 40.5 % (40-54); Hemoglobin 13.5 g/dl (13.0-16.5); Lymphocyte # 2.33 X10^3/ul (4.0); Lymphocyte % 30.9 % (19-41); Mean Corp Hgb Conc 33.3 g/gl (32-36); Mean Corpuscular Hgb 30.8 pg (27.0-32.0); Mean Corpuscular Volume 92.3 fL (80-94); Mean Platelet Vol. 10.2 fl (6.2-12.0); Monocyte# 0.47 X10^3/uL; Monocyte% 6.2 % (0-10); Neutrophil # 4.34 X10^3/uL (2.7-7.7); Neutrophil % 57.7 % (47-70); POSITIVE COUNT NO; POSITIVE DIFFERENTIAL NO; POSITIVE MORPHOLOGY NO; Platelet Count 176 K/mm3 (150-450); RBC Distribution Width CV 12.7 % (11.6-14.6); RBC Distribution Width SD 42.9 fl (35.1-43.9); Red Blood Count 4.39 M/mm3 (4.6-6.2); White Blood Count 7.5 K/mm3 (4.4-11.0)
[2017-12-02 11:52] LABS: Anion Gap 9 (5-15); BUN 12 mg/dL (7-18); BUN/Creat Ratio 11.4 RATIO (10-20); Calcium,Total 8.8 mg/dL (8.5-10.1); Chloride 105 mmol/L (98-107); Creatinine, Serum 1.05 mg/dL (0.70-1.30); EST Glomerular Filtration Rate 73 mL/min (>60); Est Glom Filt Rate - Afr Amer 88 mL/min (>60); Estimated Creatinine Clearance 61.58 ml/min; Glucose 94 mg/dL (74-106); Potassium 3.8 mmol/L (3.5-5.1); Sodium Level 139 mmol/L (136-145)
[2017-12-02 11:57] LABS: International Normalized Ratio 1.1; Prothrombin Time (Protime)PT. 13.8 SECONDS (11.7-14.9)
[2017-12-02 12:06] LABS: Bedside Glucose 80 mg/dL (70-110)
--- NOTE | 2017-12-02 12:12 | ED.VISSUMM ---
- ER Visit Summary Date of Service: 12/02/17 Chief Complaint: Left hand paresthesia, gaze deviation History of Present Illness: The patient is a 77 M with history of prior stroke and seizure presents with strokelike symptoms. Patient was his normal state of health. He states this morning, he woke with a mild headache. He describes some floaters in his left peripheral vision. His states that he has had the same symptoms before with migraine. She states that she placed a heating pad on the back of his neck and his headache resolved. She states that he was doing well. At about 11:00 this morning, he had deviation of his gaze to the left which he states he has had both before stroke and seizure. He began to complain of some paresthesias in the left hand. Had no trouble speaking or swallowing. He denies any weakness. He denies any other symptoms. Physical Examination: Vital signs reviewed General: Well-nourished, well-developed Head: Normocephalic, atraumatic Eyes: Pupils equal and reactive, extraocular muscles intact Neck, supple, no lymphadenopathy Heart: Regular rate and rhythm Respiratory: No distress, clear bilaterally Abdomen: Soft, nontender, nondistended, no peritoneal signs Back: Nontender Extremities: Nontender, no edema, no cords Skin: Normal color no rash Neuro: Alert and oriented, patient does have sensory change of the left hand, but no weakness. He does have left-sided gaze deviation that can be overcome. His initial NIH is to. Test Results: [] Emergency Department Course and Treatment: The patient has an NIH of 2 on arrival. He does have left gaze deficit that he can overcome. He also has paresthesias of the left hand. He was sent for stat head CT which did not show any acute change, but does show evidence of his prior stroke. Screening labs were obtained and were unremarkable. The patient did have total resolution of his symptoms while here. CTAs were obtained which showed no significant obstructive pattern. I cannot tell if this patient has a focal seizure versus a TIA. I do feel that he is going to require admission for MRI and neurology consult. Patient was discussed with the hospitalist and will be admitted. Treatment Plan: [] Disposition: Admission Impression: 1. TIA This note was generated with [employer] dictation software. It may contain incorrect words, spelling, and punctuation that were not noted in review of the chart prior to signing ED Disposition - Plan for ED Patient: Chief Complaint: Neuro S/Sx Referrals: Jeremi Monk MD [Primary Care Provider] -
--- NOTE | 2017-12-02 13:27 | PCM.HP.STD ---
Problem List (1) TIA (transient ischemic attack) Status: Acute (2) Migraine Status: Acute Qualifiers: Migraine type: other Status migrainosus presence: without status migrainosus Intractability: intractable Qualified Code(s): G43.819 - Other migraine, intractable, without status migrainosus (3) Seizure Status: Acute (4) Bilateral carotid artery stenosis Status: Chronic (5) GERD (gastroesophageal reflux disease) Status: Chronic Qualifiers: Esophagitis presence: esophagitis presence not specified Qualified Code(s): K21.9 - Gastro-esophageal reflux disease without esophagitis (6) Hyperlipidemia Status: Chronic Qualifiers: Hyperlipidemia type: pure hypercholesterolemia Qualified Code(s): E78.00 - Pure hypercholesterolemia, unspecified; E78.0 - Pure hypercholesterolemia (7) Hypertension Status: Chronic Qualifiers: Hypertension type: essential hypertension (8) Stroke Status: Chronic Qualifiers: CVA mechanism: unspecified Qualified Code(s): I63.9 - Cerebral infarction, unspecified History of Present Illness Date of Admission: 12/02/17 Chief Complaint: Vision changes, Extremity weakness, Confusion The patient is a 77 y/o M w/ PMHx: 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 Jacob 08/31/2017 at [facility]), Complex Migraine history, Partial Seizure Hx recently tapered off Keppra ~ 1 weeks prior (had been on 500 mg BID but tapered to off), GERD, HTN, HLD who presents to the [facility] ED on 12/02/17 w/ history of onset at ~ 6:30 am visual changes L eye changes w/ noted ceiling fan description of his L eye vision w/ L posterior to eye pressure-like sensation headache w/ application of heating pad to his neck with improvement but on continued headache with then onset at 11 am L sided gaze deviation that he was able to overcome, L sided upper extremity paresthesias and concern for possible L sided weakness in addition as well as progression of his headache to behind both eyes, described still as pressure-like sensation, noted similar to sinus pressure he noted. did note that he improved prior to ED presentation and upon ED presentation initial NIH 2 with resolution while in the ED to NIH 0. Work-up in the ED included T 98, heart rate 74, BP initially 170/80-->122/65, respiratory rate 16, 95% on room air, unremarkable CBC, unremarkable coags, unremarkable BMP, troponin less than 0.015, CT brain with prior evidence CVA R occipital, CTA head and neck with patient R carotid stent and 50% L ICA, Chest x-ray with no acute findings, EKG w/ SR without acute evidence of ischemia. In the emergency room patient administered Ativan 1 mg IV ?1. Neurology consulted in the ED with recommendation to hold on administration of keppra 1,000 mg IV which had been discussed with the ED physician and requested. Past Medical History Past Medical History (Chronic Problems): Chronic Problems (Last Reviewed 06/30/17 @ 14:05 by Rayna Mera) Bilateral carotid artery stenosis (Chronic) GERD (gastroesophageal reflux disease) (Chronic) Hyperlipidemia (Chronic) Hypertension (Chronic) Stroke (Chronic) Medical History: Medical History (Last Reviewed 06/30/17 @ 14:05 by Rayna Mera) Seizure (Chronic) R56.9 Bilateral carotid artery stenosis (Chronic) I65.23 GERD (gastroesophageal reflux disease) (Chronic) K21.9 Hyperlipidemia (Chronic) E78.5 Hypertension (Chronic) I10 Stroke (Chronic) I63.9 Migraine G43.909 Hiatal hernia K44.9 History of stroke Z86.73 2007,2012 Allergies cefdinir Adverse Reaction (Verified 06/30/17 13:56) Other lowers seizure threshold seasonal Allergy (Mild, Uncoded 06/30/17 13:56) Other Pt gets runny nose, sneezing, headache. Home Medications: Ambulatory Orders Medication Instructions Recorded Guar Gum [Benefiber] 1 ea PO DAILY 07/24/13 Lansoprazole [Prevacid] 30 mg PO DAILY@0600 07/24/13 Calcium Carbonate [Tums] 750 mg PO QHS PRN 05/30/17 Cyanocobalamin (Vitamin B-12) 1,000 mcg PO DAILY 05/30/17 [Vitamin B-12] Atorvastatin Calcium [Lipitor] 40 mg PO QHS 06/06/17 albuterol sulfate HFA 90 2 puff INHALATION Q6H PRN 06/30/17 mcg/actuation aerosol inhaler cholecalciferol (vitamin D3) 2,000 2,000 unit PO QDAY 06/30/17 unit capsule hydrocortisone acetate 25 mg 25 mg RC PRN PRN 06/30/17 rectal suppository Aspirin E.C. 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 Psychiatric History: No pertinent psych hx Lives: Spouse/ Significant Other Smoking Status: Never smoker Tobacco Use: Non-smoker Alcohol: None Drugs: None - *Family History Maternal Family History: Family History (Last Reviewed 06/30/17 @ 14:05 by Rayna Mera) Mother Heart disease Hypertension Uncle CAD (coronary artery disease) Myocardial infarction History Items: Heart Disease, Hypertension, - - Patient notes maternal uncle with coronary disease and history of MT. Paternal Family History: Family History (Last Reviewed 06/30/17 @ 14:05 by Rayna Mera) Mother Heart disease Hypertension Uncle CAD (coronary artery disease) Myocardial infarction History Items: - - Father with a history of lung cancer, noted concurrent tobacco user. Review of Systems Constitutional: Reports: Malaise, Weakness, Fatigue. Denies: Chills, Fever, Weight Change HEENT: Reports: Visual Changes, - - Sinus pressure.. Denies: Head Aches, Sinus Congestion, Sinus Drainage Cardiovascular: Denies: Chest Pain, Palpitations Respiratory: Denies: Cough, Shortness of breath at rest, Sputum production Gastrointestinal: Denies: Abdominal Pain, Nausea, Vomiting Genitourinary: Denies: Dysuria Musculoskeletal: Reports: Back Pain. Denies: Joint Pain, Joint Tenderness Skin: Denies: Rash, Wounds Neurological: Reports: Blurred vision, Confusion, Focal weakness, Numbness, Tingling, Seizures Psychiatric: Denies: Anxiety, Depression, Homicidal Ideations, Suicidal Ideations Hematologic/ Lymphatic: Denies: Easy Bruising, Easy Bleeding VTE Information - Inpt Only VTE Present on Admission: No VTE Mechan Device Prophylaxis: SCD's VTE Pharm Prophylaxis ordered?: Yes Patient Problems: Active and Suspected Problems (Last Reviewed 06/30/17 @ 14:05 by Rayna Mera) TIA (transient ischemic attack) (Acute) Subjective: Seated upright in the ED bed, flat affect, fatigued appearance, hard of hearing. Objective: Physical Examination: General: awake, alert, slow responses but oriented to self, place, month, year, president which is improved from prior, fatigued appearance and extremely flat sluggish affect, good upright in the ED bed, no acute distress. Skin: normal color, turgor, no icterus, cyanosis. HEENT: AT/NC, EOMI, PERRLA, mild R facial nerve palsy, mildly dry MM, no carotid bruits or JVD noted. Lungs: CTA bilaterally, moderate effort, mild decrease BL bases, no rales, ronchi or wheezing. Heart: Regular rate and rhythm; no gallop, rub audible. Abdomen: soft, NTTP, ND, normal BS, no HSM. Extremities: no cyanosis, clubbing, or edema. Neurological: awake, alert, slow responses but oriented to self, place, month, year, president which is improved from prior, fatigued appearance and extremely flat sluggish affect; cognitive function improved, but does not appear baseline intact; pupils equally reactive to light and accomodation; cranial nerves II-XII grossly normal except mild R facial nerve palsy, moving all 4 extremities, no focal deficits, strength moderately globally decreased, negative babinski, normal FTN/HTS, very slow to follow commands. Psychiatric: affect appears flat, sluggish, no acute evidence of depressive or anxiety feelings. - Physical Exam Vital Signs Temp Pulse Resp BP Pulse Ox 98.0 F 61 16 122/65 H 95 12/02/17 11:22 12/02/17 12:30 12/02/17 12:30 12/02/17 12:30 12/02/17 12:30 Oxygen Delivery Method Room Air Weight: 162 lb 14.746 oz Body Mass Index (BMI) 21.4 Finger Stick Blood Glucose 80 Laboratory Tests Past 24 Hrs 12/02/17 12/02/17 12/02/17 11:30 11:30 11:30 WBC 7.5 RBC 4.39 L Hgb 13.5 Hct 40.5 MCV 92.3 MCH 30.8 MCHC 33.3 RDW 12.7 RDW Differential 42.9 Plt Count 176 MPV 10.2 Immature Gran % (Auto) 0.000 Neut % (Auto) 57.7 Lymph % (Auto) 30.9 [place] % (Auto) 6.2 Eos % (Auto) 4.9 Baso % (Auto) 0.3 Absolute Neuts (auto) 4.3 Absolute Lymphs (auto) 2.33 Total Counted Not Reportable PT 13.8 INR 1.1 APTT 30.0 Sodium 139 Potassium 3.8 Chloride 105 Carbon Dioxide 25.0 Anion Gap 9 BUN 12 Creatinine 1.05 Estim Creat Clear Calc 61.58 Est GFR (MDRD) Af Amer 88 Est GFR (MDRD) Non-Af 73 BUN/Creatinine Ratio 11.4 Glucose 94 Calcium 8.8 Troponin I < 0.015 POC Glucose 12/02/17 12:00 POC Glucose 80 Assessment/Plan All Active Problems (Last Reviewed 06/30/17 @ 14:05 by Rayna Mera) Migraine (Acute) TIA (transient ischemic attack) (Acute) Seizure (Acute) The patient is a 77 y/o M w/ PMHx: 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, Hx R ICA stenosis > 80% s/p intervention w/ stenting and L carotid < 50%, Complex Migraine history, Partial Seizure Hx recently tapered off Keppra ~ 1 weeks prior, GERD, HTN, HLD who presents to the [facility] ED on 12/02/17 w/ history of onset at ~ 6:30 am visual changes L eye changes w/ noted ceiling fan description of his L eye vision w/ L posterior to eye pressure-like sensation headache w/ application of heating pad to his neck with improvement but on continued headache with then onset at 11 am L sided gaze deviation that he was able to overcome, L sided upper extremity paresthesias and concern for possible L sided weakness in addition as well as progression of his headache to behind both eyes, described still as pressure-like sensation, noted similar to sinus pressure he noted. (1) Transient L Sided Weakness, Paresthesias, Vision Changes concerning for TIA/CVA versus Complex Migraine versus Partial Seizure: Work-up in the ED included T 98, heart rate 74, BP initially 170/80-->122/65, respiratory rate 16, 95% on room air, unremarkable CBC, unremarkable coags, unremarkable BMP, troponin less than 0.015, CT brain with prior evidence CVA R occipital, CTA head and neck with patient R carotid stent and 50% L ICA, Chest x-ray with no acute findings, EKG w/ SR without acute evidence of ischemia. Patient was administered ativan IV x 1 in the ED. Will admit to PCU, will obtain MRI Brain, defer repeat ECHO w/ /03/07 EF 60%, stage I diastolic dysfunction, saline contrast study demonstrating trivial right to left interatrial shunt, RVSP 23 mmHg, PT/OT/Speech/Nutrition evaluation per protocol. Will consult Neurology for evaluation. Will allow permissive HTN, maintain on asa transitioned to 81 mg and add back plavix, continue home statin w/ AM FLP, fall precautions, obtain mag level, obtain TSH level, obtain EEG, given history inclined to initiate keppra 1,000 mg IV bolus in the ED and restart keppra 500 mg BID; however, Neurology deferred and increased patient topamax w/ more suspicion for complex migraine. PRN ativan seizure activity. 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 Patient had Right CEA attempted by Dr. 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 Jacob 08/31/2017 at [facility]. As noted maintain on reduced asa, adding back plavix, continue statin w/ AM FLP. (3) Hx Partial Seizure: Concern initially for recurrence; however, Neurology feels likely more complex migraine and restart keppra which patient had recently tapered off ~ 1 week prior to current presentation deferred. Seizure precautions, EEG ordered, PRN ativan. (4) Hypertension: Not on regimen, BP appears at goal, monitor and add regimen if appropriate. (5) Hyperlipidemia: Continue home statin regimen. AM FLP. (6) GERD: Famotidine. (7) DVT Prophylaxis: SCDs, lovenox. Code Visit Inpatient E&M: 34706 Init Hosp L3
--- NOTE | 2017-12-02 13:34 | NURSING ---
DR SHAH FOR DR HENLEY
--- NOTE | 2017-12-02 13:37 | HP.PCM_ITS ---
Problem List (1) TIA (transient ischemic attack) Status: Acute (2) Migraine Status: Acute Qualifiers: Migraine type: other Status migrainosus presence: without status migrainosus Intractability: intractable Qualified Code(s): G43.819 - Other migraine, intractable, without status migrainosus (3) Seizure Status: Acute (4) Bilateral carotid artery stenosis Status: Chronic (5) GERD (gastroesophageal reflux disease) Status: Chronic Qualifiers: Esophagitis presence: esophagitis presence not specified Qualified Code(s) : K21.9 - Gastro-esophageal reflux disease without esophagitis (6) Hyperlipidemia Status: Chronic Qualifiers: Hyperlipidemia type: pure hypercholesterolemia Qualified Code(s): E78.00 - Pure hypercholesterolemia, unspecified; E78.0 - Pure hypercholesterolemia (7) Hypertension Status: Chronic Qualifiers: Hypertension type: essential hypertension (8) Stroke Status: Chronic Qualifiers: CVA mechanism: unspecified Qualified Code(s): I63.9 - Cerebral infarction, unspecified History of Present Illness Date of Admission: 12/02/17 Chief Complaint: Vision changes, Extremity weakness, Confusion The patient is a 77 y/o M w/ PMHx: 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 Jacob 08/31/2017 at [facility]), Complex Migraine history, Partial Seizure Hx recently tapered off Keppra ~ 1 weeks prior (had been on 500 mg BID but tapered to off), GERD, HTN, HLD who presents to the [facility] ED on 12/02/17 w/ history of onset at ~ 6:30 am visual changes L eye changes w/ noted ceiling fan description of his L eye vision w/ L posterior to eye pressure-like sensation headache w/ application of heating pad to his neck with improvement but on continued headache with then onset at 11 am L sided gaze deviation that he was able to overcome, L sided upper extremity paresthesias and concern for possible L sided weakness in addition as well as progression of his headache to behind both eyes, described still as pressure-like sensation, noted similar to sinus pressure he noted. did note that he improved prior to ED presentation and upon ED presentation initial NIH 2 with resolution while in the ED to NIH 0. Work-up in the ED included T 98, heart rate 74, BP initially 170/80-->122/65, respiratory rate 16, 95% on room air, unremarkable CBC, unremarkable coags, unremarkable BMP, troponin less than 0.015, CT brain with prior evidence CVA R occipital, CTA head and neck with patient R carotid stent and 50% L ICA, Chest x -ray with no acute findings, EKG w/ SR without acute evidence of ischemia. In the emergency room patient administered Ativan 1 mg IV ?1. Neurology consulted in the ED with recommendation to hold on administration of keppra 1,000 mg IV which had been discussed with the ED physician and requested. Past Medical History Past Medical History (Chronic Problems): Chronic Problems (Last Reviewed 06/30/17 @ 14:05 by Rayna Mera) Bilateral carotid artery stenosis (Chronic) GERD (gastroesophageal reflux disease) (Chronic) Hyperlipidemia (Chronic) Hypertension (Chronic) Stroke (Chronic) Medical History: Medical History (Last Reviewed 06/30/17 @ 14:05 by Rayna Mera) Seizure (Chronic) R56.9 Bilateral carotid artery stenosis (Chronic) I65.23 GERD (gastroesophageal reflux disease) (Chronic) K21.9 Hyperlipidemia (Chronic) E78.5 Hypertension (Chronic) I10 Stroke (Chronic) I63.9 Migraine G43.909 Hiatal hernia K44.9 History of stroke Z86.73 2007,2012 Allergies cefdinir Adverse Reaction (Verified 06/30/17 13:56) Other lowers seizure threshold seasonal Allergy (Mild, Uncoded 06/30/17 13:56) Other Pt gets runny nose, sneezing, headache. Home Medications: Ambulatory Orders Medication Instructions Recorded Guar Gum [Benefiber] 1 ea PO DAILY 07/24/13 Lansoprazole [Prevacid] 30 mg PO DAILY@0600 07/24/13 Calcium Carbonate [Tums] 750 mg PO QHS PRN 05/30/17 Cyanocobalamin (Vitamin B-12) 1,000 mcg PO DAILY 05/30/17 [Vitamin B-12] Atorvastatin Calcium [Lipitor] 40 mg PO QHS 06/06/17 albuterol sulfate HFA 90 2 puff INHALATION Q6H PRN 06/30/17 mcg/actuation aerosol inhaler cholecalciferol (vitamin D3) 2,000 2,000 unit PO QDAY 06/30/17 unit capsule hydrocortisone acetate 25 mg 25 mg RC PRN PRN 06/30/17 rectal suppository Aspirin E.C. 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 Psychiatric History: No pertinent psych hx Lives: Spouse/ Significant Other Smoking Status: Never smoker Tobacco Use: Non-smoker Alcohol: None Drugs: None - *Family History Maternal Family History: Family History (Last Reviewed 06/30/17 @ 14:05 by Rayna Mera) Mother Heart disease Hypertension Uncle CAD (coronary artery disease) Myocardial infarction History Items: Heart Disease, Hypertension, - - Patient notes maternal uncle with coronary disease and history of FL. Paternal Family History: Family History (Last Reviewed 06/30/17 @ 14:05 by Rayna Mera) Mother Heart disease Hypertension Uncle CAD (coronary artery disease) Myocardial infarction History Items: - - Father with a history of lung cancer, noted concurrent tobacco user. Review of Systems Constitutional: Reports: Malaise, Weakness, Fatigue. Denies: Chills, Fever, Weight Change HEENT: Reports: Visual Changes, - - Sinus pressure.. Denies: Head Aches, Sinus Congestion, Sinus Drainage Cardiovascular: Denies: Chest Pain, Palpitations Respiratory: Denies: Cough, Shortness of breath at rest, Sputum production Gastrointestinal: Denies: Abdominal Pain, Nausea, Vomiting Genitourinary: Denies: Dysuria Musculoskeletal: Reports: Back Pain. Denies: Joint Pain, Joint Tenderness Skin: Denies: Rash, Wounds Neurological: Reports: Blurred vision, Confusion, Focal weakness, Numbness, Tingling, Seizures Psychiatric: Denies: Anxiety, Depression, Homicidal Ideations, Suicidal Ideations Hematologic/ Lymphatic: Denies: Easy Bruising, Easy Bleeding VTE Information - Inpt Only VTE Present on Admission: No VTE Mechan Device Prophylaxis: SCD's VTE Pharm Prophylaxis ordered?: Yes Patient Problems: Active and Suspected Problems (Last Reviewed 06/30/17 @ 14:05 by Rayna Mera) TIA (transient ischemic attack) (Acute) Subjective: Seated upright in the ED bed, flat affect, fatigued appearance, hard of hearing. Objective: Physical Examination: General: awake, alert, slow responses but oriented to self, place, month, year, president which is improved from prior, fatigued appearance and extremely flat sluggish affect, good upright in the ED bed, no acute distress. Skin: normal color, turgor, no icterus, cyanosis. HEENT: AT/NC, EOMI, PERRLA, mild R facial nerve palsy, mildly dry MM, no carotid bruits or JVD noted. Lungs: CTA bilaterally, moderate effort, mild decrease BL bases, no rales, ronchi or wheezing. Heart: Regular rate and rhythm; no gallop, rub audible. Abdomen: soft, NTTP, ND, normal BS, no HSM. Extremities: no cyanosis, clubbing, or edema. Neurological: awake, alert, slow responses but oriented to self, place, month, year, president which is improved from prior, fatigued appearance and extremely flat sluggish affect; cognitive function improved, but does not appear baseline intact; pupils equally reactive to light and accomodation; cranial nerves II- XII grossly normal except mild R facial nerve palsy, moving all 4 extremities, no focal deficits, strength moderately globally decreased, negative babinski, normal FTN/HTS, very slow to follow commands. Psychiatric: affect appears flat, sluggish, no acute evidence of depressive or anxiety feelings. - Physical Exam Vital Signs Temp Pulse Resp BP Pulse Ox 98.0 F 61 16 122/65 H 95 12/02/17 11:22 12/02/17 12:30 12/02/17 12:30 12/02/17 12:30 12/02/17 12:30 Oxygen Delivery Method Room Air Weight: 162 lb 14.746 oz Body Mass Index (BMI) 21.4 Finger Stick Blood Glucose 80 Laboratory Tests Past 24 Hrs 12/02/17 12/02/17 12/02/17 11:30 11:30 11:30 WBC 7.5 RBC 4.39 L Hgb 13.5 Hct 40.5 MCV 92.3 MCH 30.8 MCHC 33.3 RDW 12.7 RDW Differential 42.9 Plt Count 176 MPV 10.2 Immature Gran % (Auto) 0.000 Neut % (Auto) 57.7 Lymph % (Auto) 30.9 Angelina % (Auto) 6.2 Eos % (Auto) 4.9 Baso % (Auto) 0.3 Absolute Neuts (auto) 4.3 Absolute Lymphs (auto) 2.33 Total Counted Not Reportable PT 13.8 INR 1.1 APTT 30.0 Sodium 139 Potassium 3.8 Chloride 105 Carbon Dioxide 25.0 Anion Gap 9 BUN 12 Creatinine 1.05 Estim Creat Clear Calc 61.58 Est GFR (MDRD) Af Amer 88 Est GFR (MDRD) Non-Af 73 BUN/Creatinine Ratio 11.4 Glucose 94 Calcium 8.8 Troponin I < 0.015 POC Glucose 12/02/17 12:00 POC Glucose 80 Assessment/Plan All Active Problems (Last Reviewed 06/30/17 @ 14:05 by Rayna Mera) Migraine (Acute) TIA (transient ischemic attack) (Acute) Seizure (Acute) The patient is a 77 y/o M w/ PMHx: 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, Hx R ICA stenosis > 80% s/p intervention w/ stenting and L carotid < 50%, Complex Migraine history, Partial Seizure Hx recently tapered off Keppra ~ 1 weeks prior , GERD, HTN, HLD who presents to the [facility] ED on 12/02/17 w/ history of onset at ~ 6:30 am visual changes L eye changes w/ noted ceiling fan description of his L eye vision w/ L posterior to eye pressure-like sensation headache w/ application of heating pad to his neck with improvement but on continued headache with then onset at 11 am L sided gaze deviation that he was able to overcome, L sided upper extremity paresthesias and concern for possible L sided weakness in addition as well as progression of his headache to behind both eyes, described still as pressure-like sensation, noted similar to sinus pressure he noted. (1) Transient L Sided Weakness, Paresthesias, Vision Changes concerning for TIA/ CVA versus Complex Migraine versus Partial Seizure: Work-up in the ED included T 98, heart rate 74, BP initially 170/80-->122/65, respiratory rate 16, 95% on room air, unremarkable CBC, unremarkable coags, unremarkable BMP, troponin less than 0.015, CT brain with prior evidence CVA R occipital, CTA head and neck with patient R carotid stent and 50% L ICA, Chest x-ray with no acute findings, EKG w/ SR without acute evidence of ischemia. Patient was administered ativan IV x 1 in the ED. Will admit to PCU, will obtain MRI Brain, defer repeat ECHO w / /03/07 EF 60%, stage I diastolic dysfunction, saline contrast study demonstrating trivial right to left interatrial shunt, RVSP 23 mmHg, PT/OT/ Speech/Nutrition evaluation per protocol. Will consult Neurology for evaluation. Will allow permissive HTN, maintain on asa transitioned to 81 mg and add back plavix, continue home statin w/ AM FLP, fall precautions, obtain mag level, obtain TSH level, obtain EEG, given history inclined to initiate keppra 1,000 mg IV bolus in the ED and restart keppra 500 mg BID; however, Neurology deferred and increased patient topamax w/ more suspicion for complex migraine. PRN ativan seizure activity. 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 Patient had Right CEA attempted by Dr. 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 Jacob 08/31/2017 at [facility]. As noted maintain on reduced asa, adding back plavix, continue statin w/ AM FLP. (3) Hx Partial Seizure: Concern initially for recurrence; however, Neurology feels likely more complex migraine and restart keppra which patient had recently tapered off ~ 1 week prior to current presentation deferred. Seizure precautions, EEG ordered, PRN ativan. (4) Hypertension: Not on regimen, BP appears at goal, monitor and add regimen if appropriate. (5) Hyperlipidemia: Continue home statin regimen. AM FLP. (6) GERD: Famotidine. (7) DVT Prophylaxis: SCDs, lovenox. Code Visit Inpatient E&M: 64412 Init Hosp L3
--- NOTE | 2017-12-02 13:37 | NURSING ---
PCU SEIZURE VS COMPLEX MIGRAINE WHITE
--- NOTE | 2017-12-02 13:43 | CM.ED ---
Social Work Note Face to face with pt and his , Fallon. Pt is A&Ox4, but direct this conventional underwriter to speak with his . Introduced self and role at [facility]. According to Fallon the pt and she live in a mobile home with 2 KRYSTINA and the pt denies utilization of DME. States that he has not needed it, but they know where to go if needed. Inform that PT/OT will be ordered and RN CM can watch for recommended DME needs and assist at discharge. Understanding expressed. provides transportation as the pt does not drive d/t seizures. Confirm that PCP is Dr. Jeremi Monk and the pt's specialists include Dr. Trimble (neurologist) and Dr. Jacob (neurosurgeon), at [facility]. The pt saw Dr. Jacob on October 20 and according to the was cleared and does not have to come back for a year. Both aware that case management is available for assistance with discharge. Plan: Home Kenyatta Nazario, CIVIL TRANSPORTATION ENGINEER, RESEARCH HYDROLOGIST
--- NOTE | 2017-12-02 13:51 | NURSING ---
DR SHAH IN ER
--- NOTE | 2017-12-02 14:21 | ED.RN ---
order changed per Dr Wang. hunter delaney
--- NOTE | 2017-12-02 14:46 | MRI_ITS ---
STUDY: MRI BRAIN WITHOUT CONTRAST REASON FOR EXAM: Male, 77 years old. Stroke TECHNIQUE: Standardized multiplanar fat and water weighted pulse sequences were obtained. COMPARISON: CT of the brain on December 02, 2017 MRI of the brain on October 15, 2017 FINDINGS: Moderate atrophy and minor periventricular white matter ischemic changes without evidence for acute infarct. There is gliosis and encephalomalacia in the right parieto-occipital region consistent with old infarct. Normal bilateral basal ganglia. Normal thalami. There is no extra-axial fluid accumulation. Normal flow voids within the major intracranial circulation suggesting patency by spin echo criteria. Normal sella turcica, pituitary gland, infundibular stalk, optic chiasm and hypothalamus. Normal tectal plate and pineal gland. Normal midbrain, shala and medulla. Normal cerebellum. Normal basal cisterns. Normal bilateral temporal bones. Normal bilateral internal auditory canals. No demonstrated orbital abnormality, within the constraints of a routine brain study. There is mucosal thickening within the bilateral maxillary and ethmoid air cells as well as frontal sinuses. The mucosal disease in the right maxillary sinus is complex possibly fungal in etiology. Normal calvarium and skull base. Normal visualized soft tissue structures. Normal visualized upper cervical spine. No change since prior exam on October 15, 2017 MRI/Brain without Contrast IMPRESSION: Minor periventricular white matter ischemic changes without evidence for acute infarct. Old infarct in the right parieto-occipital region Electronically Signed: Otis Guy MD at 16:57 EDT , Service support ,
--- NOTE | 2017-12-02 14:46 | ED.RN ---
PT BROUGHT UP WITH THIS RN, BEDSIDE NIH COMPLETED WITH PCU NURSE.
--- NOTE | 2017-12-02 15:06 | PCM.CONS.GEN ---
Problem List (1) Migraine Status: Acute Qualifiers: Migraine type: with aura Status migrainosus presence: without status migrainosus Intractability: intractable Qualified Code(s): G43.119 - Migraine with aura, intractable, without status migrainosus (2) Seizure Status: Chronic (3) Bilateral carotid artery stenosis Status: Chronic (4) Stroke Status: Chronic Qualifiers: CVA mechanism: unspecified Qualified Code(s): I63.9 - Cerebral infarction, unspecified Reason for Consult Date of Consultation: 12/02/17 Reason for Consultation: LAMB, H/O Stroke, h/o seizures History of Present Illness: The patient is a 77 year old CM with PMH HTN, HLD, Stroke-H/O right thalamic/IC stroke in May 2017, Right ICA > 80% stenosis, S/P right carotid stenting in August 2017 and left Carotid <50% stenosis (asymptomatic), migraine was admitted with some visual disturbances in the left eye that happened this morning (12/02/17), where he felt he was seeing some rotating ceiling fan from his left eye, then had frontal LAMB, which got better with hot compress, then around 10 am had left arm paresthesias, with left arm weakness, was slightly dragging his left foot per , these symptoms lasted for about 30 minutes before improving. At present he denies any LAMB, visual disturbances, speech disturbances, focal motor weakness or sensory loss. He was Keppra for seizures which has been weaned off for the past around 5 days, no witnessed seizures, his Keppra was weaned off since he wanted to ob less medications, was feeling less energetic and after Keppra was weaned off, he has been more energetic per . He was on dual AP post carotid stenting in August 2017, and was asked to stop Plavix last week by Dr. Fonseca, at present patient is on ASA 325 mg daily. He is on Topamax 100 mg PO BID for migraine LAMB. He has been tolerating the same well. He also has post herpetic neuralgia, was tried on Gabapentin during the last admission but it caused hallucinations, at present he gets cold compress and lidocaine patch which has helped per patient and . CT head on admission reported nothing acute, CTA head/neck reported to show patent right ICA stent and left ICA < 50% stenosis. [] Past Medical History Past Medical History (Chronic Problems): Chronic Problems (Last Reviewed 06/30/17 @ 14:05 by Rayna Mera) Seizure (Chronic) Bilateral carotid artery stenosis (Chronic) GERD (gastroesophageal reflux disease) (Chronic) Hyperlipidemia (Chronic) Hypertension (Chronic) Stroke (Chronic) Medical History: Medical History (Last Reviewed 06/30/17 @ 14:05 by Rayna Mera) Seizure (Chronic) R56.9 Bilateral carotid artery stenosis (Chronic) I65.23 GERD (gastroesophageal reflux disease) (Chronic) K21.9 Hyperlipidemia (Chronic) E78.5 Hypertension (Chronic) I10 Stroke (Chronic) I63.9 Migraine G43.909 Hiatal hernia K44.9 History of stroke Z86.73 2007,2012 Allergies cefdinir Adverse Reaction (Verified 06/30/17 13:56) Other lowers seizure threshold gabapentin Adverse Reaction (Verified 12/02/17 14:57) Other seasonal Allergy (Mild, Uncoded 06/30/17 13:56) Other Pt gets runny nose, sneezing, headache. Home Medications: Ambulatory Orders Medication Instructions Recorded Guar Gum [Benefiber] 1 ea PO DAILY 07/24/13 Lansoprazole [Prevacid] 30 mg PO DAILY@0600 07/24/13 Calcium Carbonate [Tums] 750 mg PO QHS PRN 05/30/17 Cyanocobalamin (Vitamin B-12) 1,000 mcg PO DAILY 05/30/17 [Vitamin B-12] Atorvastatin Calcium [Lipitor] 40 mg PO QHS 06/06/17 albuterol sulfate HFA 90 2 puff INHALATION Q6H PRN 06/30/17 mcg/actuation aerosol inhaler cholecalciferol (vitamin D3) 2,000 2,000 unit PO QDAY 06/30/17 unit capsule hydrocortisone acetate 25 mg 25 mg RC PRN PRN 06/30/17 rectal suppository Aspirin E.C. 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; squamous cell on back Surgical History: - - s/p local excisio of skin lesion Psychiatric History: No pertinent psych hx Lives: Spouse/ Significant Other Smoking Status: Never smoker Alcohol: None Drugs: None - *Family History Maternal Family History: Family History (Last Reviewed 06/30/17 @ 14:05 by Rayna Mera) Mother Heart disease Hypertension Uncle CAD (coronary artery disease) Myocardial infarction History Items: Heart Disease, Hypertension Paternal Family History: Family History (Last Reviewed 06/30/17 @ 14:05 by Rayna Mera) Mother Heart disease Hypertension Uncle CAD (coronary artery disease) Myocardial infarction History Items: Unknown Review of Systems Constitutional: Reports: - - complete ROS negative except as documented in HPI - Physical Exam General: Alert HEENT: Normocephalic Neck: Supple Lungs: Normal air movement Cardiovascular: Normal S1, Normal S2 Abdomen: Bowel Sounds Present Extremities: No cyanosis Musculoskeletal: No Tenderness to Palpation of Joints or Extremities Neurological: - - consious, alert, AoAx3, CN 2-12 grossly intact, power 5/5 all 4 extremities, no sensory loss, no cerebellar signs, Reflexes + B/L B/S/T/K/A, gait deferred, NIHSS 0 at present. Psych/Mental Status: Normal Affect Vital Signs Temp Pulse Resp BP Pulse Ox 98.0 F 69 18 118/92 H 96 12/02/17 11:22 12/02/17 14:00 12/02/17 14:00 12/02/17 14:00 12/02/17 14:00 Assessment/Plan All Active Problems (Last Reviewed 06/30/17 @ 14:05 by Rayna Mera) Migraine (Acute) The patient is a 77 year old CM with PMH HTN, HLD, Stroke-H/O right thalamic/IC stroke in May 2017, Right ICA > 80% stenosis, S/P right carotid stenting in August 2017 and left Carotid <50% stenosis (asymptomatic), migraine was admitted with some visual disturbances in the left eye that happened this morning (12/02/17), where he felt he was seeing some rotating ceiling fan from his left eye, then had frontal LAMB, which got better with hot compress, then around 10 am had left arm paresthesias, with left arm weakness, was slightly dragging his left foot per , these symptoms lasted for about 30 minutes before improving. At present he denies any LAMB, visual disturbances, speech disturbances, focal motor weakness or sensory loss. He was Keppra for seizures which has been weaned off for the past around 5 days, no witnessed seizures, his Keppra was weaned off since he wanted to ob less medications, was feeling less energetic and after Keppra was weaned off, he has been more energetic per . He was on dual AP post carotid stenting in August 2017, and was asked to stop Plavix last week by Dr. Fonseca, at present patient is on ASA 325 mg daily. He is on Topamax 100 mg PO BID for migraine LAMB. He has been tolerating the same well. He also has post herpetic neuralgia, was tried on Gabapentin during the last admission but it caused hallucinations, at present he gets cold compress and lidocaine patch which has helped per patient and . CT head on admission reported nothing acute, CTA head/neck reported to show patent right ICA stent and left ICA < 50% stenosis Impression Possible TIA vs complex Migraine H/O Seizures Carotid stenosis s/p right ICA stent Post herpetic neuralgia Plan -ASA 81 mg PO once daily, Plavix 75 mg PO once daily. Dual AP for 3 weeks then change to single AP with Plavix. Bleeding risks discussed -Lipitor 40 mg PO q hs -Check MRI brain w/o contrast -CTA head/neck reported to show patent right ICA stent and left ICA < 50% stenosis -Increase Topamax to 150 mg PO BID. Tolerating medication well -Avoid dehydration, avoid hypotension -Seizure precautions -Check TTE, LDL, Hba1c -Labs reviewed. -Stroke risk factors discussed and stroke education provided -Frequent neuro checks -Further medical management per primary team. -GI/DVT prophylaxis -PT/OT -Please call with questions if any -Follow up with Neurology as outpatient in 2-3 weeks -Thank you for allowing us to participate in patient's care and management I spent 60 minutes taking history, doing physical examination, reviewing medical records, coordinating care and counseling the patient and his . Code Visit Inpatient E&M: 60510 Init Hosp L3
[2017-12-02 15:36] LABS: Thyroid Stim Hormone (TSH) 0.41 uIU/mL (0.358-3.74)
[2017-12-02] MEDS: Clopidogrel Bisulfate 75 MG Tablet PO (16:34)
[2017-12-02] MEDS: Atorvastatin Calcium 40 MG Tablet PO (21:41)
[2017-12-02] MEDS: Famotidine 20 MG Tablet PO (21:41)
[2017-12-02] MEDS: 0.9% Normal Saline 1,000 ML 75 ML IV (21:44)
[2017-12-03] VITALS (8 sets, daily range): BP systolic 109–116; BP diastolic 52–61; PULSE 63–76; RESP 15–18; TEMP 36.8–36.9; O2SAT 96–98; BMI 20.9
[2017-12-03 06:41] LABS: Absolute Lymphocyte Count 2.01 X10^3/ul (0.83-4.51); Basophil# 0.01 X10^3/uL; Basophil% 0.2 % (0-1); Eosinophil# 0.59 X10^3/uL; Eosinophils% 9.7 % (0-5); Hematocrit 38.2 % (40-54); Hemoglobin 12.8 g/dl (13.0-16.5); Lymphocyte # 2.01 X10^3/ul (4.0); Lymphocyte % 32.9 % (19-41); Mean Corp Hgb Conc 33.5 g/gl (32-36); Mean Corpuscular Hgb 31.3 pg (27.0-32.0); Mean Corpuscular Volume 93.4 fL (80-94); Mean Platelet Vol. 10.5 fl (6.2-12.0); Monocyte# 0.53 X10^3/uL; Monocyte% 8.7 % (0-10); Neutrophil # 2.96 X10^3/uL (2.7-7.7); Neutrophil % 48.3 % (47-70); Platelet Count 166 K/mm3 (150-450); RBC Distribution Width CV 12.5 % (11.6-14.6); RBC Distribution Width SD 41.9 fl (35.1-43.9); Red Blood Count 4.09 M/mm3 (4.6-6.2); White Blood Count 6.1 K/mm3 (4.4-11.0)
[2017-12-03 06:47] LABS: POSITIVE COUNT NO; POSITIVE DIFFERENTIAL NO; POSITIVE MORPHOLOGY NO
[2017-12-03 07:05] LABS: Anion Gap 10 (5-15); BUN 12 mg/dL (7-18); BUN/Creat Ratio 11.9 RATIO (10-20); Calcium,Total 8.7 mg/dL (8.5-10.1); Chloride 109 mmol/L (98-107); Cholesterol 89 mg/dL (200); Creatinine, Serum 1.01 mg/dL (0.70-1.30); EST Glomerular Filtration Rate 76 mL/min (>60); Est Glom Filt Rate - Afr Amer 92 mL/min (>60); Estimated Creatinine Clearance 62.29 ml/min; Glucose 85 mg/dL (74-106); High Density Lipoprotein 48 mg/dL; Potassium 3.9 mmol/L (3.5-5.1); Sodium Level 143 mmol/L (136-145); Triglycerides 52 mg/dL; Very Low Density Lipoprotein 10 mg/dL (5-40)
--- NOTE | 2017-12-03 07:54 | PCM.PN.HOSP ---
Subjective: Patient overnight with only complaints of discomfort to the right upper back where he has intermittent postherpetic neuralgia pain. He had no onset of any lesions but this is similar to his chronic pain he intermittently gets. Patient was evaluated by neurology the day prior and following interventions including increase of his Topamax he has had complete continued resolution of complex migraine although cannot rule out TIA thus treatments have been for both processes. Discussed patient's presentation and improvement as well as future plans at length with patient and his , now amenable to start low-dose Cymbalta which was prescribed at discharge. Patient denies fevers, chills, nausea, emesis, abdominal pain, chest pain or dyspnea. Objective: Physical Examination: General: awake, alert, improved response time, oriented x 3 this AM, improved appearance, improved from prior, seated upright in the bedside chair, NAD. Skin: normal color, turgor, no icterus, cyanosis. HEENT: AT/NC, EOMI, PERRLA, mild R facial nerve palsy, improved MMM. Lungs: CTA bilaterally, moderate effort, mild decrease BL bases, no rales, ronchi or wheezing. Heart: Regular rate and rhythm; no gallop, rub audible. Abdomen: soft, NTTP, ND, normal BS. Extremities: no cyanosis, clubbing, or edema. Neurological: awake, alert, improved response time, improved orientation; cognitive function improved, appears at baseline; pupils equally reactive to light and accomodation; cranial nerves II-XII grossly normal except mild R facial nerve palsy, moving all 4 extremities, no focal deficits, strength improved, mildly to moderately globally decreased, negative babinski, normal FTN/HTS, normalized response time, remains hard of hearing. Psychiatric: affect appears improved, normal, baseline, no acute evidence of depressive or anxiety feelings. Vitals/I&O's: Vital Signs Temp Pulse Resp BP Pulse Ox 98.4 F 70 18 109/60 97 12/03/17 07:05 12/03/17 07:05 12/03/17 07:05 12/03/17 07:05 12/03/17 07:05 Oxygen Delivery Method Room Air Weight: 158 lb 8.198 oz Body Mass Index (BMI) 20.9 Intake and Output for Last 24 Hours 12/01/17 12/02/17 12/03/17 23:59 23:59 23:59 Intake Total 360 / 360 1097 / 1097 Balance 360 / 360 1097 / 1097 Laboratory Results 12/03/17 06:15: WBC 6.1, RBC 4.09 L, Hgb 12.8 L, Hct 38.2 L, MCV 93.4, MCH 31.3, MCHC 33.5, RDW 12.5, RDW Differential 41.9, Plt Count 166, MPV 10.5, Immature Gran % (Auto) 0.200, Neut % (Auto) 48.3, Lymph % (Auto) 32.9, [place] % (Auto) 8.7, Eos % (Auto) 9.7 H, Baso % (Auto) 0.2, Absolute Neuts (auto) 3.0, Absolute Lymphs (auto) 2.01, Total Counted Not Reportable 12/03/17 06:15: Sodium 143, Potassium 3.9, Chloride 109 H, Carbon Dioxide 24.0, Anion Gap 10, BUN 12, Creatinine 1.01, Estim Creat Clear Calc 62.29, Est GFR (MDRD) Af Amer 92, Est GFR (MDRD) Non-Af 76, BUN/Creatinine Ratio 11.9, Glucose 85, Calcium 8.7, Triglycerides 52, Cholesterol 89, LDL Cholesterol 31, VLDL Cholesterol 10, HDL Cholesterol 48 Current Medications Acetaminophen (Tylenol) 650 mg PO Q4H PRN PRN PRN Reason: Headache/Temp>99F Acetaminophen (Tylenol) 650 mg RECTAL Q4H PRN PRN PRN Reason: Headache/Temp>99F Acetaminophen (Tylenol Liquid) 650 mg NG Q4H PRN PRN PRN Reason: Headache/Temp>99F Al Hydroxide/Mg Hydroxide (Mylanta Ii) 30 ml PO Q6H PRN PRN PRN Reason: Gastric burning Albuterol Sulfate (Ventolin Aerosols) 2.5 mg INHALATION Q2H PRN PRN PRN Reason: dyspnea, wheezing Aspirin (Ecotrin) 81 mg PO DAILY@0800 [facility] Atorvastatin Calcium (Lipitor) 40 mg PO QHS [facility] Last Admin: 12/02/17 21:41 Dose: 40 mg Calcium Carbonate (Tums) 750 mg PO QHS PRN PRN Reason: acid reflux Clopidogrel Bisulfate (Plavix) 75 mg PO DAILY [facility] Last Admin: 12/02/17 16:34 Dose: 75 mg Enoxaparin Sodium (Lovenox) 40 mg SC DAILY@1000 [facility] Famotidine (Pepcid) 20 mg PO BID [facility] Last Admin: 12/02/17 21:41 Dose: 20 mg Fluticasone Propionate (Flonase Nasal [place]) 2 spray NASAL DAILY [facility] Sodium Chloride () 1,000 mls @ 75 mls/hr IV .[id number] [facility] Last Admin: 12/02/17 21:44 Dose: 75 mls/hr Labetalol HCl (Trandate) 10 mg IV Q4H PRN PRN PRN Reason: SBP > 160, hold for HR < 60 Lorazepam (Ativan) 1 mg IV X1 PRN PRN Reason: seizure activity Magnesium Hydroxide (Milk Of Magnesia) 30 ml PO DAILY PRN PRN Reason: Constipation Nutritional Formula (Lactose Free) (Ensure Enlive) 120 ml PO 4X/DAY [facility] Last Admin: 12/02/17 21:41 Dose: 120 ml Ondansetron HCl (Zofran) 4 mg IV Q8H PRN PRN PRN Reason: NAUSEA Promethazine HCl (Phenergan) 12.5 mg IV Q6H PRN PRN PRN Reason: NAUSEA/VOMITING Sodium Chloride () 5 - 30 ml IV UD PRN PRN Reason: SALINE FLUSH Topiramate 100 mg/ Topiramate (50 mg) 150 mg PO BID [facility] Last Admin: 12/02/17 21:41 Dose: 150 mg Medical Necessity - Tobacco Use Smoking Status: Never smoker Tobacco Use: Non-smoker Assessment/Plan All Active Problems (Last Reviewed 06/30/17 @ 14:05 by Rayna Mera) Migraine (Acute) TIA (transient ischemic attack) (Acute) Seizure (Acute) The patient is a 77 y/o M w/ PMHx: 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, Hx R ICA stenosis > 80% s/p intervention w/ stenting and L carotid < 50%, Complex Migraine history, Partial Seizure Hx recently tapered off Keppra ~ 1 weeks prior, GERD, HTN, HLD who presents to the [facility] ED on 12/02/17 w/ history of onset at ~ 6:30 am visual changes L eye changes w/ noted ceiling fan description of his L eye vision w/ L posterior to eye pressure-like sensation headache w/ application of heating pad to his neck with improvement but on continued headache with then onset at 11 am L sided gaze deviation that he was able to overcome, L sided upper extremity paresthesias and concern for possible L sided weakness in addition as well as progression of his headache to behind both eyes, described still as pressure-like sensation, noted similar to sinus pressure he noted. (1) Transient L Sided Weakness, Paresthesias, Vision Changes concerning for TIA/CVA versus Complex Migraine versus Partial Seizure: Work-up in the ED included T 98, heart rate 74, BP initially 170/80-->122/65, respiratory rate 16, 95% on room air, unremarkable CBC, unremarkable coags, unremarkable BMP, troponin less than 0.015, CT brain with prior evidence CVA R occipital, CTA head and neck with patient R carotid stent and 50% L ICA, Chest x-ray with no acute findings, EKG w/ SR without acute evidence of ischemia. Patient was administered ativan IV x 1 in the ED. Admitted to PCU, pending MRI Brain, defer repeat ECHO w/ 06/30/17 EF 60%, stage I diastolic dysfunction, saline contrast study demonstrating trivial right to left interatrial shunt, RVSP 23 mmHg, PT/OT/Speech/Nutrition evaluation per protocol. Not on HTN regimen w/ appropriate BP, maintained on asa, transitioned to 81 mg and addrf back plavix, continuef home statin w/ AM FLP, fall precautions, mg normal, obtain mag level, TSH normal, EEG deferred per Neurology as felt more likely complex migraine. Upon initial presentation, given history inclined to initiate keppra 1,000 mg IV bolus in the ED and restart keppra 500 mg BID; however, Neurology deferred and increased patient topamax w/ more suspicion for complex migraine. PRN ativan seizure activity. 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 Patient had Right CEA attempted by Dr. 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 Jacob 08/31/2017 at [facility]. As noted maintain on reduced asa, added back plavix, continued statin w/ AM FLP, BP normal range. (3) Hx Partial Seizure: Concern initially for recurrence; however, Neurology feels likely more complex migraine and restart keppra which patient had recently tapered off ~ 1 week prior to current presentation deferred. Seizure precautions. EEG deferred per Neurology as felt more likely complex migraine. PRN ativan. (4) Hypertension: Not on regimen, BP appears at goal, monitor and add regimen if appropriate. (5) Hyperlipidemia: Continue home statin regimen. AM FLP not marked appearing. (6) GERD: Famotidine. (7) Postherpetic neuralgia: Discussed at length symptoms with family and will initiate cymbalta low dose 30 mg daily. (8) DVT Prophylaxis: SCDs, lovenox.
[2017-12-03] MEDS: Famotidine 20 MG Tablet PO (08:54)
[2017-12-03] MEDS: Clopidogrel Bisulfate 75 MG Tablet PO (08:54)
[2017-12-03] MEDS: Aspirin E.C. 81 MG Tablet PO (08:58)
[2017-12-03] MEDS: Fluticasone 0.05% 1 SPRAY NASAL.SRY 2 SPRAY NASAL (08:58)
[2017-12-03] MEDS: DULoxetine Hcl 30 MG Capsule PO (13:18)
--- NOTE | 2017-12-03 13:38 | DCINST_ITS ---
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, Hx R ICA stenosis w/ R Mild Facial Nerve Palsy (3) Hx Partial Seizure (4) Hypertension (5) Hyperlipidemia (6) GERD (7) Post-herpetic neuralgia You will use the following diet at home:: Cardiac Your food should be the consistency of: Regular Your liquids should be the consistency of: Regular/Thin Discharge Activity: Return to Normal Activity May resume sexual activity in: No Restrictions Weight Bearing Status: Weight bearing as tolerated Call your doctor if you observe: Fever of 101 or Higher, Numbness or Tingling, Inability to urinate, Inability to have a bowel movement, Shortness of breath, Dizziness, Fainting spells, Chest pain, Uncontrolled pain Instructions: What Are Migraine and Tension Headaches?, Migraines and Cluster Headaches, Self-Care for Headaches, Understanding Headache Pain, Migraine Headache: Stages and Treatment, What Is a TIA?, Discharge Instructions for Transient Ischemic Attack (TIA) Allergies/Adverse Reactions: Allergies cefdinir Adverse Reaction (Verified 06/30/17 13:56) Other lowers seizure threshold gabapentin Adverse Reaction (Verified 12/02/17 14:57) Other seasonal Allergy (Mild, Uncoded 06/30/17 13:56) Other Pt gets runny nose, sneezing, headache. Medications to take at Discharge Guar Gum [Benefiber] 1 ea PO DAILY 07/24/13 Lansoprazole [Prevacid] 30 mg PO DAILY@0600 07/24/13 Calcium Carbonate [Tums] 750 mg PO QHS PRN 05/30/17 Cyanocobalamin (Vitamin B-12) [Vitamin B-12] 1,000 mcg PO DAILY 05/30/17 Atorvastatin Calcium [Lipitor] 40 mg PO QHS 06/06/17 albuterol sulfate HFA 90 mcg/actuation aerosol inhaler 2 puff INHALATION Q6H PRN 06/30/17 cholecalciferol (vitamin D3) 2,000 unit capsule 2,000 unit PO QDAY 06/30/17 hydrocortisone acetate 25 mg rectal suppository 25 mg RC PRN PRN 06/30/17 Acetaminophen [Tylenol] 500 mg PO Q6H PRN PRN 12/02/17 Fluticasone 0.05% [Flonase Nasal [place]] 2 spray NASAL DAILY 12/02/17 Aspirin E.C. [Ecotrin] 81 mg PO DAILY@0800 #30 tab 12/03/17 Clopidogrel Bisulfate [Plavix] 75 mg PO DAILY #30 tab 12/03/17 Duloxetine Hcl [Cymbalta] 30 mg PO DAILY #30 cap 12/03/17 Topiramate [Topamax] 150 mg PO BID #60 tab 12/03/17 The following prescriptions were given: Aspirin E.C. [Ecotrin] 81 mg PO DAILY@0800 #30 tab Clopidogrel Bisulfate [Plavix] 75 mg PO DAILY #30 tab Duloxetine Hcl [Cymbalta] 30 mg PO DAILY #30 cap Topiramate [Topamax] 150 mg PO BID #60 tab Primary Care Physician: Jeremi Monk MD [Primary Care Provider] - Please follow up with your Primary Care Physician in: Follow-up within 3-5 days to review admission. Test Results: Test results from this visit will be discussed in further detail at your follow- up appointment, if applicable. Please Follow Up With: Maribeth Tirmble MD When: Follow-up within 2-4 weeks to review admission, re-assess. Proposed Discharge Date: 12/03/17
--- NOTE | 2017-12-03 16:11 | DS.PCM_ITS ---
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 ED on 12/02/17 w/ history of onset at ~ 6:30 am visual changes L eye changes w/ noted ceiling fan description of his L eye vision w/ L posterior to eye pressure-like sensation headache w/ application of heating pad to his neck with improvement but on continued headache with then onset at 11 am L sided gaze deviation that he was able to overcome, L sided upper extremity paresthesias and concern for possible L sided weakness in addition as well as progression of his headache to behind both eyes, described still as pressure-like sensation, noted similar to sinus pressure he noted. Work-up in the ED included T 98, heart rate 74, BP initially 170/80-->122/65, respiratory rate 16, 95% on room air, unremarkable CBC, unremarkable coags, unremarkable BMP, troponin less than 0.015, CT brain with prior evidence CVA R occipital, CTA head and neck with patient R carotid stent and 50% L ICA, Chest x-ray with no acute findings, EKG w/ SR without acute evidence of ischemia. Patient was administered ativan IV x 1 in the ED. Admitted to PCU, pending MRI Brain, defer repeat ECHO w/ 06/30/17 EF 60%, stage I diastolic dysfunction, saline contrast study demonstrating trivial right to left interatrial shunt, RVSP 23 mmHg, PT/OT/Speech/Nutrition evaluation per protocol. Not on HTN regimen w/ appropriate BP, maintained on asa, transitioned to 81 mg and addrf back plavix, continuef home statin w/ AM FLP, fall precautions, mg normal, obtain mag level, TSH normal, EEG deferred per Neurology as felt more likely complex migraine. Upon initial presentation, given history inclined to initiate keppra 1,000 mg IV bolus in the ED and restart keppra 500 mg BID; however, Neurology deferred and increased patient topamax w/ more suspicion for complex migraine. Patient clinically improved and had resolution of prior symptoms with no further onset. Neurology recommendation for continued 81 mg daily aspirin therapy in addition to Plavix with continued statin therapy. Upon discharge did add low-dose regimen of Cymbalta secondary to patient ongoing postherpetic neuralgia per neurology recommendation as well. She discharged to home in stable condition with recommendation for follow-up with Dr. Trimble and his PCP. Discharge Activity: Return to Normal Activity May resume sexual activity in: No Restrictions Weight Bearing Status: Weight bearing as tolerated Call your doctor if you observe: Fever of 101 or Higher, Numbness or Tingling, Inability to urinate, Inability to have a bowel movement, Shortness of breath, Dizziness, Fainting spells, Chest pain, Uncontrolled pain Home Medications: Medications to take at Discharge Guar Gum [Benefiber] 1 ea PO DAILY 07/24/13 Lansoprazole [Prevacid] 30 mg PO DAILY@0600 07/24/13 Calcium Carbonate [Tums] 750 mg PO QHS PRN 05/30/17 Cyanocobalamin (Vitamin B-12) [Vitamin B-12] 1,000 mcg PO DAILY 05/30/17 Atorvastatin Calcium [Lipitor] 40 mg PO QHS 06/06/17 albuterol sulfate HFA 90 mcg/actuation aerosol inhaler 2 puff INHALATION Q6H PRN 06/30/17 cholecalciferol (vitamin D3) 2,000 unit capsule 2,000 unit PO QDAY 06/30/17 hydrocortisone acetate 25 mg rectal suppository 25 mg RC PRN PRN 06/30/17 Acetaminophen [Tylenol] 500 mg PO Q6H PRN PRN 12/02/17 Fluticasone 0.05% [Flonase Nasal [place]] 2 spray NASAL DAILY 12/02/17 Aspirin E.C. [Ecotrin] 81 mg PO DAILY@0800 #30 tab 12/03/17 Clopidogrel Bisulfate [Plavix] 75 mg PO DAILY #30 tab 12/03/17 Duloxetine Hcl [Cymbalta] 30 mg PO DAILY #30 cap 12/03/17 Topiramate [Topamax] 150 mg PO BID #60 tab 12/03/17 Following Prescrptions Were Given to Patient: Aspirin E.C. [Ecotrin] 81 mg PO DAILY@0800 #30 tab Clopidogrel Bisulfate [Plavix] 75 mg PO DAILY #30 tab Duloxetine Hcl [Cymbalta] 30 mg PO DAILY #30 cap Topiramate [Topamax] 150 mg PO BID #60 tab Primary Care Physician: Jeremi Monk MD [Primary Care Provider] - Please follow up with your Primary Care Physician in: Follow-up within 3-5 days to review admission. Please Follow Up With: Maribeth Trimble MD When: Follow-up within 2-4 weeks to review admission, re-assess. Please Follow Up With: Jeremi Monk MD Patient Instructions: What Are Migraine and Tension Headaches?, What Is a TIA? , Migraines and Cluster Headaches, Self-Care for Headaches, Understanding Headache Pain, Migraine Headache: Stages and Treatment, Discharge Instructions for Transient Ischemic Attack (TIA) Disposition: Home Minutes spent on discharge:: 35 Patient Condition:: Fair Medical Necessity - Tobacco Use Smoking Status: Never smoker Tobacco Use: Non-smoker Meaningful Use Info Meaningful Use Diagnoses (Choose all that apply): None applicable Code Visit Inpatient E&M: 32646 Disch Hosp
== END 2017-12-03 15:23 | disposition home or self-care (01) | DRG 69 ==
LOC: ED 12:48 → PCU 14:05
PROVIDERS: Admitting Provider Family Medicine; Emergency Provider Emergency Medicine; Family Provider Family Medicine; PCP Family Medicine; Visit Provider Family Medicine
DX: G45.9 Transient cerebral ischemic attack, unspecified (principal); B02.29 Other postherpetic nervous system involvement; G43.809 Other migraine, not intractable, without status migrainosus; E78.5 Hyperlipidemia, unspecified; I10 Essential (primary) hypertension; K21.9 Gastro-esophageal reflux disease without esophagitis; I69.398 Other sequelae of cerebral infarction; G51.0 Bell's palsy; I65.22 Occlusion and stenosis of left carotid artery
CPT/HCPCS: 36415; 70450; 70496; 70498; 70551; 71045; 80048; 80061; 82962; 83735; 84443; 84484; 85025; 85610; 85730; 92523; 93005; 97162; 97165; 97802; 99285; J7030; Q9967; A4216